=== PATIENT | female | born 1935 | race Caucasian/White ===

== ENCOUNTER 2020-10-01 11:00 | Outpatient (RCR) | payer MEDICARE, SELFPAY | END 2020-10-21 09:00 | disposition home or self-care (01) | LOC: HO.PT 11:00 | PROVIDERS: Visit Provider Otolaryngology | DX: H81.10 Benign paroxysmal vertigo, unspecified ear (principal) | CPT/HCPCS: 95992; 97110; 97112; 97161 ==

== ENCOUNTER 2020-10-08 15:50 | Outpatient (REF) | payer MEDICARE, SELFPAY ==
[2020-10-13 11:06] LABS: Methylmalonic Acid 126 nmol/L (87-318)
== END 2020-10-08 15:51 | disposition home or self-care (01) ==
LOC: HO.LAB 15:50
PROVIDERS: PCP Internal Medicine; Visit Provider Internal Medicine
DX: E53.8 Deficiency of other specified B group vitamins (principal)
CPT/HCPCS: 36415; 83921

== ENCOUNTER 2020-10-21 12:48 | Outpatient (REF) | payer MEDICARE, SELFPAY ==
[2020-10-21 13:59] LABS: Blood Urea Nitrogen 19 mg/dL (9-16); Estimated Glomerular Filt Rate 58
[2020-10-22 08:27] LABS: Lyme Abs Screen <0.90 index
== END 2020-10-21 12:49 | disposition home or self-care (01) ==
LOC: HO.LAB 12:48
PROVIDERS: PCP Internal Medicine; Visit Provider Psychiatry & Neurology Neurology
DX: G62.9 Polyneuropathy, unspecified (principal); H81.10 Benign paroxysmal vertigo, unspecified ear
CPT/HCPCS: 36415; 82565; 84520; 86617; 86618

== ENCOUNTER 2020-10-29 09:29 | Outpatient (REF) | payer MEDICARE, SELFPAY ==
--- NOTE | ~2020-10-29 | CT_ITS ---
EXAMINATION: CT CHEST, ABDOMEN AND PELVIS WITH CONTRAST. CLINICAL INFORMATION: Polymyalgia rheumatica. COMPARISON: None TECHNIQUE: 5 mm thin axial and reformatted 3 mm thin sagittal and coronal images of chest and abdomen were obtained following IV 85 mL Omnipaque 350. DLP 389 FINDINGS: Chest: The lungs are well-expanded and clear of acute pneumonic process. There is minimal dependent atelectatic changes in both lung bases. Mild reticular interstitial and subpleural thickening seen in the lingular segment. The thyroid lobes are symmetrical and normal. The central trachea and bronchi are widely patent. Heart size and the great vessels are normal caliber. There is no pericardial effusion seen. No abnormal size mediastinal or hilar lymphadenopathy seen. There is no pleural effusion or calcification. There is minimal left lingular pleural thickening. The axilla and chest wall appears unremarkable. Abdomen and pelvis: The liver is homogeneous in density, normal size and contour. No focal lesion or intrahepatic ductal dilatation seen. The gallbladder is unremarkable. Visualized spleen, pancreas and bilateral adrenal glands are unremarkable. Both kidneys nephrograms are symmetrical and normal size. There is a nonobstructive 6 radiopaque calculi upper pole right kidney and a 5 minute radiopaque calculi lower pole left kidney. No right-sided radiopaque calculi seen. There is no hydronephrosis. The abdominal aorta is normal course and caliber. No retrocrural lymph nodes or mass seen. There is scattered stool and oral contrast seen throughout the colon consistent moderate constipation. The IC junction and the small bowel loops are normal caliber. Appendix is not visualized with certainty. The stomach is nondistended. The abdominal wall appears unremarkable except for a tiny umbilical hernia containing fat. Imaging to the pelvis reveals unremarkable retroverted and anteflexed uterus. The urinary bladder appears unremarkable. There are phleboliths in the pelvis. No free fluid. Bone windows reveal loss of disc height with vacuum disc phenomenon at L1-L2 disc level with mild ventral spondylosis. No lytic or sclerotic process seen. CT/CT abdomen pelvis w con IMPRESSION: Mild apical interstitial and subpleural thickening in the lingular segments with dependent atelectatic changes in both lung bases. No consolidation, pulmonary nodule or mass seen. No abnormal mediastinal adenopathy. Moderate constipation. Nonobstructive radiopaque renal calculi upper and lower pole left kidney.
[2020-10-29] MEDS: iohexoL 350 MG/ML 100 ML INFUS..BTL IV (10:48)
== END 2020-10-29 09:30 | disposition home or self-care (01) ==
LOC: HO.CT 09:29
PROVIDERS: Visit Provider Internal Medicine
DX: M35.3 Polymyalgia rheumatica (principal)
CPT/HCPCS: 71260; 74177; Q9967

== ENCOUNTER 2020-10-30 07:16 | Outpatient (REF) | payer MEDICARE, SELFPAY ==
--- NOTE | ~2020-10-30 | MR_ITS ---
MRI OF THE BRAIN WITHOUT IV CONTRAST INDICATION: Ataxia. COMPARISON: None available. TECHNIQUE: Multiplanar multisequence MR imaging of the brain was obtained without IV contrast. FINDINGS: There is no hydrocephalus, extra-axial surface collection, or herniation. There is global cerebral volume loss and there is mild chronic microangiopathy. The major flow voids at the skull base are preserved. There is no acute infarct on diffusion-weighted imaging. There is no intracranial hemorrhage on the gradient recalled echo acquisition. The midline structures are normal. The cerebellar tonsils are normally positioned. The cerebellum and brainstem are normal. The craniocervical junction is normal. Osseous marrow signal intensity is homogenous. The visualized soft tissues are unremarkable. MR/MR head/brain wo con IMPRESSION: - No acute intracranial findings. - There is global cerebral volume loss and there is mild chronic microangiopathy.
[2020-10-30 09:38] LABS: Glucose Urine UA NEG (NEG); Leukocyte Esterase Urine 2+ (NEG); Nitrite Urine NEG (NEG); Urine Blood NEG (NEG); Urine Ketones NEG (NEG); Urine Protein NEG (NEG-TRACE)
[2020-10-30 09:40] LABS: Appearance Urine CLOUDY; Color Urine YELLOW
[2020-10-30 09:50] LABS: MANUAL DIFF FLAG NO
[2020-10-30 10:01] LABS: Bacteria Urine 1+ /LPF; RBC Urine 0-2 /HPF (0); Squamous Epithelial Cell Urine 3+ /LPF
[2020-10-30 10:07] LABS: Basophils Percent Auto 0.6 % (0-2); Eosinophils Absolute Auto 0.1 X10*3/uL (0.0-0.4); Eosinophils Percent Auto 1.3 % (0-4); Hematocrit 39.5 % (37-47); Hemoglobin 13.1 g/dl (12.0-16.0); Imm Gran Abs Auto 0.02 X10*3/uL (0.00-0.03); Imm Gran Pct Auto 0.3 % (0.0-0.4); Lymphocytes Absolute Auto 1.4 X10*3/uL (1.2-4.9); Lymphocytes Percent Auto 18.8 % (20-40); Mean Corpuscular HGB Conc 33.2 g/dl (31.0-35.0); Mean Corpuscular Volume 93.6 fL (80-98); Mean Platelet Volume 10.7 fL (9.4-12.3); Monocytes Absolute Auto 0.5 X10*3/uL (0.1-1.2); Monocytes Percent Auto 7.3 % (2-11); Neutrophils Absolute Auto 5.2 X10*3/uL (2.0-8.3); Neutrophils Percent Auto 71.7 % (45-73); Platelet Count 241 X10*3/uL (160-400); Red Blood Count 4.22 X10*6/uL (4.20-5.50); Red Cell Distribution Width 12.7 % (11.0-16.0); White Blood Count 7.2 X10*3/uL (4.8-10.8)
[2020-10-30 10:12] LABS: Alanine Aminotransferase 28 U/L (0-31); Albumin Level 4.2 g/dL (3.5-5.0); Alkaline Phosphatase 78 U/L (39-117); Anion Gap 12 (12-20); Aspartate Amino Transferase 23 U/L (5-31); Bilirubin Total 0.5 mg/dL (0.0-1.0); Blood Urea Nitrogen 14 mg/dL (9-16); C Reactive Protein 0.31 mg/dL (< or = 0.50); Carbon Dioxide 25 mmol/L (22-29); Chloride 105 mmol/L (96-108); Estimated Glomerular Filt Rate 45; Glucose Random 192 mg/dL (60-115); Potassium 4.2 mmol/L (3.3-5.1); Rheumatoid Factor < 15.0 IU/mL (<15.0); Sodium 138 mmol/L (135-145); Total Protein 7.5 g/dL (6.5-8.0)
[2020-10-30 10:34] LABS: Thyroid Stimulating Hormone 1.56 uIU/mL (0.32-4.0)
[2020-10-30 10:51] LABS: Erythrocyte Sedimentation Rate 18 MM/HR (0-20)
[2020-10-31 12:16] LABS: Lyme Abs Screen <0.90 index
[2020-11-03 15:07] LABS: Vitamin D 25-OH, D2 <4 ng/mL; Vitamin D 25-OH, D3 37 ng/mL; Vitamin D 25-OH, Total 37 ng/mL (30-100)
[2020-11-04 22:57] LABS: Cyclic Citrullinated Peptide <16 UNITS
== END 2020-10-30 07:17 | disposition home or self-care (01) ==
LOC: HO.MRI 07:16
PROVIDERS: Absent Provider Student in an Organized Health Care Education/Training Program; PCP Internal Medicine; Visit Provider Psychiatry & Neurology Neurology
DX: M35.3 Polymyalgia rheumatica (principal); R27.0 Ataxia, unspecified; R53.83 Other fatigue; R53.1 Weakness; Z79.899 Other long term (current) drug therapy
CPT/HCPCS: 36415; 70551; 80053; 81001; 82306; 82550; 84443; 85025; 85652; 86140; 86200; 86431; 86617; 86618; 99202

== ENCOUNTER 2020-11-03 15:35 | Outpatient (REF) | payer MEDICARE, SELFPAY ==
[2020-11-03 17:32] LABS: Glucose Urine UA 250 MG/DL (NEG); Leukocyte Esterase Urine 1+ (NEG); Nitrite Urine NEG (NEG); PH 5.5 (5.0-8.0); Specific Gravity - Urine 1.025 (1.005-1.025); Urine Blood NEG (NEG); Urine Ketones 15 MG/DL (NEG); Urine Protein TRACE MG/DL (NEG-TRACE)
[2020-11-03 18:03] LABS: Appearance Urine HAZY; Color Urine YELLOW
[2020-11-03 18:05] LABS: Bacteria Urine 1+ /LPF; Squamous Epithelial Cell Urine 2+ /LPF
== END 2020-11-03 15:36 | disposition home or self-care (01) ==
LOC: HO.LAB 15:35
PROVIDERS: PCP Internal Medicine; Visit Provider Internal Medicine
DX: R30.0 Dysuria (principal)
CPT/HCPCS: 81001; 87086

== ENCOUNTER 2020-11-10 11:27 | Outpatient (REF) | payer MEDICARE, SELFPAY ==
--- NOTE | ~2020-11-10 | XR_ITS ---
EXAMINATION: XR ANKLE, LEFT CLINICAL INFORMATION: Pain in unspecified ankle and joints. COMPARISON: None TECHNIQUE: AP, lateral, and mortise views of the left ankle. FINDINGS: The malleoli are intact and the ankle mortise is symmetric. The ankle joint shows no narrowing or erosive change. There is no visible ankle capsular effusion. No bony destructive process. Subtalar joint not well visualized likely related to positioning. XR/XR ankle LT 2V IMPRESSION: Unremarkable left ankle.
== END 2020-11-10 11:28 | disposition home or self-care (01) ==
LOC: HO.HOSX 11:27
PROVIDERS: Visit Provider Orthopaedic Surgery
DX: M25.572 Pain in left ankle and joints of left foot (principal)
CPT/HCPCS: 73600; 99212

== ENCOUNTER → 2020-11-11 09:38 | Outpatient (BNVA) | payer MEDICARE, SELFPAY | PROVIDERS: PCP Internal Medicine; Visit Provider Student in an Organized Health Care Education/Training Program | DX: M35.3 Polymyalgia rheumatica (principal) | CPT/HCPCS: 99212 ==

== ENCOUNTER 2021-01-14 13:07 | Day surgery (SDC) | payer MEDICARE, SELFPAY ==
[2021-01-08 10:16] VITALS: BMI 22.9
[2021-01-08 11:00] VITALS: BMI 22.9
--- NOTE | 2021-01-13 09:04 | P.CONAN_ITS ---
Documented by User: Natacha Rosenberg NP 01/13/21 09:05 HPI - Anesthesia Eval Consult details Narrative: 85yo F for Upper Endoscopy and Colonoscopy Prednisone daily PMFSH Active Problems Active Problems: All Active Problems (Updated 01/08/21 @ 11:06 by Victorina Davis RN) Cerumen impaction (Acute) Polymyalgia (Acute) Ankle pain (Acute) Ankle injury (Acute) Hypothyroidism (Acute) Hypertension (Acute) Dyslipidemia (Acute) Diabetes mellitus (Acute) Past Medical History Medical History Ankle injury COVID-19 vaccine series completed Diabetes mellitus Dyslipidemia Hx of breast cancer Hypertension Hypothyroidism Myocardial infarction Polymyalgia Family History Family History Father HTN (hypertension) Mother HTN (hypertension) Diabetes Gallbladder cancer Surgical History Surgical History H/O breast surgery H/O colonoscopy Hx of appendectomy Social History Social History Are you a primary acute care physical therapist to a significant other at home: No Do you presently have visiting nurse or other home services: No Alcohol intake: never Patient Tobacco Use Status: Never used Tobacco e-Cigarette/Vaping Use: Never Used Use of substances other than those prescribed or required for medical reasons: No Have you been hit, kicked, punched, or otherwise hurt by someone within the past year? If so, by whom?: No Are you DNR?: No Advance Directives: No (states is ) Advance Directives Information Provided: No Advance Directives on File: No Recently lost weight without trying: No Eating poorly because of decreased appetite: No Nutrition Risks: Surgical patient >75years Meds Allergies Allergy/AdvReac Type Severity Reaction Status Date / Time gabapentin Allergy Severe Rash Verified 11/11/20 09:42 chloroquine [CHLOROQUINE] Allergy Mild RASH Verified 11/11/20 09:42 Home Medications Medication Instructions Recorded Confirmed Last Taken Type aspirin 81 mg tablet,delayed 81 mg PO DAILY 10/30/20 01/08/21 01/10/21 History release atorvastatin 40 mg tablet 40 mg PO DAILY 10/30/20 01/08/21 Unknown History cholecalciferol (vitamin D3) 25 25 mcg PO DAILY 10/30/20 01/08/21 Unknown History mcg (1,000 unit) capsule levothyroxine 50 mcg capsule 50 mcg PO DAILY 10/30/20 01/08/21 01/14/21 History losartan 25 mg tablet 25 mg PO DAILY 10/30/20 01/08/21 Unknown History metformin 500 mg tablet 500 mg PO BID 10/30/20 01/08/21 Unknown History pyridoxine (vitamin B6) 100 mg 100 mg PO DAILY tab 10/30/20 01/08/21 Unknown History tablet sitagliptin 50 mg tablet (Januvia) 50 mg PO DAILY 10/30/20 01/08/21 Unknown History vit C 250 mg-vit E 200 unit-zinc 1 cap PO BID cap 10/30/20 01/08/21 Unknown History ox 12.5 sb-ciydpe-rtosmv-zeax capsule (ICaps AREDS2) insulin glargine 100 unit/mL (3 10 unit SUBCUT QPM 01/08/21 01/08/21 Unknown History mL) subcutaneous pen (Lantus Solostar U-100 Insulin) prednisone 20 mg tablet 20 mg PO BID 01/08/21 01/08/21 01/14/21 History Exam Exam Date and Time: January 13, 2021 0904 Height,Weight and Vital Signs: Height 5 ft 2 in Weight 57 kg Pertinent Lab Results Pertinent Lab Results: Laboratory Tests 10/30/20 10/30/20 09:15 09:15 WBC 7.2 Hgb 13.1 Hct 39.5 Plt Count 241 Sodium 138 Potassium 4.2 Chloride 105 Carbon Dioxide 25 BUN 14 Creatinine 1.15 Assessment and Plan Assessment Anesthesia Assessment: Chart Reviewed Documented by User: Judith Harris MD 01/14/21 14:36 [facility] Past Medical History Medical History Ankle injury COVID-19 vaccine series completed Diabetes mellitus Dyslipidemia Hx of breast cancer Hypertension Hypothyroidism Myocardial infarction Polymyalgia Family History Family History Father HTN (hypertension) Mother HTN (hypertension) Diabetes Gallbladder cancer Family history of problems with anesthesia: No Surgical History Surgical History H/O breast surgery H/O colonoscopy Hx of appendectomy History of Problems with Anesthesia: No Social History Social History Are you a primary acute care physical therapist to a significant other at home: No Do you presently have visiting nurse or other home services: No Alcohol intake: never Patient Tobacco Use Status: Never used Tobacco e-Cigarette/Vaping Use: Never Used Use of substances other than those prescribed or required for medical reasons: No Have you been hit, kicked, punched, or otherwise hurt by someone within the past year? If so, by whom?: No Are you DNR?: No Advance Directives: No (states is ) Advance Directives Information Provided: No Advance Directives on File: No Recently lost weight without trying: No Eating poorly because of decreased appetite: No Nutrition Risks: Surgical patient >75years Meds Allergies Allergy/AdvReac Type Severity Reaction Status Date / Time gabapentin Allergy Severe Rash Verified 11/11/20 09:42 chloroquine [CHLOROQUINE] Allergy Mild RASH Verified 11/11/20 09:42 Home Medications Medication Instructions Recorded Confirmed Last Taken Type aspirin 81 mg tablet,delayed 81 mg PO DAILY 10/30/20 01/08/21 01/10/21 History release atorvastatin 40 mg tablet 40 mg PO DAILY 10/30/20 01/08/21 Unknown History cholecalciferol (vitamin D3) 25 25 mcg PO DAILY 10/30/20 01/08/21 Unknown History mcg (1,000 unit) capsule levothyroxine 50 mcg capsule 50 mcg PO DAILY 10/30/20 01/08/21 01/14/21 History losartan 25 mg tablet 25 mg PO DAILY 10/30/20 01/08/21 Unknown History metformin 500 mg tablet 500 mg PO BID 10/30/20 01/08/21 Unknown History pyridoxine (vitamin B6) 100 mg 100 mg PO DAILY tab 10/30/20 01/08/21 Unknown History tablet sitagliptin 50 mg tablet (Januvia) 50 mg PO DAILY 10/30/20 01/08/21 Unknown History vit C 250 mg-vit E 200 unit-zinc 1 cap PO BID cap 10/30/20 01/08/21 Unknown History ox 12.5 vb-ivnkoa-rfpxpb-zeax capsule (ICaps AREDS2) insulin glargine 100 unit/mL (3 10 unit SUBCUT QPM 01/08/21 01/08/21 Unknown History mL) subcutaneous pen (Lantus Solostar U-100 Insulin) prednisone 20 mg tablet 20 mg PO BID 01/08/21 01/08/21 01/14/21 History Exam Airway Mallampati Class: II TM Dist: >3cm Neck ROM: Limited Assessment and Plan Assessment Anesthesia Assessment: Anesthesia Plan Discussed Final Anesthetic Review Family History of Problems with Anesthesia: No History of Problems with Anesthesia: No NPO: Yes ASA Class: III Final Preanesthetic Review: No Changes in Pt Med Stat, Meds/Allgs Chart Reviewed, Consent Obtained/Reviewed and Anes Risks/Benef Reviewed Patient Risk: Intermediate Procedure Risk: Low Assessment/Block/Sedation in SS: Assess/Block/Sedation-SS Anesthetic Plan Anesthetic Plan: MAC: Disposition: Standard PACU
[2021-01-14 13:48] LABS: Glucose, Whole Blood 173 mg/dL (60-115)
[2021-01-14 14:04] VITALS: BP 125/71; PULSE 86; RESP 16; TEMP 36.3; O2SAT 99
[2021-01-14] MEDS: Lactated Ringers 1,000 ML 100 ML IVCONT (14:08)
--- NOTE | 2021-01-14 14:30 | MHC.SHP ---
Pre-Procedural Eval Section A Date of Service: 01/14/21 The patient is an INPATIENT: No Changes since office visit: No Cold of Flu in the past 2 weeks, No New Medical Problems, No Changes in Medication and No Patient answered all questions The History & Physical has been completed within 30 days and I have reviewed it.: Yes Section B Chief Complaint: epigastric pain, Allergies: Allergies Allergy/AdvReac Type Severity Reaction Status Date / Time gabapentin Allergy Severe Rash Verified 11/11/20 09:42 chloroquine [CHLOROQUINE] Allergy Mild RASH Verified 11/11/20 09:42 Plan I have reviewed the history and physical and performed a pertinent physical examination on my patient. No changes have occurred unless specified.
[2021-01-14 15:25] VITALS: BP 77/41; PULSE 78; RESP 16; TEMP 36.4; O2SAT 98
--- NOTE | 2021-01-14 15:37 | P.BOP_ITS ---
Brief Operative Note Date of Service: 01/14/21 Pre-op diagnosis: epigastric pain, change in bowels Post-op diagnosis: same Procedure: EGD/colon Surgeon: Elvin Chand Anesthesia: MAC Was an Mental Health Worker used for this Procedure?: No Estimated blood loss (mL): 2 Pathology: other (bxs antrum,duodenum,egj,sigmoid) Condition: stable Disposition: PACU
[2021-01-14 15:40] VITALS: BP 111/72; PULSE 76; RESP 17; O2SAT 99
--- NOTE | 2021-01-14 18:33 | OP_ITS ---
SURGEON: Elvin Chand MD INDICATIONS: Epigastric pain and change in bowel function. PREOPERATIVE DIAGNOSIS: POSTOPERATIVE DIAGNOSIS: PROCEDURE PERFORMED: ESTIMATED BLOOD LOSS: COMPLICATIONS: ANESTHESIA: ASSISTANTS: SPECIMENS: PROCEDURES PERFORMED: 1. Upper endoscopy with biopsy. 2. Colonoscopy to the cecum with biopsy. MEDICATIONS: Monitored anesthesia care. DESCRIPTION OF PROCEDURE: History and physical performed. The risks and benefits of the procedure were explained to the patient. Informed consent was obtained. The patient was placed in left lateral decubitus position. The Olympus video gastroscope was introduced into the esophagus, stomach, and duodenum. Examination was performed and the scope was removed. She was repositioned for colonoscopy. Digital rectal exam was performed and was found to be normal. The Olympus pediatric video colonoscope was introduced into the rectum and advanced to the cecum with the assistance of abdominal wall pressure. Examination was performed and the scope was removed. She tolerated both procedures well and was returned to recovery area in stable condition. FINDINGS: UPPER ENDOSCOPY: The arytenoid cartilages were somewhat asymmetric. No mass was identified. Esophagus: The esophagus appeared normal. Biopsies were obtained from the EG junction, which was slightly irregular. Stomach: The stomach showed no evidence of masses, ulcers, or polyps. Antral biopsies were obtained to rule out H pylori. Duodenum: The bulb and second portion were normal. Biopsies were obtained from the second portion to evaluate for any evidence of malabsorption. COLONOSCOPY: The terminal ileum was not examined. There was a large amount of mucousy tenacious stool in the right colon, which clogged the scope and could not be suctioned completely. This limited the sensitivity examination for detection of small polyps. The area was washed and suctioned as best possible. No masses were identified. No polyps were seen. The remainder of the colon appeared normal without evidence of colitis. Random biopsies were obtained from the sigmoid to rule out microscopic or collagenous colitis. Retroflexed examination showed moderately large internal hemorrhoids. IMPRESSION: 1. Normal upper endoscopy. 2. Essentially normal colonoscopy, limited exam as above. RECOMMENDATIONS: 1. Follow up the biopsy results. 2. Further colonoscopy screening is not recommended based on age. MD LINN Nelson/MADDY / [id number]
== END 2021-01-14 16:10 | disposition home or self-care (01) ==
PROVIDERS: PCP Internal Medicine; Visit Provider Internal Medicine Gastroenterology
PROC: (CPT 45380; principal; 2021-01-14 14:30)
DX: R19.8 Other specified symptoms and signs involving the digestive system and abdomen (principal); R10.13 Epigastric pain; R15.2 Fecal urgency; K64.8 Other hemorrhoids; R53.1 Weakness; I10 Essential (primary) hypertension; I25.2 Old myocardial infarction; E11.9 Type 2 diabetes mellitus without complications; M35.3 Polymyalgia rheumatica; Z79.4 Long term (current) use of insulin; Z79.899 Other long term (current) drug therapy; Z85.3 Personal history of malignant neoplasm of breast; Z92.3 Personal history of irradiation; Z88.8 Allergy status to other drugs, medicaments and biological substances
CPT/HCPCS: 45380; 43239; 82947; 88305; 88342

== ENCOUNTER 2021-07-10 13:00 | Outpatient (RCR) | payer MEDICARE, SELFPAY | END 2021-07-10 14:54 | disposition home or self-care (01) | LOC: HO.PT 13:00 | PROVIDERS: Visit Provider Internal Medicine | DX: R42 Dizziness and giddiness (principal) | CPT/HCPCS: 95992; 97112; 97162 ==

== ENCOUNTER 2021-07-22 08:58 | Emergency (ER) | payer MEDICARE, SELFPAY ==
--- NOTE | ~2021-07-22 | CT_ITS ---
EXAMINATION: CT CHEST WITHOUT CONTRAST CLINICAL INFORMATION: Fall with left-sided rib pain COMPARISON: October 29, 2020 TECHNIQUE: Multidetector volumetric CT imaging of the chest was done. Axial MIP volume rendering provided. Sagittal and coronal reformatted images were obtained. This CT examination was performed using dose optimization techniques as appropriate, variously including the following: *Automated exposure control *Adjustment of mA and/or kV according to patient size (this includes techniques or standardized protocols for targeted exams where dose is matched to indication/reason for exam; i.e. extremities or head) *Use of iterative reconstruction technique DLP: 200 mGy-cm FINDINGS: LUNGS: Central airways are patent. There are scattered nonspecific regions of interstitial disease bilaterally some of which are new from prior study of October 29, 2020 and some with the appearance of chronic interstitial disease at the lung bases bilaterally. There are mild changes of centrilobular and paraseptal emphysema. There are scattered regions of mild cylindrical bronchiectasis appreciated. No acute confluent disease is seen. Calcified granulomas present. There are numerous sub-4 mm densities seen. MEDIASTINUM: Thyroid gland unremarkable. Heart normal size. There are aortic valve and coronary artery calcifications seen. No pericardial effusion. There are prominent but not pathologically enlarged mediastinal and right hilar lymph nodes. No thoracic aortic aneurysm is appreciated. PLEURA: There is no pleural effusion. No pleural mass or thickening. AXILLA: No lymphadenopathy. There is a region of some distortion seen within the lateral aspect of the left breast. It is difficult to say whether this represents a breast lesion or postsurgical change. UPPER ABDOMEN: Calcified liver granulomas seen. No splenic laceration or abnormal subcapsular fluid collection. There are some nonocclusive left renal upper pole calculi present largest of which measures 7 mm in diameter and lies approximately 7 cm from the posterior axillary line. The Hounsfield unit density is approximately 1500 OSSEOUS STRUCTURES: No acute destructive bony lesion is seen. No acute displaced left rib fractures are appreciated. There is multilevel degenerative disc disease present within the thoracic spine with no evidence of acute thoracic spine fracture. CT/CT chest wo con IMPRESSION: No acute displaced left rib fracture identified. No evidence of splenic laceration or subcapsular fluid collection. Old granulomatous disease. Acute and chronic interstitial disease as described with changes of centrilobular and paraseptal emphysema. Question left breast lesion as described. Fleischner guidelines were followed.
[2021-07-22 09:26] VITALS: BP 131/74; PULSE 78; RESP 16; TEMP 36.2; O2SAT 100; BMI 22.4
--- NOTE | 2021-07-22 09:32 | ED_ITS ---
HPI - Fall General Chief Complaint: General Medical Stated Complaint: fall/rib pain Time Seen by Provider: 07/22/21 09:18 Source: patient and family Mode of arrival: ambulatory Limitations: no limitations History of Present Illness complaint: fall Onset (ago): day(s) (3) Fall from: standing Fall witnessed: no Place fall occurred: home Loss of consciousness: none Prolonged down time: no Symptoms prior to fall: none Context: history of frequent falls (lost her balance no preceding symptoms) Location of injury: chest (left posterior ribs) Severity: mild Quality: dull and aching Associated symptoms (after fall): other (pain in left ribs) Related Data Home Medications Medication Instructions Recorded Confirmed aspirin 81 mg tablet,delayed 81 mg PO DAILY 10/30/20 01/08/21 release atorvastatin 40 mg tablet 40 mg PO DAILY 10/30/20 01/08/21 cholecalciferol (vitamin D3) 25 25 mcg PO DAILY 10/30/20 01/08/21 mcg (1,000 unit) capsule levothyroxine 50 mcg capsule 50 mcg PO DAILY 10/30/20 01/08/21 losartan 25 mg tablet 25 mg PO DAILY 10/30/20 01/08/21 metformin 500 mg tablet 500 mg PO BID 10/30/20 01/08/21 pyridoxine (vitamin B6) 100 mg 100 mg PO DAILY tab 10/30/20 01/08/21 tablet sitagliptin 50 mg tablet (Januvia) 50 mg PO DAILY 10/30/20 01/08/21 vit C 250 mg-vit E 200 unit-zinc 1 cap PO BID cap 10/30/20 01/08/21 ox 12.5 je-zoqmeo-jmleyp-zeax capsule (ICaps AREDS2) insulin glargine 100 unit/mL (3 10 unit SUBCUT QPM 01/08/21 01/08/21 mL) subcutaneous pen (Lantus Solostar U-100 Insulin) prednisone 20 mg tablet 20 mg PO BID 01/08/21 01/08/21 Previous Rx's Medication Instructions Recorded nitrofurantoin macrocrystal 100 mg 100 mg PO Q12H #10 cap 10/30/20 capsule lidocaine 4 % topical patch 1 patch TOPICAL DAILY PRN #10 ea 07/22/21 Allergies Allergy/AdvReac Type Severity Reaction Status Date / Time gabapentin Allergy Severe Rash Verified 11/11/20 09:42 chloroquine [CHLOROQUINE] Allergy Mild RASH Verified 11/11/20 09:42 Review of Systems Review of Systems: Constitutional : No Weight loss, No Fever, No Chills ENT/Mouth : No sore throat, No Rhinorrhea Eyes: No Eye Pain, No Swelling Cardiovascular : no Chest Pain, no SOB, no Dyspnea on Exertion, No Orthopnea, No Edema, No Palpitations Respiratory : No Cough, No Sputum Gastrointestinal : no Nausea, No Vomiting, No Diarrhea, No abdominal Pain, No Hematochezia, No Melena Genitourinary : No Dysuria, No Urinary Frequency Musculoskeletal : No joint pain, No Myalgias, No Joint Swelling, pos posterior r ib pain Skin : No Skin Lesions, No rash Neuro : No Weakness, No Numbness, No Dizziness, No Headache Psych : No Anxiety/Panic, No Depression Heme/Lymph: No Bruising, No Lymphadenopathy Endocrine : No Polyuria, No Polydipsia All other systems reviewed and are negative [facility] Past Medical History Medical History Ankle injury COVID-19 vaccine series completed Diabetes mellitus Dyslipidemia Hx of breast cancer Hypertension Hypothyroidism Myocardial infarction Polymyalgia Surgical History H/O breast surgery H/O colonoscopy Hx of appendectomy Family History Family History Father HTN (hypertension) Mother HTN (hypertension) Diabetes Gallbladder cancer Social History Social History Are you a primary coronary care unit nurse to a significant other at home: No Do you presently have visiting nurse or other home services: No Alcohol intake: never Patient Tobacco Use Status: Never used Tobacco e-Cigarette/Vaping Use: Never Used Advance Directives: No Advance Directives Information Provided: No Physical Exam Vital Signs: Vital Signs: Last Vital Signs Temp 97.2 F 07/22/21 09:26 Pulse 78 07/22/21 09:26 Resp 16 07/22/21 09:26 BP 131/74 07/22/21 09:26 Pulse Ox 100 07/22/21 09:26 BMI result Body Mass Index 22.4 Appearance: Alert. Oriented X3. No acute distress. Eyes: Pupils equal, round and reactive to light. ENT: Pharynx normal. Neck: Normal inspection. Neck supple. no midline ttp CVS: Normal heart rate and rhythm. Pulses normal. Chest wall: L posterior ribs - contusion seen ttp Respiratory: No respiratory distress. Breath sounds normal. Abdomen: Soft and non-tender. Back: no midline ttp Skin: Skin warm and dry. Normal skin color. Normal skin turgor. Extremities: No lower extremity edema. No calf ttp Neuro: Oriented X 3. No motor deficit. No sensory deficit. Course Course Course Narrative: refuses pain medications go home with had normal mammogram one month ago prior lumpectomy MDM - Fall MDM Narrative Medical decision making narrative: 85 yo female from home hx of HTN, HLD, PMR not on oral anticoagulation had mechanical fall 3 days ago landing on L ribs no other injuries no head strike c/o L rib pain since then no fevers, no cough - at this time will obtain CT chest to evaluate for acute trauma/rib fractures. Discharge Plan Discharge Clinical Impression: Contusion of rib on left side Qualifiers: Encounter type: initial encounter Qualified Code(s): S20.212A - Contusion of left front wall of thorax, initial encounter Patient Disposition: Home, Self-Care Instructions: Rib Contusion (ED) Additional Instructions: return to ED for any worsening symptoms or concerns LUNGS: Central airways are patent. There are scattered nonspecific regions of interstitial disease bilaterally some of which are new from prior study of October 29, 2020 and some with the appearance of chronic interstitial disease at the lung bases bilaterally. There are mild changes of centrilobular and paraseptal emphysema. There are scattered regions of mild cylindrical bronchiectasis appreciated. No acute confluent disease is seen. Calcified granulomas present. There are numerous sub-4 mm densities seen. MEDIASTINUM: Thyroid gland unremarkable. Heart normal size. There are aortic valve and coronary artery calcifications seen. No pericardial effusion. There are prominent but not pathologically enlarged mediastinal and right hilar lymph nodes. No thoracic aortic aneurysm is appreciated.? PLEURA: There is no pleural effusion. No pleural mass or thickening.? AXILLA: No lymphadenopathy. There is a region of some distortion seen within the lateral aspect of the left breast. It is difficult to say whether this represents a breast lesion or postsurgical change. UPPER ABDOMEN: Calcified liver granulomas seen. No splenic laceration or abnormal subcapsular fluid collection. There are some nonocclusive left renal upper pole calculi present largest of which measures 7 mm in diameter and lies approximately 7 cm from the posterior axillary line. The Hounsfield unit density is approximately 1500? OSSEOUS STRUCTURES: No acute destructive bony lesion is seen. No acute displaced left rib fractures are appreciated. There is multilevel degenerative disc disease present within the thoracic spine with no evidence of acute thoracic spine fracture.? CT/CT chest wo con IMPRESSION: No acute displaced left rib fracture identified. No evidence of splenic laceration or subcapsular fluid collection. ? Old granulomatous disease. ? Acute and chronic interstitial disease as described with changes of centrilobular and paraseptal emphysema. ? Question left breast lesion as described.? Prescriptions: New lidocaine 4 % adhesive patch,medicated 1 patch topical DAILY PRN (Reason: pain) Qty: 10 0RF Rx Instructions: may leave on for up to 12 hrs No Action nitrofurantoin macrocrystal 100 mg capsule 100 mg PO Q12H Qty: 10 0RF Rx Instructions: must administer with a meal/food prednisone 20 mg Tablet 20 mg PO BID 0RF Lantus Solostar U-100 Insulin 100 unit/mL (3 mL) Insulin Pen 10 unit SUBCUT QPM 0RF metformin 500 mg tablet 500 mg PO BID 0RF Januvia 50 mg tablet 50 mg PO DAILY 0RF losartan 25 mg tablet 25 mg PO DAILY 0RF atorvastatin 40 mg tablet 40 mg PO DAILY 0RF aspirin 81 mg tablet,delayed release (DR/EC) 81 mg PO DAILY 0RF levothyroxine 50 mcg capsule 50 mcg PO DAILY 0RF ICaps AREDS2 250 mg-200 unit -12.5 mg-1 mg capsule 1 cap PO BID 0RF pyridoxine (vitamin B6) 100 mg tablet 100 mg PO DAILY 0RF cholecalciferol (vitamin D3) 25 mcg (1,000 unit) capsule 25 mcg PO DAILY 0RF Referrals: Roro Wilson MD [Primary Care Provider] - 1 day (POSSIBLE LEFT BREAST LESION) Interventions: ED Discharge Assessment Last Done: 07/22/21 11:28 Discharge Date/Time: 07/22/21 11:30
[2021-07-22] MEDS: Lidocaine 4 % Patch ADH..PATCH 1 PATCH TRANSDERMA (09:50)
== END 2021-07-22 11:30 | disposition home or self-care (01) ==
PROVIDERS: Emergency Provider Emergency Medicine; PCP Internal Medicine
DX: S20.212A Contusion of left front wall of thorax, initial encounter (principal); W01.0XXA Fall on same level from slipping, tripping and stumbling without subsequent striking against object, initial encounter; E11.9 Type 2 diabetes mellitus without complications; E78.5 Hyperlipidemia, unspecified; I10 Essential (primary) hypertension; Z91.81 History of falling; Y93.89 Activity, other specified; Y92.019 Unspecified place in single-family (private) house as the place of occurrence of the external cause; Y99.9 Unspecified external cause status; Z79.4 Long term (current) use of insulin; Z79.02 Long term (current) use of antithrombotics/antiplatelets; Z79.82 Long term (current) use of aspirin
CPT/HCPCS: 71250; 99283; 99284

== ENCOUNTER 2021-08-11 08:49 | Outpatient (REF) | payer MEDICARE, SELFPAY ==
--- NOTE | ~2021-08-11 | MM_ITS ---
EXAMINATION: BONE DENSITOMETRY CLINICAL INDICATION: Osteoporosis. COMPARISON: Previous BD dated 10/03/2016 and baseline BD dated 08/01/2007. TECHNIQUE: Using a Phonetime DXA System (software version: 13.1) manufactured by [employer], dual-energy x-ray absorptiometry was performed of the lumbar spine and left hip. The images are of good technical quality. Summary results are attached. FINDINGS: AP SPINE L1-L3 (excluding L4): The data of L1-L4 has been changed to exclude the L4 vertebral body, because degenerative sclerosis at this level may cause overestimation of lumbar spine density. Current: BMD 0.886 g/cm2, Z-score -0.2, T-score -2.4, osteopenia, 3.7% decrease from previous, 6.3% decrease from baseline (<5% change is not significant). Prior: BMD 0.920 g/cm2. Baseline: BMD 0.946 g/cm2. LEFT FEMUR, NECK: Current: BMD 0.572 g/cm2, Z-score -0.8, T-score -3.3, osteoporosis. Prior: BMD 0.693 g/cm2. Baseline: BMD 0.694 g/cm2. LEFT FEMUR, TOTAL: Current: BMD 0.667 g/cm2, Z-score -0.2, T-score -2.7, osteoporosis, 10.5% decrease from previous, 16.4% decrease from baseline (<5% change is not significant). Prior: BMD 0.745 g/cm2. Baseline: BMD 0.798 g/cm2. IDENTIFIED RISK FACTORS: Height loss, secondary osteoporosis, glucocorticoids (chronic), menopause. HISTORY OF FRACTURE: None listed. MEDICATIONS: Vitamin D. MM/XR DEXA axial skeleton IMPRESSION: 1. DIAGNOSIS: Osteoporosis based on the lowest T-score value of -3.3 in the femoral neck applying World Health Organization criteria. 2. 10-YEAR FRACTURE RISK PREDICTION, FRAX: Major osteoporotic fracture (clinical spine, forearm, hip or shoulder) 36.8%. Hip fracture 18.8%. 3. Treatment Recommendations: NOF guidelines recommend consideration for treatment in postmenopausal women and men age 50 and older presenting with the following: -A hip or vertebral (clinical or morphometric) fracture. -T-score less than or equal to -2.5 at the femoral neck or spine after appropriate evaluation to exclude secondary causes. -Low bone mass at the hip or spine and a 10-year fracture probability by FRAX of greater than or equal to 3% for hip fracture or greater than or equal to 20% for major osteoporotic fracture based on the [place] adapted WHO algorithm. 4. Other Recommendations: All treatment decisions require clinical judgment and consideration of individual patient factors, including patient preferences, comorbidities, previous drug use, risk factors not captured in the FRAX model (e.g. frailty, falls, vitamin D deficiency, increased bone turnover, interval significant decline in bone density) and possible under or overestimation of fracture risk by FRAX. Additional medical evaluation for secondary cause of low bone mineral density may be appropriate. FUTURE SCAN RECOMMENDATION: People with diagnosed cases of osteoporosis or at high risk for fracture should have regular bone mineral density tests. For patients eligible for Medicare, routine testing is allowed once every 2 years. The testing frequency can be increased to one year for patients who have rapidly progressing disease, those who are receiving or discontinuing medical therapy to restore bone mass, or have additional risk factors.
== END 2021-08-11 08:50 | disposition home or self-care (01) ==
LOC: HO.MAMMO 08:49
PROVIDERS: Visit Provider Internal Medicine Endocrinology, Diabetes & Metabolism
DX: Z13.820 Encounter for screening for osteoporosis (principal); M81.0 Age-related osteoporosis without current pathological fracture; Z78.0 Asymptomatic menopausal state; E27.49 Other adrenocortical insufficiency; Z79.899 Other long term (current) drug therapy
CPT/HCPCS: 77080

== ENCOUNTER 2021-11-25 07:57 | Outpatient (REF) | payer MEDICARE, SELFPAY ==
--- NOTE | ~2021-11-25 | XR_ITS ---
EXAMINATION: XR HAND, LEFT CLINICAL INFORMATION: Pain COMPARISON: Previous x-ray July 2014 TECHNIQUE: PA, lateral, and oblique views of the left hand. FINDINGS: Bone alignment is normal. No fracture or dislocation is seen. There is severe arthritis at the first [facility] joint. There is mild joint space narrowing at the DIP joints. Soft tissues are unremarkable. 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
== END 2021-11-25 07:58 | disposition home or self-care (01) ==
LOC: HO.HOSX 07:57
PROVIDERS: Visit Provider Orthopaedic Surgery
DX: M65.312 Trigger thumb, left thumb (principal); M18.12 Unilateral primary osteoarthritis of first carpometacarpal joint, left hand
CPT/HCPCS: 20550; 73130; 99202; J1100

== ENCOUNTER → 2022-01-19 10:36 | Outpatient (BNVA) | payer MEDICARE, SELFPAY | PROVIDERS: PCP Internal Medicine; Visit Provider Orthopaedic Surgery | DX: M18.12 Unilateral primary osteoarthritis of first carpometacarpal joint, left hand (principal); M65.312 Trigger thumb, left thumb | CPT/HCPCS: 20550; 99212; J1100 ==

== ENCOUNTER 2022-02-22 07:47 | Day surgery (SDC) | payer MEDICARE, SELFPAY ==
[2022-02-16 14:53] VITALS: BMI 22.4
[2022-02-22 08:29] VITALS: BP 127/58; PULSE 78; RESP 18; TEMP 36.6; O2SAT 99
--- NOTE | 2022-02-22 10:36 | MHC.SHP ---
Pre-Procedural Eval Section A Date of Service: 02/22/22 The patient is an INPATIENT: No Changes since office visit: No Cold of Flu in the past 2 weeks, No New Medical Problems, No Changes in Medication and No Patient answered all questions The History & Physical has been completed within 30 days and I have reviewed it.: Yes Section B Chief Complaint: Trigger thumb, left thumb Allergies: Allergies Allergy/AdvReac Type Severity Reaction Status Date / Time gabapentin Allergy Severe Rash Verified 02/22/22 08:30 chloroquine [CHLOROQUINE] Allergy Mild RASH Verified 02/22/22 08:30 Exam Exam Comment: visible locking and catching of the right thumb with tenderness over the right thumb A1 tenisha. Plan Diagnosis/Plan: Change I have reviewed the history and physical and performed a pertinent physical examination on my patient. No changes have occurred unless specified. The patient had been scheduled for a left trigger thumb but expresses that her left trigger thumb has improved following a steroid injection. She says that her right thumb is bothering her much more and she would like to proceed instead with the right trigger thumb release. Indeed she has locking and catching that is visible palpable in the right thumb and she has tenderness over the right thumb A1 tenisha. I have made an addendum to her most recent clinic note, and we have changed the consent to reflect that we are proceeding with a right trigger thumb release.
--- NOTE | 2022-02-22 10:38 | P.OP_ITS ---
Operative Note Operative Note Date of Service: 02/22/22 Narrative: Operative Note Preop diagnosis: 1. Right thumb Trigger finger Postop diagnosis: 1. right thumb Trigger finger Procedure: 1. right thumb A1 tenisha release Surgeon: Swathi Cheek MD Anesthesia: local block using 1% lidocaine with epinephrine Findings: No locking or catching after A1 tenisha release EBL: Less than 5 mL Tourniquet time: None Specimens: None Complications: None Disposition: Brought to recovery room in stable condition Plan: Follow-up for 10-14 days for wound check and suture removal Indications: The patient is 86 years old, with a right thumb trigger finger that has been unresponsive to nonoperative management. The risks and benefits of operative treatment including but not limited to risk of damage to blood vessels, nerves, tendons, infection, persistent pain, persistent symptoms, recurrence or possible need for additional surgery were discussed with the patient and the patient wishes to proceed with surgery. Procedure: Once consent was obtained a local block was performed in the preop area using a combination of 1% lidocaine with epinephrine. The patient was then brought back to the operating suite and placed on the operative table in supine position. A tourniquet was applied to the proximal aspect of the right upper extremity and the limb was prepped and draped in a standard surgical fashion. Once assured that we had a good block, a 1.5 cm oblique incision was made centered over the A1 tenisha of the right thumb . The incision was made through the skin to the subcutaneous tissues using a #15 blade. Careful dissection was made down to the level of the A1 tenisha using tenotomy scissors, with care being taken to protect the nearby neurovascular structures. A longitudinal incision was made in the A1 tenisha 1st using a #15 blade, then using tenotomy scissors under direct visualization. The A1 tenisha was noted to be thickened. Following our A1 tenisha release, we no longer saw any locking or catching of the digit wi th flexion and extension. Once satisfied with our A1 tenisha release the wound was copiously irrigated with normal saline and hemostasis was obtained with a brief period of local pressure. The skin edges were reapproximated with some 5.0 nylon suture material and a sterile dressing was applied. The patient appears to have tolerated the procedure well and with no complications. All digits were well vascularized at the conclusion of the case.
--- NOTE | 2022-02-22 10:45 | PC.NURSE ---
Dr. bang saw patient at bedside and patient stated that left thumb is mobile and has no pain. Patient complained of right thumb and dr. bang agreed to do the surgery on the right today instead of the left. all paperwork, orders and consent reflect this change. all printed and in chart. patient agrees on change to right thumb today.
[2022-02-22 11:56] VITALS: BP 121/61; PULSE 73; RESP 16; O2SAT 100
== END 2022-02-22 11:57 | disposition home or self-care (01) ==
PROVIDERS: PCP Internal Medicine; Visit Provider Orthopaedic Surgery
PROC: (CPT 26055; principal; 2022-02-22 09:40)
DX: M65.312 Trigger thumb, left thumb (principal); M18.12 Unilateral primary osteoarthritis of first carpometacarpal joint, left hand; M35.3 Polymyalgia rheumatica; E11.9 Type 2 diabetes mellitus without complications; E78.5 Hyperlipidemia, unspecified; E03.9 Hypothyroidism, unspecified; I10 Essential (primary) hypertension; Z79.82 Long term (current) use of aspirin; Z79.84 Long term (current) use of oral hypoglycemic drugs; Z79.899 Other long term (current) drug therapy; I25.2 Old myocardial infarction; Z88.8 Allergy status to other drugs, medicaments and biological substances; Z85.3 Personal history of malignant neoplasm of breast
CPT/HCPCS: 26055; J0171; J2795

== ENCOUNTER → 2022-03-09 11:19 | Outpatient (BNVA) | payer MEDICARE, SELFPAY | PROVIDERS: PCP Internal Medicine; Visit Provider Orthopaedic Surgery | DX: Z47.89 Encounter for other orthopedic aftercare (principal); M18.12 Unilateral primary osteoarthritis of first carpometacarpal joint, left hand; Z98.890 Other specified postprocedural states | CPT/HCPCS: 99212 ==

== ENCOUNTER 2023-01-06 13:34 | Outpatient (AMB) | payer MEDICARE, SELFPAY ==
--- NOTE | 2023-01-06 13:51 | MHC.OFFVIS ---
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 States her neuropathy is very bad and she is afraid of falling, pt uses cane to ambulate. 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 She reports that she has numbness and tingling of bilateral feet. They are constant source of pain. She denies any association with ambulation. She reports that at time she can walk over half a mi with no issues. She says it has progressively getting worse and it is affecting her daily lifestyle. She now presents to us for vascular evaluation. Of note she is a nonsmoker. She has been a diabetic for nearly 10 years but reports that it is fairly well controlled. In addition she has a history of coronary artery disease with prior history of PA. She also reports that she has had nearly a 25 lb weight loss as she does not enjoy eating anymore. She also admits to use of CBD gummies to help her relax as well. was present at time of visit [facility] Medical History Ankle injury COVID-19 vaccine series completed Diabetes mellitus Dyslipidemia Hx of breast cancer Hypertension Hypothyroidism Myocardial infarction Polymyalgia Surgical History H/O breast surgery H/O colonoscopy History of esophagogastroduodenoscopy (EGD) Hx of appendectomy Family History Father HTN (hypertension) Mother HTN (hypertension) Diabetes Gallbladder cancer Social History Are you a primary palliative care nurse to a significant other at home: No Do you presently have visiting nurse or other home services: No Alcohol intake: never Patient Tobacco Use Status: Never used Tobacco e-Cigarette/Vaping Use: Never Used Current occupational status: employed 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 Review of Systems Const All systems reviewed & are unremarkable except as noted in HPI and below Reports no additional complaints ENT Reports Normal hearing present Card Denies chest pain, Denies chest pain at rest, Denies chest pain with activity and Denies pedal edema Resp Denies cough GI Denies abdominal pain Musc Denies abnormal gait, Denies muscle cramps and Denies radiating pain into limb Skin/Breast Denies skin ulcer and Denies wounds Neuro Reports Normal hearing present and Denies abnormal gait Psych Reports no additional complaints Physical Exam Vital Signs: BMI result Body Mass Index 21.9 Const General: cooperative, healthy appearing and comfortable Orientation/consciousness: oriented to person, oriented to place and oriented to time HEENT Head: Yes normal to inspection Neck Neck: Yes normal visual inspection Carotids: no bruits Chest Chest palpation & inspection: normal inspection of the chest Resp Effort & Inspection: normal respiratory effort and able to speak in complete sentences Auscultation: clear to auscultation bilaterally, no crackles, no rales, no rhonchi and no wheezes Cardio Other: Bounding palpable DP and PT pulses Rate: regular rate Rhythm: regular rhythm Heart sounds: S1 normal heart sound present and S2 normal heart sound present Bruits: no carotid bruits Peripheral pulses: Peripheral pulses 2+ throughout GI Inspection: Yes normal to inspection Skin Other: +1 to +2 edema, bilateral medial calf skin discoloration Wounds: no wounds Hair: normal Neuro General: oriented to person, oriented to place and oriented to time Cranial nerves: Yes CN's II-XII intact bilaterally and Yes Normal hearing present Cognition (Neuro): normal cognition Motor exam (neuro): 5/5 motor strength present throughout Extrem Other: venous exam: No significant superficial varicosities or spider telangiectasias, minimal edema General: No clubbing, No cyanosis and No edema Psych Appearance: grossly normal Mental Status: mental status grossly normal Speech and movement: Normal speech and movement present Assessment & Plan Assessment & Plan (1) Varicose veins of right lower extremity with inflammation: Code(s): I83.11 - Varicose veins of right lower extremity with inflammation Plan: She does have the stigmata of venous disease inclusive of discoloration of the medial aspects of her legs along with the edema. I did discuss these findings with the patient and her . I will work her up for venous disease. I did inform them that this may help with the overall edema and discomfort but will not resolve the pain that she is having in her feet. (2) Leg pain: Code(s): M79.606 - Pain in leg, unspecified Plan: Unclear etiology of lower extremity pain. It is not vascular in nature as she does have bounding palpable DP and PT pulses. At the time of my exam she was complaining of feet pain along with active restless leg syndrome which I visualized. I do feel this may be more neurogenic in nature. She did have a prior neurology visit which was only 1 time and she subsequently did not follow-up. I did reiterate that she would benefit from a neurology evaluation which they report has already been set up by the primary care team. They are waiting for a call back. Once again I do not believe that the majority of her issues are vascular in nature. I did discuss this in detail with them. We will treat her for venous disease. She will follow up with us after testing. Thank you for allowing us to assist in her care. If there are any questions or concerns please do not hesitate to contact us. Orders: Orders US venous duplex LE BI 1 Week I83.11 - Varicose veins of right lower extremity with inflammation Coding Level of Care Code New Pt Level 4 (10483) Diagnoses Varicose veins of right lower extremity with inflammation I83.11 Leg pain M79.606
[2023-01-06 13:54] VITALS: BMI 21.9
== END 2023-01-06 14:43 | disposition home or self-care (01) ==
PROVIDERS: PCP Internal Medicine; Visit Provider Surgery Vascular Surgery
DX: I83.11 Varicose veins of right lower extremity with inflammation (principal); M79.605 Pain in left leg; M79.604 Pain in right leg
CPT/HCPCS: 99204

== ENCOUNTER → 2023-01-06 13:34 | Outpatient (BNVA) | payer MEDICARE, SELFPAY | PROVIDERS: PCP Internal Medicine; Visit Provider Surgery Vascular Surgery | DX: I83.11 Varicose veins of right lower extremity with inflammation (principal); M79.606 Pain in leg, unspecified | CPT/HCPCS: 99202 ==

== ENCOUNTER 2023-01-11 12:55 | Outpatient (REF) | payer MEDICARE, SELFPAY ==
--- NOTE | ~2023-01-11 | US_ITS ---
EXAMINATION: US LOWER EXTREMITY VENOUS (REFLUX EXAM), BILATERAL CLINICAL INFORMATION: Chronic venous insufficiency with lower extremity varicose veins and inflammation COMPARISON: 11/17/2009 TECHNIQUE: Color flow triplex imaging and compression Doppler was performed to evaluate both the deep and the superficial systems bilaterally. To evaluate the superficial system, the examination was performed in the upright position. Color-flow Doppler ultrasound and compression ultrasound were utilized. In addition, maneuvers were utilized to demonstrate reflux. FINDINGS: 1. DEEP VENOUS ULTRASOUND OF THE RIGHT LOWER EXTREMITY: Common Femoral Vein: Compressible, normal respiratory variation and augmented flow. Femoral Vein: Compressible, normal color flow and augmentation. Popliteal Vein: Compressible, normal augmentation. Deep Reflux: There is no evidence of reflux in the deep system in either the common femoral vein or the popliteal vein. There is no evidence of a Jewell's cyst. 2. SUPERFICIAL ULTRASOUND WITH DOPPLER OF RIGHT LOWER EXTREMITY: GREAT SAPHENOUS VEIN: Saphenofemoral Junction: 0.7 cm; Reflux: 0 ms Proximal Thigh: 0.2 cm; Reflux: 0 ms Mid Thigh: 0.2 cm; Reflux: 0 ms Above Knee: 0.3 cm; Reflux: 0 ms At Knee: 0.4 cm; Reflux: 0 ms Below Knee: 0.3 cm; Reflux: 0 ms Mid Calf: 0.3 cm; Reflux: 1652 ms Ankle: 0.3 cm; Reflux: 0 ms DUPLICATED MEDIAL GREAT SAPHENOUS VEIN: Diameter: None imaged Reflux: NA DUPLICATED LATERAL GREAT SAPHENOUS VEIN: Diameter: 0.2 cm Reflux: None SMALL SAPHENOUS VEIN: Proximal: 0.1 cm; Reflux: 0 ms Distal: 0.2 cm; Reflux: 0 ms VEIN OF GIACOMINI: Size: NA Reflux: NA PERFORATORS: Location: None imaged Size: NA Reflux: NA VARICOSITIES: Location: None imaged Size: NA Reflux: NA 3. DEEP VENOUS ULTRASOUND OF THE LEFT LOWER EXTREMITY: Common Femoral Vein: Compressible, normal respiratory variation and augmented flow. Femoral Vein: Compressible, normal color flow and augmentation. Popliteal Vein: Compressible, normal augmentation. Deep Reflux: There is no evidence of reflux in the deep system in either the common femoral vein or the popliteal vein. There is no evidence of a Jewell's cyst. 4. SUPERFICIAL ULTRASOUND WITH DOPPLER OF LEFT LOWER EXTREMITY: GREAT SAPHENOUS VEIN: Saphenofemoral Junction: 0.8 cm; Reflux: 0 ms Proximal Thigh: 0.4 cm; Reflux: 0 ms Mid Thigh: 0.2 cm; Reflux: 0 ms Above Knee: 0.2 cm; Reflux: 0 ms At Knee: 0.2 cm; Reflux: 0 ms Below Knee: 0.2 cm; Reflux: 0 ms Mid Calf: 0.1 cm; Reflux: 0 ms Ankle: 0.2 cm; Reflux: 0 ms DUPLICATED MEDIAL GREAT SAPHENOUS VEIN: Diameter: None imaged Reflux: NA DUPLICATED LATERAL GREAT SAPHENOUS VEIN: Diameter: 0.3 cm Reflux: None SMALL SAPHENOUS VEIN: Proximal: 0.2 cm; Reflux: 0 ms Distal: 0.2 cm; Reflux: 0 ms VEIN OF GIACOMINI: Size: NA Reflux: NA PERFORATORS: Location: None imaged Size: NA Reflux: NA VARICOSITIES: Location: None Imaged Size: NA Reflux: NA US/US venous duplex LE BI IMPRESSION: Right: Focal segmental reflux in the mid the calf great saphenous. Normal examination otherwise Left: No significant reflux in the great saphenous vein or small saphenous
== END 2023-01-11 12:56 | disposition home or self-care (01) ==
LOC: HO.US 12:55
PROVIDERS: PCP Internal Medicine; Visit Provider Surgery Vascular Surgery
DX: I83.11 Varicose veins of right lower extremity with inflammation (principal)
CPT/HCPCS: 93970

== ENCOUNTER 2023-01-20 19:38 | Emergency (ER) | payer MEDICARE, SELFPAY ==
[2023-01-20] VITALS (7 sets, daily range): BP systolic 149–192; BP diastolic 65–81; PULSE 70–86; RESP 16–19; TEMP 36.7–36.9; O2SAT 96–97; BMI 22.5
--- NOTE | ~2023-01-20 | CT_ITS ---
EXAMINATION: CT HEAD WITHOUT CONTRAST CT CERVICAL SPINE WITHOUT CONTRAST CLINICAL INFORMATION: Dizziness. Posterior cervical spine pain. COMPARISON: Most recent MR brain dated 10/30/[address] head/cervical spine dated 12/30/2018. TECHNIQUE: Contiguous axial imaging was performed from the skull base to vertex without intravenous administration of contrast. Contiguous axial CT images of the cervical spine were obtained without contrast. Sagittal and coronal reformats were provided and reviewed. This CT examination was performed using dose optimization techniques as appropriate, variously including the following: *Automated exposure control. *Adjustment of mA and/or kV according to patient size (this includes techniques or standardized protocols for targeted exams where dose is matched to indication/reason for exam; i.e. extremities or head). *Use of iterative reconstruction technique. DLP: 944 mGy-cm. FINDINGS: HEAD: There is no evidence of acute intracranial hemorrhage or territorial infarction. No abnormal mass effect or midline shift is seen. Flor to white matter differentiation is well preserved. No extra-axial fluid collections are identified. Prominence of the ventricles and sulci, consistent with diffuse cerebral atrophy. Hypoattenuation of the periventricular white matter, consistent with chronic microvascular ischemic disease. The osseous structures and soft tissues are normal. The mastoid air cells and visualized portions of the paranasal sinuses are well aerated. CERVICAL SPINE: Normal vertebral body alignment. The normal cervical lordosis is maintained. No acute fracture or subluxation. No loss of vertebral body height. Multilevel loss of intervertebral disc height with degenerative endplate changes, most severe at C6-C7. Unremarkable facet joints. No lytic or blastic osseous lesion. Unremarkable prevertebral soft tissues. No abnormal soft tissue mass or fluid collection. Thyroid within normal limits. Visualized lung apices are clear. Multilevel bilateral neural foraminal stenosis, severe at C6-C7. CT/CT cervical spine wo IV con IMPRESSION: 1. HEAD: No acute intracranial hemorrhage or mass effect. Diffuse cerebral atrophy and chronic microvascular ischemic disease. 2. CERVICAL SPINE: No acute fracture or subluxation. Multilevel degenerative disc disease with bilateral neural foraminal stenosis, most severe at C6-C7.
--- NOTE | 2023-01-20 19:51 | ECG_ITS ---
Test Reason : DIZZINESS Blood Pressure : / mmHG Vent. Rate : 084 BPM Atrial Rate : 084 BPM P-R Int : 158 ms QRS Dur : 070 ms QT Int : 390 ms P-R-T Axes : 044 -04 021 degrees QTc Int : 460 ms Normal sinus rhythm Normal ECG When compared with ECG of 30-APR-2018 14:19, Heart rate has decreased Referred By: Julio Osborne Electronically Signed By:GUTIERREZ MACK
--- NOTE | 2023-01-20 19:52 | ED_ITS ---
HPI - General Adult General Chief complaint: Dizziness Stated complaint: dizziness Time Seen by Provider: 01/20/23 20:04 Source: patient Mode of arrival: ambulatory Limitations: no limitations History of Present Illness HPI narrative: patient is an 87-year-old female presents emergency department for evaluation of dizziness. It is described as a spinning sensation, made worse if she is bending forward, and feels as though she is going to fall. Position changing of her head makes her symptoms worse. She is also endorsing mild neck pain most notable with movement. Denies neck stiffness. Denies headache, vision changes, fevers, chills, chest pain, shortness of breath, difficulty breathing, numbness or tingling of the extremities. She denies any recent injury or trauma. Her symptoms started at 13:00 today, severe in onset, intermittent tinnitus of the right ear Related Data Home Medications Medication Instructions Recorded Confirmed atorvastatin 40 mg tablet 40 mg PO DAILY 10/30/20 02/22/22 cholecalciferol (vitamin D3) 25 25 mcg PO DAILY 10/30/20 02/22/22 mcg (1,000 unit) capsule levothyroxine 50 mcg capsule 50 mcg PO DAILY 10/30/20 02/22/22 losartan 25 mg tablet 25 mg PO DAILY 10/30/20 02/22/22 metformin 500 mg tablet 500 mg PO BID 10/30/20 02/22/22 sitagliptin phosphate 50 mg tablet 50 mg PO DAILY 10/30/20 02/22/22 (Januvia) vit C 250 mg-vit E 200 unit-zinc 1 cap PO BID 10/30/20 02/22/22 ox 12.5 [id number] capsule (ICaps AREDS2) pregabalin 25 mg capsule (Lyrica) 25 mg PO DAILY 01/06/23 Allergies Allergy/AdvReac Type Severity Reaction Status Date / Time gabapentin Allergy Severe Rash Verified 01/06/23 14:02 chloroquine [CHLOROQUINE] Allergy Mild RASH Verified 01/06/23 14:02 Review of Systems Review of Systems: Yes all other systems are reviewed and are negative [facility] Past Medical History Attestation statement: The following information was validated with the patient. Source: old records reviewed Medical History Ankle injury COVID-19 vaccine series completed Diabetes mellitus Dyslipidemia Hx of breast cancer Hypertension Hypothyroidism Myocardial infarction Polymyalgia Vertigo Surgical History H/O breast surgery H/O colonoscopy History of esophagogastroduodenoscopy (EGD) Hx of appendectomy Family History Family History Father HTN (hypertension) Mother HTN (hypertension) Diabetes Gallbladder cancer Social History Social History Are you a primary manager intensive care to a significant other at home: No Do you presently have visiting nurse or other home services: No Alcohol intake: never Patient Tobacco Use Status: Never used Tobacco e-Cigarette/Vaping Use: Never Used Substance Use Type: Other Current occupational status: employed 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 Physical Exam ED Vital Signs: Vital Signs - 24 hr 01/20/23 19:42 01/20/23 20:30 01/20/23 21:26 Temperature 98.2 F 98.1 F Pulse Rate 86 73 71 Respiratory Rate 18 16 Blood Pressure 192/81 H 159/74 H 164/65 H Pulse Oximetry 96 97 Oxygen Delivery Method Room Air Room Air 01/20/23 21:28 01/20/23 21:29 01/20/23 22:27 Temperature 98.4 F Pulse Rate 70 85 70 Respiratory Rate 16 Blood Pressure 166/76 H 159/72 H Pulse Oximetry 97 Oxygen Delivery Method Room Air 01/20/23 23:38 Temperature Pulse Rate 75 Respiratory Rate 19 Blood Pressure 149/69 H Pulse Oximetry 97 Oxygen Delivery Method BMI result Body Mass Index 22.5 Appearance: Alert.?Oriented to person, place and time. No acute distress.?Normal affect. Eyes: Pupils equal, round and reactive to light.? ENT: Pharynx normal.?? Neck: Normal inspection.? Neck supple.?? CVS: Heart sounds normal. Normal heart rate and rhythm.? Pulses normal.?? Respiratory: No respiratory distress.? Lung sounds clear to auscultation bilaterally?? Abdomen: Soft and non-tender. Normoactive bowel sounds. Skin: Skin warm and dry.? Normal skin color.? ? Extremities: No lower extremity edema.? No calf ttp? Neuro: No focal neurological deficit observed, CN II-XII intact, normal sensory observed, normal coordination observed. Level of consciousness: Appropriate for age. Motor strength: Proximal right upper extremity 5 /5, distal right upper extremity 5 /5, proximal left upper extremity 5 /5, distal left upper extremity 5 /5, right lower extremity 5 /5, left lower extremity 5 /5.? Speech: Normal, Gait: Normal, [id number] test: Normal, [id number] test: Normal. Course Course Course Narrative: RME: 87 yold female presents to the ED for dizziness describes as she is spinning. Patient also states posterior neck slight painful. patinet states no recent trauma or fever. patient states she she changes position of her head she feels like she is about to fall. labs, EKG, head CT, and cervical spine CT scan ordered. Reevaluation(s) Reevaluation #1: CBC reveals no leukocytosis, mild normocytic anemia not meeting any transfusion criteria. CMP is overall unremarkable. Troponin <2.7, EKG revealing normal sinus rhythm with ventricular rate of 84, normal TN interval, QTC 460, no ST elevation, no ST depression, no T-wave inversion, no apparent arrhythmia, unlikely ACS. Time: 21:15 Reevaluation #2: Patient declining meclizine at this time, expressing concern about medication interactions. I did review her medications with her, and potential interactions with Lyrica, she declines at this time and would like to follow-up with her primary care provider which is reasonable. She is ambulatory with steady gait. Cerebellar function testing was normal, based on history and physical examination seems more consistent with BPPV versus vasovagal episode as opposed to cerebellar stroke. CT of the head without acute intracranial process, CT of the cervical spine with multilevel degenerative disc disease and bilateral neural foraminal stenosis most severe at C6-C7 Time: 22:52 Medications Administered Discontinued Medications Generic Name Dose Route Start Last Admin Trade Name Freq PRN Reason Stop Dose Admin Meclizine HCl 25 mg 01/20/23 22:44 01/20/23 22:51 Meclizine Hcl 25 Mg Tablet PO 01/20/23 22:45 Not Given ONCE ONE Medical Decision Making Medical Decision Making MDM Narrative: Patient is an 87-year-old female with past medical history of polymyalgia, hypothyroidism, hypertension, dyslipidemia, diabetes who presents emergency department for evaluation of dizziness as per HPI. At the time of my examination she is overall well-appearing, nontoxic, afebrile. She has no focal neurological deficits, no meningismus. Will obtain CBC to evaluate for leukocytosis/ anemia, CMP and lipase to evaluate for abnormal electrolytes /abnormal renal function/ abnormal hepatic/biliary function, EKG and troponin to evaluate for ischemia/ACS. CT of head and cervical spine, orthostatic vital signs and Urinalysis. Differential Diagnosis Differential Diagnoses: The differential diagnosis associated with the presentation includes (Orthostatic hypotension, vasovagal near-syncope, intracranial mass, ICH, arrhythmia, ACS) Admission/Observation Consideration of admission/observation: Escalation of care including admission/observation considered (I considered admission for dizziness, see course narrative for further detail) Lab Data MDM Lab Attestation statement: I reviewed the patient's lab results. (See course narrative for further detail) 01/20/23 20:25 01/20/23 20:25 Labs: Lab Results 01/20/23 01/20/23 01/20/23 Range/Units 20:25 20:25 20:25 WBC 6.8 (4.8-10.8) X10*3/uL RBC 3.77 L (4.20-5.50) X10*6/uL Hgb 11.9 L (12.0-16.0) g/dl Hct 35.6 L (37.0-47.0) % MCV 94.4 (80.0-98.0) fL MCH 31.6 (27.0-33.0) pg MCHC 33.4 (31.0-35.0) g/dl RDW 13.5 (11.0-16.0) % Plt Count 182 (160-400) X10*3/uL MPV 11.2 (9.4-12.3) fL Immature Gran % (Auto) 0.3 (0.0-0.4) % Neut % (Auto) 55.3 (45-73) % Lymph % (Auto) 33.9 (20-40) % [place] % (Auto) 9.2 (2-11) % Eos % (Auto) 0.9 (0-4) % Baso % (Auto) 0.4 (0-2) % Lymph # (Auto) 2.3 (1.2-4.9) X10*3/uL [place] # (Auto) 0.6 (0.1-1.2) X10*3/uL Eos # (Auto) 0.1 (0.0-0.4) X10*3/uL Baso # (Auto) 0.0 (0.0-0.2) X10*3/uL Abs Immat Gran (auto) 0.02 (0.00-0.03) X10*3/uL Absolute Neuts (auto) 3.8 (2.0-8.3) x10*3/uL Absolute Nucleated RBC 0.000 (0.0-0.012) X10*3/uL Nucleated RBC % (auto) 0.0 (0.0-0.2) /100WBC PT 12.3 (11.1-13.3) SEC INR 1.0 (0.9-1.1) APTT 28.4 (26.0-36.4) SEC Sodium 138 (135-145) mmol/L Potassium 4.2 (3.3-5.1) mmol/L Chloride 104 (96-108) mmol/L Carbon Dioxide 23 (22-29) mmol/L Anion Gap 15 (12-20) BUN 22 H (9-16) mg/dL Creatinine 0.92 (0.5-1.4) mg/dL Estim Creat Clear Calc 34.7 Estimated GFR 58 Random Glucose 127 H (60-115) mg/dL Calcium 10.6 H (8.4-10.2) mg/dL Magnesium 2.2 (1.6-2.6) mg/dL Total Bilirubin 0.4 (0.0-1.0) mg/dL AST 24 (5-31) U/L ALT 18 (0-31) U/L Alkaline Phosphatase 60 (39-117) U/L Troponin I High Sens (<3.5-17.0) ng/L Total Protein 7.7 (6.5-8.0) g/dL Albumin 4.1 (3.5-5.0) g/dL Urine Color Urine Appearance Urine pH (5.0-9.0) Ur Specific [place] (1.005-1.025) Urine Protein (Neg-Trace) mg/dL Urine Glucose (UA) (Negative) mg/dL Urine Ketones (Negative) mg/dL Urine Blood (Negative) Urine Nitrite (Negative) Ur Leukocyte Esterase (Negative) Urine RBC (0-2) /HPF Urine WBC (0-5) /HPF Ur Squamous Epith Cells (0-2) /HPF Urine Bacteria (None Seen) Hyaline Casts (0-2) /LPF 01/20/23 01/20/23 Range/Units 20:25 21:21 WBC (4.8-10.8) X10*3/uL RBC (4.20-5.50) X10*6/uL Hgb (12.0-16.0) g/dl Hct (37.0-47.0) % MCV (80.0-98.0) fL MCH (27.0-33.0) pg MCHC (31.0-35.0) g/dl RDW (11.0-16.0) % Plt Count (160-400) X10*3/uL MPV (9.4-12.3) fL Immature Gran % (Auto) (0.0-0.4) % Neut % (Auto) (45-73) % Lymph % (Auto) (20-40) % [place] % (Auto) (2-11) % Eos % (Auto) (0-4) % Baso % (Auto) (0-2) % Lymph # (Auto) (1.2-4.9) X10*3/uL [place] # (Auto) (0.1-1.2) X10*3/uL Eos # (Auto) (0.0-0.4) X10*3/uL Baso # (Auto) (0.0-0.2) X10*3/uL Abs Immat Gran (auto) (0.00-0.03) X10*3/uL Absolute Neuts (auto) (2.0-8.3) x10*3/uL Absolute Nucleated RBC (0.0-0.012) X10*3/uL Nucleated RBC % (auto) (0.0-0.2) /100WBC PT (11.1-13.3) SEC INR (0.9-1.1) APTT (26.0-36.4) SEC Sodium (135-145) mmol/L Potassium (3.3-5.1) mmol/L Chloride (96-108) mmol/L Carbon Dioxide (22-29) mmol/L Anion Gap (12-20) BUN (9-16) mg/dL Creatinine (0.5-1.4) mg/dL Estim Creat Clear Calc Estimated GFR Random Glucose (60-115) mg/dL Calcium (8.4-10.2) mg/dL Magnesium (1.6-2.6) mg/dL Total Bilirubin (0.0-1.0) mg/dL AST (5-31) U/L ALT (0-31) U/L Alkaline Phosphatase (39-117) U/L Troponin I High Sens < 2.7 (<3.5-17.0) ng/L Total Protein (6.5-8.0) g/dL Albumin (3.5-5.0) g/dL Urine Color Yellow Urine Appearance Clear Urine pH 6.5 (5.0-9.0) Ur Specific [place] <= 1.005 (1.005-1.025) Urine Protein Negative (Neg-Trace) mg/dL Urine Glucose (UA) Negative (Negative) mg/dL Urine Ketones Negative (Negative) mg/dL Urine Blood Negative (Negative) Urine Nitrite Negative (Negative) Ur Leukocyte Esterase Trace H (Negative) Urine RBC 0-2 (0-2) /HPF Urine WBC 0-5 (0-5) /HPF Ur Squamous Epith Cells 0-2 (0-2) /HPF Urine Bacteria None Seen (None Seen) Hyaline Casts 0-2 (0-2) /LPF Independent Interpretation I performed an independent interpretation of an: EKG (See course narrative for further detail) Radiology Impression Discussion of test interpretation with radiology: I have reviewed the radiologist's reading. Radiologist Impression: CT/CT head/brain wo IV con IMPRESSION: 1. HEAD: No acute intracranial hemorrhage or mass effect. Diffuse cerebral atrophy and chronic microvascular ischemic disease. ? 2. CERVICAL SPINE: No acute fracture or subluxation. Multilevel degenerative disc disease with bilateral neural foraminal stenosis, most severe at C6-C7. Independent Historian Clinical information obtained from an independent historian. History obtained from or confirmed by: Spouse ( present at bedside a confirms history) External Record Review External record reviewed: Outpatient record Prescription Management I considered prescription management with: Other (Meclizine, see course narrative for further detail) Discharge Plan Discharge Clinical Impression: Dizziness, Neural foraminal stenosis of cervical spine Patient Disposition: Home, Self-Care Instructions: Vertigo (ED), Cervical Spinal Stenosis (ED) Additional Instructions: As discussed, please contact your primary care provider to arrange for a follow- up appointment in 1-3 days. You were offered to trial meclizine for your dizziness while in the emergency department, however declined. You may discuss this further with your primary care provider. The CT scan of your neck reveals multilevel degenerative disc disease and bilateral neural foraminal stenosis most severe at C6-C7. Feel free to return back to emergency department any new or worsening symptoms or concerns. Prescriptions: No Action metformin 500 mg tablet 500 mg PO BID Januvia 50 mg tablet 50 mg PO DAILY losartan 25 mg tablet 25 mg PO DAILY atorvastatin 40 mg tablet 40 mg PO DAILY levothyroxine 50 mcg capsule 50 mcg PO DAILY ICaps AREDS2 250 mg-200 unit -12.5 mg-1 mg capsule 1 cap PO BID cholecalciferol (vitamin D3) 25 mcg (1,000 unit) capsule 25 mcg PO DAILY pregabalin [Lyrica] 25 mg capsule 25 mg PO DAILY Referrals: Roro Wilson MD [Primary Care Provider] - Interventions: ED Discharge Assessment Last Done: 01/21/23 00:02 Discharge Date/Time: 01/21/23 00:02
[2023-01-20 20:29] LABS: MANUAL DIFF FLAG NO
[2023-01-20 20:30] LABS: Basophils Percent Auto 0.4 % (0-2); Eosinophils Absolute Auto 0.1 X10*3/uL (0.0-0.4); Eosinophils Percent Auto 0.9 % (0-4); Hematocrit 35.6 % (37.0-47.0); Hemoglobin 11.9 g/dl (12.0-16.0); Imm Gran Abs Auto 0.02 X10*3/uL (0.00-0.03); Imm Gran Pct Auto 0.3 % (0.0-0.4); Lymphocytes Absolute Auto 2.3 X10*3/uL (1.2-4.9); Lymphocytes Percent Auto 33.9 % (20-40); Mean Corpuscular HGB Conc 33.4 g/dl (31.0-35.0); Mean Corpuscular Hemoglobin 31.6 pg (27.0-33.0); Mean Corpuscular Volume 94.4 fL (80.0-98.0); Mean Platelet Volume 11.2 fL (9.4-12.3); Monocytes Absolute Auto 0.6 X10*3/uL (0.1-1.2); Monocytes Percent Auto 9.2 % (2-11); Neutrophils Absolute Auto 3.8 x10*3/uL (2.0-8.3); Neutrophils Percent Auto 55.3 % (45-73); Platelet Count 182 X10*3/uL (160-400); Red Blood Count 3.77 X10*6/uL (4.20-5.50); Red Cell Distribution Width 13.5 % (11.0-16.0); White Blood Count 6.8 X10*3/uL (4.8-10.8)
[2023-01-20 20:36] LABS: Prothrombin Time 12.3 SEC (11.1-13.3)
[2023-01-20 20:38] LABS: Partial Thromboplastin Time 28.4 SEC (26.0-36.4)
[2023-01-20 20:51] LABS: Alanine Aminotransferase 18 U/L (0-31); Albumin Level 4.1 g/dL (3.5-5.0); Alkaline Phosphatase 60 U/L (39-117); Anion Gap 15 (12-20); Aspartate Amino Transferase 24 U/L (5-31); Bilirubin Total 0.4 mg/dL (0.0-1.0); Blood Urea Nitrogen 22 mg/dL (9-16); Calcium 10.6 mg/dL (8.4-10.2); Carbon Dioxide 23 mmol/L (22-29); Chloride 104 mmol/L (96-108); Creatinine Clr Calc Pharmacy 34.7; Estimated Glomerular Filt Rate 58; Glucose Random 127 mg/dL (60-115); Magnesium 2.2 mg/dL (1.6-2.6); Potassium 4.2 mmol/L (3.3-5.1); Sodium 138 mmol/L (135-145); Total Protein 7.7 g/dL (6.5-8.0)
--- NOTE | 2023-01-20 20:55 | PC.NURSE ---
Pt A/OX3, denies pain, stating feels like she is always going to fall . EKG obtained, 20G RAC placed, labs obtained, pt in CT.
[2023-01-20 21:01] LABS: Troponin-I High Sensitivity < 2.7 ng/L (<3.5-17.0)
[2023-01-20 21:29] LABS: Appearance Urine Clear; Color Urine Yellow; Glucose Urine UA Negative (Negative); Leukocyte Esterase Urine Trace (Negative); Nitrite Urine Negative (Negative); PH 6.5 (5.0-9.0); Specific Gravity - Urine <= 1.005 (1.005-1.025); UMIC TRIGGER UACC YES; Urine Blood Negative (Negative); Urine Ketones Negative (Negative); Urine Protein Negative (Neg-Trace)
[2023-01-20 21:34] LABS: Bacteria Urine None Seen (None Seen); Hyaline Casts Urine 0-2 /LPF (0-2); RBC Urine 0-2 /HPF (0-2); Squamous Epithelial Cell Urine 0-2 /HPF (0-2); WBC Urine 0-5 /HPF (0-5)
== END 2023-01-21 00:02 | disposition home or self-care (01) ==
LOC: HO.ED 21:18
PROVIDERS: Physician Assistant; Emergency Provider Emergency Medicine; PCP Internal Medicine
DX: R42 Dizziness and giddiness (principal); M48.02 Spinal stenosis, cervical region; M54.2 Cervicalgia; E11.9 Type 2 diabetes mellitus without complications; I10 Essential (primary) hypertension; E78.5 Hyperlipidemia, unspecified; D64.9 Anemia, unspecified; I25.2 Old myocardial infarction; Z85.3 Personal history of malignant neoplasm of breast; Z79.899 Other long term (current) drug therapy; Z79.84 Long term (current) use of oral hypoglycemic drugs
CPT/HCPCS: 36415; 70450; 72125; 80053; 81001; 83735; 84484; 85025; 85610; 85730; 93005; 99284; 99285

== ENCOUNTER 2023-01-25 12:48 | Outpatient (AMB) | payer MEDICARE, SELFPAY ==
[2023-01-25 12:52] VITALS: BMI 21.9
--- NOTE | 2023-01-25 12:52 | MHC.OFFVIS ---
Intake Vital Signs 01/25/23 12:52 Height 5 ft 2 in Weight 120 lb BMI 21.9 Intake Visit Reasons: follow up 01/11/2023 Intake Note: follow up 01/11/23 for bilateral LE weakness w/ numbness and burning. Pt states that she is feeling the same. Pt was hospitalized for incident of dizziness or feeling like she was falling. She is feeling slightly better from hospital visit. Accompanied by: Spouse Allergies gabapentin Allergy (Severe, Verified 01/25/23 13:03) Rash chloroquine [CHLOROQUINE] Allergy (Mild, Verified 01/25/23 13:03) RASH HPI follow up 01/11/2023 HPI Details Very complex 87-year-old female presents for follow-up regarding lower extremity pain. She is quite frail and has had multiple events. She reports an event where she has a. Of chills and then sweats throughout the forehead. In addition she reports dizziness on a fairly regular basis. Upon discussion with her about her lower extremities she describes pain that progresses from the back all the way down. She has some numbness in bilateral lower extremities. It is not associated with ambulation. She has mild swelling. She now presents for follow-up with venous insufficiency testing. Of note she did have an emergency room visit on 01/20/2023 due to an episode of dizziness. Upon CT scan of head neck it was discovered that she has significant degenerative disc disease along with canal narrowing. 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 [facility] Medical History Ankle injury COVID-19 vaccine series completed Diabetes mellitus Dyslipidemia Hx of breast cancer Hypertension Hypothyroidism Myocardial infarction Polymyalgia Vertigo Surgical History H/O breast surgery H/O colonoscopy History of esophagogastroduodenoscopy (EGD) Hx of appendectomy Family History Father HTN (hypertension) Mother HTN (hypertension) Diabetes Gallbladder cancer Social History Are you a primary urgent care nurse practitioner to a significant other at home: No Do you presently have visiting nurse or other home services: No Alcohol intake: never Patient Tobacco Use Status: Never used Tobacco e-Cigarette/Vaping Use: Never Used Substance Use Type: Other Current occupational status: employed 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 Review of Systems Const All systems reviewed & are unremarkable except as noted in HPI and below Reports no additional complaints ENT Reports Normal hearing present Card Denies chest pain, Denies chest pain at rest, Denies chest pain with activity and Denies pedal edema Resp Denies cough GI Denies abdominal pain Musc Denies abnormal gait, Denies muscle cramps and Denies radiating pain into limb Skin/Breast Denies skin ulcer and Denies wounds Neuro Reports Normal hearing present and Denies abnormal gait Psych Reports no additional complaints Physical Exam Vital Signs: BMI result Body Mass Index 21.9 Const General: cooperative, healthy appearing and comfortable Orientation/consciousness: oriented to person, oriented to place and oriented to time HEENT Head: Yes normal to inspection Neck Neck: Yes normal visual inspection Carotids: no bruits Chest Chest palpation & inspection: normal inspection of the chest Resp Effort & Inspection: normal respiratory effort and able to speak in complete sentences Auscultation: clear to auscultation bilaterally, no crackles, no rales, no rhonchi and no wheezes Cardio Rate: regular rate Rhythm: regular rhythm Heart sounds: S1 normal heart sound present and S2 normal heart sound present Bruits: no carotid bruits Peripheral pulses: Peripheral pulses 2+ throughout GI Inspection: Yes normal to inspection Skin Wounds: no wounds Hair: normal Neuro General: oriented to person, oriented to place and oriented to time Cranial nerves: Yes CN's II-XII intact bilaterally and Yes Normal hearing present Cognition (Neuro): normal cognition Motor exam (neuro): 5/5 motor strength present throughout Extrem Other: venous exam: No significant superficial varicosities or spider telangiectasias, minimal edema General: No clubbing, No cyanosis and No edema Psych Appearance: grossly normal Mental Status: mental status grossly normal Speech and movement: Normal speech and movement present Results Reviewed Results Reviewed: Brief summary of venous insufficiency testing is as follows: right great saphenous vein: negative right small saphenous vein: negative right accessory vein: none present left great saphenous vein: negative left small saphenous vein: negative left accessory vein: none present Please note there is no evidence of any venous aneurysms or significant tortuosity Assessment & Plan Assessment & Plan (1) Leg pain: Code(s): M79.606 - Pain in leg, unspecified Plan: Unclear etiology of lower extremity pain. It does not appear to be vascular in nature as she does have palpable DP and PT pulses in addition her venous insufficiency testing has proven to be negative. I do believe there is a significant neurogenic component to all of this. She has spinal issues along with her symptomatology it does feel that it is more neurogenic in nature. She does have a neurology visit which we are trying to expedite. In addition, should that prove to be negative may benefit from evaluation by Spine surgery. We will follow on an as-needed basis. Thank you for allowing us to assist in her care. If there are questions or concerns please do not hesitate to contact us. The patient had an opportunity to ask questions regarding the treatment plan. All questions were answered. Imaging studies, laboratory studies and physical exam results were discussed and reviewed in detail. No major barriers to understanding were identified. The patient expressed understanding and agreement with the above treatment plan. The patient is aware they should contact our office by phone for worsening of the current condition or the appearance of new symptoms. Thank you for allowing me to participate in the vascular care of this patient. If you have any questions or concerns regarding the treatment for the above condition please do not hesitate to contact me. The office telephone contact is [phone]. This note is constructed using voice recognition software. While every effort has been made to ensure accuracy, electron beam welder errors may have been included. Thank you for allowing me to participate in the care of your patient. Yours sincerely, Marcelo Kennedy MD, FACS, R.P.V.I. Coding Level of Care Code Est Pt Level 4 (08646) Diagnoses Leg pain M79.606
== END 2023-01-25 13:22 | disposition home or self-care (01) ==
PROVIDERS: PCP Internal Medicine; Visit Provider Surgery Vascular Surgery
DX: M79.606 Pain in leg, unspecified (principal)
CPT/HCPCS: 99213

== ENCOUNTER → 2023-01-25 12:48 | Outpatient (BNVA) | payer MEDICARE, SELFPAY | PROVIDERS: PCP Internal Medicine; Visit Provider Surgery Vascular Surgery | DX: M79.606 Pain in leg, unspecified (principal) | CPT/HCPCS: 99212 ==

== ENCOUNTER 2023-02-18 10:52 | Outpatient (AMB) | payer MEDICARE, SELFPAY ==
--- NOTE | 2023-02-18 11:00 | MHC.OFFVIS ---
Intake Intake Visit Reasons: New Prob- Rt Hand growth Intake Note: This is an 87 year old female who presents for a right wrist growth. She reports this started 6 months ago, she denies any injury to the right wrist. She denies any surgery to that body part. She reports it is painful, a 2/10. Allergies gabapentin Allergy (Severe, Verified 02/18/23 11:04) Rash chloroquine [CHLOROQUINE] Allergy (Mild, Verified 02/18/23 11:04) RASH Medication List - Last Reconciled 02/18/23 by Flora Joshi RN alpha lipoic acid 1,200 mg PO BID atorvastatin 40 mg PO DAILY cholecalciferol (vitamin D3) 25 mcg PO DAILY levothyroxine 75 mcg PO DAILY losartan 25 mg PO DAILY metformin 500 mg PO BID pregabalin (Lyrica) 25 mg PO DAILY sitagliptin phosphate (Januvia) 50 mg PO DAILY vit C-E-zinc lz-ydgv-kcb-zeax 250 mg-200 unit -12.5 mg-1 mg (ICaps AREDS2) 1 cap PO BID HPI New Prob- Rt Hand growth HPI Details Patient is a very pleasant 87-year-old woman who is seen today with her . She complains of a growth on the volar radial aspect of her right forearm that is been there for probably 6 months or more. She says she picks at it but does not seem to go away. She does see a pump and blower operator for forehead Botox injections, but does not remember the pump and blower operator saw this growth or did anything to it. She would very much like for me to take care of this if I can. [facility] Medical History Ankle injury COVID-19 vaccine series completed Diabetes mellitus Dyslipidemia Hx of breast cancer Hypertension Hypothyroidism Myocardial infarction Polymyalgia Vertigo Surgical History H/O breast surgery H/O colonoscopy History of esophagogastroduodenoscopy (EGD) Hx of appendectomy Family History Father HTN (hypertension) Mother HTN (hypertension) Diabetes Gallbladder cancer Social History Are you a primary primary care md to a significant other at home: No Do you presently have visiting nurse or other home services: No Alcohol intake: never Patient Tobacco Use Status: Never used Tobacco e-Cigarette/Vaping Use: Never Used Substance Use Type: Other Current occupational status: employed 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 She does have a raised shiny scaly lesion that measures about 6 mm in diameter on the volar radial aspect of her right forearm. There is a central crusted area that looks like she picked at. No drainage or surrounding erythema or evidence of infection. It is minimally tender to palpation. She can make a fist and extend all of her digits. Assessment & Plan Assessment & Plan (1) Mass of soft tissue of right upper extremity: Code(s): M79.89 - Other specified soft tissue disorders Plan Assessment and plan: 1. Right volar radial forearm skin mass Approximately 6 mm in diameter with a healing wound in the center that she has been picking at. This could be consistent with either a basal cell carcinoma or possibly a squamous cell carcinoma verses benign lesion. I educated her about this condition and we discussed operative and non operative treatment options. I did discussed with her the fact that the pump and blower operator might be able to do a Mohs procedure. She and her would very much like for me to take care of this. The risks and benefits of operative treatment were discussed with the patient and the patient wishes to proceed with surgery. These risks include, but are not limited to risk of damage to blood vessels, nerves, tendons, infection, recurrence, incomplete relief of preoperative symptoms, persistent pain, possible need for further surgery and the risks associated with regional blocks and anesthesia. The plan is to take the patient to the operating room sometime in the next few weeks for the following procedures: 1. Right forearm mass excisional biopsy under local 2. [ ] All of the preoperative paperwork including the consent was filled out today. All the patient's questions were answered. The patient understands that they will be contacted by our associate professor of surgery soon to schedule this procedure She does have diabetes which she says is well controlled. 2. Right trigger thumb status post release Date of surgery 02/22/2022 Resolved 3. Left trigger thumb status post injection Date of injection 11/25/2021 Resolved 4. Left basal joint arthritis Not bothering her today. Coding Level of Care Code Est Pt Level 4 (75870) Diagnoses Mass of soft tissue of right upper extremity M79.89
== END 2023-02-18 12:46 | disposition home or self-care (01) ==
PROVIDERS: PCP Internal Medicine; Visit Provider Orthopaedic Surgery
DX: M79.89 Other specified soft tissue disorders (principal); R22.31 Localized swelling, mass and lump, right upper limb
CPT/HCPCS: 99214

== ENCOUNTER → 2023-02-18 10:52 | Outpatient (BNVA) | payer MEDICARE, SELFPAY | PROVIDERS: PCP Internal Medicine; Visit Provider Orthopaedic Surgery | DX: M79.89 Other specified soft tissue disorders (principal) | CPT/HCPCS: 99212 ==

== ENCOUNTER 2023-02-21 11:50 | Day surgery (SDC) | payer MEDICARE, SELFPAY ==
[2023-02-21 12:58] VITALS: BP 115/63; PULSE 99; RESP 18; TEMP 36.8; O2SAT 100
[2023-02-21 13:02] VITALS: BMI 22.5
--- NOTE | 2023-02-21 13:42 | P.OP_ITS ---
Operative Note Operative Note Date of Service: 02/21/23 Narrative: Operative Note Preop diagnosis: 1. right volar radial forearm skin mass Postop diagnosis: same Procedure: 1. right volar radial forearm skin mass excisional biopsy Surgeon: Swathi Cheek MD Anesthesia: digital block using 1% lidocaine with epinephrine Findings: skin lesion measuring approximately 8 mm in diameter consistent with possible basal cell verses squamous cell carcinoma EBL: Less than 5 mL Tourniquet time: None Specimens: right forearm skin mass sent for histopathology Complications: None Disposition: Brought to recovery room in stable condition Plan: Follow-up for 10-14 days for wound check and suture removal and to check pathology I also advised the patient to follow-up with a ballet soloist regarding this mass, and another lesion that she has on her hand. Indications: The patient is 87 years old, with a right volar radial skin mass worrisome for malignancy . The risks and benefits of operative treatment including but not limited to risk of damage to blood vessels, nerves, tendons, infection, persistent pain, persistent symptoms, recurrence or possible need for additional surgery were discussed with the patient and the patient wishes to proceed with surgery. Procedure: Once consent was obtained a digital block was performed in the preop area using a combination of 1% lidocaine with epinephrine. The patient was then brought back to the operating suite and placed on the operative table in supine position. A tourniquet was applied to the proximal aspect of the right upper extremity and the limb was prepped and draped in a standard surgical fashion. Once assured that we had a good block, I made an elliptical incision that was longitudinally oriented and centered over the right volar radial skin mass. Incision was made through the skin to the subcutaneous tissue. I then dissected the elliptical piece of skin containing the skin mass from the underlying subcutaneous tissue and removed it and placed on the back table to be sent for histopathology. I gently undermined the skin edges slightly using tenotomy scissors to facilitate reapproximation of the skin edges. Once satisfied with Are excisional biopsy the wound was copiously irrigated with normal saline and hemostasis was obtained with a brief period of local pressure. The skin edges were reapproximated with some 5.0 nylon suture material and a sterile dressing was applied. The patient appears to have tolerated the procedure well and with no complications. All digits were well vascularized at the conclusion of the case.
--- NOTE | 2023-02-21 13:42 | MHC.SHP ---
Pre-Procedural Eval Section A Date of Service: 02/21/23 The patient is an INPATIENT: No Changes since office visit: No Cold of Flu in the past 2 weeks, No New Medical Problems, No Changes in Medication and No Patient answered all questions The History & Physical has been completed within 30 days and I have reviewed it.: Yes Section B Chief Complaint: Other specified soft tissue disorders Allergies: Allergies Allergy/AdvReac Type Severity Reaction Status Date / Time gabapentin Allergy Severe Rash Verified 02/18/23 11:04 chloroquine [CHLOROQUINE] Allergy Mild RASH Verified 02/18/23 11:04 Plan I have reviewed the history and physical and performed a pertinent physical examination on my patient. No changes have occurred unless specified. Time Spent With Patient Time: Total time managing care of this patient today ____ minutes.
[2023-02-21 15:02] VITALS: BP 130/62; PULSE 89; RESP 16; O2SAT 99
== END 2023-02-21 15:03 | disposition home or self-care (01) ==
PROVIDERS: PCP Internal Medicine; Visit Provider Orthopaedic Surgery
PROC: (CPT 11601; principal; 2023-02-21 13:00)
DX: C44.622 Squamous cell carcinoma of skin of right upper limb, including shoulder (principal); Z85.3 Personal history of malignant neoplasm of breast; I10 Essential (primary) hypertension; E78.5 Hyperlipidemia, unspecified; E03.9 Hypothyroidism, unspecified; M35.3 Polymyalgia rheumatica; I25.2 Old myocardial infarction; R42 Dizziness and giddiness; E11.9 Type 2 diabetes mellitus without complications; Z79.84 Long term (current) use of oral hypoglycemic drugs; Z79.899 Other long term (current) drug therapy; Z88.8 Allergy status to other drugs, medicaments and biological substances; Z98.890 Other specified postprocedural states
CPT/HCPCS: 11601; 88305; 88307; J0171

== ENCOUNTER → 2023-02-21 11:50 | Outpatient (BNV) | payer MEDICARE, SELFPAY | PROVIDERS: PCP Internal Medicine; Visit Provider Orthopaedic Surgery | DX: C44.622 Squamous cell carcinoma of skin of right upper limb, including shoulder (principal) | CPT/HCPCS: 25075 ==

== ENCOUNTER 2023-03-08 14:35 | Outpatient (AMB) | payer MEDICARE, SELFPAY ==
[2023-03-08 14:51] VITALS: BMI 22.5
--- NOTE | 2023-03-08 14:51 | MHC.OFFVIS ---
Intake Vital Signs 03/08/23 14:51 Height 5 ft 2 in Weight 123 lb BMI 22.5 Intake Visit Reasons: P.O- right volar radial forearm skin mass Intake Note: Millie 87 yr old female presents today for her P/O visit for her right volar forearm skin mass from 02/21/23. States she has no pain. Sutures removed and steri strips applied. Allergies gabapentin Allergy (Severe, Verified 03/08/23 14:56) Rash chloroquine [CHLOROQUINE] Allergy (Mild, Verified 03/08/23 14:56) RASH HPI P.O- right volar radial forearm skin mass HPI Details Millie is an 87 year old right hand dominant woman who presents S/P right forearm mass excisional biopsy, DOS: 02/21/23. She says she is doing well and denies any pain. She follows with a Agricultural Labor Camp Manager for Botox injections, and is trying to be seen for this mass. [facility] Medical History Ankle injury COVID-19 vaccine series completed Diabetes mellitus Dyslipidemia Hx of breast cancer Hypertension Hypothyroidism Myocardial infarction Polymyalgia Vertigo Surgical History H/O breast surgery H/O colonoscopy History of esophagogastroduodenoscopy (EGD) Hx of appendectomy Family History Father HTN (hypertension) Mother HTN (hypertension) Diabetes Gallbladder cancer Social History Are you a primary health care manager to a significant other at home: No Do you presently have visiting nurse or other home services: No Alcohol intake: never Patient Tobacco Use Status: Never used Tobacco e-Cigarette/Vaping Use: Never Used Substance Use Type: Other Current occupational status: employed 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 I spoke with our pathologist, and she re-evaluated the slide regarding the extension to the deep margin. She said it was focal and the ?SCC involves the deep soft tissue margin, approximately 4 mm in linear length? Psych Appearance: grossly normal Affect: normal affect Attitude: cooperative Assessment & Plan Assessment & Plan (1) Mass of soft tissue of right upper extremity: Code(s): M79.89 - Other specified soft tissue disorders (2) SCC (squamous cell carcinoma), arm: Code(s): C44.621 - Squamous cell carcinoma of skin of unspecified upper limb, including shoulder Plan Assessment and plan: 1. 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 Corcoran & his , and they would like to proceed with a repeat excision of the malignant tissue The risks and benefits of operative treatment were discussed with the patient and the patient wishes to proceed with surgery. These risks include, but are not limited to risk of damage to blood vessels, nerves, tendons, infection, recurrence, incomplete relief of preoperative symptoms, persistent pain, possible need for further surgery and the risks associated with regional blocks and anesthesia. The plan is to take the patient to the operating room sometime in the next few weeks for the following procedures: 1. Right forearm malignant mass excision, under local All of the preoperative paperwork including the consent was filled out today. The plan is to excise some of the subcutaneous tissue from beneath the squamous cell carcinoma excision site and to send that to histopathology. All the patient's questions were answered. The patient understands that they will be contacted by our surgery aid soon to schedule this procedure. We will do out best to have this done before the end of February if possible. She denies blood thinners, asthma, heart, lung, kidney issues She is a Diabetic and says this is well-controlled 2. Right trigger thumb, S/P release DOS: 10/3/22 Resolved 3. Left trigger thumb, S/P injection Date of injection: 11/25/21 Resolved 4. Left basal joint arthritis Not bothering her today. Please note that greater than 45 minutes was spent with this patient going over the history, evaluating the patient and radiographs, formulating possible treatment options, discussing them with the patient, and documenting the visit. Scribed for Swathi Cheek MD by Espinoza Bennett medical staff assistant, on 03/08/23 at 3:50 PM, EST. Coding Level of Care Code Est Pt Level 4 (11452) Diagnoses Mass of soft tissue of right upper extremity M79.89 SCC (squamous cell carcinoma), arm C44.621
== END 2023-03-08 16:15 | disposition home or self-care (01) ==
PROVIDERS: PCP Internal Medicine; Visit Provider Orthopaedic Surgery
DX: M79.89 Other specified soft tissue disorders (principal); C44.622 Squamous cell carcinoma of skin of right upper limb, including shoulder
CPT/HCPCS: 99024

== ENCOUNTER → 2023-03-08 14:35 | Outpatient (BNVA) | payer MEDICARE, SELFPAY | PROVIDERS: PCP Internal Medicine; Visit Provider Orthopaedic Surgery | DX: R22.31 Localized swelling, mass and lump, right upper limb (principal); C44.622 Squamous cell carcinoma of skin of right upper limb, including shoulder | CPT/HCPCS: 99212 ==

== ENCOUNTER 2023-03-21 10:39 | Day surgery (SDC) | payer MEDICARE, SELFPAY ==
--- NOTE | 2023-03-21 10:01 | W.PM.OPN ---
Operative Note Operative Note Date of Service: 03/21/23 Narrative: Operative Note Preop diagnosis: 1. Right forearm squamous cell carcinoma extended to deep margin of prior excision Postop diagnosis: same Procedure: 1. Right forearm excision of subcutaneous fat from beneath squamous cell carcinoma with extension to deep margin Surgeon: Swathi Cheek MD Anesthesia: digital block using 1% lidocaine with epinephrine Findings: no visible masses. EBL: Less than 5 mL Tourniquet time: None Specimens: Subcutaneous tissue from deep 2 previous squamous cell carcinoma excision sent for histopathology Complications: None Disposition: Brought to recovery room in stable condition Plan: Follow-up for 7-10 days for wound check and suture removal and to check pathology Indications: The patient is 87 years old, with a right forearm squamous cell carcinoma that extended deep to the margin of her prior excision. We discussed operative and non operative treatment options and she and her wished to proceed with surgery to excise some of the subcutaneous tissue in the area of the previous excision site. . The risks and benefits of operative treatment including but not limited to risk of damage to blood vessels, nerves, tendons, infection, persistent pain, persistent symptoms, recurrence or possible need for additional surgery were discussed with the patient and the patient wishes to proceed with surgery. Procedure: Once consent was obtained a digital block was performed in the preop area using a combination of 1% lidocaine with epinephrine. The patient was then brought back to the operating suite and placed on the operative table in supine position. A tourniquet was applied to the proximal aspect of the right upper extremity and the limb was prepped and draped in a standard surgical fashion. Once assured that we had a good block, I made a longitudinal incision in line with the previous surgical incision. Incision was made through the skin the subcutaneous tissues using a 15. Blade. I then carefully dissected down to the subcutaneous tissue. There is no visible mass. I excised some of the more superficial subcutaneous fat From just beneath the skin where the squamous cell carcinoma had been excised several weeks ago. I was able to separate the subcutaneous fat from the skin, and remove an area of about 1.5 cm by 1 cm with a few mm of thickness.. This was placed on the back table to be sent for histopathology. Once satisfied with The subcutaneous tissue excision from beneath the area where the squamous cell carcinoma had been excised with extension to the deep margin, the wound was copiously irrigated with normal saline and hemostasis was obtained with a brief period of local pressure. The skin edges were reapproximated with some 5.0 nylon suture material and a sterile dressing was applied. The patient appears to have tolerated the procedure well and with no complications. All digits were well vascularized at the conclusion of the case.
[2023-03-21 11:11] VITALS: BMI 22.5
[2023-03-21 13:01] VITALS: BP 104/52; PULSE 79; RESP 18; O2SAT 97
== END 2023-03-21 13:03 | disposition home or self-care (01) ==
LOC: HO.SSS 10:40
PROVIDERS: PCP Internal Medicine; Visit Provider Orthopaedic Surgery
PROC: (CPT 11402; principal; 2023-03-21 10:50)
DX: M79.89 Other specified soft tissue disorders (principal); L90.5 Scar conditions and fibrosis of skin; M35.3 Polymyalgia rheumatica; E11.9 Type 2 diabetes mellitus without complications; I10 Essential (primary) hypertension; E78.5 Hyperlipidemia, unspecified; Z85.3 Personal history of malignant neoplasm of breast; Z88.8 Allergy status to other drugs, medicaments and biological substances; Z85.828 Personal history of other malignant neoplasm of skin
CPT/HCPCS: 11402; 88305; J0171

== ENCOUNTER → 2023-03-21 10:39 | Outpatient (BNV) | payer MEDICARE, SELFPAY | PROVIDERS: PCP Internal Medicine; Visit Provider Orthopaedic Surgery | DX: C44.622 Squamous cell carcinoma of skin of right upper limb, including shoulder (principal) | CPT/HCPCS: 25075 ==

== ENCOUNTER 2023-04-04 11:27 | Outpatient (AMB) | payer MEDICARE, SELFPAY ==
[2023-04-04 11:45] VITALS: BMI 22.5
--- NOTE | 2023-04-04 11:45 | A.OFFVIS_ITS ---
Intake Vital Signs 04/04/23 11:45 Height 5 ft 2 in Weight 123 lb BMI 22.5 Intake Visit Reasons: PO-Rt Forearm Exc 03/21/23 AR Intake Note: Millie 87 yr old female presents today for her P/O right forearm exc from 03/21/23. States she has no pain. Sutures removed and setri strips applied. Allergies gabapentin Allergy (Severe, Verified 04/04/23 11:50) Rash chloroquine [CHLOROQUINE] Allergy (Mild, Verified 04/04/23 11:50) RASH HPI PO-Rt Forearm Exc 03/21/23 AR HPI Details Millie is an 87-year-old woman who is status post right forearm excision of subcutaneous fat from beneath squamous cell carcinoma with extension to the deep margin. Date of this surgery was on 03/21/2023. Her original excisional biopsy of her squamous cell carcinoma was 1st performed on 02/21/2023, and did have an extension to the deep margin. She is seen today with her , Dr. Corcoran. She says that she is doing well, but that she continues to have difficulty finding an appointment with a water jet operator. [facility] Medical History Ankle injury COVID-19 vaccine series completed Diabetes mellitus Dyslipidemia Hx of breast cancer Hypertension Hypothyroidism Myocardial infarction Polymyalgia Vertigo Surgical History H/O breast surgery H/O colonoscopy History of esophagogastroduodenoscopy (EGD) Hx of appendectomy Family History Father HTN (hypertension) Mother HTN (hypertension) Diabetes Gallbladder cancer Social History Are you a primary wound care nurse to a significant other at home: No Do you presently have visiting nurse or other home services: No Alcohol intake: never Patient Tobacco Use Status: Never used Tobacco e-Cigarette/Vaping Use: Never Used Substance Use Type: Other Current occupational status: employed 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 Her incision is healing well with no erythema drainage or evidence of infection. Sutures removed and Steri-Strips applied. She can make a fist and extend all of her digits. She appears to be doing well. Pathology report from 03/21/2023: Diagnosis Soft tissue, right forearm, re-excision: Benign subcutaneous tissue with focal fibrosis and previous biopsy site changes; no residual carcinoma seen. Pathology report from 02/21/2023: Diagnosis Soft tissue, right forearm, excision: Squamous cell carcinoma, invasive, well- differentiated, extending to deep margin. Assessment & Plan Assessment & Plan (1) SCC (squamous cell carcinoma), arm: Code(s): C44.621 - Squamous cell carcinoma of skin of unspecified upper limb, including shoulder Plan Assessment and plan: 1. 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 Date of surgery 03/21/2023 Histopathology from the 2nd surgery showed no evidence of malignancy. I educated the patient and her about this condition She appears to be doing well postoperatively. I did encourage her to continue to work with her primary care physician try to find a water jet operator, as she has not seen a water jet operator for possible skin lesions in many years. They are happy with her care, and will follow up p.r.n.. 2. Right trigger thumb status post release Date of surgery 02/22/2022 Resolved 3. Left trigger thumb status post injection Date of injection 11/25/2021 Resolved 4. Left basal joint arthritis Not bothering her today. Coding Level of Care Code Global (85859) Diagnoses SCC (squamous cell carcinoma), arm C44.621
== END 2023-04-04 12:00 | disposition home or self-care (01) ==
PROVIDERS: PCP Internal Medicine; Visit Provider Orthopaedic Surgery
DX: C44.621 Squamous cell carcinoma of skin of unspecified upper limb, including shoulder (principal)
CPT/HCPCS: 99024

== ENCOUNTER → 2023-04-04 11:27 | Outpatient (BNVA) | payer MEDICARE, SELFPAY | PROVIDERS: PCP Internal Medicine; Visit Provider Orthopaedic Surgery ==

== ENCOUNTER 2023-07-01 12:19 | Emergency (ER) | payer MEDICARE, SELFPAY ==
--- NOTE | ~2023-07-01 | CT_ITS ---
EXAMINATION: CT angio head neck CLINICAL INFORMATION: 6 days dizziness and falling. COMPARISON: CT scan of the head 01/20/2023. TECHNIQUE: Cephalometric Tracer images were obtained. A CT angiogram of the head and neck was performed in the arterial phase after the intravenous administration of 70 mL Omnipaque 350. Pre and delayed postcontrast images of the head were also obtained. 3D images were processed on an independent workstation under concurrent supervision. Arterial stenoses are measured in accordance with NASCET criteria or similar method if applicable. This CT examination was performed using dose optimization techniques as appropriate, including one or more of the following: Automated exposure control, iterative reconstruction, and adjustment of technique factors (mA and/or kVp) according to patient size (this includes techniques or standardized protocols for targeted exams where dose is matched to indication/reason for exam). Fleischner Society criteria for the followup of incidental pulmonary nodules was implemented if appropriate. Total exam dose-length product 2017 mGy-cm FINDINGS: Head: There is no acute intracranial hemorrhage or abnormal extra-axial collection. Postcontrast images reveal no abnormal intracranial mass or enhancement. There is no intracranial mass effect or midline shift. Lateral and third ventricles are normal. No hydrocephalus. Scattered nonspecific foci of hypoattenuation are visualized within the periventricular white matter that most likely represent a chronic manifestation of small vessel ischemia. Flor-white matter differentiation is otherwise preserved and there is no evidence of acute territorial infarct.. The calvarium and skull base are intact. Mastoid air cells and middle ear cavities are well aerated. No active paranasal sinus disease. CT angiogram neck: The aortic arch apex is normal. Origins of the major aortic branches are widely patent. Common carotid arteries are normal. Partially calcified atheromatous plaque involves both carotid bifurcations. There is 25% stenosis at the origin of the left internal carotid artery. No stenosis of the right extracranial internal carotid artery. The cervical segments of vertebral arteries as well as their origins are widely patent. CT angiogram head: Intracranial internal carotid arteries are normal. The intradural vertebral artery segments and basilar artery are normal. Anterior, middle, and posterior cerebral artery complexes are normal. No intracranial large vessel occlusion. No identifiable aneurysm or high flow vascular lesion. Other: Soft tissues of the neck including the thyroid gland are normal. There are no pathologically enlarged cervical lymph nodes. Visualized lung apices are clear. No acute osseous finding. Specifically no worrisome lytic or blastic osseous lesion. Grossly no spinal canal compromise. CT/CT angio head neck IMPRESSION: Partially calcified atheromatous plaque involves both carotid bifurcations. There is 25% stenosis at the origin of the left internal carotid artery. Otherwise no stenosis of the cervical carotid or vertebral arteries. No intracranial large vessel occlusion. There are scattered chronic small vessel ischemic changes within the periventricular white matter. No evidence of acute territorial infarct or hemorrhage. No abnormal intracranial mass or enhancement.
[2023-07-01 12:28] VITALS: BP 151/70; PULSE 91; RESP 18; TEMP 37.1; O2SAT 98; BMI 24.1
--- NOTE | 2023-07-01 12:28 | ED.GENADULT ---
HPI - General Adult General Chief complaint: Dizziness Stated complaint: dizzy, falling Time Seen by Provider: 07/01/23 13:43 Source: patient Mode of arrival: ambulatory Limitations: no limitations History of Present Illness HPI narrative: Patient comes to the emergency room complaining of 6 days of dizziness. Patient states that every time that she moves her head, she feels lightheaded. Patient states that this week she has fallen 3 times. Patient has a skin tear to the right extremity, which she has been taking care at home. Patient states that in December of last year, patient was here with vertigo. Patient states that this time it 8 feels different. Patient denies headache. Complaining of mild nausea. Patient states that also she fell, she did not pass out. Patient states that if she keeps her head still she does not have any significant dizziness. It gets worse when patient bends over to tie her shoes, then she loses balance and falls. Patient is unable to explain dizziness, patient denies room or cells spinning. Patient denies lightheadedness, states she just feels dizzy and falls Related Data Home Medications Medication Instructions Recorded Confirmed atorvastatin 40 mg tablet 40 mg PO DAILY 10/30/20 02/18/23 cholecalciferol (vitamin D3) 25 25 mcg PO DAILY 10/30/20 02/18/23 mcg (1,000 unit) capsule losartan 25 mg tablet 25 mg PO DAILY 10/30/20 02/18/23 metformin 500 mg tablet 500 mg PO BID 10/30/20 02/18/23 sitagliptin phosphate 50 mg tablet 50 mg PO DAILY 10/30/20 02/18/23 (Januvia) vit C 250 mg-vit E 200 unit-zinc 1 cap PO BID 10/30/20 02/18/23 ox 12.5 ap-cdvnqu-ahhxhz-zeax capsule (ICaps AREDS2) pregabalin 25 mg capsule (Lyrica) 25 mg PO DAILY 01/06/23 02/18/23 alpha lipoic acid 600 mg tablet 1,200 mg PO BID 02/18/23 02/18/23 levothyroxine 50 mcg capsule 75 mcg PO DAILY 02/18/23 02/18/23 Previous Rx's Medication Instructions Recorded hydrocodone 5 mg-acetaminophen 325 1 tab PO Q4-6H PRN pain #5 tabs 03/21/23 mg tablet diazepam 2 mg tablet (Valium) 2 mg PO TID PRN dizziness or 07/01/23 vertigo #15 tabs meclizine 50 mg tablet 50 mg PO TID PRN dizziness #60 tabs 07/01/23 Allergies Allergy/AdvReac Type Severity Reaction Status Date / Time gabapentin Allergy Severe Rash Verified 07/01/23 12:31 chloroquine [CHLOROQUINE] Allergy Mild RASH Verified 07/01/23 12:31 Review of Systems Review of Systems: Constitutional : No Weight loss, No Fever, No Chills, No Night Sweats, No Fatigue, No Malaise ENT/Mouth : No Hearing loss, No Ear Pain, No Nasal Congestion, No Sinus Pain, No Hoarseness, No sore throat, No Rhinorrhea, No Swallowing Difficulty Eyes: No Eye Pain, No Swelling, No Redness, No Foreign Body, No Discharge, No Vision Changes Cardiovascular : No Chest Pain, No SOB, No Dyspnea on Exertion, No Orthopnea, No Edema, No Palpitations Respiratory : No Cough, No Sputum, No Wheezing, No Smoke Exposure, No Dyspnea Gastrointestinal : No Nausea, No Vomiting, No Diarrhea, No Constipation, No abdominal Pain, No Hematochezia, No Melena Genitourinary : no irregular bleeding, No Dysuria, No Urinary Frequency, No Hematuria, No Urinary Incontinence, No Urgency, No Flank Pain, No Urinary Flow Changes, No Hesitancy Musculoskeletal : No joint pain, No Myalgias, No Joint Swelling Skin : No Skin Lesions, No rash Neuro : Patient has chronic bilateral extremity paresthesias due to diabetes. Patient complaining of dizziness with head movement Psych : No Anxiety/Panic, No Depression, No SI/HI/AH/VH, No Social Issues, Heme/Lymph: No Bruising, No Bleeding,No Lymphadenopathy Endocrine : No Polyuria, No Polydipsia, No Temperature Intolerance PMFSH Past Medical History Medical History Ankle injury COVID-19 vaccine series completed Diabetes mellitus Dyslipidemia Hx of breast cancer Hypertension Hypothyroidism Myocardial infarction Polymyalgia Vertigo Surgical History H/O breast surgery H/O colonoscopy History of esophagogastroduodenoscopy (EGD) Hx of appendectomy Family History Family History Father HTN (hypertension) Mother HTN (hypertension) Diabetes Gallbladder cancer Social History Social History Are you a primary rn managed care to a significant other at home: No Do you presently have visiting nurse or other home services: No Alcohol intake: never Patient Tobacco Use Status: Never used Tobacco e-Cigarette/Vaping Use: Never Used Substance Use Type: Other Advance Directives: No Advance Directives Information Provided: No Current occupational status: employed 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 Physical Exam ED Vital Signs: Vital Signs - 24 hr 07/01/23 12:28 07/01/23 13:59 07/01/23 15:15 Temperature 98.8 F Pulse Rate 91 81 68 Respiratory Rate 18 14 Blood Pressure 151/70 H 175/81 H 133/63 Pulse Oximetry 98 99 Oxygen Delivery Method Room Air Room Air 07/01/23 15:15 07/01/23 15:17 07/01/23 15:20 Temperature 98.4 F Pulse Rate 69 76 73 Respiratory Rate 15 Blood Pressure 128/56 L 127/63 134/53 L Pulse Oximetry 98 Oxygen Delivery Method Room Air 07/01/23 17:39 Temperature 98.0 F Pulse Rate 79 Respiratory Rate 15 Blood Pressure 174/69 H Pulse Oximetry 99 Oxygen Delivery Method Room Air BMI result Body Mass Index 24.1 Const Other: Appearance: Alert. Oriented X3. No acute distress. Eyes: Pupils equal, round and reactive to light. ENT: Pharynx normal. Neck: Normal inspection. Neck supple. No lymph nodes noted. No crepitus CVS: Normal heart rate and rhythm. Pulses normal. Normal S1 and S2 Respiratory: No respiratory distress. Breath sounds normal. No Wheezing. No rales Abdomen: Soft and nontender. No rigidity. No distention. Skin: Skin warm and dry. Normal skin color. Normal skin turgor. See extremities below Extremities: No lower extremity edema. Patient has a U shaped skin tear, healing well, not draining pus or blood Neuro: Oriented X 3. No motor deficit. No sensory deficit. Moving all extremities. No slurred speech. CN 2 through 12 grossly intact Psych: calm, cooperative, anxious NIH Stroke Scale Internal: Initial- Upon Arrival Level of Consciousness: Alert Level of Consciousness Questions: Answers both questions correctly Level of Consciousness Commands: Performs both tasks correctly Best Gaze: Normal Visual: No visual loss Facial Palsy: Normal Motor Arm (Right): No drift Motor Arm (Left): No drift Motor Leg (Right): No drift Motor Leg (Left): No drift Limb Ataxia: Absent Sensory: Normal Best Language: No aphasia Dysarthia: Normal Extinction and Inattention: No abnormality Score: 0 Course Course Course Narrative: This is an RME: Additional HPI, ROS, PE not included below will be deferred to primary provider. Patient is an 87-year-old female who presents emergency department for evaluation of dizziness x 6 days, reports when I bend down I fall down . She reports a history of dizziness couple years ago which she was evaluated for she states that this is different, because ?it feels like it is in the back of my head?. She does report a history of multiple falls recently but denies any head strike or loss of consciousness with these falls. No focal deficits. Plan: Labs, EKG Medications Administered Discontinued Medications Generic Name Dose Route Start Last Admin Trade Name Ren PRN Reason Stop Dose Admin Diazepam 2 mg 07/01/23 14:07/01/23 14:19 Diazepam 2 Mg Tablet PO 07/01/23 14:10 2 mg ONCE ONE Administration Iohexol 100 ml 07/01/23 16:19 07/01/23 16:19 Iohexol 350 Mg/Ml 100 Ml Infus..Btl IV 07/01/23 16:20 70 ml ONCE ONE Administration Meclizine HCl 50 mg 07/01/23 14:07/01/23 14:19 Meclizine Hcl 25 Mg Tablet PO 07/01/23 14:10 50 mg ONCE ONE Administration Medical Decision Making Medical Decision Making [facility] Narrative: All of patient's labs and imaging pending -patient getting p.o. meclizine, Ativan -my interpretation of EKG: Normal sinus rhythm, heart rate 75, no ST segment depression or elevation, no T-wave inversion, QTC 446 -my interpretation of CT scan: No obvious abnormality in the brain, no acute infarcts -I discussed with the patient that patient may have vertigo, BPPV, patient states that as long as she does not move she feels well. However, if she bends her head down words that is when he gets worse. When she gets back into bed she starts feeling better again. -I offered to the patient staying in the hospital until her symptoms improve, we will like to avoid any falls. However, patient and her thing that they can manage well at home. Patient will take with her a prescription of meclizine and diazepam. Instructed to take meclizine 1st, if that does not work, she can take diazepam. Also, discussed with the patient that if she does not improve, we can keep her in the hospital. Patient may need a physical therapy evaluation a referral. Differential Diagnosis Differential Diagnoses: The differential diagnosis associated with the presentation includes (CVA, BPPV, very) Admission/Observation Consideration of admission/observation: Escalation of care including admission/observation considered (Patient and her respectfully declined admission at this time, but open to return if symptoms do not improve or worsen) Lab Data MDM Lab Attestation statement: I reviewed the patient's lab results. 07/01/23 14:02 07/01/23 14:02 Labs: Lab Results 07/01/23 07/01/23 Range/Units 14:02 17:42 WBC 6.9 (4.8-10.8) X10*3/uL RBC 4.31 (4.20-5.50) X10*6/uL Hgb 13.3 (12.0-16.0) g/dl Hct 40.5 (37.0-47.0) % MCV 94.0 (80.0-98.0) fL MCH 30.9 (27.0-33.0) pg MCHC 32.8 (31.0-35.0) g/dl RDW 13.5 (11.0-16.0) % Plt Count 195 (160-400) X10*3/uL MPV 10.6 (9.4-12.3) fL Immature Gran % (Auto) 0.4 (0.0-0.4) % Neut % (Auto) 69.2 (45-73) % Lymph % (Auto) 22.3 (20-40) % Davison % (Auto) 7.1 (2-11) % Eos % (Auto) 0.6 (0-4) % Baso % (Auto) 0.4 (0-2) % Lymph # (Auto) 1.5 (1.2-4.9) X10*3/uL Davison # (Auto) 0.5 (0.1-1.2) X10*3/uL Eos # (Auto) 0.0 (0.0-0.4) X10*3/uL Baso # (Auto) 0.0 (0.0-0.2) X10*3/uL Abs Immat Gran (auto) 0.03 (0.00-0.03) X10*3/uL Absolute Neuts (auto) 4.8 (2.0-8.3) x10*3/uL Absolute Nucleated RBC 0.000 (0.0-0.012) X10*3/uL Nucleated RBC % (auto) 0.0 (0.0-0.2) /100WBC Sodium 139 (135-145) mmol/L Potassium 3.9 (3.3-5.1) mmol/L Chloride 105 (96-108) mmol/L Carbon Dioxide 27 (22-29) mmol/L Anion Gap 11 L (12-20) BUN 19 H (9-16) mg/dL Creatinine 0.86 (0.5-1.4) mg/dL Estim Creat Clear Calc 42.2 Estimated GFR > 60 Random Glucose 124 H (60-115) mg/dL Calcium 9.8 D (8.4-10.2) mg/dL Total Bilirubin 0.3 (0.0-1.0) mg/dL AST 18 (5-31) U/L ALT 13 (0-31) U/L Alkaline Phosphatase 82 (39-117) U/L Troponin I High Sens < 2.7 (<3.5-17.0) ng/L Total Protein 8.0 (6.5-8.0) g/dL Albumin 4.2 (3.5-5.0) g/dL TSH 0.47 (0.32-4.0) uIU/mL Urine Color Yellow Urine Appearance Clear Urine pH 8.5 (5.0-9.0) Ur Specific [place] >= 1.030 H (1.005-1.025) Urine Protein Negative (Neg-Trace) mg/dL Urine Glucose (UA) Negative (Negative) mg/dL Urine Ketones Negative (Negative) mg/dL Urine Blood Moderate (2+) H (Negative) Urine Nitrite Negative (Negative) Ur Leukocyte Esterase Trace H (Negative) Urine RBC >20 H (0-2) /HPF Urine WBC 0-5 (0-5) /HPF Ur Squamous Epith Cells 0-2 (0-2) /HPF Urine Bacteria None Seen (None Seen) Hyaline Casts 0-2 (0-2) /LPF Independent Interpretation I performed an independent interpretation of an: CT Scan Radiology Impression Discussion of test interpretation with radiology: I have reviewed the radiologist's reading. Radiologist Impression: FINDINGS: Head: There is no acute intracranial hemorrhage or abnormal extra-axial collection. Postcontrast images reveal no abnormal intracranial mass or enhancement. There is no intracranial mass effect or midline shift. Lateral and third ventricles are normal. No hydrocephalus. Scattered nonspecific foci of hypoattenuation are visualized within the periventricular white matter that most likely represent a chronic manifestation of small vessel ischemia. Flor-white matter differentiation is otherwise preserved and there is no evidence of acute territorial infarct.. The calvarium and skull base are intact. Mastoid air cells and middle ear cavities are well aerated. No active paranasal sinus disease. CT angiogram neck: The aortic arch apex is normal. Origins of the major aortic branches are widely patent. Common carotid arteries are normal. Partially calcified atheromatous plaque involves both carotid bifurcations. There is 25% stenosis at the origin of the left internal carotid artery. No stenosis of the right extracranial internal carotid artery. The cervical segments of vertebral arteries as well as their origins are widely patent. CT angiogram head: Intracranial internal carotid arteries are normal. The intradural vertebral artery segments and basilar artery are normal. Anterior, middle, and posterior cerebral artery complexes are normal. No intracranial large vessel occlusion. No identifiable aneurysm or high flow vascular lesion. Other: Soft tissues of the neck including the thyroid gland are normal. There are no pathologically enlarged cervical lymph nodes. Visualized lung apices are clear. No acute osseous finding. Specifically no worrisome lytic or blastic osseous lesion. Grossly no spinal canal compromise. CT/CT angio head neck IMPRESSION: Partially calcified atheromatous plaque involves both carotid bifurcations. There is 25% stenosis at the origin of the left internal carotid artery. Otherwise no stenosis of the cervical carotid or vertebral arteries. No intracranial large vessel occlusion. There are scattered chronic small vessel ischemic changes within the periventricular white matter. No evidence of acute territorial infarct or hemorrhage. No abnormal intracranial mass or enhancement. Independent Historian Clinical information obtained from an independent historian. History obtained from or confirmed by: Spouse Critical Care Time Critical Care Time Critical Care Time: Yes Total Critical Care Time: 60 Attestation: I have personally provided critical care time. Time includes review of lab data, radiology results, discussion with consultants, and monitoring for potential decompensation. Intervention performed as documented. Discharge Plan Discharge Clinical Impression: Dizziness Patient Disposition: Home, Self-Care Instructions: Vertigo (ED), Dizziness (ED) Additional Instructions: Please follow-up with your primary care physician tomorrow. If you have any worsening or new symptoms, please return to the emergency room or call 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 Please follow-up with your vascular surgeon. If you have any dizziness, please take meclizine 1st. If it does not work, then take diazepam. If you take diazepam, please make sure that your in bed to avoid any falls. Prescriptions: New meclizine 50 mg tablet 50 mg PO TID PRN (Reason: dizziness) Qty: 60 0RF diazepam [Valium] 2 mg tablet 2 mg PO TID PRN (Reason: dizziness or vertigo) Qty: 15 0RF No Action hydrocodone-acetaminophen 5-325 mg tablet 1 tab PO Q4-6H PRN (Reason: pain) Qty: 5 0RF Rx Instructions: Partial Fill upon patient request. metformin 500 mg tablet 500 mg PO BID Januvia 50 mg tablet 50 mg PO DAILY losartan 25 mg tablet 25 mg PO DAILY atorvastatin 40 mg tablet 40 mg PO DAILY ICaps AREDS2 250 mg-200 unit -12.5 mg-1 mg capsule 1 cap PO BID cholecalciferol (vitamin D3) 25 mcg (1,000 unit) capsule 25 mcg PO DAILY levothyroxine 50 mcg capsule 75 mcg PO DAILY pregabalin [Lyrica] 25 mg capsule 25 mg PO DAILY alpha lipoic acid 600 mg tablet 1,200 mg PO BID Referrals: Marcelo Kennedy MD [Physician] - 07/04/23
--- NOTE | 2023-07-01 13:51 | ECG_ITS ---
Test Reason : DIZZINESS Blood Pressure : / mmHG Vent. Rate : 075 BPM Atrial Rate : 075 BPM P-R Int : 164 ms QRS Dur : 068 ms QT Int : 400 ms P-R-T Axes : 050 -05 026 degrees QTc Int : 446 ms Normal sinus rhythm Low voltage QRS Borderline ECG When compared with ECG of 20-JAN-2023 20:08, T wave amplitude has decreased in Anterior leads Referred By: Megan Meza Electronically Signed By:FARIDA AG
[2023-07-01 13:59] VITALS: BP 175/81; PULSE 81; RESP 14; O2SAT 99
[2023-07-01 14:06] LABS: MANUAL DIFF FLAG NO
[2023-07-01 14:08] LABS: Basophils Percent Auto 0.4 % (0-2); Eosinophils Percent Auto 0.6 % (0-4); Hematocrit 40.5 % (37.0-47.0); Hemoglobin 13.3 g/dl (12.0-16.0); Imm Gran Abs Auto 0.03 X10*3/uL (0.00-0.03); Imm Gran Pct Auto 0.4 % (0.0-0.4); Lymphocytes Absolute Auto 1.5 X10*3/uL (1.2-4.9); Lymphocytes Percent Auto 22.3 % (20-40); Mean Corpuscular HGB Conc 32.8 g/dl (31.0-35.0); Mean Corpuscular Hemoglobin 30.9 pg (27.0-33.0); Mean Platelet Volume 10.6 fL (9.4-12.3); Monocytes Absolute Auto 0.5 X10*3/uL (0.1-1.2); Monocytes Percent Auto 7.1 % (2-11); Neutrophils Absolute Auto 4.8 x10*3/uL (2.0-8.3); Neutrophils Percent Auto 69.2 % (45-73); Platelet Count 195 X10*3/uL (160-400); Red Blood Count 4.31 X10*6/uL (4.20-5.50); Red Cell Distribution Width 13.5 % (11.0-16.0); White Blood Count 6.9 X10*3/uL (4.8-10.8)
[2023-07-01] MEDS: Meclizine HCl 25 MG TABLET 50 MG PO (14:19)
[2023-07-01] MEDS: diazePAM 2 MG TABLET PO (14:19)
[2023-07-01 14:48] LABS: Troponin-I High Sensitivity < 2.7 ng/L (<3.5-17.0)
[2023-07-01 14:50] LABS: Alanine Aminotransferase 13 U/L (0-31); Albumin Level 4.2 g/dL (3.5-5.0); Alkaline Phosphatase 82 U/L (39-117); Anion Gap 11 (12-20); Aspartate Amino Transferase 18 U/L (5-31); Bilirubin Total 0.3 mg/dL (0.0-1.0); Blood Urea Nitrogen 19 mg/dL (9-16); Calcium 9.8 mg/dL (8.4-10.2); Carbon Dioxide 27 mmol/L (22-29); Chloride 105 mmol/L (96-108); Creatinine Clr Calc Pharmacy 42.2; Estimated Glomerular Filt Rate > 60; Glucose Random 124 mg/dL (60-115); Potassium 3.9 mmol/L (3.3-5.1); Sodium 139 mmol/L (135-145)
[2023-07-01 14:57] LABS: TSH reflex Free T4 0.47 uIU/mL (0.32-4.0)
[2023-07-01 15:15] VITALS: BP 128/56; BP 133/63; PULSE 68; PULSE 69
[2023-07-01 15:17] VITALS: BP 127/63; PULSE 76
[2023-07-01 15:20] VITALS: BP 134/53; PULSE 73; RESP 15; TEMP 36.9; O2SAT 98
[2023-07-01] MEDS: iohexoL 350 MG/ML 100 ML INFUS..BTL IV (16:19)
[2023-07-01 17:39] VITALS: BP 174/69; PULSE 79; RESP 15; TEMP 36.7; O2SAT 99
--- NOTE | 2023-07-01 17:40 | MHC.EDTECH ---
Patient was assisted to walk to bathroom ,void urine sample collected and sent to lab ,Pt became dizzy while walking ,Provider aware ,vitals taken .
[2023-07-01 17:50] LABS: Appearance Urine Clear; Color Urine Yellow; Glucose Urine UA Negative (Negative); Leukocyte Esterase Urine Trace (Negative); Nitrite Urine Negative (Negative); PH 8.5 (5.0-9.0); Specific Gravity - Urine >= 1.030 (1.005-1.025); UMIC TRIGGER UACC YES; Urine Blood Moderate (2+) (Negative); Urine Ketones Negative (Negative); Urine Protein Negative (Neg-Trace)
[2023-07-01 17:52] LABS: Bacteria Urine None Seen (None Seen); Hyaline Casts Urine 0-2 /LPF (0-2); RBC Urine >20 /HPF (0-2); Squamous Epithelial Cell Urine 0-2 /HPF (0-2); WBC Urine 0-5 /HPF (0-5)
== END 2023-07-01 18:23 | disposition home or self-care (01) ==
PROVIDERS: Emergency Provider Emergency Medicine
DX: R42 Dizziness and giddiness (principal); E11.9 Type 2 diabetes mellitus without complications; I10 Essential (primary) hypertension; E78.5 Hyperlipidemia, unspecified; I25.2 Old myocardial infarction; Z79.84 Long term (current) use of oral hypoglycemic drugs; Z79.02 Long term (current) use of antithrombotics/antiplatelets; Z79.899 Other long term (current) drug therapy
CPT/HCPCS: 36415; 70496; 70498; 80053; 81001; 84443; 84484; 85025; 93005; 99284; Q9967

== ENCOUNTER → 2023-07-01 13:51 | Outpatient (BNV) | payer MEDICARE, SELFPAY | PROVIDERS: Emergency Provider Emergency Medicine; Visit Provider Internal Medicine | DX: R42 Dizziness and giddiness (principal) | CPT/HCPCS: 93010 ==

== ENCOUNTER 2023-11-15 17:45 | Emergency (ER) | payer MEDICARE, SELFPAY ==
--- NOTE | ~2023-11-15 | XR_ITS ---
EXAMINATION: XR HAND, RIGHT CLINICAL INFORMATION: Pain. Trauma. COMPARISON: Previous x-ray July 2014 TECHNIQUE: PA, lateral, and oblique views of the right hand. FINDINGS: The bones are osteopenic. No fracture or dislocation. Severe arthritis at the first HAL[place]-WAY and trapezoid trapezium scaphoid joints. Mild arthritis at the IP joints. Soft tissues are unremarkable. XR/XR hand RT 2V IMPRESSION: Osteopenia and arthritis. No fracture is seen.
--- NOTE | ~2023-11-15 | CT_ITS ---
EXAMINATION: CT HEAD WITHOUT CONTRAST CLINICAL INFORMATION: Fall COMPARISON: Previous head CT December 2022 TECHNIQUE: Contiguous axial imaging was performed from the skull base to vertex without intravenous administration of contrast. This CT examination was performed using dose optimization techniques as appropriate, variously including the following: *Automated exposure control *Adjustment of mA and/or kV according to patient size (this includes techniques or standardized protocols for targeted exams where dose is matched to indication/reason for exam; i.e. extremities or head) *Use of iterative reconstruction technique DLP: 562 mGy-cm FINDINGS: There is no evidence of an extra-axial collection. There is no evidence of intra or extra-axial hemorrhage. The ventricles and extra-axial CSF spaces are prominent suggestive of mild generalized atrophy. There is mild nonspecific periventricular white matter disease. No mass, mass effect or infarct. No skull fracture. Sinuses mastoid air cells and middle ears are clear. CT/CT head/brain wo IV con IMPRESSION: No acute intracranial pathology.
--- NOTE | ~2023-11-15 | CT_ITS ---
EXAMINATION: CT CERVICAL SPINE WITHOUT CONTRAST CLINICAL INFORMATION: Fall. Pain. COMPARISON: Previous cervical spine CT most recent December 2022 TECHNIQUE: Axial images through the cervical spine without contrast. Sagittal and coronal reconstructions on the technologist workstation. This CT examination was performed using dose optimization techniques as appropriate, variously including the following: *Automated exposure control *Adjustment of mA and/or kV according to patient size (this includes techniques or standardized protocols for targeted exams where dose is matched to indication/reason for exam; i.e. extremities or head) *Use of iterative reconstruction technique DLP: 224 mGy-cm FINDINGS: There is mild 2 mm anterior subluxation of C7 with respect to T1. Bone alignment is otherwise normal. No fracture or dislocation. Multilevel degenerative spondylosis and degenerative disc disease greatest at C6-C7. Bilateral multilevel facet arthritis. Degenerative changes at the C1 dens articulation and partially calcified pannus. Prevertebral soft tissues are normal. Bilateral carotid calcification. Visualized lung apices are clear. CT/CT cervical spine wo IV con IMPRESSION: Degenerative changes. No fracture or dislocation. Fleischner guidelines were followed.
--- NOTE | ~2023-11-15 | XR_ITS ---
EXAMINATION: Left clavicle, left shoulder and left humerus x-rays CLINICAL INFORMATION: Pain post fall COMPARISON: None. TECHNIQUE: 2 views of the left clavicle, 2 views of the left shoulder and 2 views of the left humerus FINDINGS: Left clavicle: There is a comminuted minimally minimally displaced fracture of the left distal clavicle. There is overlying soft tissue swelling. Left shoulder: Arthritis at the glenohumeral and acromioclavicular joints. No dislocation. Minimally displaced left distal clavicle fracture. Left humerus: Bone alignment is normal. No fracture or dislocation. Normal shoulder joints. Normal soft tissues. XR/XR shoulder LT min 2V IMPRESSION: Left distal clavicle fracture.
--- NOTE | ~2023-11-15 | XR_ITS ---
EXAMINATION: Left clavicle, left shoulder and left humerus x-rays CLINICAL INFORMATION: Pain post fall COMPARISON: None. TECHNIQUE: 2 views of the left clavicle, 2 views of the left shoulder and 2 views of the left humerus FINDINGS: Left clavicle: There is a comminuted minimally minimally displaced fracture of the left distal clavicle. There is overlying soft tissue swelling. Left shoulder: Arthritis at the glenohumeral and acromioclavicular joints. No dislocation. Minimally displaced left distal clavicle fracture. Left humerus: Bone alignment is normal. No fracture or dislocation. Normal shoulder joints. Normal soft tissues. XR/XR humerus LT IMPRESSION: Left distal clavicle fracture.
--- NOTE | ~2023-11-15 | XR_ITS ---
EXAMINATION: Left clavicle, left shoulder and left humerus x-rays CLINICAL INFORMATION: Pain post fall COMPARISON: None. TECHNIQUE: 2 views of the left clavicle, 2 views of the left shoulder and 2 views of the left humerus FINDINGS: Left clavicle: There is a comminuted minimally minimally displaced fracture of the left distal clavicle. There is overlying soft tissue swelling. Left shoulder: Arthritis at the glenohumeral and acromioclavicular joints. No dislocation. Minimally displaced left distal clavicle fracture. Left humerus: Bone alignment is normal. No fracture or dislocation. Normal shoulder joints. Normal soft tissues. XR/XR clavicle LT IMPRESSION: Left distal clavicle fracture.
[2023-11-15 17:55] VITALS: BP 185/79; PULSE 70; RESP 16; TEMP 36.3; O2SAT 98
[2023-11-15 18:02] VITALS: BP 138/80; BP 157/80; PULSE 72; PULSE 74; RESP 17; TEMP 36.5; O2SAT 96; O2SAT 98; BMI 23.8
[2023-11-15 18:15] VITALS: BP 161/65; PULSE 69; RESP 18; TEMP 36.5
[2023-11-15] MEDS: Acetaminophen 325 MG TABLET 650 MG PO (18:29)
[2023-11-15] MEDS: Ibuprofen 600 MG TABLET PO (18:29)
--- NOTE | 2023-11-15 20:47 | ED.FALL ---
HPI - Fall General Chief Complaint: Fall Stated Complaint: fall,shoulder pain Time Seen by Provider: 11/15/23 18:19 Source: patient Mode of arrival: ambulatory Limitations: no limitations History of Present Illness ED Provider: Dr. Megan Meza HPI Narrative: patient comes to the emergency room complaining of left shoulder pain after a fall. Patient states that she was outside going for a walk, patient tripped and fell landing on her left shoulder. Patient states that she did not hit her head or did not lose consciousness. Patient not on blood thinners, patient complaining of mild left-sided neck pain but what hurts the most is the left shoulder. Patient denies any hip or lower extremity pain Related Data Home Medications ?Medication ?Instructions ?Recorded ?Confirmed atorvastatin 40 mg tablet 40 mg PO DAILY 10/30/20 02/18/23 cholecalciferol (vitamin D3) 25 25 mcg PO DAILY 10/30/20 02/18/23 mcg (1,000 unit) capsule losartan 25 mg tablet 25 mg PO DAILY 10/30/20 02/18/23 metformin 500 mg tablet 500 mg PO BID 10/30/20 02/18/23 sitagliptin phosphate 50 mg tablet 50 mg PO DAILY 10/30/20 02/18/23 (Januvia) vit C 250 mg-vit E 200 unit-zinc 1 cap PO BID 10/30/20 02/18/23 ox 12.5 [id number] capsule (ICaps AREDS2) pregabalin 25 mg capsule (Lyrica) 25 mg PO DAILY 01/06/23 02/18/23 alpha lipoic acid 600 mg tablet 1,200 mg PO BID 02/18/23 02/18/23 levothyroxine 50 mcg capsule 75 mcg PO DAILY 02/18/23 02/18/23 Previous Rx's ?Medication ?Instructions ?Recorded hydrocodone 5 mg-acetaminophen 325 1 tab PO Q4-6H PRN pain #5 tabs 03/21/23 mg tablet meclizine 50 mg tablet 50 mg PO TID PRN dizziness #60 tabs 07/01/23 diazepam 2 mg tablet (Valium) 2 mg PO TID PRN Dizziness, vertigo 07/03/23 #15 tabs Allergies Allergy/AdvReac Type Severity Reaction Status Date / Time gabapentin Allergy Severe Rash Verified 11/15/23 18:04 chloroquine [CHLOROQUINE] Allergy Mild RASH Verified 11/15/23 18:04 Review of Systems Review of Systems: Constitutional : No Weight loss, No Fever, No Chills, No Night Sweats, No Fatigue, No Malaise ENT/Mouth : No Hearing loss, No Ear Pain, No Nasal Congestion, No Sinus Pain, No Hoarseness, No sore throat, No Rhinorrhea, No Swallowing Difficulty Eyes: No Eye Pain, No Swelling, No Redness, No Foreign Body, No Discharge, No Vision Changes Cardiovascular : No Chest Pain, No SOB, No Dyspnea on Exertion, No Orthopnea, No Edema, No Palpitations Respiratory : No Cough, No Sputum, No Wheezing, No Smoke Exposure, No Dyspnea Gastrointestinal : No Nausea, No Vomiting, No Diarrhea, No Constipation, No abdominal Pain, No Hematochezia, No Melena Genitourinary : no irregular bleeding, No Dysuria, No Urinary Frequency, No Hematuria, No Urinary Incontinence, No Urgency, No Flank Pain, No Urinary Flow Changes, No Hesitancy Musculoskeletal : complaining of left shoulder pain and clavicle pain, complaining of mild neck pain on the left side posteriorly, No Myalgias, No Joint Swelling Skin : No Skin Lesions, No rash Neuro : No Weakness, No Numbness, No Paresthesias, No Loss of Consciousness, No Dizziness, No Headache Psych : No Anxiety/Panic, No Depression, No SI/HI/AH/VH, No Social Issues, Heme/Lymph: No Bruising, No Bleeding,No Lymphadenopathy Endocrine : No Polyuria, No Polydipsia, No Temperature Intolerance PMFSH Past Medical History Medical History Vertigo COVID-19 vaccine series completed Myocardial infarction Hx of breast cancer Polymyalgia Ankle injury Hypothyroidism Hypertension Dyslipidemia Diabetes mellitus Surgical History H/O breast surgery H/O colonoscopy History of esophagogastroduodenoscopy (EGD) Hx of appendectomy Family History Family History Father HTN (hypertension) Mother HTN (hypertension) Diabetes Gallbladder cancer Social History Social History Are you a primary women's health care nurse practitioner to a significant other at home: No Do you presently have visiting nurse or other home services: No Alcohol intake: never Patient Tobacco Use Status: Never used Tobacco Smoked in Last 30 Days: No e-Cigarette/Vaping Use: Never Used Substance Use Type: Other Advance Directives: No Advance Directives Information Provided: No Current occupational status: employed 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 Oriented X3. No acute distress. Eyes: Pupils equal, round and reactive to light. ENT: normal oropharynx Neck: on C-spine precautions, pain to palpation over the left side of the neck posteriorly, no C-spine tenderness or palpable step-offs CVS: Normal heart rate and rhythm. Pulses normal. Normal S1 and S2 Respiratory: No respiratory distress. Breath sounds normal. No Wheezing. No rales Abdomen: Soft and nontender. No rigidity. No distention. Skin: Skin warm and dry. Normal skin color. Normal skin turgor. Extremities: No lower extremity edema. No Lacerations. No Rash, pain to palpation over the clavicle and left shoulder, no pain on the right upper extremity or bilateral lower extremities, pain to palpation to the right thumb with normal range of motion Neuro: Oriented X 3. No motor deficit. No sensory deficit. Moving all extremities. No slurred speech. CN 2 through 12 grossly intact Psych: calm, cooperative, normal affect Course Reevaluation(s) Reevaluation #1: DR. Nguyen's progress note: 88-year-old female sustained a fall seen initially by Dr. Meza and signed out to check head and cervical spine CT that was unremarkable for acute fracture or intracranial bleed. Patient has sustained left clavicular fracture, appeared comfortable with the sling will discharge and follow-up with orthopedic. Time: 22:15 Medications Administered Discontinued Medications Generic Name Dose Route Start Last Admin Trade Name Freq PRN Reason Stop Dose Admin Acetaminophen 650 mg 11/15/23 18:15 06/25/24 18:29 Acetaminophen 325 Mg Tablet PO 11/15/23 18:16 650 mg ONCE ONE Administration Ibuprofen 600 mg 11/15/23 18:15 11/15/23 18:29 Ibuprofen 600 Mg Tablet PO 11/15/23 18:16 600 mg ONCE ONE Administration Tramadol HCl 50 mg 11/15/23 20:29 11/15/23 21:23 Tramadol Hcl 50 Mg Tablet PO 11/15/23 20:30 50 mg ONCE ONE Administration Medical Decision Making Medical Decision Making MDM Narrative: my interpretation of x-ray of the left clavicle, fracture is present. no shoulder dislocation. - patient was placed on a sling - patient given tramadol p.o. for the pain, declined anything stronger at this time. Patient states she wants to wait for a bit before the hit and cervical spine CTs are done - PT case management was offered to the patient her , at this moment declined - CT scans pending. Sign out given to my colleague Dr. Nguyen Differential Diagnosis Differential Diagnoses: The differential diagnosis associated with the presentation includes ( shoulder dislocation, fracture, humerus fracture, clavicle dislocation) Admission/Observation Consideration of admission/observation: Escalation of care including admission/observation considered ( given patient's presentation, observation considered) Independent Interpretation I performed an independent interpretation of an: Plain X-Ray and CT Scan (Head/C-spine: No acute intracranial pathology. No cervical spine fracture or dislocation.) Radiology Impression Discussion of test interpretation with radiology: I have reviewed the radiologist's reading. Radiologist Impression: FINDINGS: Left clavicle: There is a comminuted minimally minimally displaced fracture of the left distal clavicle. There is overlying soft tissue swelling. Left shoulder: Arthritis at the glenohumeral and acromioclavicular joints. No dislocation. Minimally displaced left distal clavicle fracture. Left humerus: Bone alignment is normal. No fracture or dislocation. Normal shoulder joints. Normal soft tissues. XR/XR shoulder LT min 2V IMPRESSION: Left distal clavicle fracture. The bones are osteopenic. No fracture or dislocation. Severe arthritis at the first [facility] and trapezoid trapezium scaphoid joints. Mild arthritis at the IP joints. Soft tissues are unremarkable. XR/XR hand RT 2V IMPRESSION: Osteopenia and arthritis. No fracture is seen. Discharge Plan Discharge Clinical Impression: Closed fracture of left clavicle Patient Disposition: Home, Self-Care Instructions: Clavicle Fracture (ED) Prescriptions: No Action hydrocodone-acetaminophen 5-325 mg tablet 1 tab PO Q4-6H PRN (Reason: pain) Qty: 5 0RF Rx Instructions: Partial Fill upon patient request. meclizine 50 mg tablet 50 mg PO TID PRN (Reason: dizziness) Qty: 60 0RF diazepam [Valium] 2 mg tablet 2 mg PO TID PRN (Reason: Dizziness, vertigo) Qty: 15 0RF metformin 500 mg tablet 500 mg PO BID Januvia 50 mg tablet 50 mg PO DAILY losartan 25 mg tablet 25 mg PO DAILY atorvastatin 40 mg tablet 40 mg PO DAILY ICaps AREDS2 250 mg-200 unit -12.5 mg-1 mg capsule 1 cap PO BID cholecalciferol (vitamin D3) 25 mcg (1,000 unit) capsule 25 mcg PO DAILY levothyroxine 50 mcg capsule 75 mcg PO DAILY pregabalin [Lyrica] 25 mg capsule 25 mg PO DAILY alpha lipoic acid 600 mg tablet 1,200 mg PO BID Referrals: Avery Swartz MD [Physician] - Print Language: Lebanese
[2023-11-15] MEDS: traMADoL HCL 50 MG TABLET PO (21:23)
[2023-11-15 22:40] VITALS: BP 145/76; PULSE 66; RESP 18; TEMP 36.7; O2SAT 96
== END 2023-11-15 22:41 | disposition home or self-care (01) ==
PROVIDERS: Emergency Provider Emergency Medicine
DX: S42.002A Fracture of unspecified part of left clavicle, initial encounter for closed fracture (principal); R51.9 Headache, unspecified; M54.2 Cervicalgia; M25.512 Pain in left shoulder; M79.641 Pain in right hand; W01.0XXA Fall on same level from slipping, tripping and stumbling without subsequent striking against object, initial encounter; Y93.9 Activity, unspecified; Y92.480 Sidewalk as the place of occurrence of the external cause; Y99.8 Other external cause status
CPT/HCPCS: 70450; 72125; 73000; 73030; 73060; 73120; 99284

== ENCOUNTER 2023-12-02 09:34 | Outpatient (AMB) | payer MEDICARE, SELFPAY ==
--- NOTE | 2023-12-02 10:10 | A.OFFVIS_ITS ---
<Statement entered by Avery Swartz MD - 12/07/23 08:12> I saw and evaluated this patient. I completed the assessment and plan in its entirety. The patient visit totaled 25 min, 15 of which I spent directly counseling the patient. I agree with PA assessment and plan. Vital Signs 12/02/23 10:13 Handedness Left Intake Visit Reasons: FC-Closed fracture of left shoulder Intake Note: Millie is a 88 year old female who presents today with her for her Left distal clavicle fracture s/p fall DOI: 11/15/23. Patient states was walking and making a turn but lost her balance and fell, landing on her left shoulder and right thumb. She is unable to perform her daily activities such as lying down and get out of bed, use the bathroom, getting dressed, etc. She has tried Tylenol and ibuprofen with very little relief. She was seen in 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 hx of diabetes. Accompanied by: Spouse Allergies gabapentin Allergy (Severe, Verified 12/02/23 10:19) Rash chloroquine [CHLOROQUINE] Allergy (Mild, Verified 12/02/23 10:19) RASH HPI HPI FC-Closed fracture of left shoulder: Details: Patient is an 88 old female who presents for evaluation of left clavicle fracture, date of injury 11/15/2023. Patient reports that she fell onto her left shoulder on this date, and was evaluated in the emergency department on the same day. At that time, she was placed in a sling, which she has been wearing since date of injury. Today, the patient reports that her main source of discomfort is the sling itself, as she reports that it has been hurting her neck as well as her ribs where the strap comes across. She does also report some m ild discomfort in the left shoulder, improved significantly since time of injury. Patient also reports that she has been experiencing pain in bilateral thumbs, significantly worse since date of injury The patient inquires if Dr. Swartz is available to see her while she is in the office. [facility] Medical History Vertigo COVID-19 vaccine series completed Myocardial infarction Hx of breast cancer Polymyalgia Ankle injury Hypothyroidism Hypertension Dyslipidemia Diabetes mellitus Surgical History History of esophagogastroduodenoscopy (EGD) H/O colonoscopy H/O breast surgery Hx of appendectomy Family History Father HTN (hypertension) Mother HTN (hypertension) Diabetes Gallbladder cancer Social History Are you a primary critical care cns to a significant other at home: No Do you presently have visiting nurse or other home services: No Alcohol intake: never Patient Tobacco Use Status: Never used Tobacco e-Cigarette/Vaping Use: Never Used Substance Use Type: Other Current occupational status: employed 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 Neuro: Sensation intact to the distal left upper extremity Vascular: Cap refill brisk Pain: Patient reports mild tenderness to palpation of the distal clavicle, at the fracture site. The patient also reports pain in her neck and the left side of her chest, where straps from the sling she has been wearing are placed. ROM: Patient is able to abduct to approximately 75-80 degrees bilaterally Patient is able to externally rotate shoulders to approximately 60 degrees bilaterally Skin: No lacerations or abrasions. General: No ecchymosis, erythema, or evidence of infection. Psych: Appears grossly normal Affect normal Attitude cooperative Psych Appearance: grossly normal Mental Status: mental status grossly normal Office Procedures Fracture Care Details: Nondisplaced distal clavicle fx Fracture Billing Code: Fracture Billing Code Results Reviewed Results Reviewed: X-rays obtained in the office today and independently reviewed by , Deshawn Arauz PA-C, demonstrate nondisplaced fracture of the distal clavicle shaft, with evidence of interval bony healing. Assessment & Plan Assessment & Plan (1) Closed fracture of left clavicle: Code(s): S42.002A - Fracture of unspecified part of left clavicle, initial encounter for closed fracture Category: Medical Qualifiers: Clavicle location: lateral end Encounter type: initial encounter Fracture alignment: nondisplaced Qualified Code(s): S42.035A - Nondisplaced fracture of lateral end of left clavicle, initial encounter for closed fracture Plan 1. Left clavicle fracture Date of injury 11/15/[address] Swartz: Patient will be managed conservatively Patient is educated about the typical treatment and recovery course of this injury Patient is instructed to not have anything heavier than 2 lb in her left hand, as well as to limit any overhead motion Patient is told that she does not have to wear the sling at this time, especially as it is causing her significant discomfort Sling removed in the office today 2. Bilateral thumb pain Patient is advised to make an appointment with Dr. Cheek for evaluation of bilateral thumb pain Orders: Orders XR clavicle LT Today M89.8X1 - Other specified disorders of bone, shoulder Coding Level of Care Code New Pt Level 3 (33955) Diagnoses Closed nondisplaced fracture of acromial end of left clavicle, initial encounter S42.035A Clavicle location: lateral end Encounter type: initial encounter Fracture alignment: nondisplaced CPT Codes Fracture Care - Fracture Billing Code: Fracture Billing Code ([id number])
== END 2023-12-02 11:29 | disposition home or self-care (01) ==
DX: S42.035A Nondisplaced fracture of lateral end of left clavicle, initial encounter for closed fracture (principal)
CPT/HCPCS: 99203

== ENCOUNTER 2023-12-02 14:53 | Outpatient (REF) | payer MEDICARE, SELFPAY ==
--- NOTE | ~2023-12-02 | XR_ITS ---
EXAMINATION: XR CLAVICLE, LEFT CLINICAL INFORMATION: Left clavicle fracture. COMPARISON: None available. TECHNIQUE: Straight AP and cephalad angulated AP views of the left clavicle. FINDINGS: Again seen is a transverse fracture of the left distal clavicle occurring 1.6 cm from the AC joint. There is increased periosteal bone formation in this region. Alignment is unchanged. Calcification is noted in the region of the coracoclavicular ligaments, new as compared to prior and likely due to ossification at a site of ligamentous injury. Coracoclavicular alignment appears normal. There is a small 2 mm calcification at the teres minor insertion on the humeral head, consistent with calcific tendinitis. Mild to moderate acromioclavicular and glenohumeral osteoarthritic. Bones are osteopenic. No new fractures. XR/XR clavicle LT IMPRESSION: 1. Healing distal clavicular fracture in unchanged alignment. 2. Calcification in the region of the coracoclavicular ligaments, likely due to early ossification at a site of ligamentous injury. 3. 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
== END 2023-12-02 14:54 | disposition home or self-care (01) ==
LOC: HO.HOSX 14:53
DX: M89.8X1 Other specified disorders of bone, shoulder (principal); S42.035A Nondisplaced fracture of lateral end of left clavicle, initial encounter for closed fracture
CPT/HCPCS: 73000; 99202

== ENCOUNTER 2023-12-28 15:09 | Outpatient (AMB) | payer MEDICARE, SELFPAY ==
[2023-12-28 15:14] VITALS: BMI 23.8
--- NOTE | 2023-12-28 15:14 | A.OFFVIS_ITS ---
Vital Signs 12/28/23 15:14 Height 5 ft 2 in Weight 130 lb BMI 23.8 Intake Visit Reasons: OV- B/L thumb injury Intake Note: Millie is a 88 yo left hand dominant female who presents today for an evaluation of bilateral thumb pain s/p fall, DOI 11/15/23. Patient denies numbness or tingling. Patient reports she is having difficulty bending the thumbs, right worse than the left. Right thumb pain is mainly localized to the base of the thumb. She is taking Tylenol for pain without relief. Denies prior injuries or surgery to the hands. She recalls being treated for frozen right thumb. Allergies gabapentin Allergy (Severe, Verified 12/28/23 15:18) Rash chloroquine [CHLOROQUINE] Allergy (Mild, Verified 12/28/23 15:18) RASH HPI HPI OV- B/L thumb injury: Details: Millie is an 88 year old right hand dominant Diabetic woman who returns with a new complaint of bilateral thumb pain & stiffness, R>L, S/P fall, DOI: 11/15/23. She complains of some mild pain in the IP joint of her right thumb, along with stiffness & difficulty bending it. She complains of some slight tingling in her hands, but this is occasional. She is concerned as she has Peripheral neuropathy in her feet, and maybe getting it in her hands.. She denies any locking, or catching. She is concerned about a new skin lesion she has on her face, by her nose. She says she does not have a Grinding Machine Operator Portable to see this [facility] Medical History Vertigo COVID-19 vaccine series completed Myocardial infarction Hx of breast cancer Polymyalgia Ankle injury Hypothyroidism Hypertension Dyslipidemia Diabetes mellitus Surgical History History of esophagogastroduodenoscopy (EGD) H/O colonoscopy H/O breast surgery Hx of appendectomy Family History Father HTN (hypertension) Mother HTN (hypertension) Diabetes Gallbladder cancer Social History Are you a primary pet caregiver to a significant other at home: No Do you presently have visiting nurse or other home services: No Alcohol intake: never Patient Tobacco Use Status: Never used Tobacco e-Cigarette/Vaping Use: Never Used Substance Use Type: Other Current occupational status: employed 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 Review of Systems Const All systems reviewed & are unremarkable except as noted in HPI and below Physical Exam Vital Signs: BMI result Body Mass Index 23.8 Const General: no acute distress and alert Orientation/consciousness: patient oriented x3 Neuro General: patient oriented x3 Extrem Other: Evaluation of Bilateral Upper Extremity: The patient is alert, oriented, and in no acute distress Neuro: Median, Ulnar, Radial nerves motor and sensory intact and sensation is normal to the tips of all digits Vascular: Cap refill brisk ROM: She has only ~ 50 degrees of flexion at the right thumb IP joint, compared to ~80 degrees of the left thumb IP joint. This appears to be her biggest concern. No locking or catching No tenderness over the a1 tenisha Mild tenderness over the basal joint & over the IP joint with palpation No tenderness over the MCP joint She has a skin lesion to the left side of her nose, by her eye. Radiographs: 3 views of the right hand, with attention to the thumb, from 11/15/23 were reviewed by me today in clinic. They show no fractures or dislocations. There is significant basal joint osteoarthritis & STT joint arthritis with joint space narrowing, subchondral sclerosis, and osteophyte formation Psych Appearance: grossly normal Affect: normal affect Attitude: cooperative Assessment & Plan Assessment & Plan (1) Diabetes mellitus: Comment: type 2-glucose ~ [id number] insulin and oral meds Code(s): E11.9 - Type 2 diabetes mellitus without complications Category: Medical (2) Pain of right thumb: Code(s): M79.644 - Pain in right finger(s) Category: Medical (3) Bilateral hand numbness: Code(s): R20.0 - Anesthesia of skin Category: Medical (4) Skin lesion of face: Comment: L nose, near eye Code(s): L98.9 - Disorder of the skin and subcutaneous tissue, unspecified Category: Medical Plan Assessment and plan: 1. Right thumb pain which is mostly resolved, but she has some residual loss of IP flexion, S/P fall DOI: 11/15/23 She has some generalized thumb pain, along with stiffness, particularly in the IP joint This has been improving with time & rest I recommend she continue to work on her ROM exercises and resting her hand No intervention warranted at this time 2. Bilateral hand numbness Symptoms intermittent & occasional Patient has a Hx of Diabetic peripheral neuropathy in her feet I ordered a NCS to assess for peripheral nerve compression She will follow up when completed for review 3. 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 Right basal joint arthritis Mild tenderness today in clinic 5. Left basal joint arthritis No complaints today 6. 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 DOS: 03/21/23 Histopathology from the 2nd surgery showed no evidence of malignancy. 7. Right trigger thumb, S/P release Date of surgery 02/22/22 Resolved 8. Left trigger thumb, S/P injection Date of injection 11/25/21 Resolved Scribed for Swathi Cheek MD by Espinoza Bennett, medical lab director, on 12/28/23 at 3:45 PM, EST. Coding Level of Care Code Est Pt Level 3 (67917) Diagnoses Diabetes mellitus E11.9 Pain of right thumb M79.644 Bilateral hand numbness R20.0 Skin lesion of face L98.9
== END 2023-12-28 15:50 | disposition home or self-care (01) ==
PROVIDERS: Visit Provider Orthopaedic Surgery
DX: M79.644 Pain in right finger(s) (principal); R20.0 Anesthesia of skin; E11.9 Type 2 diabetes mellitus without complications
CPT/HCPCS: 99213

== ENCOUNTER → 2023-12-28 15:09 | Outpatient (BNVA) | payer MEDICARE, SELFPAY | PROVIDERS: Visit Provider Orthopaedic Surgery | DX: M79.644 Pain in right finger(s) (principal); R20.0 Anesthesia of skin; L98.9 Disorder of the skin and subcutaneous tissue, unspecified; E11.9 Type 2 diabetes mellitus without complications | CPT/HCPCS: 99212 ==

== ENCOUNTER 2024-01-09 07:55 | Outpatient (REF) | payer MEDICARE, SELFPAY ==
--- NOTE | ~2024-01-09 | XR_ITS ---
EXAMINATION: XR CLAVICLE, LEFT CLINICAL INFORMATION: Clavicle fracture COMPARISON: Clavicle radiograph 11/02/2023 TECHNIQUE: Two views of the left clavicle. FINDINGS: Again seen is a mildly displaced fracture of the distal aspect of the left clavicle with some increasing indistinctness of the fracture lines however without ilia bridging bony callus formation. Mild osteoarthritis of the shoulder unchanged. Visualized portions of the lungs appear clear. XR/XR clavicle LT IMPRESSION: Again seen is a mildly displaced fracture of the distal aspect of the left clavicle with some increasing indistinctness of the fracture lines however without ilia bridging bony callus formation. Electronically signed by: Olga Kohli MD 02/02/2024 04:44 PM EDT
== END 2024-01-09 07:56 | disposition home or self-care (01) ==
LOC: HO.HOSX 07:55
DX: M89.8X1 Other specified disorders of bone, shoulder (principal); S42.035D Nondisplaced fracture of lateral end of left clavicle, subsequent encounter for fracture with routine healing
CPT/HCPCS: 73000; 99212

== ENCOUNTER 2024-01-09 12:49 | Outpatient (AMB) | payer MEDICARE, SELFPAY ==
--- NOTE | 2024-01-09 12:59 | A.OFFVIS_ITS ---
Intake Visit Reasons: OV- clavicle fx f/u Intake Note: Millie is a 88 year old female who presents to the office today for a clavicle fracture follow up. Pt states she is doing a little better. She states she has some pain in her shoulder but not nearly as bad as before she states. She also has been doing at home exercises with her PT and OT staff. Allergies gabapentin Allergy (Severe, Verified 01/09/24 12:59) Rash chloroquine [CHLOROQUINE] Allergy (Mild, Verified 01/09/24 12:59) RASH HPI HPI OV- clavicle fx f/u: Details: Patient is an 88-year-old female who presents for follow-up of minimally displaced left clavicle fracture, date of injury 11/15/2023. Today, the patient reports that she is doing very well, and only experiences minor discomfort with the extremes of range of motion of her left shoulder. The patient reports that she has been working with both physical and occupational therapy at home, and that this has been tremendously helpful for her regaining function in her left shoulder. Patient denies any numbness or tingling in the distal left upper extremity. No other acute complaints or concerns at this time [facility] Medical History Vertigo COVID-19 vaccine series completed Myocardial infarction Hx of breast cancer Polymyalgia Ankle injury Hypothyroidism Hypertension Dyslipidemia Diabetes mellitus Surgical History History of esophagogastroduodenoscopy (EGD) H/O colonoscopy H/O breast surgery Hx of appendectomy Family History Father HTN (hypertension) Mother HTN (hypertension) Diabetes Gallbladder cancer Social History Are you a primary nurse healthcare manager to a significant other at home: No Do you presently have visiting nurse or other home services: No Alcohol intake: never Patient Tobacco Use Status: Never used Tobacco e-Cigarette/Vaping Use: Never Used Substance Use Type: Other Current occupational status: employed 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 Physical Exam Extrem Other: On inspection, there is no visible deformity of the left clavicle No edema, erythema, ecchymosis noted No lacerations, abrasions, or open areas noted No evidence of infection Patient reports no tenderness to palpation of the left clavicle No palpable deformity noted Patient is able to forward flex the shoulder to 90 degrees without difficulty Patient can externally rotate the shoulder to 60 degrees, equal to the right, only reporting minimal discomfort at the extremes of range of motion Distal sensation intact Capillary refill brisk Results Reviewed Results Reviewed: X-rays obtained in the office today and independently reviewed by me, Deshawn Arauz PA-C, demonstrate minimally displaced fracture of the distal left clavicle with evidence of interval bony healing. Of note, significant degenerative changes of the left glenohumeral joint are noted. Assessment & Plan Assessment & Plan (1) Closed fracture of left clavicle: Code(s): S42.002A - Fracture of unspecified part of left clavicle, initial encounter for closed fracture Category: Medical Qualifiers: Clavicle location: lateral end Encounter type: initial encounter Fracture alignment: nondisplaced Qualified Code(s): S42.035A - Nondisplaced fracture of lateral end of left clavicle, initial encounter for closed fracture Plan 1. Left clavicle fracture, minimally displaced, distal Date of injury 11/15/2023 Patient is recovering well from her injury and is educated about the typical recovery course Patient is extremely satisfied with her care and recovery course, and expresses that she is feeling great post injury. Patient is informed that she can begin a gradual ramp up back to normal activity, but that she should continue to avoid any heavy overhead lifting for at least 1 more month Patient should continue working with PT and OT, in his educated that she should continue with these exercises even if PT and OT are not actively seeing her anymore Patient is amenable to this plan Patient will follow-up p.r.n. with any acute concerns Orders: Orders XR clavicle LT Today M89.8X1 - Other specified disorders of bone, shoulder Coding Level of Care Code Est Pt Level 3 (42198) Diagnoses Closed nondisplaced fracture of acromial end of left clavicle, initial encounter S42.035A Clavicle location: lateral end Encounter type: initial encounter Fracture alignment: nondisplaced
== END 2024-01-09 13:23 | disposition home or self-care (01) ==
LOC: HO.HOS 12:49
DX: S42.035A Nondisplaced fracture of lateral end of left clavicle, initial encounter for closed fracture (principal)
CPT/HCPCS: 99213

== ENCOUNTER 2024-01-19 14:28 | Outpatient (REF) | payer MEDICARE, SELFPAY ==
--- NOTE | 2024-01-19 14:35 | EMG_ITS ---
Chief complaint: Numbness on fingertips History of diabetic neuropathy Recent fall, left-sided clavicle fracture Denies neck pain Reason for referral: Evaluate for neuropathy or Carpal Tunnel Syndrome Referred by: Dr. Cheek Procedure done: Bilateral upper extremities NCS/EMG Precautions and/or limitations: None The limb temperature was monitored continuously and remained between 32-36 degrees C during the performance of the NCS. Nerve Conduction Studies Anti Sensory Summary Table ?Stim Site NR Onset (ms) Norm Onset (ms) Peak (ms) Norm Peak (ms) O-P Amp (?V) Norm O-P Amp Site1 Site2 Delta-0 (ms) Dist (cm) Hero (m/s) Norm Hero (m/s) Left Median Anti Sensory (2nd Digit) Wrist ? 3.8 5.0 <3.6 15.9 >10 Wrist 2nd Digit 3.8 14.0 37 Right Median Anti Sensory (2nd Digit) Wrist ? 3.7 4.7 <3.6 18.3 >10 Wrist 2nd Digit 3.7 14.0 38 Left Radial Anti Sensory (Thumb) Forearm ? 2.3 3.0 <3.1 4.6 Forearm Thumb 2.3 0.0 Right Radial Anti Sensory (Thumb) Forearm ? 1.8 2.5 <3.1 8.2 Forearm Thumb 1.8 0.0 Left Ulnar Anti Sensory (5th Digit) Wrist ? 3.3 4.3 <3.7 4.0 >15.0 Wrist 5th Digit 3.3 14.0 42 Right Ulnar Anti Sensory (5th Digit) Wrist ? 3.2 4.3 <3.7 8.8 >15.0 Wrist 5th Digit 3.2 14.0 44 Motor Summary Table ?Stim Site NR Onset (ms) Norm Onset (ms) O-P Amp (mV) Norm O-P Amp iAmp (mV) Amp (1st) (%) Site1 Site2 Delta-0 (ms) Dist (cm) Hero (m/s) Norm Hero (m/s) Left Median Motor (Abd Poll Brev) Wrist ? 4.3 <3.9 5.1 >4.5 6.4 100.0 Elbow Wrist 4.2 19.0 45 >45 Elbow ? 8.5 4.6 5.8 90.2 Right Median Motor (Abd Poll Brev) Wrist ? 4.7 <3.9 7.6 >4.5 9.7 100.0 Elbow Wrist 4.1 18.5 45 >45 Elbow ? 8.8 7.6 9.6 100.0 Left Ulnar Motor (Abd Dig Minimi) Wrist ? 4.0 <3.0 4.6 >5 6.1 100.0 B Elbow Wrist 3.0 16.0 53 >45 B Elbow ? 7.0 4.8 6.6 104.3 A Elbow B Elbow 2.4 10.0 42 >45 A Elbow ? 9.4 5.0 6.8 108.7 Right Ulnar Motor (Abd Dig Minimi) Wrist ? 3.5 <3.0 6.4 >5 7.9 100.0 B Elbow Wrist 3.3 17.0 52 >45 B Elbow ? 6.8 5.9 7.3 92.2 A Elbow B Elbow 2.0 10.0 50 >45 A Elbow ? 8.8 5.7 7.0 89.1 EMG ?Side Muscle Nerve Root Ins Act Fibs Psw Amp Dur Poly Recrt Int Pat Comment Right 1stDorInt Ulnar C8-T1 Nml Nml Nml Nml Nml 0 Nml Complete Right FlexCarRad Median C6-7 Nml Nml Nml Nml Nml 0 Nml Complete Right Biceps Musculocut C5-6 Nml Nml Nml Nml Nml 0 Nml Complete Right Triceps Radial C6-7-8 Nml Nml Nml Nml Nml 0 Nml Complete Left 1stDorInt Ulnar C8-T1 Nml Nml Nml Nml Nml 0 Nml Complete Left FlexCarRad Median C6-7 Nml Nml Nml Nml Nml 0 Nml Complete Left Biceps Musculocut C5-6 Nml Nml Nml Nml Nml 0 Nml Complete Left Triceps Radial C6-7-8 Nml Nml Nml Nml Nml 0 Nml Complete Right Abd Poll Brev Median C8-T1 Nml Nml Nml Nml Nml 0 Nml Complete Left ExtIndicis Radial (Post Int) C7-8 Nml Nml Nml Nml Nml 0 Nml Complete FINDINGS: Bilateral median motor nerves showed prolonged distal latency, normal amplitude and normal conduction velocity. Right ulnar motor nerve showed prolonged distal latency, normal amplitude and normal conduction velocity. Left ulnar motor nerve showed prolonged distal latency, small amplitude and slow conduction velocity across the elbow. Bilateral median sensory nerve showed prolonged peak latencies. Bilateral ulnar sensory nerve showed small amplitudes. Bilateral radial sensory nerves showed small amplitudes. Concentric needle EMG was performed in selected muscles of the bilateral upper extremities. Study did not reveal signs of electric abnormalities as shown in the table above. IMPRESSION: 1. This is an abnormal study. 2. 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 3. 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 4. No evidence for cervical radiculopathy. CLINICAL COMMENT: Diabetic neuropathy could spread in a stocking-glove distribution, similar to patient's symptoms. However, would advise caution in interpreting this study given advanced age (age above 80 could show smaller amplitudes). Thank you for your kind referral. Alice Mcmullen MD, EJ Board Certified, [place] [employer] and [employer] (ABPMR) Board Certified, [place] [employer] Electro[employer] (ABEM) CODIN [id number] x 2 MTDD
== END 2024-01-19 14:29 | disposition home or self-care (01) ==
LOC: HO.NEURO 14:28
PROVIDERS: Visit Provider Orthopaedic Surgery
DX: R20.0 Anesthesia of skin (principal); R20.2 Paresthesia of skin
CPT/HCPCS: 95886; 95911

== ENCOUNTER → 2024-01-19 14:35 | Outpatient (BNV) | payer MEDICARE, SELFPAY | PROVIDERS: Visit Provider Physical Medicine & Rehabilitation | DX: G56.22 Lesion of ulnar nerve, left upper limb (principal); G62.9 Polyneuropathy, unspecified | CPT/HCPCS: 95886; 95911 ==

== ENCOUNTER 2024-06-07 08:34 | Inpatient (IN) | payer MEDICARE, SELFPAY ==
--- NOTE | ~2024-06-07 | XR_ITS ---
EXAMINATION: XR CHEST CLINICAL INFORMATION: SOB COMPARISON: 04/30/2018. CT chest 07/22/2021. TECHNIQUE: AP portable view of the chest was obtained. FINDINGS: The cardiac, hilar, and mediastinal contours are normal. Lungs appear somewhat hyperaerated, however clear bilaterally. Stable chronic minimally increased interstitial markings in the peripheral mid to lower lung zones. No effusions or pneumothorax. No acute soft tissue or bone abnormality. There are spinal degenerative changes. XR/XR chest 1V IMPRESSION: No active pulmonary disease. Electronically signed by: Andres Coronel MD 06/08/2024 11:59 AM EST
--- NOTE | ~2024-06-07 | XR_ITS ---
CLINICAL HISTORY: fever,hypoxia 1 view chest x-ray Comparison: CR/SR - XR CHEST 1V - 06/08/24 11:40 EST Findings: Low lung volume. Diffuse interstitial prominence of both lungs. Left retrocardiac area of consolidation. Heart size is normal. No acute fracture. IMPRESSION: Left retrocardiac area of consolidation may represent atelectasis or pneumonia. No acute fracture identified. This document has been electronically signed by: Mercy Arizmendi MD on 06/10/2024 19:05:37
[2024-06-07 08:46] VITALS: BP 165/71; PULSE 92; RESP 16; TEMP 36.4; O2SAT 99; BMI 22.6
[2024-06-07 09:11] LABS: MANUAL DIFF FLAG NO
[2024-06-07 09:12] LABS: Basophils Percent Auto 0.4 % (0-2); Eosinophils Percent Auto 0.1 % (0-4); Hematocrit 38.8 % (37.0-47.0); Hemoglobin 13.1 g/dl (12.0-16.0); Imm Gran Abs Auto 0.03 X10*3/uL (0.00-0.03); Imm Gran Pct Auto 0.3 % (0.0-0.4); Lymphocytes Absolute Auto 0.6 X10*3/uL (1.2-4.9); Lymphocytes Percent Auto 5.8 % (20-40); Mean Corpuscular HGB Conc 33.8 g/dl (31.0-35.0); Mean Corpuscular Hemoglobin 30.9 pg (27.0-33.0); Mean Corpuscular Volume 91.5 fL (80.0-98.0); Mean Platelet Volume 10.5 fL (9.4-12.3); Monocytes Absolute Auto 0.6 X10*3/uL (0.1-1.2); Monocytes Percent Auto 5.7 % (2-11); Neutrophils Absolute Auto 8.8 x10*3/uL (2.0-8.3); Neutrophils Percent Auto 87.7 % (45-73); Platelet Count 183 X10*3/uL (160-400); Red Blood Count 4.24 X10*6/uL (4.20-5.50); Red Cell Distribution Width 13.7 % (11.0-16.0)
[2024-06-07 09:30] LABS: Alanine Aminotransferase 20 U/L (0-31); Alkaline Phosphatase 84 U/L (39-117); Anion Gap 9 (12-20); Aspartate Amino Transferase 29 U/L (5-31); Bilirubin Direct 0.3 mg/dL (0.0-0.5); Bilirubin Total 0.6 mg/dL (0.0-1.0); Blood Urea Nitrogen 15 mg/dL (9-16); Calcium 9.5 mg/dL (8.4-10.2); Carbon Dioxide 26 mmol/L (22-29); Chloride 108 mmol/L (96-108); Creatinine Clr Calc Pharmacy 40.1; Estimated Glomerular Filt Rate > 60; Glucose Random 202 mg/dL (60-115); Lipase 15 U/L (8-78); Potassium 4.4 mmol/L (3.3-5.1); Sodium 139 mmol/L (135-145); Total Protein 7.8 g/dL (6.5-8.0)
--- NOTE | 2024-06-07 09:47 | ECG_ITS ---
Test Reason : weakness Blood Pressure : */* mmHG Vent. Rate : 84 BPM Atrial Rate : 84 BPM P-R Int : 154 ms QRS Dur : 68 ms QT Int : 398 ms P-R-T Axes : 39 -7 14 degrees QTcB Int : 470 ms Normal sinus rhythm Low voltage QRS Inferior infarct , age undetermined Abnormal ECG When compared with ECG of 01-Jul-2023 14:11, No significant change was found Referred By: Mia Rogers Electronically Signed By: Ervin Mobley
[2024-06-07 09:48] LABS: Influenza A PCR POSITIVE (Negative); Influenza B PCR NEGATIVE (Negative); Resp Syncy Virus RNA Qual PCR NEGATIVE (Negative); SARS COV2 PCR INHOUSE NEGATIVE (Negative)
[2024-06-07] MEDS: Acetaminophen 325 MG TABLET 975 MG PO (10:39)
[2024-06-07] MEDS: Lidocaine 4 % Patch ADH..PATCH 1 PATCH TRANSDERMA (10:40)
--- NOTE | 2024-06-07 11:24 | ED.GENADULT ---
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 She reports since last night she has felt weak, dizzy, with diffuse body pains. She has been nauseous but has not vomited. She denies any abdominal pain, chest pain, shortness of breath, cough. No fevers that she is aware of. MD complaint: generalized pain Onset (ago): hour(s) Location: head, neck and back Radiation: non-radiation Severity: severe Quality: aching Pain Consistency: constant Relieving factors: none Exacerbating factors: movement Associated symptoms: headaches, loss of appetite, malaise, nausea/vomiting and weakness Treatments prior to arrival: none Related Data Home Medications ?Medication ?Instructions ?Recorded ?Confirmed atorvastatin 40 mg tablet 40 mg PO DAILY 10/30/20 06/07/24 cholecalciferol (vitamin D3) 25 25 mcg PO DAILY 10/30/20 06/07/24 mcg (1,000 unit) capsule metformin 500 mg tablet 500 mg PO BID 10/30/20 06/07/24 pregabalin 25 mg capsule (Lyrica) 50 mg PO DAILY 01/06/23 06/07/24 alpha lipoic acid 600 mg tablet 1,200 mg PO BID 02/18/23 06/07/24 levothyroxine 50 mcg capsule 75 mcg PO DAILY 02/18/23 06/07/24 ipratropium bromide 21 mcg (0.03 2 spray intranasal TID 06/07/24 06/07/24 %) nasal spray pyridoxine (vitamin B6) 100 mg 100 mg PO DAILY 06/07/24 06/07/24 tablet (Vitamin B-6) vit C 250 mg-vit E 90 mg-zinc 40 1 tab PO BID 06/07/24 06/07/24 mg-copper 1 [id number] capsule (PreserVision AREDS-2) Allergies Allergy/AdvReac Type Severity Reaction Status Date / Time gabapentin Allergy Severe Rash Verified 06/07/24 08:47 chloroquine [CHLOROQUINE] Allergy Mild RASH Verified 06/07/24 08:47 Review of Systems Review of Systems: Yes all other systems are reviewed and are negative [facility] Past Medical History Medical History Vertigo COVID-19 vaccine series completed Myocardial infarction Hx of breast cancer Polymyalgia Ankle injury Hypothyroidism Hypertension Dyslipidemia Diabetes mellitus Surgical History History of esophagogastroduodenoscopy (EGD) H/O colonoscopy H/O breast surgery Hx of appendectomy Family History Family History Father HTN (hypertension) Mother HTN (hypertension) Diabetes Gallbladder cancer Social History Social History Are you a primary early breastfeeding care specialist to a significant other at home: No Do you presently have visiting nurse or other home services: No Alcohol intake: former Patient Tobacco Use Status: Never used Tobacco Smoked in Last 30 Days: No e-Cigarette/Vaping Use: Never Used Use of substances other than those prescribed or required for medical reasons: No Substance Use Type: Other Advance Directives: No Advance Directives Information Provided: Yes Current occupational status: employed 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 Oriented X3. No acute distress. Head: normocephalic, atraumatic. Eyes: Pupils equal, round and reactive to light. ENT: Pharynx normal. No tonsillar swelling or exudate. Neck: Normal inspection. Neck supple. CVS: Normal heart rate and rhythm. Pulses normal. Respiratory: No respiratory distress. Breath sounds normal. Abdomen: Soft with mild diffuse tenderness, no rebound or guarding, normal active +BS x4 Skin: Skin warm and dry. Normal skin color. Normal skin turgor. No rashes. Extremities: No lower extremity edema. No joint swelling. Neuro/psych: Oriented X 3. No motor deficit. No sensory deficit. CN II-XII intact. Normal speech and cognition. Course Reevaluation(s) Reevaluation #1: Physician observation started at 11:03. Patient placed in physician observation because patient is awaiting PT evaluation for possible STR placement given her c/o diffuse, generalized weakness and not feelign well. she has the flu. At the time observation was started patient's vital signs were stable. Patient is alert and oriented. Neuro exam is non-focal. CV: RRR and lungs are clear. Will continue to monitor. Time: 11:03 Reevaluation #2: patient declining PT evaluation because she does not feel well. she does not want to go to short term rehab. she wants to stay in the hospital overnight. VS remain stable. no concerns on her lab workup. no medical reason for admission at this time case management met with the patient and they will pay fee to stay the night in the ER. patient sent to [facility]. med rec needs to be completed. declining tamiflu treatment per Time: 15:42 Reevaluation #3: 06/08/2024 1215: Cortney Lowe PA-C ---> Patient requested to be admitted to the hospital and stated that she would pay for the admission out of pocket because it is not medically necessary. I spoke to the hospitalist team who agreed to admission. Patient signed appropriate form to pay out of pocket for admission. Medications Administered Generic Name Dose Route Start Last Admin Trade Name Ren PRN Reason Stop Dose Admin Atorvastatin Calcium 40 mg 06/08/24 09:00 06/08/24 08:06 Atorvastatin Calcium 40 Mg Tablet PO 40 mg DAILY RABIA Administration Ipratropium [place] 2 spray 06/07/24 21:00 06/08/24 11:01 Ipratropium [place] Aidan 0.03 % 30 Ml [place] NOSTRIL-B Not Given TID RABIA Levothyroxine Sodium 75 mcg 06/08/24 06:00 06/08/24 08:09 Levothyroxine Sodium 75 Mcg Tablet PO 75 mcg DAILY@0600 RABIA Administration Metformin HCl 500 mg 06/07/24 21:00 06/08/24 09:37 Metformin Hcl 500 Mg Tablet PO 500 mg BID RABIA Administration Multivitamins/Vitamin C 1 tab 06/08/24 09:00 06/08/24 08:06 Multivitamin Tablet PO 1 tab DAILY RABIA Administration Pregabalin 50 mg 06/08/24 09:00 06/08/24 09:37 Pregabalin 50 Mg Capsule PO 50 mg DAILY RABIA Administration Pyridoxine HCl 100 mg 06/08/24 09:00 06/08/24 09:37 Pyridoxine Hcl (Vitamin B6) 50 Mg Tablet PO 100 mg DAILY RABIA Administration Vitamin D 25 mcg 06/08/24 09:00 06/08/24 08:06 Cholecalciferol (Vitamin D3) 25 Mcg Tablet PO 25 mcg DAILY RABIA Administration Discontinued Medications Generic Name Dose Route Start Last Admin Trade Name Ren PRN Reason Stop Dose Admin Acetaminophen 975 mg 06/07/24 10:32 06/07/24 10:39 Acetaminophen 325 Mg Tablet PO 06/07/24 10:33 975 mg ONCE ONE Administration Benzonatate 200 mg 06/07/24 20:03 06/07/24 20:08 Benzonatate 100 Mg Capsule PO 06/07/24 20:04 200 mg ONCE ONE Administration Lidocaine 1 patch 06/07/24 10:32 06/07/24 10:40 Lidocaine 4 % Patch Adh..Patch TRANSDERMA 06/07/24 10:33 1 patch ONCE ONE Administration Protocol Medical Decision Making Medical Decision Making [facility] Narrative: 88-year-old female presents to the ER for evaluation of not feeling well. She reports generalized weakness, body aches, headaches, nausea. No chest pain, difficulty breathing. Vital signs are stable here. Physical exam is unremarkable. She states she is too weak and sick to go home. She lives at home with her . Lab workup today is unremarkable. No major metabolic derangement. EKG without ischemic changes. She tested positive for the flu. We discussed pros and cons of Tamiflu but patient would like to defer treatment. Patient placed in physician observation, pending physical therapy evaluation for possible short-term rehab as she states she is not well enough to go home. Differential Diagnosis Differential Diagnoses: The differential diagnosis associated with the presentation includes strep, covid, flu, rsv, other viral syndrome, bronchitis, pneumonia, gastroenteritis Admission/Observation Consideration of admission/observation: Escalation of care including admission/observation considered Lab Data [facility] Lab Attestation statement: I reviewed the patient's lab results. 06/07/24 09:06 06/07/24 09:06 Labs: Lab Results 06/07/24 Range/Units 09:06 WBC 10.0 (4.8-10.8) X10*3/uL RBC 4.24 (4.20-5.50) X10*6/uL Hgb 13.1 (12.0-16.0) g/dl Hct 38.8 (37.0-47.0) % MCV 91.5 (80.0-98.0) fL MCH 30.9 (27.0-33.0) pg MCHC 33.8 (31.0-35.0) g/dl RDW 13.7 (11.0-16.0) % Plt Count 183 (160-400) X10*3/uL MPV 10.5 (9.4-12.3) fL Immature Gran % (Auto) 0.3 (0.0-0.4) % Neut % (Auto) 87.7 H (45-73) % Lymph % (Auto) 5.8 L (20-40) % Price % (Auto) 5.7 (2-11) % Eos % (Auto) 0.1 (0-4) % Baso % (Auto) 0.4 (0-2) % Lymph # (Auto) 0.6 L (1.2-4.9) X10*3/uL Price # (Auto) 0.6 (0.1-1.2) X10*3/uL Eos # (Auto) 0.0 (0.0-0.4) X10*3/uL Baso # (Auto) 0.0 (0.0-0.2) X10*3/uL Abs Immat Gran (auto) 0.03 (0.00-0.03) X10*3/uL Absolute Neuts (auto) 8.8 H (2.0-8.3) x10*3/uL Absolute Nucleated RBC 0.000 (0.0-0.012) X10*3/uL Nucleated RBC % (auto) 0.0 (0.0-0.2) /100WBC Sodium 139 (135-145) mmol/L Potassium 4.4 (3.3-5.1) mmol/L Chloride 108 (96-108) mmol/L Carbon Dioxide 26 (22-29) mmol/L Anion Gap 9 L (12-20) BUN 15 (9-16) mg/dL Creatinine 0.78 (0.5-1.4) mg/dL Estim Creat Clear Calc 40.1 Estimated GFR > 60 Random Glucose 202 H (60-115) mg/dL Calcium 9.5 (8.4-10.2) mg/dL Total Bilirubin 0.6 (0.0-1.0) mg/dL Direct Bilirubin 0.3 (0.0-0.5) mg/dL AST 29 (5-31) U/L ALT 20 (0-31) U/L Alkaline Phosphatase 84 (39-117) U/L Total Protein 7.8 (6.5-8.0) g/dL Albumin 4.0 (3.5-5.0) g/dL Lipase 15 (8-78) U/L Influenza Type A (PCR) POSITIVE A (Negative) Influenza Type B (PCR) NEGATIVE (Negative) RSV RNA Qual (PCR) NEGATIVE (Negative) SARS-CoV-2 RNA (RT-PCR) NEGATIVE (Negative) Independent Interpretation I performed an independent interpretation of an: EKG Interpretation: EKG w/ normal sinus rhythm, HR 84 bpm, normal LA interval, normal QTc, t-wave inversion in lead III only. no ST segment elevations or depressions. Independent Historian Clinical information obtained from an independent historian. History obtained from or confirmed by: Spouse External Record Review External record reviewed: Outpatient record, Prior outpatient labs and Prior outpatient radiology Tests considered The following testing was considered but not selected: considered cxr however no resp symptoms Prescription Management I considered prescription management with: Antiviral Chronic Conditions Patient?s care impacted by: Diabetes and Hypertension Critical Care Time Critical Care Time Critical Care Time: No Discharge Plan Discharge Clinical Impression: Influenza A Patient Disposition: Still a Patient
[2024-06-07 13:18] VITALS: BP 144/70; PULSE 74; RESP 15; TEMP 36.7; O2SAT 96
--- NOTE | 2024-06-07 14:11 | PC.NURSE ---
Report given to overflow
--- NOTE | 2024-06-07 14:12 | PC.NURSE ---
Patient declining to eat or drink, declined to work with therapy. at bedside aware. Patient stating does not want to go to rehab or a skilled nursing, she just wants to stay here for 2 days
--- NOTE | 2024-06-07 15:06 | MHC.CM.ED ---
Received case management consult from [facility]. Patient came to the ER due to headache and abd pain. Found to be Flu A positive. Physical therapy eval ordered and attempted. Patient declined to participate in eval at that time. Met with patient and to discuss d/c planning. Patient states she doesn't feel well enough to go home. T/W explained patient did not meet inpatient level of care per Medicare regulations. Private pay SNF options reviewed. Patient not interested in STR placement at a SNF. Patient does not feel she can safely return home. ABN discussed with patient and agustinaand. Patient signed ABN and wants to stay in the ER overflow under assisted care. Patient requesting to be started on Tamiflu. T/W explained Tamiflu was offered by Mia CHAN but patient declined due to the risk of diarrhea. Patient would like to discuss this option again. Mia CHAN aware. Ines Suazo CM director aware of ABN being signed. Continue to monitor for d/c needs.
--- NOTE | 2024-06-07 15:41 | PC.NURSE ---
pt brought from ED to overflow bed 4, a&ox3, rr equal/non labored, speaking in full sentences, lungs clear/dim bases, dry cough noted, lido patch intact to neck area, at bedside, pt currently denying pain, call ibarra within reach, pt to spend the night and discharge tomm, vitals previously stable, flu precautions intact, plan of care ongoing.
--- NOTE | 2024-06-07 16:20 | PHA.MEDREC ---
Addendum entered by Ari Craven RPh 06/07/24 17:10: MED REC CHECKED BY [facility]. UTILIZED LIST FROM PATIENT AND CALLED PHARMACY Original Note: Pharmacy Consult ? Medication Reconciliation Pharmacy has completed the medication reconciliation. Spoke with patient and patients at bedside who had a picture of a outdated medication list on his phone. He states one of the medications was discontinued but was not sure which one it was and thought maybe a HBP medication. The patient was able to confirm she is still taking the Alpha Lipoci Acid 600mg tab and states she takes one tablet daily. The confirmed the patient is taking the Vitamin D3 1000unit tablet. The or patient were not sure if the dose of the medications were correct and confirmed the patient is still filling her medications at [facility] in [place]. I called and spoke with them and they were able to confirm that the patient just picked up Atorvastatin 40mg tabs on 03/26 for 90 days, Levothyroxine they confirmed she is taking a 75mcg dose once daily, Losartan 25mg tabs have no been filled since 09/2022 but no note indicating she stopped; I took that off the med rec, Metformin 500mg tabs were last filled 04/30 for 90 days, Pregabalin 50mg tabs were also filled 04/30 for 90 days and for Januvia 50mg tabs they state the patient had that written on March 15 and never filled it and was discontinued that following week by the patients Dr. The patient and patients were not sure if she took her medications yesterday or thinks she may have taken her morning medications.
--- NOTE | 2024-06-07 20:02 | PC.NURSE ---
patient complains of cough, MD notified. Will monitor
[2024-06-07] MEDS: Benzonatate 100 MG CAPSULE 200 MG PO (20:08)
[2024-06-07] MEDS: metFORMIN HCl 500 MG TABLET PO (21:00)
[2024-06-07] MEDS: Ipratropium Bromide Nas 0.03 % 30 ML SPRAY 2 SPRAY NOSTRIL-B (21:00)
[2024-06-07 21:18] VITALS: BP 143/65; PULSE 77; RESP 16; TEMP 36.9; O2SAT 99
[2024-06-08 05:09] VITALS: BP 158/72; PULSE 79; RESP 16; TEMP 36.8; O2SAT 99
--- NOTE | 2024-06-08 06:45 | PC.NURSE ---
this rn called pharmacy @ 0609 for levothyroxine 75mcg that was not available in xis. per pharmacy med to be brought by pharmacy staff at this time awaiting for med to arrive
--- NOTE | 2024-06-08 07:00 | PC.NURSE ---
Report taken from Angelica Mckeon RN at this time.
[2024-06-08] MEDS: Cholecalciferol (Vitamin D3) 25 MCG TABLET PO (08:06)
[2024-06-08] MEDS: Atorvastatin Calcium 40 MG TABLET PO (08:06)
[2024-06-08] MEDS: Multivitamin TABLET 1 TAB PO (08:06)
--- NOTE | 2024-06-08 08:08 | PC.NURSE ---
Awaiting missing 09:00 meds. per pharmacy at this time.
[2024-06-08] MEDS: Levothyroxine Sodium 75 MCG TABLET PO (08:09)
--- NOTE | 2024-06-08 08:13 | MHC.EDTECH ---
Pt ambulated to the commode, breakfast tray given, call ibarra within reach.
[2024-06-08 08:32] VITALS: BP 159/72; PULSE 72; RESP 16; TEMP 37.1; O2SAT 98
--- NOTE | 2024-06-08 09:19 | MHC.EDTECH ---
Pt refuses to eat breakfast.
[2024-06-08] MEDS: Pyridoxine HCl (Vitamin B6) 50 MG TABLET 100 MG PO (09:37)
[2024-06-08] MEDS: Pregabalin 50 MG CAPSULE PO (09:37)
[2024-06-08] MEDS: metFORMIN HCl 500 MG TABLET PO ×2 (09:37→20:31)
--- NOTE | 2024-06-08 14:18 | PM.IMHP ---
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 Reports does not ?feel well at all? and complains of mild cough, difficulty breathing, headache, nausea, and malaise. Pt overall is a rather vague and imprecise historian. Denies chest pain/pressure, palpitations. No vomiting or abdominal pain. No fever or chills. Workup in the ED significant for pt does not positive for flu without hypoxia. Pt initially was placed into overflow for possible short-term rehab placement, though pt decline STR and would prefer to be brought to the hospital and then discharged home, possibly with services. In the ED pt has been hypertensive up 159/72, vitals otherwise stable and WNL, satting at 98% on RA. Labs were significant for testing positive for influenza a, otherwise grossly unremarkable. No leukocytosis. Stable H&H. No significant electrolyte abnormalities. Renal and hepatic function WNL. CXR showed no acute cardiopulmonary disease. Pt was treated with acetaminophen, lidocaine, and benzonatate. Pt will be admitted to the hospital for treatment and further evaluation of generalized weakness and deconditioning in the setting of acute influenza infection. Review of Systems Review of Systems: Negative except for that which is stated in the [facility] Medical History Vertigo COVID-19 vaccine series completed Myocardial infarction Hx of breast cancer Polymyalgia Ankle injury Hypothyroidism Hypertension Dyslipidemia Diabetes mellitus Family History Father HTN (hypertension) Mother HTN (hypertension) Diabetes Gallbladder cancer Surgical History History of esophagogastroduodenoscopy (EGD) H/O colonoscopy H/O breast surgery Hx of appendectomy Social History Are you a primary health care administrator to a significant other at home: No Do you presently have visiting nurse or other home services: No Alcohol intake: former Patient Tobacco Use Status: Never used Tobacco Smoked in Last 30 Days: No e-Cigarette/Vaping Use: Never Used Use of substances other than those prescribed or required for medical reasons: No Substance Use Type: Other Advance Directives: No Advance Directives Information Provided: Yes Current occupational status: employed 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 Meds Allergies Allergy/AdvReac Type Severity Reaction Status Date / Time gabapentin Allergy Severe Rash Verified 06/07/24 08:47 chloroquine [CHLOROQUINE] Allergy Mild RASH Verified 06/07/24 08:47 Active Medications: Current Medications Atorvastatin Calcium (Atorvastatin Calcium 40 Mg Tablet) 40 mg PO DAILY [facility] Last Admin: 06/08/24 08:06 Dose: 40 mg Ipratropium [place] (Ipratropium [place] Aidan 0.03 % 30 Ml [place]) 2 spray NOSTRIL-B TID [facility] Last Admin: 06/08/24 11:01 Dose: Not Given Levothyroxine Sodium (Levothyroxine Sodium 75 Mcg Tablet) 75 mcg PO DAILY@0600 [facility] Last Admin: 06/08/24 08:09 Dose: 75 mcg Metformin HCl (Metformin Hcl 500 Mg Tablet) 500 mg PO BID [facility] Last Admin: 06/08/24 09:37 Dose: 500 mg Multivitamins/Vitamin C (Multivitamin Tablet) 1 tab PO DAILY [facility] Last Admin: 06/08/24 08:06 Dose: 1 tab Pregabalin (Pregabalin 50 Mg Capsule) 50 mg PO DAILY [facility] Last Admin: 06/08/24 09:37 Dose: 50 mg Pyridoxine HCl (Pyridoxine Hcl (Vitamin B6) 50 Mg Tablet) 100 mg PO DAILY [facility] Last Admin: 06/08/24 09:37 Dose: 100 mg Vitamin D (Cholecalciferol (Vitamin D3) 25 Mcg Tablet) 25 mcg PO DAILY [facility] Last Admin: 06/08/24 08:06 Dose: 25 mcg Home Medications ?Medication ?Instructions ?Recorded ?Confirmed ?Last Taken ?Type atorvastatin 40 mg tablet 40 mg PO DAILY 10/30/20 06/07/24 1 Day Ago History ~06/06/24 cholecalciferol (vitamin D3) 25 25 mcg PO DAILY 10/30/20 06/07/24 1 Day Ago History mcg (1,000 unit) capsule ~06/06/24 metformin 500 mg tablet 500 mg PO BID 10/30/20 06/07/24 1 Day Ago History ~06/06/24 pregabalin 25 mg capsule (Lyrica) 50 mg PO DAILY 01/06/23 06/07/24 1 Day Ago History ~06/06/24 alpha lipoic acid 600 mg tablet 1,200 mg PO BID 02/18/23 06/07/24 1 Day Ago History ~06/06/24 levothyroxine 50 mcg capsule 75 mcg PO DAILY 02/18/23 06/07/24 1 Day Ago History ~06/06/24 ipratropium bromide 21 mcg (0.03 2 spray intranasal TID 06/07/24 06/07/24 Unknown History %) nasal spray pyridoxine (vitamin B6) 100 mg 100 mg PO DAILY 06/07/24 06/07/24 1 Day Ago History tablet (Vitamin B-6) ~06/06/24 vit C 250 mg-vit E 90 mg-zinc 40 1 tab PO BID 06/07/24 06/07/24 1 Day Ago History mg-copper 1 [id number] ~06/06/24 capsule (PreserVision AREDS-2) Physical Exam Vital Signs and Narrative: Vital Signs: Last Vital Signs Temp 98.8 F 06/08/24 08:32 Pulse 72 06/08/24 08:32 Resp 16 06/08/24 08:32 BP 159/72 H 06/08/24 08:32 Pulse Ox 98 06/08/24 08:32 O2 Del Method Room Air 06/08/24 08:32 BMI result Body Mass Index 22.6 General: AOx3, no acute distress Resp: CTA bilaterally CVS: S1, S2, RRR GI: +BS, NT, no distention Skin: Warm, dry Neuro: Cranial nerves II-XII grossly intact bilaterally. Motor grossly intact bilaterally Extremities: No edema Psych: Appropriate affect Results Labs 06/07/24 09:06 06/09/24 06:27 Imaging Radiologist's Impressions: Impressions Chest X-Ray 06/08/24 11:29 IMPRESSION: No active pulmonary disease. 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 Pt will be admitted to the hospital for treatment and further evaluation of generalized weakness and deconditioning in the setting of acute influenza infection. Influenza infection Generalized weakness headache, myalgias x2 days No fever or hypoxia Will defer Tamiflu due to mild symptoms Symptomatic treatment with antiemetics, IVF, cough suppressants, mild analgesics p.r.n. [id number] type 2 diabetes Continue metformin Will cover with sliding scale insulin Diabetic diet Peripheral neuropathy Continue pregabalin HLD Continue statin Hypothyroidism Continue levothyroxine Full Code Attending:?Dr. Cuevas DVT Prophylaxis: Lovenox Pt will be admitted to the hospital under observation for treatment and further evaluation of generalized weakness and deconditioning in setting of acute influenza infection. Quality Stroke Does the patient have a stroke diagnosis?: No VTE Prior VTE?: No VTE Risk Level:: Medical - moderate - high VTE Device Contraindication: Treatment Not Indicated VTE Drug Contraindication: N/A - Med Ordered
--- NOTE | 2024-06-08 15:55 | PC.NURSE ---
Awaiting Atrovent nasal spray per pharmacy at this time.
[2024-06-08 16:02] VITALS: BP 159/65; PULSE 58; RESP 14; TEMP 36.8; O2SAT 96
--- NOTE | 2024-06-08 16:11 | PC.NURSE ---
ROCIO Driver verbal order that he is d/c'ing IVF LR @ 100
[2024-06-08] MEDS: Ipratropium Bromide Nas 0.03 % 30 ML SPRAY 2 SPRAY NOSTRIL-B (18:30)
[2024-06-08] MEDS: Melatonin 3 MG TABLET 6 MG PO (20:32)
[2024-06-08] MEDS: Acetaminophen 325 MG TABLET 650 MG PO (20:32)
--- NOTE | 2024-06-08 20:47 | PC.NURSE ---
Patient utilized commode with SBA. Did well with transfer.
[2024-06-08 22:22] VITALS: RESP 18
[2024-06-08 22:32] VITALS: BP 122/76; PULSE 68; RESP 16; TEMP 36.4; O2SAT 96
[2024-06-09] MEDS: Levothyroxine Sodium 75 MCG TABLET PO (04:58)
[2024-06-09] MEDS: Benzonatate 100 MG CAPSULE PO (04:58)
[2024-06-09 06:21] VITALS: BP 168/74; PULSE 75; RESP 12; TEMP 36.8; O2SAT 97
[2024-06-09 06:47] LABS: Anion Gap 13 (12-20); Blood Urea Nitrogen 20 mg/dL (9-16); Calcium 8.9 mg/dL (8.4-10.2); Carbon Dioxide 23 mmol/L (22-29); Chloride 104 mmol/L (96-108); Creatinine Clr Calc Pharmacy 40.6; Estimated Glomerular Filt Rate > 60; Glucose Random 138 mg/dL (60-115); Potassium 3.9 mmol/L (3.3-5.1); Sodium 136 mmol/L (135-145)
[2024-06-09] MEDS: Cholecalciferol (Vitamin D3) 25 MCG TABLET PO (08:24)
[2024-06-09] MEDS: Pyridoxine HCl (Vitamin B6) 50 MG TABLET 100 MG PO (08:24)
[2024-06-09] MEDS: Multivitamin TABLET 1 TAB PO (08:24)
[2024-06-09] MEDS: metFORMIN HCl 500 MG TABLET PO ×2 (08:24→21:48)
[2024-06-09] MEDS: Atorvastatin Calcium 40 MG TABLET PO (08:24)
[2024-06-09] MEDS: Pregabalin 50 MG CAPSULE PO (08:24)
[2024-06-09 09:08] VITALS: BP 149/67; PULSE 81; RESP 20; TEMP 37.2; O2SAT 95
--- NOTE | 2024-06-09 09:08 | P.PNIM_ITS ---
Subjective Subjective Date of Service: 06/09/24 Interval History: f/u on influenza, weakness no hypoxia, no fever, seems confused but appears to be her baseline Physical Exam 2 Vital Signs: Vital Signs: Last Vital Signs Temp 98.3 F 06/09/24 06:21 Pulse 75 06/09/24 06:21 Resp 12 06/09/24 06:21 BP 168/74 H 06/09/24 06:21 Pulse Ox 97 06/09/24 06:21 O2 Del Method Room Air 06/09/24 06:21 BMI result Body Mass Index 22.6 Const: Other: alert, oriented to evangelista lungs clear heart reuglar rate, no jvd abd soft, no distention ext no edema neuro no focal deficit, Objective Data Active Medications Acetaminophen (Acetaminophen 325 Mg Tablet) 650 mg PO Q6H PRN PRN Reason: Pain, Mild 1-3,fever,headache Last Admin: 06/08/24 20:32 Dose: 650 mg Documented By: DAVID Atorvastatin Calcium (Atorvastatin Calcium 40 Mg Tablet) 40 mg PO DAILY [facility] Last Admin: 06/09/24 08:24 Dose: 40 mg Documented By: BROB Benzonatate (Benzonatate 100 Mg Capsule) 100 mg PO TID PRN PRN Reason: Cough Last Admin: 06/09/24 04:58 Dose: 100 mg Documented By: DAVID Calcium Carbonate (Calcium Carbonate 750 Mg Tab.Chew) 750 mg PO Q4H PRN PRN Reason: Heartburn Enoxaparin Sodium (Enoxaparin Sodium 40 Mg/0.4 Ml Syringe) 40 mg SUBCUT Q24H [facility] Last Admin: 06/08/24 16:52 Dose: Not Given Documented By: ADDI Non-Admin Reason: Patient Refused Ipratropium [place] (Ipratropium [place] Aidan 0.03 % 30 Ml [place]) 2 spray NOSTRIL-B TID [facility] Last Admin: 06/08/24 20:36 Dose: Not Given Documented By: DAVID Non-Admin Reason: Patient Refused Levothyroxine Sodium (Levothyroxine Sodium 75 Mcg Tablet) 75 mcg PO DAILY@0600 [facility] Last Admin: 06/09/24 04:58 Dose: 75 mcg Documented By: DAVID Magnesium Hydroxide (Milk Of Magnesia 30 Ml Oral.Susp) 30 ml PO DAILY PRN PRN Reason: Constipation Melatonin (Melatonin 3 Mg Tablet) 6 mg PO BEDTIME PRN PRN Reason: Insomnia Last Admin: 06/08/24 20:32 Dose: 6 mg Documented By: DAVID Metformin HCl (Metformin Hcl 500 Mg Tablet) 500 mg PO BID [facility] Last Admin: 06/09/24 08:24 Dose: 500 mg Documented By: ADRIANA Multivitamins/Vitamin C (Multivitamin Tablet) 1 tab PO DAILY [facility] Last Admin: 06/09/24 08:24 Dose: 1 tab Documented By: ADRIANA Ondansetron HCl (Ondansetron Hcl 4 Mg/2 Ml Vial) 4 mg IVPUSH Q8H PRN PRN Reason: Nausea and Vomiting Pregabalin (Pregabalin 50 Mg Capsule) 50 mg PO DAILY [facility] Last Admin: 06/09/24 08:24 Dose: 50 mg Documented By: ADRIANA Pyridoxine HCl (Pyridoxine Hcl (Vitamin B6) 50 Mg Tablet) 100 mg PO DAILY [facility] Last Admin: 06/09/24 08:24 Dose: 100 mg Documented By: ADRIANA Sodium Chloride (0.9 % Sodium Chloride Flush 3 Ml Syringe) 3 ml IVFLUSH QSHIFT [facility] Last Admin: 06/08/24 23:32 Dose: Not Given Documented By: DAVID Non-Admin Reason: No Access Vitamin D (Cholecalciferol (Vitamin D3) 25 Mcg Tablet) 25 mcg PO DAILY [facility] Last Admin: 06/09/24 08:24 Dose: 25 mcg Documented By: ADRIANA Labs 06/07/24 09:06 06/09/24 06:27 Labs: Laboratory Results - last 24 hr 06/09/24 06:27 Anion Gap 13 Estim Creat Clear Calc 40.6 Estimated GFR > 60 Random Glucose 138 H Calcium 8.9 D Assessment and Plan (1) Influenza A: Status: Acute Plan Pt is an 88-year-old female with a PMH significant for?HTN, HLD, cwj-yswismt-pflxgufus type 2 diabetes, hypothyroidism, peripheral neuropathy, and 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 Pt will be admitted to the hospital for treatment and further evaluation of generalized weakness and deconditioning in the setting of acute influenza infection. Influenza infection causing Generalized weakness headache, myalgias , No fever or hypoxia, Will defer Tamiflu due to mild symptoms and pt declining Symptomatic treatment with antiemetics, , cough suppressants, mild analgesics p.r.n. pt evaluation Thg-prysyiv-jguttacza type 2 diabetes Continue metformin Will cover with sliding scale insulin Diabetic diet Peripheral neuropathy Continue pregabalin HLD Continue statin Hypothyroidism Continue levothyroxine elevated high blood pressure, probable HTN but not on meds -monitor and discuss potention med with patient and Full Code Attending:?Dr. Cuevas DVT Prophylaxis: Lovenox dispo; pt eval and possible dc Quality Stroke Does the patient have a stroke diagnosis?: No VTE Prior VTE?: No VTE Risk Level:: Medical - moderate - high VTE Device Contraindication: Treatment Not Indicated VTE Drug Contraindication: N/A - Med Ordered
[2024-06-09] MEDS: Acetaminophen 325 MG TABLET 650 MG PO (11:15)
[2024-06-09 12:00] VITALS: BP 122/59; PULSE 86; RESP 18; TEMP 36.8; O2SAT 93
[2024-06-09] MEDS: Enoxaparin Sodium 40 MG/0.4 ML SYRINGE SUBCUT (15:34)
[2024-06-09] MEDS: Ipratropium Bromide Nas 0.03 % 30 ML SPRAY 2 SPRAY NOSTRIL-B ×2 (15:34→21:49)
[2024-06-09 15:45] VITALS: BP 150/69; PULSE 90; RESP 18; TEMP 37; O2SAT 96
--- NOTE | 2024-06-09 16:31 | MHC.CM.PN ---
Addendum entered by Zohreh Mccollum 06/11/24 09:33: HCP COMPLETED AND NOW ON FILE NAMING PTS Original Note: CM MET WITH PT AND AT BEDSIDE PT LIVES AT HOME AND IS INDEPENDENT AT BASELINE SHE HAS NO SERVICES AND USES A CANE HCP WILL BE COMPLETED NAMING HER HER AGENT PCP: JANAE RICKETTS OBSERVATION NOTICE DELIVERED DCP: HOME NO SERVICES VS WITH [facility] TO TRANSPORT
[2024-06-09 16:45] LABS: Glucose, Whole Blood 135 mg/dL (60-115)
[2024-06-09 20:00] VITALS: BP 136/62; PULSE 101; RESP 15; TEMP 38.1; O2SAT 92
[2024-06-09 21:17] LABS: Glucose, Whole Blood 155 mg/dL (60-115)
[2024-06-09] MEDS: 0.9 % Sodium Chloride Flush 3 ML SYRINGE IVFLUSH (21:49)
[2024-06-09] MEDS: Insulin Lispro 100 UNIT/ML 3 ML VIAL SUBCUT (21:49)
[2024-06-09 23:22] VITALS: BP 142/63; PULSE 97; RESP 16; TEMP 37.5; O2SAT 92
[2024-06-10] VITALS (9 sets, daily range): BP systolic 84–141; BP diastolic 49–65; PULSE 72–91; RESP 15–22; TEMP 36.3–39.7; O2SAT 90–97
[2024-06-10] MEDS: Acetaminophen 325 MG TABLET 650 MG PO ×2 (04:06→18:12)
[2024-06-10] MEDS: Levothyroxine Sodium 75 MCG TABLET PO (05:48)
[2024-06-10 07:27] LABS: Glucose, Whole Blood 211 mg/dL (60-115)
[2024-06-10] MEDS: Pregabalin 50 MG CAPSULE PO (07:42)
[2024-06-10] MEDS: Cholecalciferol (Vitamin D3) 25 MCG TABLET PO (07:43)
[2024-06-10] MEDS: Multivitamin TABLET 1 TAB PO (07:43)
[2024-06-10] MEDS: metFORMIN HCl 500 MG TABLET PO (07:43)
[2024-06-10] MEDS: Pyridoxine HCl (Vitamin B6) 50 MG TABLET 100 MG PO (07:43)
[2024-06-10] MEDS: Atorvastatin Calcium 40 MG TABLET PO (07:44)
[2024-06-10] MEDS: Ipratropium Bromide Nas 0.03 % 30 ML SPRAY 2 SPRAY NOSTRIL-B (07:44)
[2024-06-10] MEDS: Insulin Lispro 100 UNIT/ML 3 ML VIAL SUBCUT ×2 (07:51→11:48)
--- NOTE | 2024-06-10 08:37 | HO.PM.IMPN ---
Subjective Subjective Date of Service: 06/10/24 Interval History: f/u on influenza, weakness no hypoxia, no fever, like confused today. Still fairly weak Loose stool/diarrhea reported overnight and this morning. PT is recommending short-term rehab Physical Exam Vital Signs: Vital Signs: Last Vital Signs Temp 100.4 F 06/10/24 03:43 Pulse 72 06/10/24 03:43 Resp 15 06/10/24 03:43 BP 141/65 H 06/10/24 03:43 Pulse Ox 92 06/10/24 03:43 O2 Del Method Room Air 06/10/24 03:43 BMI result Body Mass Index 22.6 Const: Other: alert, oriented to self, place lungs clear heart reuglar rate, no jvd abd soft, no distention ext no edema neuro no focal deficit, Objective Data Active Medications Acetaminophen (Acetaminophen 325 Mg Tablet) 650 mg PO Q6H PRN PRN Reason: Pain, Mild 1-3,fever,headache Last Admin: 06/10/24 04:06 Dose: 650 mg Documented By: SHIRA Atorvastatin Calcium (Atorvastatin Calcium 40 Mg Tablet) 40 mg PO DAILY [facility] Last Admin: 06/10/24 07:44 Dose: 40 mg Documented By: DILAN Benzonatate (Benzonatate 100 Mg Capsule) 100 mg PO TID PRN PRN Reason: Cough Last Admin: 06/09/24 04:58 Dose: 100 mg Documented By: DAVID Calcium Carbonate (Calcium Carbonate 750 Mg Tab.Chew) 750 mg PO Q4H PRN PRN Reason: Heartburn Enoxaparin Sodium (Enoxaparin Sodium 40 Mg/0.4 Ml Syringe) 40 mg SUBCUT Q24H [facility] Last Admin: 06/09/24 15:34 Dose: 40 mg Documented By: DILAN Glucose (Glucose Gel 15 Gm Gel..Gram.) 15 gm PO Q15M PRN; Protocol PRN Reason: per Hypoglycemia Standing Ord. Dextrose (D10) 250 mls @ 750 mls/hr IV Q15M PRN; Protocol PRN Reason: per Hypoglycemia Standing Ord. Insulin Human Lispro (Insulin Lispro 100 Unit/Ml 3 Ml Vial) 0 unit SUBCUT QIDACHS [facility]; Protocol Last Admin: 06/10/24 07:51 Dose: 4 unit Documented By: DILAN Ipratropium [place] (Ipratropium [place] Aidan 0.03 % 30 Ml [place]) 2 spray NOSTRIL-B TID [facility] Last Admin: 06/10/24 07:44 Dose: 2 spray Documented By: DILAN Levothyroxine Sodium (Levothyroxine Sodium 75 Mcg Tablet) 75 mcg PO DAILY@0600 [facility] Last Admin: 06/10/24 05:48 Dose: 75 mcg Documented By: SHIRA Magnesium Hydroxide (Milk Of Magnesia 30 Ml Oral.Susp) 30 ml PO DAILY PRN PRN Reason: Constipation Melatonin (Melatonin 3 Mg Tablet) 6 mg PO BEDTIME PRN PRN Reason: Insomnia Last Admin: 06/08/24 20:32 Dose: 6 mg Documented By: DAVID Metformin HCl (Metformin Hcl 500 Mg Tablet) 500 mg PO BID [facility] Last Admin: 06/10/24 07:43 Dose: 500 mg Documented By: DILAN Multivitamins/Vitamin C (Multivitamin Tablet) 1 tab PO DAILY [facility] Last Admin: 06/10/24 07:43 Dose: 1 tab Documented By: DILAN Ondansetron HCl (Ondansetron Hcl 4 Mg/2 Ml Vial) 4 mg IVPUSH Q8H PRN PRN Reason: Nausea and Vomiting Pregabalin (Pregabalin 50 Mg Capsule) 50 mg PO DAILY [facility] Last Admin: 06/10/24 07:42 Dose: 50 mg Documented By: DILAN Pyridoxine HCl (Pyridoxine Hcl (Vitamin B6) 50 Mg Tablet) 100 mg PO DAILY [facility] Last Admin: 06/10/24 07:43 Dose: 100 mg Documented By: DILAN Sodium Chloride (0.9 % Sodium Chloride Flush 3 Ml Syringe) 3 ml IVFLUSH QSHIFT [facility] Last Admin: 06/09/24 21:49 Dose: 3 ml Documented By: SHIRA Vitamin D (Cholecalciferol (Vitamin D3) 25 Mcg Tablet) 25 mcg PO DAILY [facility] Last Admin: 06/10/24 07:43 Dose: 25 mcg Documented By: DILAN Labs 06/07/24 09:06 06/09/24 06:27 Labs: Laboratory Results - last 24 hr 06/09/24 06/09/24 06/10/24 16:42 21:13 07:22 POC Glucose 135 H 155 H 211 H Assessment and Plan (1) Influenza A: Status: Acute Plan Pt is an 88-year-old female with a PMH significant for?HTN, HLD, qwp-kjmxets-bbxvriafz type 2 diabetes, hypothyroidism, peripheral neuropathy, and 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 Pt will be admitted to the hospital for treatment and further evaluation of generalized weakness and deconditioning in the setting of acute influenza infection. Influenza infection causing Generalized weakness headache, myalgias , No fever or hypoxia, defer Tamiflu due to mild symptoms and pt declining Symptomatic treatment with cough suppressants, mild analgesics p.r.n. pt recommends str Loose stool/diarrhea--check stool panel, C diff Xor-xuzvwfh-dkmgybzjb type 2 diabetes Continue metformin Will cover with sliding scale insulin Diabetic diet Peripheral neuropathy Continue pregabalin HLD Continue statin Hypothyroidism Continue levothyroxine elevated high blood pressure, probable HTN but not on meds -monitor and discuss potention med with patient and Full Code Attending:?Dr. Cuevas DVT Prophylaxis: Lovenox dispo; pt is recommended short-term rehab. Quality Stroke Does the patient have a stroke diagnosis?: No VTE Prior VTE?: No VTE Risk Level:: Medical - moderate - high VTE Device Contraindication: Treatment Not Indicated VTE Drug Contraindication: N/A - Med Ordered
[2024-06-10 09:19] LABS: Hematocrit 37.9 % (37.0-47.0); Hemoglobin 12.8 g/dl (12.0-16.0); Mean Corpuscular HGB Conc 33.8 g/dl (31.0-35.0); Mean Corpuscular Hemoglobin 30.9 pg (27.0-33.0); Mean Corpuscular Volume 91.5 fL (80.0-98.0); Mean Platelet Volume 10.8 fL (9.4-12.3); Platelet Count 160 X10*3/uL (160-400); Red Blood Count 4.14 X10*6/uL (4.20-5.50); Red Cell Distribution Width 14.2 % (11.0-16.0); White Blood Count 11.9 X10*3/uL (4.8-10.8)
[2024-06-10 09:40] LABS: Anion Gap 19 (12-20); Blood Urea Nitrogen 24 mg/dL (9-16); Calcium 8.8 mg/dL (8.4-10.2); Carbon Dioxide 19 mmol/L (22-29); Chloride 99 mmol/L (96-108); Creatinine Clr Calc Pharmacy 29.5; Estimated Glomerular Filt Rate 49; Glucose Random 210 mg/dL (60-115); Potassium 3.3 mmol/L (3.3-5.1); Sodium 134 mmol/L (135-145)
[2024-06-10 11:14] LABS: Glucose, Whole Blood 162 mg/dL (60-115)
[2024-06-10] MEDS: 0.9 % Sodium Chloride Flush 3 ML SYRINGE IVFLUSH ×2 (11:47→16:28)
[2024-06-10 16:27] LABS: Glucose, Whole Blood 143 mg/dL (60-115)
[2024-06-10] MEDS: Enoxaparin Sodium 40 MG/0.4 ML SYRINGE SUBCUT (16:39)
[2024-06-10] MEDS: Lactated Ringers 1,000 ML 125 ML IVCONT (17:37)
[2024-06-10 18:01] LABS: Glucose, Whole Blood 173 mg/dL (60-115)
--- NOTE | 2024-06-10 18:05 | PM.EVENT ---
Event Note Date of Service: 06/10/24 Event Note: Rapid response called for pt due to increased lethargy and spiking temperature of 103.4 degrees. Pt seen and examined in her room where she appears weak, tired, lethargic, and speaking in a whisper. Pt is, however, AOx4. Nursing reports pt has slowly declined today, though earlier was able to carry on a full conversation. Pt admitted for generalized weakness in the setting of influenza infection. Due to new fever, will check CXR, CBC, CMP, and lactic acid. Time Spent With Patient Time: Total time managing care of this patient today ____ minutes.
--- NOTE | 2024-06-10 18:52 | PC.NURSE ---
See event note regarding rapid response for pt. Ruling out sepsis due to increased temperature, increased lethargy, decreased O2 sats. Hemodynamically stable, rapid response called, blood clulters, lactic acid, CMP, respiratory panel collected, UA collected, IV fluids started, tylenol PO for temp.
[2024-06-10 18:58] LABS: Appearance Urine Clear; Color Urine Dark Yellow; Glucose Urine UA 100 mg/dL (Negative); Leukocyte Esterase Urine Negative (Negative); Nitrite Urine Negative (Negative); PH 5.5 (5.0-9.0); Specific Gravity - Urine >= 1.030 (1.005-1.025); UMIC TRIGGER UACC YES; Urine Blood Negative (Negative); Urine Ketones Trace mg/dL (Negative); Urine Protein 100 (2+) mg/dL (Neg-Trace)
[2024-06-10 19:10] LABS: Bacteria Urine None Seen (None Seen); Granular Casts Urine Present; RBC Urine 0-2 /HPF (0-2); WBC Urine 0-5 /HPF (0-5)
[2024-06-10 19:15] LABS: Lactic Acid 1.5 mmol/L (0.5-2.0)
[2024-06-10 19:15] LABS: Hematocrit 33.5 % (37.0-47.0); Hemoglobin 11.7 g/dl (12.0-16.0); Mean Corpuscular HGB Conc 34.9 g/dl (31.0-35.0); Mean Corpuscular Volume 88.9 fL (80.0-98.0); Platelet Count 157 X10*3/uL (160-400); Red Blood Count 3.77 X10*6/uL (4.20-5.50); Red Cell Distribution Width 14.1 % (11.0-16.0)
[2024-06-10 19:16] LABS: WBC ABN SCTR FOR CBC 1
[2024-06-10 19:23] LABS: Alanine Aminotransferase 20 U/L (0-31); Albumin Level 3.3 g/dL (3.5-5.0); Alkaline Phosphatase 79 U/L (39-117); Anion Gap 13 (12-20); Aspartate Amino Transferase 41 U/L (5-31); Bilirubin Total 0.7 mg/dL (0.0-1.0); Blood Urea Nitrogen 27 mg/dL (9-16); Calcium 8.4 mg/dL (8.4-10.2); Carbon Dioxide 21 mmol/L (22-29); Chloride 100 mmol/L (96-108); Creatinine Clr Calc Pharmacy 38.2; Estimated Glomerular Filt Rate > 60; Glucose Random 182 mg/dL (60-115); Potassium 3.3 mmol/L (3.3-5.1); Sodium 131 mmol/L (135-145); Total Protein 7.1 g/dL (6.5-8.0)
[2024-06-10 19:36] LABS: Influenza A PCR POSITIVE (Negative); Influenza B PCR NEGATIVE (Negative); Resp Syncy Virus RNA Qual PCR NEGATIVE (Negative); SARS COV2 PCR INHOUSE NEGATIVE (Negative)
[2024-06-10 19:47] LABS: Band Neutrophils Percent 14 % (3-5); Giant Platelet PRESENT; Large Platelet PRESENT; Lymphocytes Percent Manual 3 % (20-40); Microcytosis 1+ (5-14) /OIF; Monocytes Percent Manual 2 % (2-11); Neutrophils Percent Manual 81 % (45-73); Platelet Estimate NORMAL (NORMAL); Platelet Morphology Comment NOTED; RBC Morphology NOTED
[2024-06-10 19:48] LABS: Acanthocytes 1+ (0-2) /OIF; Burr Cells 2+ (3-5) /OIF; Ovalocytes 1+ (5-14) /OIF; Schistocytes 1+ (0-2) /OIF
[2024-06-10 19:49] LABS: Dohle Bodies PRESENT; Toxic Granulation PRESENT; Toxic Vacuolation PRESENT
[2024-06-10 20:05] LABS: Glucose, Whole Blood 182 mg/dL (60-115)
[2024-06-10 20:15] LABS: Lymphocytes Absolute Manual 0.3 X10*3/uL (1.2-4.9); Monocytes Absolute Manual 0.2 X10*3/uL (0.1-1.2); Neutrophils Absolute Manual 8.7 X10*3/uL (2.0-8.3); White Blood Count 9.2 X10*3/uL (4.8-10.8)
[2024-06-10 21:37] LABS: VBG Base Excess 1.8 mmol/L; VBG HCO3 27 mmol/L (22-26); VBG pCO2 44 mmHg; VBG pH 7.38 (7.32-7.43); VBG pO2 33 mmHg
[2024-06-10 21:38] LABS: Venous Blood Gas Refer to POC result
[2024-06-11] MEDS: Lactated Ringers 1,000 ML 125 ML IVCONT ×3 (01:17→19:23)
[2024-06-11 03:38] VITALS: BP 108/54; PULSE 82; RESP 20; TEMP 36.6; O2SAT 96
[2024-06-11] MEDS: Levothyroxine Sodium 75 MCG TABLET PO (06:23)
[2024-06-11 07:07] VITALS: BP 126/61; PULSE 88; RESP 16; TEMP 36.7; O2SAT 96
[2024-06-11 07:23] LABS: Glucose, Whole Blood 139 mg/dL (60-115)
[2024-06-11] MEDS: metFORMIN HCl 500 MG TABLET PO ×2 (08:47→21:01)
[2024-06-11] MEDS: Pyridoxine HCl (Vitamin B6) 50 MG TABLET 100 MG PO (08:47)
[2024-06-11] MEDS: Pregabalin 50 MG CAPSULE PO (08:47)
[2024-06-11] MEDS: Atorvastatin Calcium 40 MG TABLET PO (08:47)
[2024-06-11] MEDS: Cholecalciferol (Vitamin D3) 25 MCG TABLET PO (08:47)
[2024-06-11] MEDS: Multivitamin TABLET 1 TAB PO (08:47)
[2024-06-11] MEDS: Ipratropium Bromide Nas 0.03 % 30 ML SPRAY 2 SPRAY NOSTRIL-B ×2 (09:52→17:12)
[2024-06-11 11:38] LABS: Glucose, Whole Blood 145 mg/dL (60-115)
--- NOTE | 2024-06-11 11:38 | HO.PM.IMPN ---
Subjective Subjective Date of Service: 06/11/24 Interval History: Patient had an episode of SHANK MAKER yesterday d/t lethargy and fever of 103. UA was negative, blood cultures pending, flu+, rsv and covid negative. She is better this morning, no fever or chills, still looking fairly weak Physical Exam Vital Signs: Vital Signs: Last Vital Signs Temp 98.0 F 06/11/24 07:07 Pulse 88 06/11/24 07:07 Resp 16 06/11/24 07:07 BP 126/61 06/11/24 07:07 Pulse Ox 96 06/11/24 07:07 O2 Del Method Nasal Cannula 06/11/24 07:07 O2 Flow Rate 2 06/11/24 07:07 BMI result Body Mass Index 22.6 Const: Other: General: AO X 2, no acute distress, frail Resp: CTA bilateral CVS: S1,S2,RRR GI: +BS, NT, no distention Skin: No rash Neuro: motor grossly intact Psych: appropriate affect Objective Data Active Medications Acetaminophen (Acetaminophen 325 Mg Tablet) 650 mg PO Q6H PRN PRN Reason: Pain, Mild 1-3,fever,headache Last Admin: 06/10/24 18:12 Dose: 650 mg Documented By: DILAN Atorvastatin Calcium (Atorvastatin Calcium 40 Mg Tablet) 40 mg PO DAILY [facility] Last Admin: 06/11/24 08:47 Dose: 40 mg Documented By: BROB Benzonatate (Benzonatate 100 Mg Capsule) 100 mg PO TID PRN PRN Reason: Cough Last Admin: 06/09/24 04:58 Dose: 100 mg Documented By: DAVID Calcium Carbonate (Calcium Carbonate 750 Mg Tab.Chew) 750 mg PO Q4H PRN PRN Reason: Heartburn Enoxaparin Sodium (Enoxaparin Sodium 40 Mg/0.4 Ml Syringe) 40 mg SUBCUT Q24H [facility] Last Admin: 06/10/24 16:39 Dose: 40 mg Documented By: DILAN Glucose (Glucose Gel 15 Gm Gel..Gram.) 15 gm PO Q15M PRN; Protocol PRN Reason: per Hypoglycemia Standing Ord. Dextrose (D10) 250 mls @ 750 mls/hr IV Q15M PRN; Protocol PRN Reason: per Hypoglycemia Standing Ord. Lactated Ringer's (Lr) 1,000 mls @ 125 mls/hr IVCONT .Q8H [facility] Last Admin: 06/11/24 11:05 Dose: 125 mls/hr Documented By: ADRIANA Insulin Human Lispro (Insulin Lispro 100 Unit/Ml 3 Ml Vial) 0 unit SUBCUT QIDACHS [facility]; Protocol Last Admin: 06/11/24 07:24 Dose: Not Given Documented By: ADRIANA Non-Admin Reason: No Insulin Coverage Ipratropium [place] (Ipratropium [place] Aidan 0.03 % 30 Ml [place]) 2 spray NOSTRIL-B TID [facility] Last Admin: 06/11/24 09:52 Dose: 2 spray Documented By: ADRIANA Levothyroxine Sodium (Levothyroxine Sodium 75 Mcg Tablet) 75 mcg PO DAILY@0600 [facility] Last Admin: 06/11/24 06:23 Dose: 75 mcg Documented By: BENNIE Magnesium Hydroxide (Milk Of Magnesia 30 Ml Oral.Susp) 30 ml PO DAILY PRN PRN Reason: Constipation Melatonin (Melatonin 3 Mg Tablet) 6 mg PO BEDTIME PRN PRN Reason: Insomnia Last Admin: 06/08/24 20:32 Dose: 6 mg Documented By: DAVID Metformin HCl (Metformin Hcl 500 Mg Tablet) 500 mg PO BID [facility] Last Admin: 06/11/24 08:47 Dose: 500 mg Documented By: ADRIANA Multivitamins/Vitamin C (Multivitamin Tablet) 1 tab PO DAILY [facility] Last Admin: 06/11/24 08:47 Dose: 1 tab Documented By: ADRIANA Ondansetron HCl (Ondansetron Hcl 4 Mg/2 Ml Vial) 4 mg IVPUSH Q8H PRN PRN Reason: Nausea and Vomiting Pregabalin (Pregabalin 50 Mg Capsule) 50 mg PO DAILY [facility] Last Admin: 06/11/24 08:47 Dose: 50 mg Documented By: ADRIANA Pyridoxine HCl (Pyridoxine Hcl (Vitamin B6) 50 Mg Tablet) 100 mg PO DAILY [facility] Last Admin: 06/11/24 08:47 Dose: 100 mg Documented By: ADRIANA Sodium Chloride (0.9 % Sodium Chloride Flush 3 Ml Syringe) 3 ml IVFLUSH QSHIFT [facility] Last Admin: 06/11/24 07:24 Dose: Not Given Documented By: ADRIANA Non-Admin Reason: IV Running Vitamin D (Cholecalciferol (Vitamin D3) 25 Mcg Tablet) 25 mcg PO DAILY [facility] Last Admin: 06/11/24 08:47 Dose: 25 mcg Documented By: ADRIANA Labs 06/10/24 18:57 06/10/24 18:57 Labs: Laboratory Results - last 24 hr 06/10/24 06/10/24 06/10/24 16:04 17:57 18:45 MCV MCH MCHC RDW Plt Count MPV Immature Gran % (Auto) Neut % (Auto) Lymph % (Auto) [place] % (Auto) Eos % (Auto) Baso % (Auto) Lymph # (Auto) [place] # (Auto) Eos # (Auto) Baso # (Auto) Abs Immat Gran (auto) Absolute Neuts (auto) Absolute Nucleated RBC Nucleated RBC % (auto) Neutrophils % (Manual) Band Neutrophils % Lymphocytes % (Manual) Monocytes % (Manual) Abs Neuts (Manual) Lymphocytes # (Manual) Monocytes # (Manual) Toxic Granulation Toxic Vacuolation Dohle Bodies Platelet Estimate Large Platelets Giant Platelets Plt Morphology Comment RBC Morphology Microcytosis Ovalocytes [place] Cells Acanthocytes (Spur) Schistocytes VBG pH VBG pCO2 VBG pO2 VBG HCO3 VBG O2 Saturation VBG Base Excess Anion Gap Estim Creat Clear Calc Estimated GFR POC Glucose 143 H 173 H Random Glucose Lactic Acid Calcium Total Bilirubin AST ALT Alkaline Phosphatase Total Protein Albumin Urine Color Dark Yellow Urine Appearance Clear Urine pH 5.5 Ur Specific [place] >= 1.030 H Urine Protein 100 (2+) H Urine Glucose (UA) 100 H Urine Ketones Trace Urine Blood Negative Urine Nitrite Negative Ur Leukocyte Esterase Negative Urine RBC 0-2 Urine WBC 0-5 Ur Squamous Epith Cells 3-5 Urine Bacteria None Seen Hyaline Casts 11-20 Granular Casts Present Influenza Type A (PCR) POSITIVE A Influenza Type B (PCR) NEGATIVE RSV RNA Qual (PCR) NEGATIVE SARS-CoV-2 RNA (RT-PCR) NEGATIVE 06/10/24 06/10/24 06/10/24 18:55 18:57 19:23 MCV 88.9 MCH 31.0 MCHC 34.9 RDW 14.1 Plt Count 157 L MPV 11.0 Immature Gran % (Auto) Cancelled Neut % (Auto) Cancelled Lymph % (Auto) Cancelled [place] % (Auto) Cancelled Eos % (Auto) Cancelled Baso % (Auto) Cancelled Lymph # (Auto) Cancelled [place] # (Auto) Cancelled Eos # (Auto) Cancelled Baso # (Auto) Cancelled Abs Immat Gran (auto) Cancelled Absolute Neuts (auto) Cancelled Absolute Nucleated RBC 0.000 Nucleated RBC % (auto) 0.0 Neutrophils % (Manual) 81 H Band Neutrophils % 14 H Lymphocytes % (Manual) 3 L Monocytes % (Manual) 2 Abs Neuts (Manual) 8.7 H Lymphocytes # (Manual) 0.3 L Monocytes # (Manual) 0.2 Toxic Granulation PRESENT Toxic Vacuolation PRESENT Dohle Bodies PRESENT Platelet Estimate NORMAL Large Platelets PRESENT Giant Platelets PRESENT Plt Morphology Comment NOTED RBC Morphology NOTED Microcytosis 1+ (5-14) Ovalocytes 1+ (5-14) Amanda Cells 2+ (3-5) Acanthocytes (Spur) 1+ (0-2) Schistocytes 1+ (0-2) VBG pH VBG pCO2 VBG pO2 VBG HCO3 VBG O2 Saturation VBG Base Excess Anion Gap 13 Estim Creat Clear Calc 38.2 Estimated GFR > 60 POC Glucose 182 H Random Glucose 182 H Lactic Acid 1.5 Calcium 8.4 Total Bilirubin 0.7 AST 41 H ALT 20 Alkaline Phosphatase 79 Total Protein 7.1 Albumin 3.3 L Urine Color Urine Appearance Urine pH Ur Specific [place] Urine Protein Urine Glucose (UA) Urine Ketones Urine Blood Urine Nitrite Ur Leukocyte Esterase Urine RBC Urine WBC Ur Squamous Epith Cells Urine Bacteria Hyaline Casts Granular Casts Influenza Type A (PCR) Influenza Type B (PCR) RSV RNA Qual (PCR) SARS-CoV-2 RNA (RT-PCR) 06/10/24 06/11/24 06/11/24 21:32 07:09 11:24 MCV MCH MCHC RDW Plt Count MPV Immature Gran % (Auto) Neut % (Auto) Lymph % (Auto) [place] % (Auto) Eos % (Auto) Baso % (Auto) Lymph # (Auto) [place] # (Auto) Eos # (Auto) Baso # (Auto) Abs Immat Gran (auto) Absolute Neuts (auto) Absolute Nucleated RBC Nucleated RBC % (auto) Neutrophils % (Manual) Band Neutrophils % Lymphocytes % (Manual) Monocytes % (Manual) Abs Neuts (Manual) Lymphocytes # (Manual) Monocytes # (Manual) Toxic Granulation Toxic Vacuolation Dohle Bodies Platelet Estimate Large Platelets Giant Platelets Plt Morphology Comment RBC Morphology Microcytosis Ovalocytes [place] Cells Acanthocytes (Spur) Schistocytes VBG pH 7.38 VBG pCO2 44 VBG pO2 33 VBG HCO3 27 H VBG O2 Saturation 45.0 VBG Base Excess 1.8 Anion Gap Estim Creat Clear Calc Estimated GFR POC Glucose 139 H 145 H Random Glucose Lactic Acid Calcium Total Bilirubin AST ALT Alkaline Phosphatase Total Protein Albumin Urine Color Urine Appearance Urine pH Ur Specific [place] Urine Protein Urine Glucose (UA) Urine Ketones Urine Blood Urine Nitrite Ur Leukocyte Esterase Urine RBC Urine WBC Ur Squamous Epith Cells Urine Bacteria Hyaline Casts Granular Casts Influenza Type A (PCR) Influenza Type B (PCR) RSV RNA Qual (PCR) SARS-CoV-2 RNA (RT-PCR) Assessment and Plan (1) Influenza A: Status: Acute Plan Pt is an 88-year-old female with a PMH significant for?HTN, HLD, spn-puzjgcb-mshomrdiz type 2 diabetes, hypothyroidism, peripheral neuropathy, and 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 Pt will be admitted to the hospital for treatment and further evaluation of generalized weakness and deconditioning in the setting of acute influenza infection. Influenza infection causing Generalized weakness headache, myalgias + fever or hypoxia defer Tamiflu due to mild symptoms and pt declining Symptomatic treatment with cough suppressants, mild analgesics p.r.n. pt recommends str Fever--likely related to flu, work up negative, sympotomatic treatment, ua negaive, cxr negative iVF as oral intake low Loose stool/diarrhea--check stool panel, C diff--no longer having diarrhea Tsx-usgzkir-cjczyoxzj type 2 diabetes Continue metformin Will cover with sliding scale insulin Diabetic diet Peripheral neuropathy Continue pregabalin HLD Continue statin Hypothyroidism Continue levothyroxine elevated high blood pressure, probable HTN but not on meds -monitor and discuss potention med with patient and Full Code Attending:?Dr. Cuevas DVT Prophylaxis: Lovenox dispo; pt is recommended short-term rehab. Quality Stroke Does the patient have a stroke diagnosis?: No VTE Prior VTE?: No VTE Risk Level:: Medical - moderate - high VTE Device Contraindication: Treatment Not Indicated VTE Drug Contraindication: N/A - Med Ordered
[2024-06-11 12:00] VITALS: BP 144/65; PULSE 89; RESP 18; TEMP 37.1; O2SAT 95
--- NOTE | 2024-06-11 15:40 | MHC.CM.PN ---
ptwill need str referrals made
[2024-06-11 16:00] VITALS: BP 139/64; PULSE 91; RESP 12; TEMP 37.3; O2SAT 96
[2024-06-11 17:08] LABS: Glucose, Whole Blood 161 mg/dL (60-115)
[2024-06-11] MEDS: Enoxaparin Sodium 40 MG/0.4 ML SYRINGE SUBCUT (17:12)
[2024-06-11] MEDS: Insulin Lispro 100 UNIT/ML 3 ML VIAL SUBCUT (17:12)
[2024-06-11] MEDS: 0.9 % Sodium Chloride Flush 3 ML SYRINGE IVFLUSH (21:04)
[2024-06-11 21:38] LABS: Glucose, Whole Blood 149 mg/dL (60-115)
[2024-06-12] VITALS: BP 127/58; PULSE 86; RESP 18; TEMP 36.9; O2SAT 95
[2024-06-12] MEDS: Lactated Ringers 1,000 ML 125 ML IVCONT ×2 (02:00→10:29)
[2024-06-12] MEDS: Levothyroxine Sodium 75 MCG TABLET PO (05:39)
[2024-06-12 07:28] LABS: Hematocrit 29.5 % (37.0-47.0); Hemoglobin 10.1 g/dl (12.0-16.0); Mean Corpuscular HGB Conc 34.2 g/dl (31.0-35.0); Mean Corpuscular Volume 90.5 fL (80.0-98.0); Mean Platelet Volume 11.6 fL (9.4-12.3); Platelet Count 169 X10*3/uL (160-400); Red Blood Count 3.26 X10*6/uL (4.20-5.50); White Blood Count 10.9 X10*3/uL (4.8-10.8)
[2024-06-12 07:43] LABS: Anion Gap 14 (12-20); Blood Urea Nitrogen 17 mg/dL (9-16); Calcium 8.5 mg/dL (8.4-10.2); Carbon Dioxide 22 mmol/L (22-29); Chloride 102 mmol/L (96-108); Creatinine Clr Calc Pharmacy 45.4; Estimated Glomerular Filt Rate > 60; Glucose Random 130 mg/dL (60-115); Potassium 3.7 mmol/L (3.3-5.1); Sodium 134 mmol/L (135-145)
[2024-06-12 07:49] LABS: Glucose, Whole Blood 146 mg/dL (60-115)
[2024-06-12 08:00] VITALS: BP 116/60; PULSE 72; RESP 16; TEMP 36.7; O2SAT 96
--- NOTE | 2024-06-12 08:41 | P.PNIM_ITS ---
Subjective Subjective Date of Service: 06/12/24 Interval History: f/u flu complicated by weakness, decoditioning and fraility still on suplemental O2, not eating much, fever resolved. Physical Exam 2 Vital Signs: Vital Signs: Last Vital Signs Temp 98.0 F 06/12/24 08:00 Pulse 72 06/12/24 08:00 Resp 16 06/12/24 08:00 BP 116/60 06/12/24 08:00 Pulse Ox 96 06/12/24 08:00 O2 Del Method Nasal Cannula 06/12/24 08:00 O2 Flow Rate 2 06/12/24 08:00 BMI result Body Mass Index 22.6 Const: Other: General: AO X 2, no acute distress, frail Resp: CTA bilateral CVS: S1,S2,RRR GI: +BS, NT, no distention Skin: No rash Neuro: motor grossly intact Psych: appropriate affect Objective Data Active Medications Acetaminophen (Acetaminophen 325 Mg Tablet) 650 mg PO Q6H PRN PRN Reason: Pain, Mild 1-3,fever,headache Last Admin: 06/10/24 18:12 Dose: 650 mg Documented By: DILAN Atorvastatin Calcium (Atorvastatin Calcium 40 Mg Tablet) 40 mg PO DAILY [facility] Last Admin: 06/11/24 08:47 Dose: 40 mg Documented By: ADRIANA Benzonatate (Benzonatate 100 Mg Capsule) 100 mg PO TID PRN PRN Reason: Cough Last Admin: 06/09/24 04:58 Dose: 100 mg Documented By: DAVID Calcium Carbonate (Calcium Carbonate 750 Mg Tab.Chew) 750 mg PO Q4H PRN PRN Reason: Heartburn Enoxaparin Sodium (Enoxaparin Sodium 40 Mg/0.4 Ml Syringe) 40 mg SUBCUT Q24H [facility] Last Admin: 06/11/24 17:12 Dose: 40 mg Documented By: ADRIANA Glucose (Glucose Gel 15 Gm Gel..Gram.) 15 gm PO Q15M PRN; Protocol PRN Reason: per Hypoglycemia Standing Ord. Dextrose (D10) 250 mls @ 750 mls/hr IV Q15M PRN; Protocol PRN Reason: per Hypoglycemia Standing Ord. Lactated Ringer's (Lr) 1,000 mls @ 125 mls/hr IVCONT .Q8H [facility] Last Admin: 06/12/24 02:00 Dose: 125 mls/hr Documented By: BENNIE Insulin Human Lispro (Insulin Lispro 100 Unit/Ml 3 Ml Vial) 0 unit SUBCUT QIDACHS [facility]; Protocol Last Admin: 06/12/24 07:51 Dose: Not Given Documented By: JE Non-Admin Reason: No Insulin Coverage Ipratropium [place] (Ipratropium [place] Aidan 0.03 % 30 Ml [place]) 2 spray NOSTRIL-B TID [facility] Last Admin: 06/11/24 17:12 Dose: 2 spray Documented By: ADRIANA Levothyroxine Sodium (Levothyroxine Sodium 75 Mcg Tablet) 75 mcg PO DAILY@0600 [facility] Last Admin: 06/12/24 05:39 Dose: 75 mcg Documented By: BENNIE Magnesium Hydroxide (Milk Of Magnesia 30 Ml Oral.Susp) 30 ml PO DAILY PRN PRN Reason: Constipation Melatonin (Melatonin 3 Mg Tablet) 6 mg PO BEDTIME PRN PRN Reason: Insomnia Last Admin: 06/08/24 20:32 Dose: 6 mg Documented By: DVAID Metformin HCl (Metformin Hcl 500 Mg Tablet) 500 mg PO BID [facility] Last Admin: 06/11/24 21:01 Dose: 500 mg Documented By: BENNIE Multivitamins/Vitamin C (Multivitamin Tablet) 1 tab PO DAILY [facility] Last Admin: 06/11/24 08:47 Dose: 1 tab Documented By: ADRIANA Ondansetron HCl (Ondansetron Hcl 4 Mg/2 Ml Vial) 4 mg IVPUSH Q8H PRN PRN Reason: Nausea and Vomiting Pregabalin (Pregabalin 50 Mg Capsule) 50 mg PO DAILY [facility] Last Admin: 06/11/24 08:47 Dose: 50 mg Documented By: ADRIANA Pyridoxine HCl (Pyridoxine Hcl (Vitamin B6) 50 Mg Tablet) 100 mg PO DAILY [facility] Last Admin: 06/11/24 08:47 Dose: 100 mg Documented By: ADRIANA Sodium Chloride (0.9 % Sodium Chloride Flush 3 Ml Syringe) 3 ml IVFLUSH QSHIFT [facility] Last Admin: 06/11/24 21:04 Dose: 3 ml Documented By: BENNIE Vitamin D (Cholecalciferol (Vitamin D3) 25 Mcg Tablet) 25 mcg PO DAILY [facility] Last Admin: 06/11/24 08:47 Dose: 25 mcg Documented By: STERLINGB Labs 06/12/24 05:36 06/12/24 05:36 Labs: Laboratory Results - last 24 hr 06/11/24 06/11/24 06/11/24 11:24 16:20 21:18 MCV MCH MCHC RDW Plt Count MPV Absolute Nucleated RBC Nucleated RBC % (auto) Anion Gap Estim Creat Clear Calc Estimated GFR POC Glucose 145 H 161 H 149 H Random Glucose Calcium 06/12/24 06/12/24 05:36 07:29 MCV 90.5 MCH 31.0 MCHC 34.2 RDW 14.0 Plt Count 169 MPV 11.6 Absolute Nucleated RBC 0.000 Nucleated RBC % (auto) 0.0 Anion Gap 14 Estim Creat Clear Calc 45.4 Estimated GFR > 60 POC Glucose 146 H Random Glucose 130 H Calcium 8.5 Microbiology Microbiology Results: Microbiology 06/10/24 18:56 Blood Culture - Preliminary Blood - Venous No growth after 24 hours. 06/10/24 18:55 Blood Culture - Preliminary Blood - Venous No growth after 24 hours. 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 Pt will be admitted to the hospital for treatment and further evaluation of generalized weakness and deconditioning in the setting of acute influenza infection. Influenza infection causing Generalized weakness headache, myalgias, fever, hypoxia defer Tamiflu due to mild symptoms and pt declining Symptomatic treatment with cough suppressants, mild analgesics p.r.n and wean off O2 pt recommends str Fever--likely related to flu, work up negative, sympotomatic treatment, ua negative, cxr negative iVF as oral intake low Loose stool/diarrhea-- C diff and stool panel pending Wqd-kjnnfaz-vhpldrzjc type 2 diabetes Continue metformin sliding scale insulin Diabetic diet Peripheral neuropathy Continue pregabalin HLD Continue statin Hypothyroidism Continue levothyroxine elevated high blood pressure, probable HTN but not on meds -BP now within normal, monitor Full Code Attending:?Dr. Cuevas DVT Prophylaxis: Lovenox dispo; pt is recommended short-term rehab. Quality Stroke Does the patient have a stroke diagnosis?: No VTE Prior VTE?: No VTE Risk Level:: Medical - moderate - high VTE Device Contraindication: Treatment Not Indicated VTE Drug Contraindication: N/A - Med Ordered
[2024-06-12] MEDS: Pregabalin 50 MG CAPSULE PO (09:00)
[2024-06-12] MEDS: metFORMIN HCl 500 MG TABLET PO ×2 (09:00→19:46)
[2024-06-12] MEDS: Multivitamin TABLET 1 TAB PO (09:00)
[2024-06-12] MEDS: Atorvastatin Calcium 40 MG TABLET PO (09:00)
[2024-06-12] MEDS: Cholecalciferol (Vitamin D3) 25 MCG TABLET PO (09:00)
[2024-06-12] MEDS: Pyridoxine HCl (Vitamin B6) 50 MG TABLET 100 MG PO (09:00)
[2024-06-12 09:43] LABS: CDiff Gene PCR NEGATIVE (Negative)
[2024-06-12 10:28] LABS: Adenovirus F 40/41 Not Detected (Not Detect.); Astrovirus Not Detected (Not Detect.); Campylobacter Not Detected (Not Detect.); Cryptosporidium Not Detected (Not Detect.); Cyclospora cayetanensis Not Detected (Not Detect.); E. coli EAEC Not Detected (Not Detect.); E. coli EPEC Not Detected (Not Detect.); E. coli ETEC Not Detected (Not Detect.); E. coli STEC Not Detected (Not Detect.); Entamoeba histolytica Not Detected (Not Detect.); Giardia lamblia Not Detected (Not Detect.); Norovirus GI/GII Not Detected (Not Detect.); Plesiomonas shigelloides Not Detected (Not Detect.); Rotavirus A Not Detected (Not Detect.); Salmonella Not Detected (Not Detect.); Sapovirus Not Detected (Not Detect.); Shigella sp./EIEC Not Detected (Not Detect.); Vibrio Not Detected (Not Detect.); Vibrio Cholerae Not Detected (Not Detect.); Yersinia enterocolitica Not Detected (Not Detect.)
[2024-06-12 11:25] LABS: Glucose, Whole Blood 137 mg/dL (60-115)
[2024-06-12 11:35] VITALS: O2SAT 92
[2024-06-12 12:58] VITALS: O2SAT 92
[2024-06-12 15:09] VITALS: BP 115/57; PULSE 78; RESP 12; TEMP 37.6; O2SAT 93
[2024-06-12 16:18] LABS: Glucose, Whole Blood 136 mg/dL (60-115)
[2024-06-12] MEDS: 0.9 % Sodium Chloride Flush 3 ML SYRINGE IVFLUSH ×2 (17:25→19:46)
[2024-06-12] MEDS: Enoxaparin Sodium 40 MG/0.4 ML SYRINGE SUBCUT (17:25)
[2024-06-12] MEDS: Ipratropium Bromide Nas 0.03 % 30 ML SPRAY 2 SPRAY NOSTRIL-B (17:31)
[2024-06-12 19:34] LABS: Glucose, Whole Blood 133 mg/dL (60-115)
[2024-06-12 23:43] VITALS: BP 126/60; PULSE 69; RESP 16; TEMP 37.1; O2SAT 95
[2024-06-13] MEDS: Levothyroxine Sodium 75 MCG TABLET PO (05:03)
[2024-06-13 07:02] LABS: Hematocrit 28.3 % (37.0-47.0); Hemoglobin 9.9 g/dl (12.0-16.0); Mean Corpuscular Hemoglobin 31.2 pg (27.0-33.0); Mean Corpuscular Volume 89.3 fL (80.0-98.0); Mean Platelet Volume 11.4 fL (9.4-12.3); Platelet Count 199 X10*3/uL (160-400); Red Blood Count 3.17 X10*6/uL (4.20-5.50); Red Cell Distribution Width 14.1 % (11.0-16.0); White Blood Count 11.4 X10*3/uL (4.8-10.8)
[2024-06-13 07:11] LABS: Anion Gap 12 (12-20); Blood Urea Nitrogen 19 mg/dL (9-16); Calcium 8.2 mg/dL (8.4-10.2); Carbon Dioxide 22 mmol/L (22-29); Chloride 104 mmol/L (96-108); Creatinine Clr Calc Pharmacy 48.2; Estimated Glomerular Filt Rate > 60; Glucose Random 101 mg/dL (60-115); Potassium 3.4 mmol/L (3.3-5.1); Sodium 135 mmol/L (135-145)
[2024-06-13 07:20] VITALS: BP 110/60; PULSE 62; RESP 16; TEMP 36.4; O2SAT 94
[2024-06-13 07:44] LABS: Glucose, Whole Blood 109 mg/dL (60-115)
[2024-06-13] MEDS: Pregabalin 50 MG CAPSULE PO (08:58)
[2024-06-13] MEDS: Atorvastatin Calcium 40 MG TABLET PO (08:58)
[2024-06-13] MEDS: Cholecalciferol (Vitamin D3) 25 MCG TABLET PO (08:58)
[2024-06-13] MEDS: Ipratropium Bromide Nas 0.03 % 30 ML SPRAY 2 SPRAY NOSTRIL-B (08:58)
[2024-06-13] MEDS: Pyridoxine HCl (Vitamin B6) 50 MG TABLET 100 MG PO (08:58)
[2024-06-13] MEDS: Multivitamin TABLET 1 TAB PO (08:58)
[2024-06-13] MEDS: metFORMIN HCl 500 MG TABLET PO (08:58)
[2024-06-13] MEDS: 0.9 % Sodium Chloride Flush 3 ML SYRINGE IVFLUSH (08:58)
[2024-06-13 09:17] VITALS: O2SAT 92
--- NOTE | 2024-06-13 10:56 | P.DS_ITS ---
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 Reports does not ?feel wel l at all? and complains of mild cough, difficulty breathing, headache, nausea, and malaise. Pt overall is a rather vague and imprecise historian. Denies chest pain/pressure, palpitations. No vomiting or abdominal pain. No fever or chills. Workup in the ED significant for pt does not positive for flu without hypoxia. Pt initially was placed into overflow for possible short-term rehab placement, though pt decline STR and would prefer to be brought to the hospital and then discharged home, possibly with services. In the ED pt has been hypertensive up 159/72, vitals otherwise stable and WNL, satting at 98% on RA. Labs were significant for testing positive for influenza a, otherwise grossly unremarkable. No leukocytosis. Stable H&H. No significant electrolyte abnormalities. Renal and hepatic function WNL. CXR showed no acute cardiopulmonary disease. Pt was treated with acetaminophen, lidocaine, and benzonatate. Pt will be admitted to the hospital for treatment and further evaluation of generalized weakness and deconditioning in the setting of acute influenza infection. 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 Fever--likely related to flu, work up negative, sympotomatic treatment, ua negative, cxr negative.blood cultures neg@48hrs. , no new episodes of fever. decreased po intake in setting of above , stop metformin( considering decreased po intake ) ,consider sliding scale cover fs >200 mg/dl.patient need lot of encoragement and motivation for po intake. Loose stool/diarrhea-- diarrhae improved ,c diff neagtive ,denies any abd pain. elevated high blood pressure, probable HTN but not on meds-BP now within normal, monitor in rehab. plan: as above. assessment and plan coodination time spent 40 min. Time Attestation Total time managing care of this patient today: 40 mintues. Discharge Coordination Time (in mins): 40 min Quality: Safe Use of Opioids Does Pt have an Active Cancer Diagnosis on the Problem List?: No Quality: Stroke Does the patient have a stroke diagnosis?: No Physical Exam Vital Signs: Vital Signs: Last Vital Signs Temp 97.5 F 06/13/24 07:20 Pulse 62 06/13/24 07:20 Resp 16 06/13/24 07:20 BP 110/60 06/13/24 07:20 Pulse Ox 92 06/13/24 09:17 O2 Del Method Room Air 06/13/24 09:17 O2 Flow Rate 1 06/13/24 07:20 BMI result Body Mass Index 22.6 General: AO X 2, no acute distress, frail Resp: CTA bilateral CVS: S1,S2,RRR GI: +BS, NT, no distention Skin: No rash Neuro: motor grossly intact Psych: appropriate affect DS: Data Data Completed and Pending Labs on day of discharge: Laboratory Results - last 24 hr 06/12/24 06/12/24 06/12/24 05:56 11:16 16:14 WBC RBC Hgb Hct MCV MCH MCHC RDW Plt Count MPV Absolute Nucleated RBC Nucleated RBC % (auto) Sodium Potassium Chloride Carbon Dioxide Anion Gap BUN Creatinine Estim Creat Clear Calc Estimated GFR POC Glucose 137 H 136 H Random Glucose Calcium Stl C. cayetanensis PCR Not Detected Stool Rotavirus A PCR Not Detected Stl Adenov F PCR Not Detected Stool Astrovirus (PCR) Not Detected Stool Campylobacter PCR Not Detected Stool Cryptosporidium PCR Not Detected Stl Sh Tox Pr E STEC PCR Not Detected Stool E coli O157 PCR Not applicable Stl Enterotoxigenic E PCR Not Detected Stool EPEC (PCR) Not Detected Stool EAEC (PCR) Not Detected Stl E. histolytica PCR Not Detected Stool Giardia Lamblia PCR Not Detected Stl P. shigelloides PCR Not Detected Stool Salmonella PCR Not Detected Stool Sapovirus (PCR) Not Detected Stl Shigella/EIEC PCR Not Detected St Y.enterocolitica PCR Not Detected Stool Vibrio (PCR) Not Detected Stl Vibrio cholerae PCR Not Detected Stl Norovirus GI/GII PCR Not Detected 06/12/24 06/13/24 06/13/24 19:18 05:25 07:24 WBC 11.4 H RBC 3.17 L Hgb 9.9 L Hct 28.3 L MCV 89.3 MCH 31.2 MCHC 35.0 RDW 14.1 Plt Count 199 MPV 11.4 Absolute Nucleated RBC 0.000 Nucleated RBC % (auto) 0.0 Sodium 135 Potassium 3.4 Chloride 104 Carbon Dioxide 22 Anion Gap 12 BUN 19 H Creatinine 0.65 Estim Creat Clear Calc 48.2 Estimated GFR > 60 POC Glucose 133 H 109 Random Glucose 101 Calcium 8.2 L Stl C. cayetanensis PCR Stool Rotavirus A PCR Stl Adenov F 40/41 PCR Stool Astrovirus (PCR) Stool Campylobacter PCR Stool Cryptosporidium PCR Stl Sh Tox Pr E STEC PCR Stool E coli O157 PCR Stl Enterotoxigenic E PCR Stool EPEC (PCR) Stool EAEC (PCR) Stl E. histolytica PCR Stool Giardia Lamblia PCR Stl P. shigelloides PCR Stool Salmonella PCR Stool Sapovirus (PCR) Stl Shigella/EIEC PCR St Y.enterocolitica PCR Stool Vibrio (PCR) Stl Vibrio cholerae PCR Stl Norovirus GI/GII PCR Preliminary micro results at discharge 06/10/24 18:56 Blood Culture - Preliminary Blood - Venous No growth after 48 hours. 06/10/24 18:55 Blood Culture - Preliminary Blood - Venous No growth after 48 hours. Imaging Chest x-ray: Radiologist's impression: ITS Impressions Chest X-Ray 06/08/24 11:29 IMPRESSION: No active pulmonary disease. Electronically signed by: Andres Coronel MD 06/08/2024 11:59 AM [facility] [place], [place] Discharge Plan Discharge Anticipated Discharge Date/Time: 06/13/24 10:43 Patient Disposition: Xf SNF Discharge Diagnosis: Influenza infection causing Generalized weakness [facility]errals: [facility] [Other] - 1 Week Roro Wilson MD [Primary Care Provider] - 1 Week Discharge Medications: New insulin lispro [Admelog U-100 Insulin lispro] 100 unit/mL Solution See Protocol subcut QIDACHS Qty: 1 0RF Protocol: Insulin Correction Scale Less than or equal to 110 ---- Give (units): 0 111 to 150 Give (units): 0 151 to 200 Give (units): 0 201 to 250 Give (units): 2 251 to 300 Give (units): 6 301 to 350 Give (units): 8 Greater than 350 Give (units): 10 Call MD if Blood Glucose > : 350 Continued pyridoxine (vitamin B6) [Vitamin B-6] 100 mg Tablet 100 mg PO DAILY ipratropium bromide 21 mcg (0.03 %) [place],Non-Aerosol 2 spray INTRANASAL TID Rx Instructions: administer into each nostril PreserVision AREDS-2 250-90-40-1 mg Capsule 1 tab PO BID atorvastatin 40 mg tablet 40 mg PO DAILY cholecalciferol (vitamin D3) 25 mcg (1,000 unit) capsule 25 mcg PO DAILY levothyroxine 50 mcg capsule 75 mcg PO DAILY pregabalin [Lyrica] 25 mg capsule 50 mg PO DAILY alpha lipoic acid 600 mg tablet 1,200 mg PO BID Discontinued metformin 500 mg tablet 500 mg PO BID Discharge Orders: Discharge Order (Routine); Ordered 06/13/24 Ordered By: Bebe Morris Diet: Advance to usual diet Activity on Discharge: As tolerated Stand Alone Forms: Patient Portal Discharge page Print Language: Belarusian Care Plan Goals: 88-year-old female with a PMH significant for?HTN, HLD, kdg-cfbvkfr-oprxwdxkk type 2 diabetes, hypothyroidism, peripheral neuropathy, and squamous cell car cinoma on left who presented to the ED yesterday for generalized weakness and myalgia : found to have influenza A- treated with Symptomatic treatment with cough suppressants, mild analgesics p.r.n and weaned off O2. Fever--likely related to flu, work up negative, sympotomatic treatment, ua negative, cxr negative.blood cultures neg@48hrs. , no new episodes of fever. decreased po intake in setting of above , stop metformin( considering decreased po intake ) ,consider sliding scale cover fs >200 mg/dl.patient need lot of encoragement and motivation for po intake. Health Concerns: as above. Plan of Treatment: as above. Assessment: as above.
--- NOTE | 2024-06-13 11:19 | MHC.CM.PN ---
pts notified of dc to [facility] today at 1
[2024-06-13 11:55] LABS: Glucose, Whole Blood 143 mg/dL (60-115)
[2024-06-13 13:02] VITALS: BP 122/58; PULSE 66; RESP 16; TEMP 36.6; O2SAT 94
[2024-06-13 14:39] VITALS: BP 116/57; PULSE 67; RESP 16; TEMP 36.8; O2SAT 94
== END 2024-06-13 15:02 | disposition skilled nursing facility (03) | DRG 195 ==
LOC: HO.ED 15:24 → HO.EDOVER 06-08 15:17 → HO.S3 06-10 15:02
PROVIDERS: Internal Medicine; Student in an Organized Health Care Education/Training Program; Admitting Provider Student in an Organized Health Care Education/Training Program; Emergency Provider Student in an Organized Health Care Education/Training Program; PCP Internal Medicine; Visit Provider Internal Medicine
DX: J10.1 Influenza due to other identified influenza virus with other respiratory manifestations (principal); E11.42 Type 2 diabetes mellitus with diabetic polyneuropathy; E03.9 Hypothyroidism, unspecified; E78.5 Hyperlipidemia, unspecified; I10 Essential (primary) hypertension; Z20.822 Contact with and (suspected) exposure to COVID-19; Z85.828 Personal history of other malignant neoplasm of skin; Z79.4 Long term (current) use of insulin; Z79.890 Hormone replacement therapy; Z79.899 Other long term (current) drug therapy
CPT/HCPCS: 0241U; 36415; 71045; 80048; 80053; 80076; 81001; 82803; 82947; 83605; 83690; 85007; 85025; 85027; 87040; 87493; 87507; 93005; 97162; 99221; 99285; J1650; J7120

== ENCOUNTER → 2024-06-07 09:47 | Outpatient (BNV) | payer MEDICARE, SELFPAY | PROVIDERS: Admitting Provider Student in an Organized Health Care Education/Training Program; Emergency Provider Student in an Organized Health Care Education/Training Program; PCP Internal Medicine; Visit Provider Internal Medicine Cardiovascular Disease | DX: R53.1 Weakness (principal) | CPT/HCPCS: 93010 ==

== ENCOUNTER → 2024-06-08 11:29 | Outpatient (BNV) | payer MEDICARE, SELFPAY | PROVIDERS: Emergency Provider Student in an Organized Health Care Education/Training Program; PCP Internal Medicine; Visit Provider Radiology Diagnostic Radiology | DX: R06.02 Shortness of breath (principal) | CPT/HCPCS: 71045 ==

== ENCOUNTER 2024-06-08 14:58 | Outpatient (BNV) | payer MEDICARE, SELFPAY | END 2024-06-10 18:00 | PROVIDERS: Admitting Provider Student in an Organized Health Care Education/Training Program; Emergency Provider Student in an Organized Health Care Education/Training Program; PCP Internal Medicine; Visit Provider Student in an Organized Health Care Education/Training Program | DX: J10.1 Influenza due to other identified influenza virus with other respiratory manifestations (principal) | CPT/HCPCS: 71045 ==

== ENCOUNTER → 2024-06-08 14:58 | Outpatient (BNV) | payer MEDICARE, SELFPAY | PROVIDERS: Admitting Provider Student in an Organized Health Care Education/Training Program; Emergency Provider Student in an Organized Health Care Education/Training Program; PCP Internal Medicine; Visit Provider Student in an Organized Health Care Education/Training Program | DX: J10.1 Influenza due to other identified influenza virus with other respiratory manifestations (principal) | CPT/HCPCS: 99232; 99233; 99239; 99499 ==

== ENCOUNTER 2024-07-27 08:56 | Outpatient (REF) | payer MEDICARE, SELFPAY ==
--- OUTSIDE RECORDS SUMMARY | 2024-07-27 09:37 | XMS_ITS | Encounter Summary ---
Author Organization [facility] Address [id number] [place] [id number] Care Team Providers Care Transportation Operations Manager Name Role Phone Judd Johnson MD Primary Care Provider [phone] Encounter Details Date Type Department Care Team (Late st Contact Info) Description 06/19/2024 Lab Requisition [facility] - Main Lab [address] [facility] [place] [address] Judd Johnson MD [address] [place] [address], [phone] Polyneuropathy, unspecified; 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; Hypothyroidism, unspecified; Pure hypercholesterolemia , unspecified Social History Tobacco Use Types Packs/Day Years Used Date Smoking Tobacco: Never Assessed Comments Unknown Sex and Gender Information Value Date Recorded Sex Assigned at Not on file Legal Sex Female 8:10 PM EST Gender Identity Not on file Sexual Orientation Not on file documented as of this encounter Plan of Treatment Not on file documented as of this encounter Procedures Procedure Name Priority Date/Time Associated Diagnosis Comments COMPLETE BLOOD COUNT Routine 06/20/2024 7:20 AM EST Polyneuropathy, unspecified 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 Hypothyroidism, unspecified Pure hypercholesterolemi a, unspecified C-REACTIVE PROTEIN Routine 06/20/2024 7: 20 AM EST Polyneuropathy, unspecified 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 Hypothyroidism, unspecified Pure hypercholesterolemi a, unspecified COMPREHENSIVE METABOLIC PANEL Routine 06/20/2024 7:20 AM EST Polyneuropathy, unspecified 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 Hypothyroidism, unspecified Pure hypercholesterolemi a, unspecified documented in this encounter Results * (ABNORMAL) C-reactive protein (06/20/2024 7:20 AM EST) Pathologist [facility] [place] C-Reactive Protein 2.14(H) <=0.50 mg/dL LAB CHEMISTRY METHOD 06/20/2024 12:38 PM EST [facility] Blood Venous blood specimen / Unknown Venipuncture / Unknown 06/20/2024 7:20 AM EST 06/20/2024 12:38 PM EST us Judd Johnson MD LAB BLOOD ORDERABLES Final Resul t [facility] [address] [place] [address], * (ABNORMAL) Comprehensive metabolic panel (06/20/2024 7:20 AM EST) Pathologist [facility] [place] Sodium 137 133 - 145 mmol/L LAB CHEMISTRY METHOD 06/20/2024 12:57 PM [facility] Potassium 3.8 3.5 - 5.5 mmol/L LAB CHEMISTRY METHOD 06/20/2024 12:57 PM [facility] Chloride 103 96 - 110 mmol/L LAB CHEMISTRY METHOD 06/20/2024 12:57 PM [facility] CO2 29 21 - 32 mmol/L LAB CHEMISTRY METHOD 06/20/2024 12:57 PM [facility] Anion Gap 5 3 - 11 LAB CHEMISTRY METHOD 06/20/2024 12:57 PM [facility] Glucose 112(H) 70 - 100 mg/dL LAB CHEMISTRY METHOD 06/20/2024 12:57 PM [facility] BUN 11 5 - 25 mg/dL LAB CHEMISTRY METHOD 06/20/2024 12:57 PM [facility] Creatinine 0.64 0.50 - 1.10 mg/dL LAB CHEMISTRY METHOD 06/20/2024 12:57 PM [facility] eGFR 86 >=60 mL/min/1. 73m2 LAB CHEMISTRY METHOD 06/20/2024 12:57 PM [facility] Comment:Calculation based on the??Chronic Kidney Disease Epidemiology Collaboration (CKD-EPI) equation refit??without adjustment for race. BUN/Creatinine Ratio 17.2 LAB CHEMISTRY METHOD 06/20/2024 12:57 PM [facility] Calcium 8.4(L) 8.5 - 10.5 mg/dL LAB CHEMISTRY METHOD 06/20/2024 12:57 PM [facility] AST (SGOT) 44(H) 10 - 42 unit/L LAB CHEMISTRY METHOD 06/20/2024 12:57 PM [facility] ALT (SGPT) 66(H) 10 - 60 unit/L LAB CHEMISTRY METHOD 06/20/2024 12:57 PM [facility] Alkaline Phosphatase 114 42 - 121 unit/L LAB CHEMISTRY METHOD 06/20/2024 12:57 PM [facility] Total Protein 6.1 6.0 - 8.0 g/dL LAB CHEMISTRY METHOD 06/20/2024 12:57 PM [facility] Albumin 2.3(L) 3.2 - 5.0 g/dL LAB CHEMISTRY METHOD 06/20/2024 12:57 PM [facility] Total Bilirubin 0.5 0.0 - 1.4 mg/dL LAB CHEMISTRY METHOD 06/20/2024 12:57 PM [facility] Blood Venous blood specimen / Unknown Venipuncture / Unknown 06/20/2024 7:20 AM EST 06/20/2024 12:38 PM EST us Judd Johnson MD LAB BLOOD ORDERABLES Final Resul t [facility] [address] [place] [address], * (ABNORMAL) Complete blood count (06/20/2024 7:20 AM EST) [facility] WBC 7.9 4.8 - 10.8 K/mcL LAB HEMETOLOGY METHOD 06/20/2024 12:19 PM [facility] RBC 3.30(L) 3.80 - 4.80 M/mcL LAB HEMETOLOGY METHOD 06/20/2024 12:19 PM [facility] Hemoglobin 10.1(L) 11.5 - 16.0 g/dL LAB HEMETOLOGY METHOD 06/20/2024 12:19 PM [facility] Hematocrit 31.0(L) 35.0 - 47.0 % LAB HEMETOLOGY METHOD 06/20/2024 12:19 PM [facility] MCV 93.7 79.0 - 98.0 FL LAB HEMETOLOGY METHOD 06/20/2024 12:19 PM [facility] MCH 30.5 27.0 - 32.0 pcg LAB HEMETOLOGY METHOD 06/20/2024 12:19 PM [facility] MCHC 32.6 32.0 - 37.0 g/dL LAB HEMETOLOGY METHOD 06/20/2024 12:19 PM [facility] RDW 13.8 11.0 - 15.0 % LAB HEMETOLOGY METHOD 06/20/2024 12:19 PM [facility] Platelets 466(H) 130 - 400 K/mcL LAB HEMETOLOGY METHOD 06/20/2024 12:19 PM [facility] MPV 9.7 7.0 - 11.0 FL LAB HEMETOLOGY METHOD 06/20/2024 12:19 PM [facility] NRBC 0.0 <1.0 % LAB HEMETOLOGY METHOD 06/20/2024 12:19 PM [facility] NRBC Absolute 0.00 <0.10 K/mcL LAB HEMETOLOGY METHOD 06/20/2024 12:19 PM EST [facility] Blood Venous blood specimen / Unknown Venipuncture / Unknown 06/20/2024 7:20 AM EST 06/20/2024 11:08 AM EST Judd Johnson MD LAB BLOOD ORDERABLES Final Resul t [facility] [address] [place] [address], documented in this encounter Visit Diagnoses Diagnosis Polyneuropathy, unspecified 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 Hypothyroidism, unspecified Pure hypercholesterolemia, unspecified documented in this encounter Care Teams Transportation Operations Manager Relationship Specialty Start Date End Date Judd Johnson MD [address] [place] [phone] PCP - General Family Medicine 06/14/24 documented as of this encounter
--- OUTSIDE RECORDS SUMMARY | 2024-07-27 09:37 | XMS_ITS | Clinical Summary ---
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); Polyneuropathy, unspecified; Hypothyroidism, unspecified 06/19/2024 Lab Requisition [facility] [address] [place] [phone] Judd Johnson MD Polyneuropathy, unspecified; 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; Hypothyroidism, unspecified; Pure hypercholesterolemia, unspecified 06/14/2024 Lab Requisition [facility] [address] [place] [phone] Judd Johnson MD Myelodysplastic syndrome, unspecified (CMS/HCC); Hyperlipidemia, unspecified from Last 3 Months Social History Tobacco Use Types Packs/Day Years Used Date Smoking Tobacco: Never Assessed Comments Unknown Sex and Gender Information Value Date Recorded Sex Assigned at Not on file Legal Sex Female 8:10 PM EST Gender Identity Not on file Sexual Orientation Not on file Plan of Treatment Health Maintenance Due Date Last Done Comments Diabetes: Annual Foot Exam 1945 Diabetes: Annual Retina Eye Exam 1945 RSV Immunization Patients 60+ Years Old (1 - 1-dose 75+ series) 09/05/2011 DTaP,Tdap,and Td Vaccines (2 - Td or Tdap) 02/24/2015 02/24/2005 Cholesterol Screening (Lipid Panel) 04/24/2022 Falls Risk Assessment 04/24/2022 Medicare Annual Wellness Visit 04/24/2022 Osteoporosis Screening (Bone Density Screening) 04/24/2022 Social Influencers of Health Screening 04/24/2022 Depression Screening 01/14/2024 01/13/2023 COVID-19 Vaccine ( season) 2024 02/20/2023, 01/21/2022, 07/18/2020, Additional history exists Influenza Vaccine (#1) 2024 , 02/21/2020, 02/27/2019, Additional history exists Diabetes: Blood Sugar Control Test (HGBA1C) 06/19/2024 Hypertension/CHF/CAD Annual BMP Blood Test 06/20/2025 06/20/2024, 06/14/2024, 12/23/2022, Additional history exists Hepatitis A Vaccines Aged Out 03/27/2008, 03/10/20 05 No longer eligible based on patient's age to complete this topic Pneumococcal Vaccine: 50+ Years Completed 06/10/2015, 05/23/2013 Zoster Vaccines Completed 12/21/2018, 09/20/2018 HIB Vaccines Aged Out No longer eligi ble based on patient's age to complete this topic HPV Vaccines Aged Out No longer eligi ble based on patient's age to complete this topic Hepatitis B Vaccines Aged Out No long er eligible based on patient's age to complete this topic IPV Vaccines Aged Out No longer eligi ble based on patient's age to complete this topic MMR Vaccines Aged Out No longer eligi ble based on patient's age to complete this topic Meningococcal ACWY Vaccine Aged Out N o longer eligible based on patient's age to complete this topic Meningococcal B Vacine Aged Out No lo nger eligible based on patient's age to complete this topic RSV Immunization Patients Under 20 months Aged Out No longer eligible based on patient's age to complete this topic Varicella Vaccines Aged Out No longer eligible based on patient's age to complete this topic Procedures Procedure Name Priority Date/Time Associated Diagnosis Comments C-REACTIVE PROTEIN Routine 06/20/2024 7: 20 AM EST Polyneuropathy, unspecified 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 Hypothyroidism, unspecified Pure hypercholesterolemi a, unspecified COMPREHENSIVE METABOLIC PANEL Routine 06/20/2024 7:20 AM EST Polyneuropathy, unspecified 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 Hypothyroidism, unspecified Pure hypercholesterolemi a, unspecified COMPLETE BLOOD COUNT Routine 06/20/2024 7:20 AM EST Polyneuropathy, unspecified 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 Hypothyroidism, unspecified Pure hypercholesterolemi a, unspecified CBC WITH AUTO DIFFERENTIAL Routine 06/14/2024 5:56 AM EST Myelodysplastic syndrome, unspecified (CMS/HCC) Hyperlipidemia, unspecified COMPREHENSIVE METABOLIC PANEL Routine 06/14/2024 5:56 AM EST Myelodysplastic syndrome, unspecified (CMS/HCC) Hyperlipidemia, unspecified CBC AND DIFFERENTIAL Routine 06/14/2024 5:56 AM EST Myelodysplastic syndrome, unspecified (CMS/HCC) Hyperlipidemia, unspecified from Last 3 Months Results * (ABNORMAL) Complete blood count (06/20/2024 7:20 AM EST) [facility] WBC 7.9 4.8 - 10.8 K/mcL LAB HEMETOLOGY METHOD 06/20/2024 12:19 PM [facility] RBC 3.30(L) 3.80 - 4.80 M/mcL LAB HEMETOLOGY METHOD 06/20/2024 12:19 PM [facility] Hemoglobin 10.1(L) 11.5 - 16.0 g/dL LAB HEMETOLOGY METHOD 06/20/2024 12:19 PM [facility] Hematocrit 31.0(L) 35.0 - 47.0 % LAB HEMETOLOGY METHOD 06/20/2024 12:19 PM [facility] MCV 93.7 79.0 - 98.0 FL LAB HEMETOLOGY METHOD 06/20/2024 12:19 PM [facility] MCH 30.5 27.0 - 32.0 pcg LAB HEMETOLOGY METHOD 06/20/2024 12:19 PM EST [facility] MCHC 32.6 32.0 - 37.0 g/dL LAB HEMETOLOGY METHOD 06/20/2024 12:19 PM EST [facility] RDW 13.8 11.0 - 15.0 % LAB HEMETOLOGY METHOD 06/20/2024 12:19 PM EST [facility] Platelets 466(H) 130 - 400 K/mcL LAB HEMETOLOGY METHOD 06/20/2024 12:19 PM EST [facility] MPV 9.7 7.0 - 11.0 FL LAB HEMETOLOGY METHOD 06/20/2024 12:19 PM EST [facility] NRBC 0.0 <1.0 % LAB HEMETOLOGY METHOD 06/20/2024 12:19 PM EST [facility] NRBC Absolute 0.00 <0.10 K/mcL LAB HEMETOLOGY METHOD 06/20/2024 12:19 PM EST [facility] Blood Venous blood specimen / Unknown Venipuncture / Unknown 06/20/2024 7:20 AM EST 06/20/2024 11:08 AM EST us Judd Johnson MD LAB BLOOD ORDERABLES Final Resul t [facility] [address] [place] [address], * (ABNORMAL) C-reactive protein (06/20/2024 7:20 AM EST) C-Reactive Protein 2.14(H) <=0.50 mg/dL LAB CHEMISTRY METHOD 06/20/2024 12:38 PM EST [facility] Blood Venous blood specimen / Unknown Venipuncture / Unknown 06/20/2024 7:20 AM EST 06/20/2024 12:38 PM EST us Judd Johnson MD LAB BLOOD ORDERABLES Final Resul t [facility] [address] [place] [address], [place] [phone] * (ABNORMAL) Comprehensive metabolic panel (06/20/2024 7:20 AM EST) Only the most recent of2 resultswithin the time period is included. Sodium 137 133 - 145 mmol/L LAB CHEMISTRY METHOD 06/20/2024 12:57 PM [facility] Potassium 3.8 3.5 - 5.5 mmol/L LAB CHEMISTRY METHOD 06/20/2024 12:57 PM [facility] Chloride 103 96 - 110 mmol/L LAB CHEMISTRY METHOD 06/20/2024 12:57 PM [facility] CO2 29 21 - 32 mmol/L LAB CHEMISTRY METHOD 06/20/2024 12:57 PM [facility] Anion Gap 5 3 - 11 LAB CHEMISTRY METHOD 06/20/2024 12:57 PM [facility] Glucose 112(H) 70 - 100 mg/dL LAB CHEMISTRY METHOD 06/20/2024 12:57 PM [facility] BUN 11 5 - 25 mg/dL LAB CHEMISTRY METHOD 06/20/2024 12:57 PM [facility] Creatinine 0.64 0.50 - 1.10 mg/dL LAB CHEMISTRY METHOD 06/20/2024 12:57 PM [facility] eGFR 86 >=60 mL/min/1. 73m2 LAB CHEMISTRY METHOD 06/20/2024 12:57 PM [facility] Comment:Calculation based on the??Chronic Kidney Disease Epidemiology Collaboration (CKD-EPI) equation refit??without adjustment for race. BUN/Creatinine Ratio 17.2 LAB CHEMISTRY METHOD 06/20/2024 12:57 PM [facility] Calcium 8.4(L) 8.5 - 10.5 mg/dL LAB CHEMISTRY METHOD 06/20/2024 12:57 PM [facility] AST (SGOT) 44(H) 10 - 42 unit/L LAB CHEMISTRY METHOD 06/20/2024 12:57 PM [facility] ALT (SGPT) 66(H) 10 - 60 unit/L LAB CHEMISTRY METHOD 06/20/2024 12:57 PM [facility] Alkaline Phosphatase 114 42 - 121 unit/L LAB CHEMISTRY METHOD 06/20/2024 12:57 PM [facility] Total Protein 6.1 6.0 - 8.0 g/dL LAB CHEMISTRY METHOD 06/20/2024 12:57 PM [facility] Albumin 2.3(L) 3.2 - 5.0 g/dL LAB CHEMISTRY METHOD 06/20/2024 12:57 PM [facility] Total Bilirubin 0.5 0.0 - 1.4 mg/dL LAB CHEMISTRY METHOD 06/20/2024 12:57 PM [facility] Blood Venous blood specimen / Unknown Venipuncture / Unknown 06/20/2024 7:20 AM EST 06/20/2024 12:38 PM EST us Judd Johnson MD LAB BLOOD ORDERABLES Final Resul t [facility] [address] [place] [address], * (ABNORMAL) CBC auto differential (06/14/2024 5:56 AM EST) WBC 11.6(H) 4.8 - 10.8 K/mcL LAB HEMETOLOGY METHOD 06/14/2024 10:07 AM [facility] RBC 3.60(L) 3.80 - 4.80 M/mcL LAB HEMETOLOGY METHOD 06/14/2024 10:07 AM [facility] Hemoglobin 11.0(L) 11.5 - 16.0 g/dL LAB HEMETOLOGY METHOD 06/14/2024 10:07 AM [facility] Hematocrit 33.3(L) 35.0 - 47.0 % LAB HEMETOLOGY METHOD 06/14/2024 10:07 AM [facility] MCV 92.0 79.0 - 98.0 FL LAB HEMETOLOGY METHOD 06/14/2024 10:07 AM [facility] MCH 30.4 27.0 - 32.0 pcg LAB HEMETOLOGY METHOD 06/14/2024 10:07 AM [facility] MCHC 33.0 32.0 - 37.0 g/dL LAB HEMETOLOGY METHOD 06/14/2024 10:07 AM [facility] RDW 14.0 11.0 - 15.0 % LAB HEMETOLOGY METHOD 06/14/2024 10:07 AM [facility] Platelets 313 130 - 400 K/mcL LAB HEMETOLOGY METHOD 06/14/2024 10:07 AM [facility] MPV 11.3(H) 7.0 - 11.0 FL LAB HEMETOLOGY METHOD 06/14/2024 10:07 AM [facility] NRBC 0.0 <1.0 % LAB HEMETOLOGY METHOD 06/14/2024 10:07 AM [facility] NRBC Absolute 0.00 <0.10 K/mcL LAB HEMETOLOGY METHOD 06/14/2024 10:07 AM [facility] Neutrophils Relative 75.8 % LAB HEMETOLOGY METHOD 06/14/2024 10:07 AM [facility] Comment:This is an appended report. These results have been appended to a previously preliminary verified report. Lymphocytes Relative 14.1 % LAB HEMETOLOGY METHOD 06/14/2024 10:07 AM [facility] Comment:This is an appended report. These results have been appended to a previously preliminary verified report. Monocytes Relative 7.4 % LAB HEMETOLOGY METHOD 06/14/2024 10:07 AM [facility] Comment:This is an appended report. These results have been appended to a previously preliminary verified report. Eosinophils Relative 0.3 % LAB HEMETOLOGY METHOD 06/14/2024 10:07 AM [facility] Comment:This is an appended report. These results have been appended to a previously preliminary verified report. Basophils Relative 0.3 % LAB HEMETOLOGY METHOD 06/14/2024 10:07 AM [facility] Comment:This is an appended report. These results have been appended to a previously preliminary verified report. Immature Granulocytes Relative 2.1 % LAB HEMETOLOGY METHOD 06/14/2024 10:07 AM [facility] Comment:This is an appended report. These results have been appended to a previously preliminary verified report. Neutrophils Absolute 8.82(H) 1.50 - 7.00 K/mcL LAB HEMETOLOGY METHOD 06/14/2024 10:07 AM [facility] Comment:This is an appended report. These results have been appended to a previously preliminary verified report. Lymphocytes Absolute 1.64 1.00 - 5.00 K/mcL LAB HEMETOLOGY METHOD 06/14/2024 10:07 AM [facility] Comment:This is an appended report. These results have been appended to a previously preliminary verified report. Monocytes Absolute 0.86 0.20 - 1.00 K/mcL LAB HEMETOLOGY METHOD 06/14/2024 10:07 AM [facility] Comment:This is an appended report. These results have been appended to a previously preliminary verified report. Eosinophils Absolute 0.03 0.00 - 0.50 K/mcL LAB HEMETOLOGY METHOD 06/14/2024 10:07 AM EST [facility] Comment:This is an appended report. These results have been appended to a previously preliminary verified report. Basophils Absolute 0.04 0.00 - 0.20 K/mcL LAB HEMETOLOGY METHOD 06/14/2024 10:07 AM EST [facility] Comment:This is an appended report. These results have been appended to a previously preliminary verified report. Immature Granulocytes Absolute 0.24(H) 0.00 - 0.03 K/[facility] LAB HEMETOLOGY METHOD 06/14/2024 10:07 AM EST [facility] Comment:This is an appended report. These results have been appended to a previously preliminary verified report. Blood Venous blood specimen / Unknown Venipuncture / Unknown 06/14/2024 5:56 AM EST 06/14/2024 8:45 AM EST us Judd Johnson MD LAB BLOOD ORDERABLES Final Resul t [facility] [address] [place] [address], [place] [phone] from Last 3 Months Insurance MEDICARE [facility] Care Teams Line Palletizer Relationship Specialty Start Date End Date Judd Johnson MD [address] [phone] PCP - General Family Medicine 06/14/24
--- OUTSIDE RECORDS SUMMARY | 2024-07-27 09:37 | XMS_ITS | Patient Health Record ---
[facility] Organization [facility] Address [address] [place] [address] Care Team Providers Care Construction And Maintenance Inspector Name Role Phone Roro Wilson Primary Care Provider UnavailBakari Cristina Unavailable [phone] Allergies Allergen (clinical drug ingredient) Drug/Non Drug Allergy documented on EMR Reaction Allergy Type Onset Date Status chloroquine Chloroquine Phosphate rash Drug Allergy Active gabapentin Neurontin Unknown Drug Allergy Active Reason For Referral No Information Medications Medication SIG (Take, Route, Frequency, Duration) Notes Start Date End Date Status Synthroid 50 MCG 1 tablet Orally Once a day Not-Taking Vitamin D3 Active Aspirin 81 MG 1 tablet Orally Once a day Not-Taking Lyrica Active lipitor 1 tab Oral Active Metformin & Diet Manage Prod 500 MG Orally Active Losartan Potassium 25 MG 1 tablet Orally Once a day Active Extra-Depth Diabetic Shoes with 3 Pair Custom heat-molded multi-density innersoles . for 1 year . Dx:niddm with neuroapthy, metatarsalgia with need for mt pads grady for . 08/08/2014 Not-Taking Keflex 500 500 MG 1 capsule Orally rachelle ry 12 hrs for 10 day(s) 06/02/2022 Active Januvia 50 MG 2 tablets Orally Onc e a day Active Immunizations Vaccine Route Administration Date Status Comme nts COVID-19 Moderna Vaccine Unknown 01/21/2022 Administered 2020,2020 unsure dates 2020,2021 Influenza Unknown 01/21/2022 Administered Social History Tobacco Use: Social History Observation Description Date Details (start date - stop date) Never Smoker NA - NA Tobacco Use/Smoking Question Answer Notes Are you a: nonsmoker Additional Findings: Tobacco Non-User Current no n-smoker Alcohol Screen Question Answer Notes Did you have a drink containing alcohol in the p ast year? No Points 0 Interpretation Negative Tobacco use other than smoking: Question Answer Notes Are you an other tobacco user? No Problems Problem Type SNOMED Code ICD Code Onset Dates Problem Status W/U Status Risk Notes Problem Polyneuropathy due to type 2 diabetes mellitus (487582849) Type 2 diabetes mellitus with diabetic polyneuropathy (E11.42) Active confirmed Plan Of Treatment Pending Test Test Name Order Date I&D ABSCESS- SIMPLE,SINGLE 014 Insurance Providers Payer Name Payer Address Payer Phone Subscriber Number Group Number Insured Name Patient Relationship to Insured Coverage Start Date Coverage End Date Medicare National Govt [employer] [facility] [address] [place] [address] [id number] Millie Corcoran Self - patient is the insured [employer] [address] [place] [address] [phone] [id number] Millie Corcoran Self - patient is the insured Medical (General) History Medical History History ICD Code Diabetic type ll Chicken pox Measles Mumps Hypertension Poor circulation Thyroid disorder Skin ulcer Numbness Paronychia 681.11 Paronychia 250.60 Diabetic - NIDDM/Neuropathy 719.97 Arthritis - Degenerative 735.4 Hammer toe 682.7 Abscess /Cellulitis Surgical History Surgery Date(Month/Year) cancer surgery, breast 10/2010 [facility] cataract surgery 12/2021
--- OUTSIDE RECORDS SUMMARY | 2024-07-27 09:37 | XMS_ITS | Encounter Summary ---
Author Organization [facility] Address [id number] [place] [phone] Care Team Providers Care School Janitor Name Role Phone Judd Johnson MD Primary Care Provider [phone] Encounter Details Date Type Department Care Team (Latest Contact Info) Description 06/14/2024 Lab Requisition [facility] - Main Lab [address] [place] [address] Judd Johnson MD [address] [place] [address], [phone] Myelodysplastic syndrome, unspecified (CMS/HCC); Hyperlipidemia, unspecified Social History Tobacco Use Types Packs/Day [...] Procedure Name Priority Date/Time Associated Diagnosis Comments CBC WITH AUTO DIFFERENTIAL Routine 06/14/2024 5:56 AM EST Myelodysplastic syndrome, unspecified (CMS/HCC) Hyperlipidemia, unspecified CBC AND DIFFERENTIAL Routine 06/14/2024 5:56 AM EST Myelodysplastic syndrome, unspecified (CMS/HCC) Hyperlipidemia, unspecified COMPREHENSIVE METABOLIC PANEL Routine 06/14/2024 5:56 AM EST Myelodysplastic syndrome, unspecified (CMS/HCC) Hyperlipidemia, unspecified documented in this encounter Results * (ABNORMAL) CBC auto differential (06/14/2024 5:56 AM EST) WBC 11.6(H) 4.8 - 10.8 K/mcL LAB HEMETOLOGY METHOD 06/14/2024 10:07 AM [facility] RBC 3.60(L) 3.80 - 4.80 M/mcL LAB HEMETOLOGY METHOD 06/14/2024 10:07 AM [facility] Hemoglobin 11.0(L) 11.5 - 16.0 g/dL LAB HEMETOLOGY METHOD 06/14/2024 10:07 AM [facility] LAB Hematocrit 33.3(L) 35.0 - 47.0 % LAB HEMETOLOGY METHOD 06/14/2024 10:07 AM [facility] LAB MCV 92.0 79.0 - 98.0 FL LAB HEMETOLOGY METHOD 06/14/2024 10:07 AM [facility] LAB MCH 30.4 27.0 - 32.0 pcg LAB HEMETOLOGY METHOD 06/14/2024 10:07 AM [facility] LAB MCHC 33.0 32.0 - 37.0 g/dL LAB HEMETOLOGY METHOD 06/14/2024 10:07 AM [facility] LAB RDW 14.0 11.0 - 15.0 % LAB HEMETOLOGY METHOD 06/14/2024 10:07 AM [facility] LAB Platelets 313 130 - 400 K/[facility] LAB HEMETOLOGY METHOD 06/14/2024 10:07 AM [facility] LAB MPV 11.3(H) 7.0 - 11.0 FL LAB HEMETOLOGY METHOD 06/14/2024 10:07 AM [facility] NRBC 0.0 <1.0 % LAB HEMETOLOGY METHOD 06/14/2024 10:07 AM [facility] LAB NRBC Absolute 0.00 <0.10 K/mcL LAB HEMETOLOGY METHOD 06/14/2024 10:07 AM [facility] Neutrophils Relative 75.8 % LAB HEMETOLOGY METHOD 06/14/2024 10:07 AM [facility] LAB Comment:This is an appended report. These results have been appended to a previously preliminary verified report. Lymphocytes Relative 14.1 % LAB HEMETOLOGY METHOD 06/14/2024 10:07 AM [facility] Comment:This is an appended report. These results have been appended to a previously preliminary verified report. Monocytes Relative 7.4 % LAB HEMETOLOGY METHOD 06/14/2024 10:07 AM [facility] Comment:This is an appended report. These results have been appended to a previously preliminary verified report. Eosinophils Relative 0.3 % LAB HEMETOLOGY METHOD 06/14/2024 10:07 AM [facility] Comment:This is an appended report. These results have been appended to a previously preliminary verified report. Basophils Relative 0.3 % LAB HEMETOLOGY METHOD 06/14/2024 10:07 AM [facility] Comment:This is an appended report. These results have been appended to a previously preliminary verified report. Immature Granulocytes Relative 2.1 % LAB HEMETOLOGY METHOD 06/14/2024 10:07 AM [facility] Comment:This is an appended report. These results have been appended to a previously preliminary verified report. Neutrophils Absolute 8.82(H) 1.50 - 7.00 K/mcL LAB HEMETOLOGY METHOD 06/14/2024 10:07 AM [facility] Comment:This is an appended report. These results have been appended to a previously preliminary verified report. Lymphocytes Absolute 1.64 1.00 - 5.00 K/mcL LAB HEMETOLOGY METHOD 06/14/2024 10:07 AM [facility] Comment:This is an appended report. These results have been appended to a previously preliminary verified report. Monocytes Absolute 0.86 0.20 - 1.00 K/mcL LAB HEMETOLOGY METHOD 06/14/2024 10:07 AM EST [facility] Comment:This is an appended report. These results have been appended to a previously preliminary verified report. Eosinophils Absolute 0.03 0.00 - 0.50 K/mcL LAB HEMETOLOGY METHOD 06/14/2024 10:07 AM EST [facility] Comment:This is an appended report. These results have been appended to a previously preliminary verified report. Basophils Absolute 0.04 0.00 - 0.20 K/mcL [facility] 06/14/2024 10:07 AM EST [facility] Comment:This is an appended report. These results have been appended to a previously preliminary verified report. Immature Granulocytes Absolute 0.24(H) 0.00 - 0.03 K/[facility] 06/14/2024 10:07 AM EST [facility] Comment:This is an appended report. These results have been appended to a previously preliminary verified report. Blood Venous blood specimen / Unknown Venipuncture / Unknown 06/14/2024 5:56 AM EST 06/14/2024 8:45 AM EST us Judd Johnson MD LAB BLOOD ORDERABLES Final Resul t [facility] [address] [place] [address], * (ABNORMAL) Comprehensive metabolic panel (06/14/2024 5:56 AM EST) Sodium 134 133 - 145 mmol/L LAB CHEMISTRY METHOD 06/14/2024 9:53 AM EST [facility] Potassium 3.6 3.5 - 5.5 mmol/L LAB CHEMISTRY METHOD 06/14/2024 9:53 AM EST [facility] Chloride 100 96 - 110 mmol/L LAB CHEMISTRY METHOD 06/14/2024 9:53 AM EST [facility] CO2 25 21 - 32 mmol/L LAB CHEMISTRY METHOD 06/14/2024 9:53 AM [facility] Anion Gap 9 3 - 11 LAB CHEMISTRY METHOD 06/14/2024 9:53 AM [facility] Glucose 123(H) 70 - 100 mg/dL LAB CHEMISTRY METHOD 06/14/2024 9:53 AM [facility] BUN 18 5 - 25 mg/dL LAB CHEMISTRY METHOD 06/14/2024 9:53 AM [facility] Creatinine 0.67 0.50 - 1.10 mg/dL LAB CHEMISTRY METHOD 06/14/2024 9:53 AM [facility] eGFR 85 >=60 mL/min/1. 73m2 LAB CHEMISTRY METHOD 06/14/2024 9:53 AM [facility] Comment:Calculation based on the??Chronic Kidney Disease Epidemiology Collaboration (CKD-EPI) equation refit??without adjustment for race. BUN/Creatinine Ratio 26.9 LAB CHEMISTRY METHOD 06/14/2024 9:53 AM [facility] Calcium 8.2(L) 8.5 - 10.5 mg/dL LAB CHEMISTRY METHOD 06/14/2024 9:53 AM [facility] AST (SGOT) 347(H) 10 - 42 unit/L LAB CHEMISTRY METHOD 06/14/2024 9:53 AM [facility] ALT (SGPT) 206(H) 10 - 60 unit/L LAB CHEMISTRY METHOD 06/14/2024 9:53 AM [facility] Alkaline Phosphatase 194(H) 42 - 121 unit/L LAB CHEMISTRY METHOD 06/14/2024 9:53 AM [facility] Total Protein 6.5 6.0 - 8.0 g/dL LAB CHEMISTRY METHOD 06/14/2024 9:53 AM [facility] Albumin 2.3(L) 3.2 - 5.0 g/dL LAB CHEMISTRY METHOD 06/14/2024 9:53 AM EST [facility] Total Bilirubin 0.9 0.0 - 1.4 mg/dL LAB CHEMISTRY METHOD 06/14/2024 9:53 AM EST [facility] Blood Venous blood specimen / Unknown Venipuncture / Unknown 06/14/2024 5:56 AM EST 06/14/2024 8:45 AM EST us Judd Johnson MD LAB BLOOD ORDERABLES Final Resul t [facility] ([facility] [address] [place] [address], documented in this encounter Visit Diagnoses Diagnosis Myelodysplastic syndrome, unspecified (CMS/HCC) Myelodysplastic syndrome, unspecified Hyperlipidemia, unspecified documented in this encounter Care Teams School Janitor Relationship Specialty Start Date End Date Judd Johnson MD [address] [place] [phone] PCP - General Family Medicine 06/14/24 documented as of this encounter
--- OUTSIDE RECORDS SUMMARY | 2024-07-27 09:37 | XMS_ITS | Encounter Summary ---
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); Polyneuropathy, unspecified; Hypothyroidism, unspecified Social History Tobacco Use Types Packs/Day Years Used Date Smoking Tobacco: Never Assessed Comments Unknown Sex and Gender Information Value Date Recorded Sex Assigned at Not on file Legal Sex Female 8:10 PM EST Gender Identity Not on file Sexual Orientation Not on file documented as of this encounter Plan of Treatment Not on file documented as of this encounter Visit Diagnoses Diagnosis 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
--- OUTSIDE RECORDS SUMMARY | 2024-07-27 09:37 | XMS_ITS | Clinical Summary ---
Author Organization [address] [phone] Phone Care Team Providers Care Right Of Way Agent Name Role Phone No, Pcp (Do Not Change Name) Primary Care Provid er Unavailable Allergies Active Allergy Reactions Criticality Noted Date Comments Gabapentin Rash Low 11/07/2020 Sulfa (Sulfonamide Antibiotics) Rash Low 10/21 Medications metFORMIN (GLUMETZA) 500 mg 24 hr extended release tablet Take 500 mg by mouth daily with dinner. Active SITagliptin (JANUVIA) 50 mg tablet Take 50 mg by mouth daily. Active losartan (COZAAR) 25 mg tablet Take 25 mg by mouth daily. Active aspirin 81 mg EC delayed release tablet Take 81 mg by mouth daily. Active levothyroxine (SYNTHROID, LEVOTHROID) 50 MCG tablet Take 50 mcg by mouth daily. Active pyridoxine, vitamin B6, (B-6) 100 mg tablet Take 100 mg by mouth daily. Active Social History Tobacco Use Types Packs/Day Years Used Date Smoking Tobacco: Never Assessed Comments Unknown Sex and Gender Information Value Date Recorded Sex Assigned at Not on file Legal Sex Female 6:31 PM EDT Gender Identity Not on file Sexual Orientation Not on file Last Filed Vital Signs Vital Sign Reading Time Taken Comments Blood Pressure 170/78 11/07/2020 6:34 PM EDT Pulse 94 11/07/2020 6:34 PM EDT Temperature 36.3 ??C (97.4 ??F) 11/07/2020 6:34 PM ED T Respiratory Rate 18 11/07/2020 6:34 PM EDT Oxygen Saturation 99% 11/07/2020 6:34 PM EDT Inhaled Oxygen Concentration - - Weight - - Height - - Body Mass Index - - Plan of Treatment Health Maintenance Due Date Last Done Comments HIV screening 1949 Tetanus adult (Td q 10,TDAP once) 1956 Lipid disorder screening 1976 Diabetes screening 1981 Shingles vaccine (Shingrix) (1 of 2 - Shingrix (RZV) 2 Dose Standard Series) 1986 Osteoporosis screening (bone density) 2001 Pneumococcal Vaccine (50+ years) (1 of 1 - PCV) 2001 RSV Discussion (1 - 1-dose 75+ series) 09/05/2011 Influenza vaccine 12/22/2023 02/21/2020 Covid-19 vaccine series ( - 2023- season) 2024 07/14/2020, 06/19/2020 Cervical cancer screening Discontinued Meningococcal Vaccine Aged Out No klever grace eligible based on patient's age to complete this topic Insurance [facility] MEDICARE [facility] MED[facility]ARE [facility] MEDIC[employer] [facility] [employer] [facility] [employer] Care Teams Right Of Way Agent Relationship Specialty Start Date End Date No, Pcp (Do Not Change Name) PCP - General 11/07/20
--- OUTSIDE RECORDS SUMMARY | 2024-07-27 09:38 | XMS_ITS | Data Portability ---
Author Organization [facility] Visual Mining [facility], Main Office Address [address] [facility] [address], [address] [place] [address] Care Team Providers Care Gasoline Dragline Operator Name Role Phone DIONNA CARVALHO - 2ND FLOOR OTHER JANAE RICKETTS Primary Care Provider Assessment Encounter Date Assessment Date Assessment LastModified by Organization Details LastModified Time 06/25/2024 06/25/2024 >30 min spent on review, eval, coordination of care and doc - now cleared by KRISTAN tyson Not available 06/25/2024 09:25:14 Plan of Treatment Reminders Order Date Submit Date Provider Last Modified By Organization Details Last Modified Time Details Appointments None record ed. Lab None record ed. Referral None record ed. Procedures None record ed. Surgeries None record ed. Imaging None record ed. Medication Orders None record ed. Patient TargetsNo targets recorded. Patient InstructionsNo instructions recorded. Reason for Referral None Reported. Problems Name Problem SNOMED Code Status Onset Date Resolution Date Notes Provider Name and Address Organization Details Recorded Time Type 2 diabetes mellitus 20751430 Active 2024 Eun Webster NP [address] [facility], [address], [place], [address], [facility] 11:31:44 Hyperlipidemia 16587942 Active 2024 Eun Webster NP [address] [facility], [address], [place], [address], [facility] 11:32:03 Hypothyroidism 13972774 Active 2024 Eun Webster NP [address] [facility], [address], [place], [address], [facility] 5 11:32:54 Neuropathy 121211780 Active 2024 Eun Webster NP [address], [address], [place], [address], [facility] 5 11:33:21 Squamous cell carcinoma 269545487 Active 2024 Eun Webster NP [address], [address], [place], [address], [facility] 5 11:33:42 Hypertensive disorder 53468961 Active 2024 Eun Webster NP [address], [address], [place], [address], [facility] 5 11:33:53 Influenza 2661341 Active 2024 Eun Webster NP [address], [address], [place], [address], [facility] 5 11:34:22 Asthenia 60569055 Active 2024 Eun Webster NP [address], [address], [place], [address], [facility] 5 11:34:41 Chronic pain 66058796 Active 2024 Eun Webster NP [address], [address], [place], [address], [facility] 5 11:39:34 Problem Notes None recorded. Medical Equipment None Reported. Allergies Allergen ID Allergen Name Allergen Category Reaction Reaction Severity Criticality Documentation Date Start Date Code Code System Note Provider Name and Address Organization Details Recorded Time 95759 gabapenti n medicatio n other Not available unabletoasse 06/14/2024 48286 RxNorm Not Available Not Available Not Available 54173 chloroqui ne Not available other Not available unabletoasse 06/14/2024 2393 RxNorm Not Available Not Available Not Available Medications Not known to be on any medication Vitals Date Recorded Heart rate Respiratory rate Body temperature Oxygen saturation Oxygen saturation in Arterial blood by Pulse oximetry Systolic blood pressure Diastolic blood pressure Provider Name and Address Organization Details Last Updated DateTime 5 77 /min 18 /min 98.2 [degF] 96 % 96 % 98 mm[Hg] 66 mm[Hg] Eun Eleanor, TECHNICIAN ASSISTANT [address] [facility], [address], [place], [address], [facility] 5 11:07:51 Date Recorded Body weight Heart rate Respiratory rate Body temperature Systolic blood pressure Diastolic blood pressure Provider Name and Address Organization Details Last Updated DateTime 5 08367.9 g 79 /min 17 /min 97.8 [degF] 185 mm[Hg] 83 mm[Hg] Judd Johnson MD [address] [facility], [address], [place], [address], [facility] 5 11:39:24 Date Recorded Heart rate Respiratory rate Body temperature Oxygen saturation Oxygen saturation in Arterial blood by Pulse oximetry Systolic blood pressure Diastolic blood pressure Provider Name and Address Organization Details Last Updated DateTime 60 /min 18 /min 97.1 [degF] 96 % 96 % 130 mm[Hg] 59 mm[Hg] Eun Webster NP [address] [facility], [address], [place], [address], [facility] 5 14:55:41 Date Recorded Systolic blood pressure Diastolic blood pressure Provider Name and Address Organization Details Last Updated DateTime 06/25/2024 124 mm[Hg] 60 mm[Hg] Judd Johnson MD [address] [facility], [address], [place], [address], [facility] 06/25/2024 09:20:42 Social History Question Answer Notes LastModified by Organizat ion Details LastModified Time Tobacco Smoking Status Never Smoker Eun Webster NP [address] [facility], [address], [place], [address], [facility] 06/14/2024 12:19:20 Do You Have An Advance Directive? Yes Information not available 06/14/2024 What Is Your Level Of Alcohol Consumption? None Information not available 06/14/2024 What Is Your Code Status? Full Code Information not available 06/14/2024 Where Do You Live? [facility] Information not available 06/14/2024 What Was The Date Of Your Most Recent Tobacco Screening? 06/14/2024 Information not available 06/14/2024 Do You Have An Out Of Hospital DNR? No Information not available 06/14/2024 What Is Your Relationship Status? Information not available 06/14/2024 Do You Use Any Illicit Or Recreational Drugs? No Information not available 06/14/2024 Has Tobacco Cessation Counseling Been Provided? No Na Information not available 06/14/2024 Do You Have Any Dietary Restrictions? No Information not available 06/14/2024 Do You Or Have You Ever Used Any Other Forms Of Tobacco Or Nicotine? No Information not available 06/14/2024 Sex: Female Functional Status None recorded. Mental Status None recorded. Family History Nothing Reported Notes:father stroke brother stroke mother gallbladder ca Medical History No medical history recorded. Gynecological HistoryNo gynecological history recorded. Obstetrics History GPAL:G 0 P 0 0 0 0 Immunizations Vaccine Type Date Status Note Provider Nam e and Address Organization Details Recorded Time Respiratory syncytial virus (RSV) vaccine, unspecified 02/20/2023 completed Noreendarrin Kaplan [facility] 06/14/2024 15:06:27 influenza, unspecified formulation 03/24/2023 completed Noreen Eusebio [facility] 06/14/2024 15:06:42 SARS-COV-2 (COVID-19) vaccine, UNSPECIFIED 06/20/2020 completed Noreendarrin Kaplan [facility] 06/14/2024 15:06:58 SARS-COV-2 (COVID-19) vaccine, UNSPECIFIED 07/18/2020 completed Noreendarrin Kaplan [facility] 06/14/2024 15:07:07 SARS-COV-2 (COVID-19) vaccine, UNSPECIFIED 03/17/2021 completed Noreendarrin Kaplan [facility] 06/14/2024 15:07:15 SARS-COV-2 (COVID-19) vaccine, UNSPECIFIED 08/25/2021 completed Noreendarrin Kaplan [facility] 06/14/2024 15:07:36 SARS-COV-2 (COVID-19) vaccine, UNSPECIFIED 02/24/2022 [facility] Eusebio [facility] 06/14/2024 15:07:45 SARS-COV-2 (COVID-19) vaccine, UNSPECIFIED 02/20/2023 completed Noreen Kaplan [facility] 06/14/2024 15:07:52 zoster, unspecified formulation 08/05/2018 completed Noreen Kaplan [facility] 06/14/2024 15:08:08 zoster, unspecified formulation 12/15/2018 completed Noreendarrin Kapaln [facility] 06/14/2024 15:08:17 Past Encounters Encounter ID Performer Location Encounter Start Date Encounter Closed Date Diagnosis/Indication Diagnosis SNOMED-CT Code Diagnosis ICD10 Code Diagnosis Note [id number] Eun Webster NP [address] [address] 06/14/2024 11:07:12 06/15/2024 16:26:51 Influenza 9314158 J11.1 flu A positive on 06/12 or 06/13 in [facility] management with increased fluids, zofran, immodium, robitussin however not dc'd with thesewi order 06/14robitu ssin 10 ml prn q 6 hours cough0-4 liters prn sat <90%mucine x dm bid x 5 days and then prn q 12 hoursmonit or for need to repeat cxr if neededcont ipatropium bromide 21 mcg 0.03% 2 sprays intranasal tiddroplet and contact precaution smonitor Hypertensive disorder 38 815011 I10 not on meds for thismonito r bps while here and adjust if needed Neuropathy 186292335 G62 .9 on mg qdmonitor Hypothyroidism 55786352 E03.9 levothyrox ine 75 mcg qdmonitor tsh on admit and prn Type 2 kimberley betes mellitus 48241621 E11.9 Metformin 500 mg po bid stopped in hospital for loose stoolsinsu cory SSI started to bridge her here with decreased po intakemoni tor and when diarrhea resolved then restart metforminm onitor Hyperlipidemia 12438164 E78.5 atorvastat in 40 mg po qdmonitor Squamous c ell carcinoma 162019805 C80.1 Left breast lumpectomy >10 years ago and post treatmentn ot on any meds for this Asthenia 24324220 R53.81 PT OT eval and treat sp flu with weaknesssu pportive caremonito r Chronic pain 56346049 G8 9.29 lyrica 50 mg po qdtyl prn painmonito r Vitamin deficiency 93239 002 E56.9 cholecalci ferol 24 mcg qdalpha lipoic acid 1200mg po bidpreserv ision 1 tab po bidvit b6 100 mg po qdmonitor Recurrent falls 41979178 2 R29.6 hx of falls at home >2 per yearsuppor tive carePT OT eval and treatmonit or [id number] Judd Johnson MD [address] [address] 06/16/2024 11:38:16 06/19/2024 15:04:06 Influenza 8189537 J11.1 see HPImonitor respirator y status and neb utilizatio ncxr prn Hypertensive disorder 38 111949 I10 carrying dx not maintained on medication elevated at facilitymo nitor need to start medication Hypothyroidism 09334278 E03.8 synthroid 75 mcg qdmonitor tsh prn Type 2 kimberley betes mellitus 74313070 E11.42 metformin was d/c in hospital due to poor po intakenow on SSlyrica 50 mg qdrestart as patient returns to baseline Hyperlipidemia 19375085 E78.2 lipitor 40 mg qdcontinue d Squamous c ell carcinoma 830807561 C80.1 carrying dx with hx of left breast lumpectomy >10 years agoadded to PMH Asthenia 44472444 R53.81 PT OT eval and treatmonit or fall risk and need for increased support in community Recurrent falls 05626616 2 R29.6 see above with recent fallsthera py to [facility] a cquired pneumonia 833415738 Y95 concern for secondary pneumonias tat CXR Acute infe ctive cystitis 138772783 N30.00 see HPIUA c and sdiscussed with nursing and caregiver present [id number] Eun Webster NP [address] [address] 06/21/2024 14:21:57 06/22/2024 12:11:48 Influenza 5687313 J11.1 resolvingf saundra A positive on 06/12 or 06/13 in [facility] ssin 10 ml prn q 6 hours cough0-4 liters prn sat <90%mucine x dm prn q 12 hoursmonit or for need to repeat cxr if needed in 3 weeksipatr opium bromide 21 mcg 0.03% 2 sprays intranasal tiddc droplet and contact precaution smonitor Neuropathy 454144308 G62 .9 contlyrica 50 mg qdalpha lipoic acid (will have transitional nurse bring in)monitor Type 2 kimberley betes mellitus 72270559 E11.9 hardly any BS in MARMetform in 500 mg po bid stopped in hospital for loose stoolswill restart metformin 500mg po daily and monitor with BS bid to adjustdc insulin SSI started to bridge her here with decreased po intakemoni tor Asthenia 19941881 R53.81 PT OT eval and treat sp flu with weaknesssu pportive caremonito r Chronic pain 70280190 G8 9.29 lyrica 50 mg po qdtyl prn painmonito r Recurrent falls 47341364 2 R29.6 hx of falls at home >2 per yearsuppor tive carePT OT eval and treatmonit or Restlessne ss and agitation 586643861 R45.1 pt is restless today and wants a sleeping pill in the daytimeshe refuses and anxiety meds1/30 will increase melatonin to 10 mg qhs to help with sleep06/21 trazodone 12.5 mg po q 8 hours prn agitation/ restlessne ssmonitor [id number] Judd Johnson MD [address] [address] 06/25/2024 09:19:19 06/26/2024 11:38:55 Influenza 6087486 J11.1 now resolved Asthenia 75559236 R53.81 has returned to baselineSW to validate services in place at home then cleared for discharged iscussed with therapy Type 2 kimberley betes mellitus 90141141 E11.42 metformin was d/c in hospital due to poor po intakenow on SSlyrica 50 mg qd restarted Hypertensive disorder 38 491652 I10 carrying dx not maintained on medication recheck bp at fu with PCP Hypothyroidism 07768320 E03.8 synthroid 75 mcg qdmonitor tsh prn Hyperlipidemia 01778984 E78.2 lipitor 40 mg qdcontinue d Squamous c ell carcinoma 882695730 C80.1 carrying dx with hx of left breast lumpectomy >10 years agoadded to PMH Recurrent falls 14883438 2 R29.6 see above with recent falls Health Concerns Section Related Observation LastModified by Organization Detai ls LastModified Time None Recorded Concern Status LastModified by Organization Details LastModified Time None Recorded Advance Directives Directive Y: Payers Encounter Date Sequence Insurance Name Policy Number Policy Cosme Covered Member ID Cosme Member ID Guarantor Name 06/14/2024 1 [place] [employer] Millie Singht [id number] [facility] 06/14/2024 2 [place] [id number] Millie Nilo [id number] Millie Nilo 06/16/2024 1 [place] Millie Asencio Nilo [id number] Millie Nilo 06/16/2024 2 [place] [id number] Millie Nilo [id number] Millie Nilo 06/21/2024 1 [place] Millie L Nilo [id number] Millie Nilo 06/21/2024 2 [place] [id number] Millie Nilo [id number] Millie Nilo 06/25/2024 1 [place] Millie L Nilo [id number] Millie Nilo 06/25/2024 2 [place] [id number] Millie Nilo [id number] Millie Nilo Notes Date Note Type Note Provider Name and Address Organization Details Recorded Time 5 text/html Pt is seen for an initial intake summary. Millie is an 88 yo f with PMH HTN, HLD, NIDDM2, hypothyroidism, peripheral neuropathy, sqamous cell carcinoma left breast, who present to [facility] 06/08-06/14 for weakness, headache, nausea, fevers, and myalgias dx with influenza A. She is here for rehab and continued care. Workup consisted of symptomatic treatment with cough suppressants, antipyretics analgesics, and weaned off o2. Labs, UA, CXR, bld cultures negative for acute concerns. Tested positive for flu on resp panel. Tested neg stool specimen for cdiff and norovirus etc and loose stools improved. While in hospital she was started on lispro SSI and metformin stopped for loose stools. Unfortunately, her who helps her at home is in the hospital. Her BONDING AND COMPOSITE FABRICATOR is here visiting. On exam, She is lying in bed in NAD. She has a notable cough and admits to weakness today. No resp distress. Admits to feeling weak. She reports decreased eating lately. She denies any nausea and states the diarrhea is slowing down. BIMS MORSE: high riskMOLST: Full code, no art nutrition and hydration and dialysis for short term only Eun Webster NP [address] [facility], [address], [place], [address], [facility] 06/14/2024 12:26:25 5 text/html Patient is an 88 yo female admit from hospital after presenting with weakness. Tested positive for influenza treated symptomatically. Work up negative for secondary bacterial infection. Not felt safe to return home at that time. Of note metformin was d/c due to poor PO intake Of note patient with increasing productive cough and dysuria today with decline in condition now requiring more assist with global weakness PMH is significant forhtnhlddm with neuropathyhypothyroid admit to facility for continued care with therapy eval and treat Judd Johnson MD [address] [facility], [address], [place], [address], [facility] 06/16/2024 12:01:12 5 text/html Pt is seen for an acute rounding visit. PMH HTN, HLD, NIDDM2, hypothyroidism, peripheral neuropathy, squamous cell carcinoma left breast She is an 88 yo f with , who presented to [facility] 06/08-06/14 for weakness, headache, nausea, fevers, and myalgias dx with influenza A. She was not felt safe to return to home and reported to be in hospital who is a pump house engineer. note: Workup consisted of symptomatic treatment with cough suppressants, antipyretics analgesics, and weaned off o2. Labs, UA, CXR, bld cultures negative for acute concerns. Tested positive for flu on resp panel. Tested neg stool specimen for cdiff and norovirus etc and loose stools improved. She is seen for feeling restless and requesting a sleeping pill this afternoon. she is aware if she is not getting good sleep at night with the melatonin we can increase the dose. She is working with therapy at this time ambulating to bathroom without difficulty. She denies any frequency, urgency, or other complaints today. She reports she is NOT ANXIOUS and does not want anything for anxiety. She is eating, drinking, and moving her bowels regularly. She is very irritiable and urine pending, however negative for infection in the hospital. Will order small dose of trazodone for agitation. BIMS MORSE: high riskMOLST: Full code, no art nutrition and hydration and dialysis for short term only Eun Webster NP [address] [facility] [address], [place], [address], [facility] 06/21/2024 15:19:57 5 text/html Patient is an 88 yo female resident seen in preparation for discharge. Patient was initially admit from hospital after presenting with weakness. Tested positive for influenza treated symptomatically. Work up negative for secondary bacterial infection. Not felt safe to return home at that time. Of note metformin was d/c due to poor PO intake. Patient has improved to baseline with therapy. Only concern is that who has now returned home from hospital is now on O2. Patient and family states services are in place to care for patient. Judd Johnson MD [address] [facility], [address], [place], [address], [facility] 06/25/2024 09:25:26 OBGyn Episode No OBEpisode recorded.
--- OUTSIDE RECORDS SUMMARY | 2024-07-27 09:38 | XMS_ITS | Patient Health Record ---
Author Organization [facility] Address [address] [place] [address] Care Team Providers Care Rn Acute Care Name Role Phone Roro Wilson M.D. Primary Care Provider UnaElvin Cotto Jr Unavailable Allergies Allergen (clinical drug ingredient) Drug/Non Drug Allergy documented on EMR Reaction Allergy Type Onset Date Status CHLOROFIN (uncoded) Unknown Allergy Active Reason For Referral No Information Medications Medication SIG (Take, Route, Frequency, Duration) Notes Start Date End Date Status Omeprazole 20 MG 1 capsule 30 minutes before morning meal Orally Once a day for 30 day(s) 01/01/2021 Active Vitamin D3 Active Insulin Aspart Activ e PreserVision AREDS A ctive MiraLax (colon prep) 8.3 ounce ((238) grams mixed with Gatorade or Crystal Light orally begin at 5:00 p.m. the day before the procedure for 1 day 01/01/2021 Active Vitamin B6 Active Januvia Active Aspirin Active metFORMIN HCl Active Losartan Potassium A ctive predniSONE Active Levothyroxine Sodium Active lipitor Active Immunizations Vaccine Route Administration Date Status Comme nts Influenza Unknown 01/22/2020 Administered Social History Tobacco Use: Social History Observation Description Date Details (start date - stop date) Never Smoker NA - NA Tobacco Use/Smoking Question Answer Notes Patient is a nonsmoker Alcohol Screen Question Answer Notes Did you have a drink containing alcohol in the p ast year? No Points 0 Interpretation Negative Problems Problem Type SNOMED Code ICD Code Onset Dates Problem Status W/U Status Risk Notes Problem 79652981 Epigastric pain (R10.13) Active confirmed Problem 11902598 Change in bowel function (R19.8) Active confirmed Plan Of Treatment Future Test Test Name Order Date UPPER GI ENDOSCOPY 01/01/2021 COLONOSCOPY 01/01/2021 Insurance Providers Payer Name Payer Address Payer Phone Subscriber Number Group Number Insured Name Patient Relationship to Insured Coverage Start Date Coverage End Date MEDICARE OF [place] [address] [place] [address] [id number] ANITA ROTH Self - patient is the insured MEDEX ATTN CLAIMS [address] [place] [address] [id number] ANITA ROTH Self - patient is the insured Medical (General) History Medical History History ICD Code diabetes mellitus hypertension heart attack hx of breast cancer /lumpectomy fibromyalgia Polymyalgia rheumatica Surgical History Surgery Date(Month/Year) appendectomy/ at age 5 lumpectomy/ hx of breast cancer
== END 2024-07-27 08:57 | disposition home or self-care (01) ==
LOC: HO.HOSX 08:56
DX: Z13.89 Encounter for screening for other disorder (principal)

== ENCOUNTER 2024-11-06 09:02 | Outpatient (REF) | payer MEDICARE, SELFPAY ==
--- OUTSIDE RECORDS SUMMARY | 2024-11-07 09:43 | XMS_ITS | Clinical Summary ---
Author Organization [address] [address] Phone Care Team Providers Care Natural Developer Name Role Phone No, Pcp (Do Not [...] 94 11/07/2020 6:34 PM EDT Temperature 36.3 C (97.4 F) 11/07/2020 6:34 PM EDT Respiratory Rate 18 11/07/2020 6:34 PM EDT Oxygen Saturation 99% 11/07/2020 6:34 PM EDT Inhaled Oxygen Concentration - - Weight - - Height - - Body Mass Index - - Plan of Treatment Health Maintenance Due Date Last Done Comments HIV screening 1949 Tetanus adult (Td q 10,TDAP once) 1956 Lipid disorder screening 1976 Diabetes screening 1981 Pneumococcal Vaccine (50+ years) (1 of 1 - PCV) 1986 Shingles vaccine (Shingrix) (1 of 2 - Shingrix (RZV) 2 Dose Standard Series) 1986 Osteoporosis screening (bone density) 2001 RSV Immunization (1 - 1-dose 75+ series) 09/05/2011 Covid-19 vaccine series ( season) 2024 07/14/2020, 06/19/2020 Influenza vaccine 01/21/2025 02/21/2020 Cervical cancer screening Discontinued Colon cancer screening, Colonoscopy Discontinued Meningococcal Vaccine Aged Out No klever grace eligible based on patient's age to complete this topic Insurance [facility] MEDICARE [facility] MEDICARE [facility] MEDICARE [facility] [employer] MEDICARE [facility] [employer] MEDICARE Care Teams Natural Developer Relationship Specialty Start Date End Date No, Pcp (Do Not Change Name) PCP - General 11/07/20
== END 2024-11-06 09:03 | disposition home or self-care (01) ==
LOC: HO.HOSX 09:02
PROVIDERS: Visit Provider Orthopaedic Surgery
DX: Z13.89 Encounter for screening for other disorder (principal)

== ENCOUNTER 2024-11-07 10:17 | Outpatient (AMB) | payer MEDICARE, SELFPAY ==
[2024-11-07 10:35] VITALS: BMI 21.9
--- NOTE | 2024-11-07 10:35 | MHC.OFFVIS ---
Vital Signs 11/07/24 10:35 Height 5 ft 2 in Weight 120 lb BMI 21.9 Intake Visit Reasons: new problem growth on the left wrist Intake Note: Millie 89 yr old left hand dominant presents today with her Homero, for a new problem visit for her left arm. States she has a growth on her arm dorsum aspect of arm. She noticed this about 6 months ago and has not increased in size. States it feels solid, no pain but feel discomfort by it. Denies numbness or tingling in hand. 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 Her original excisional biopsy of her squamous cell carcinoma was 1st performed on 02/21/2023, and did have an extension to the deep margin. She complains of a mass on her left dorsal forearm for ~6 months now. She says this feels solid and has not changed in size. She says she has been picking at this mass. We had recommended she be seen by [facility] dermatology, but it does not sound like she has been seen there. [facility] Medical History Vertigo COVID-19 vaccine series completed Myocardial infarction Hx of breast cancer Polymyalgia Ankle injury Hypothyroidism Hypertension Dyslipidemia Diabetes mellitus Surgical History History of esophagogastroduodenoscopy (EGD) H/O colonoscopy H/O breast surgery Hx of appendectomy Family History Father HTN (hypertension) Mother HTN (hypertension) Diabetes Gallbladder cancer Social History Are you a primary rn urgent care to a significant other at home: No Do you presently have visiting nurse or other home services: No Alcohol intake: former Patient Tobacco Use Status: Never used Tobacco e-Cigarette/Vaping Use: Never Used Substance Use Type: Other Current occupational status: employed 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 Review of Systems Const All systems reviewed & are unremarkable except as noted in HPI and below Physical Exam Vital Signs: BMI result Body Mass Index 21.9 Const General: no acute distress and alert Orientation/consciousness: patient oriented x3 Neuro General: patient oriented x3 Extrem Other: Evaluation of Left Upper Extremity: The patient is alert, oriented, and in no acute distress Neuro: Median, Ulnar, Radial nerves motor and sensory intact and sensation is normal to the tips of all digits Vascular: Cap refill brisk ROM: She can make a fist and extend all her digits She has an area of a possible rash on the dorsal aspect of her left forearm. There is one particular spot that patient feels is larger and more bothersome, and she finds herself picking at it throughout the day. It measures perhaps 2 mm in diameter. It is not clear to me what kind of skin lesion this is. Psych Appearance: grossly normal Affect: normal affect Attitude: cooperative Assessment & Plan Assessment & Plan (1) Mass of left forearm: Code(s): R22.32 - Localized swelling, mass and lump, left upper limb Category: Medical (2) Diabetes mellitus: Comment: type 2-glucose ~ [id number] insulin and oral meds Code(s): E11.9 - Type 2 diabetes mellitus without complications Category: Medical (3) Multiple hypopigmented skin lesions on both forearms: Code(s): L81.9 - Disorder of pigmentation, unspecified Category: Medical Plan Assessment and plan: 1. Left dorsal forearm mass/possible rash I educated her and her about this condition I briefly discussed operative treatment options At this time, given her history of skin lesions, I highly recommend she be evaluated by a Pastry Assistant They are in agreement I referred her to both [facility] &/or bus or truck garage mechanic Dr. Dewitt for assessment She can follow up prn after she is seen by Dermatology 2. 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 DOS: 03/21/23 Histopathology from the 2nd surgery showed no evidence of malignancy. 3. Facial skin lesion Left side of nose, near her eye 4. Right thumb pain which is mostly resolved, but she has some residual loss of IP flexion, S/P fall DOI: 11/15/23 No complaints 5. Bilateral hand numbness Symptoms intermittent & occasional No complaints 6. Right basal joint arthritis Mild tenderness today in clinic 7. Left basal joint arthritis No complaints today 8. Right trigger thumb, S/P release Date of surgery 02/22/22 Resolved 9. Left trigger thumb, S/P injection Date of injection 11/25/21 Resolved Scribed for Swathi Cheek MD by Espinoza Benentt, medical cost consultant, on 11/07/24 at 10:45 AM, EST. Orders: Referrals Dermatology Referral L81.9 - Disorder of pigmentation, unspecified Scribe Plan - Not visible on output: Scribed for Swathi Cheek MD by Espinoza Bennett, medical cost consultant, on [ ] at [ ], EST. Coding Level of Care Code Est Pt Level 3 (42050) Diagnoses Mass of left forearm R22.32 Diabetes mellitus E11.9 Multiple hypopigmented skin lesions on both forearms L81.9
== END 2024-11-07 10:55 | disposition home or self-care (01) ==
LOC: HO.HOS 10:18
PROVIDERS: PCP Internal Medicine; Visit Provider Orthopaedic Surgery
DX: R22.32 Localized swelling, mass and lump, left upper limb (principal); E11.9 Type 2 diabetes mellitus without complications; L81.9 Disorder of pigmentation, unspecified
CPT/HCPCS: 99213

== ENCOUNTER → 2024-11-07 10:17 | Outpatient (BNVA) | payer MEDICARE, SELFPAY | PROVIDERS: PCP Internal Medicine; Visit Provider Orthopaedic Surgery | DX: R22.32 Localized swelling, mass and lump, left upper limb (principal); L81.9 Disorder of pigmentation, unspecified; E11.9 Type 2 diabetes mellitus without complications | CPT/HCPCS: 99212 ==

== ENCOUNTER 2025-02-18 14:07 | Outpatient (AMB) | payer MEDICARE, SELFPAY ==
--- NOTE | 2025-02-18 14:46 | MHC.OFFVIS ---
Vital Signs 02/18/25 14:50 Height 5 ft 2 in Weight 125 lb BMI 22.9 Intake Visit Reasons: Fracture/dislocation Intake Note: Millie is an 89 year old female who presents today as a new patient for a fracture on her 4th toe. Pt reports injury occurred after falling near her bed. She reports no history of sprains or fractures in her foot. Patient reports she has taken tylenol once for the pain but no other medication at this time. Patient was seen at the walk in clinic today. Allergies gabapentin Allergy (Severe, Verified 11/07/24 10:39) Rash chloroquine (CHLOROQUINE) Allergy (Mild, Verified 11/07/24 10:39) RASH HPI HPI Fracture/dislocation: Details: 89-year-old female past medical history of diabetes mellitus type 2, hypertension, hypothyroidism, left leg discoloration and hypopigmented lesions seen today for initial evaluation of her left foot injury. Patient notes she sustained a trip/fall injury coming out of the shower. She was seen at a walk-in clinic today and received foot x-rays. She was told she has a fracture of her 4th toe and was given a surgical shoe. She is states he has been ambulating in the boot and feels much more comfortable. She also notes pain and swelling to her ankle. [facility] Medical History Vertigo COVID-19 vaccine series completed Myocardial infarction Hx of breast cancer Polymyalgia Ankle injury Hypothyroidism Hypertension Dyslipidemia Diabetes mellitus Surgical History History of esophagogastroduodenoscopy (EGD) H/O colonoscopy H/O breast surgery Hx of appendectomy Family History Father HTN (hypertension) Mother HTN (hypertension) Diabetes Gallbladder cancer Social History Are you a primary lead care manager to a significant other at home: No Do you presently have visiting nurse or other home services: No Alcohol intake: former Patient Tobacco Use Status: Never used Tobacco e-Cigarette/Vaping Use: Never Used Substance Use Type: Other Current occupational status: employed 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 Moderate dorsal lateral left foot edema, mild left lateral ankle edema. Derm: Moderate purple ecchymosis to the dorsal aspect of the 4th and 5th metatarsophalangeal joints, mild green ecchymosis to the 5th toe. Significant purple discoloration to the left leg from the tibial tuberosity to the distal 3rd of her left leg. No ecchymosis of the ankle. Neuro: Protective sensation grossly intact to bilateral lower extremities. MSK: Moderate tenderness on palpation of the dorsal aspect of the 4th metatarsal phalangeal joint and 4th metatarsal shaft. Moderate sharp pain elicited on dorsiflexion of the 4th toe joint. Mild pain on palpation of the 5th toe. No pain along the midfoot or Lisfranc joint. No pain along the medial ankle or anterior ankle. Mild pain on the lateral ankle ligaments on plantar flexion inversion of the ankle. Office Procedures AMB Podiatry Dressing Details of Procedure: Procedure: Strapping of the foot/ankle Indication: Left lower extremity ankle sprain and foot fracture Description: A compression wrap was applied using 4in Cam bandage with the ankle held in neutral position. Tolerance: Patient tolerated procedure well, no immediate complications. 87587 Strapping of foot/toe Procedure code (CPT) selection complete Results Reviewed Results Reviewed: Podiatry X-ray Read: 02/18/2025 X-ray left foot toes 2 views (AP, [place]) reviewed which shows subtle nondisplaced 4th metatarsal neck spiral fracture, possible nondisplaced 4th proximal phalanx neck fracture. Severe osteopenic changes to the foot with decreased bone density. Normal anatomy. No evidence of swelling, foreign body, or calcifications. I personally reviewed the imaging and my findings are listed above. Assessment & Plan Assessment & Plan (1) Metatarsal stress fracture of left foot: Code(s): M84.375A - Stress fracture, left foot, initial encounter for fracture Category: Medical Qualifiers: Encounter type: initial encounter Qualified Code(s): M84.375A - Stress fracture, left foot, initial encounter for fracture Plan: Reviewed left foot x-rays with the patient and her . Nail surgical indication at this time. The fracture is minimally displaced. Recommended weight-bearing as tolerated in the surgical shoe. Continue rest, ice, compress and elevate. Follow up in 1 month with new x-rays. (2) Left ankle sprain: Code(s): S93.402A - Sprain of unspecified ligament of left ankle, initial encounter Category: Medical Qualifiers: Encounter type: initial encounter Involved ligament of ankle: anterior talofibular ligament Qualified Code(s): S93.492A - Sprain of other ligament of left ankle, initial encounter Plan: Cam bandage applied to left ankle. Recommended taking the bandage off when going to sleep. Continue activities as tolerated. Orders: Orders AMB Podiatry Dressing Today S93.402A - Sprain of unspecified ligament of left ankle, initial encounter XR foot LT min 3V Today M84.375A - Stress fracture, left foot, initial encounter for fracture, S93.492A - Sprain of other ligament of left ankle, initial encounter XR ankle LT min 3V Today M84.375A - Stress fracture, left foot, initial encounter for fracture, S93.492A - Sprain of other ligament of left ankle, initial encounter Coding Level of Care Code New Pt Level 3 (92190) Diagnoses Stress fracture of metatarsal bone of left foot, initial encounter M84.375A Encounter type: initial encounter Sprain of anterior talofibular ligament of left ankle, initial encounter S93.492A Encounter type: initial encounter Involved ligament of ankle: anterior talofibular ligament CPT Codes Podiatry Dressing - CPT: 76199 Strapping of foot/toe ([id number]) Time Spent (min) 35
[2025-02-18 14:50] VITALS: BMI 22.9
--- OUTSIDE RECORDS SUMMARY | 2025-02-18 15:57 | XMS_ITS | Encounter Summary ---
Author Organization [facility] Address [address] [address] Phone Care Team Providers Care Machine Preservative Filler Name Role Phone Pcp, Unknown Primary Care Provider Roro Segovia MD Primary Care Provider Marybel Salas RN Unavailable [phone] Pancho Fallon MD Unavailable [phone] Encounter Details Date Type Department Care Team (Late st Contact Info) Description 12/14/2019 Transcribe Orders [facility] Specimen Processing [address] [place] [address] Mary Rodriguez MD [address] [place] [id number] Social History Tobacco Use Types Packs/Day Years Used Date Smoking Tobacco: Never Assessed Comments Unknown Sex and Gender Information Value Date Recorded Sex Assigned at Female 06/15/2021 9:11 AM EST Legal Sex Female 6:40 PM EST Gender Identity Female 06/15/2021 9:11 AM EST Sexual Orientation Straight 06/15/2021 9: 11 AM EST documented as of this encounter Plan of Treatment Upcoming Encounters Date Type Department Care Team (Late st Contact Info) Description 02/27/2025 10:30 AM EDT Office Visit [facility] [address] [place] [address] Roro Wilson MD [address] [place] [address], 2nd Floor [place], [place] [id number] [email or web address] Janice Buckner, PT [address] [place] [address] [email or web address] 03/05/2025 9:45 AM EDT Office Visit [facility] [address] [place] [address] Roro Wilson MD [address] [place] [address] [email or web address] 03/05/2025 2:00 PM EDT Office Visit [address] [address] Roro Wilson MD [address] [place] [address] [email or web address] Janice Buckner, PT [address] [place] [address] [email or web address] 03/13/2025 10:30 AM EDT Office Visit [address] [address] Roro Wilson MD [address] [place] [address] Janice Buckner, PT [address] [place] [address] [email or web address] 03/20/2025 10:30 AM EDT Office Visit [address] [address] Roro Wilson MD [address] [place] [address] Janice Buckner, PT [address] [place] [address] [email or web address] 04/03/2025 12:00 PM EST Office Visit [facility] [address] [place] [address] Roro Wilson MD [address] [place] [address] Jnaice Buckner, PT [address] [place] [address] [email or web address] 04/09/2025 10:45 AM EST Office Visit [address] [address] Roro Wilson MD [address] [place] [address] Janice Buckner, PT [address] [place] [address] [email or web address] 04/24/2025 1:45 PM EST Office Visit [facility] [address] [place] [address] [place] [address] Roro Wilson MD [address] [place] [address] documented as of this encounter Visit Diagnoses Not on filedocumented in this encounter Care Teams Machine Preservative Filler Relationship Specialty Start Date End Date Pcp, Unknown PCP - General 12/14/19 09/21/20 Roro Wilson MD [address] [place] [address] PCP - General Internal Medicine 09/22/20 Marybel Salas, ADELAIDA [address] [place] [address] [email or web address] Supervisor Adult Education 12/15/21 01/17/22 Pancho Fallon MD [address] [place], [place] [id number] [email or web address] Endocrinology 08/02/23 documented as of this encounter Additional Source Comments The information contained in this document represents components of the legal health record. It is not the complete legal health record.[facility]
--- OUTSIDE RECORDS SUMMARY | 2025-02-18 15:57 | XMS_ITS | Patient Health Record ---
Author Organization [facility] Address [address] [place] [address] Care Team Providers Care Gutter Mouth Cutter Name Role Phone Roro Wilson M.D. Primary Care Provider Elvin Pacheco Jr Unavailable Allergies Allergen (clinical drug ingredient) [...] Problem Status W/U Status Risk Notes Problem [id number] Epigastric pain (R10.13) Active confirmed Problem [id number] Change in bowel function (R19.8) Active confirmed Plan Of Treatment Future Test Test Name Order Date UPPER GI ENDOSCOPY 01/01/2021 COLONOSCOPY 01/01/2021 Insurance Providers Payer Name Payer Address Payer Phone Subscriber Number Group Number Insured Name Patient Relationship to Insured Coverage Start Date Coverage End Date MEDICARE OF [place] [address] [place] [address] [id number] ANITA ROTH Self - patient is the insured MED[employer] ATTN CLAIMS [address] [place] [address] [id number] ANITA ROTH Self - patient is the insured Medical (General) History Medical History History ICD Code diabetes mellitus hypertension heart attack hx of breast cancer /lumpectomy fibromyalgia Polymyalgia rheumatica Surgical History Surgery Date(Month/Year) appendectomy/ at age 5 lumpectomy/ hx of breast cancer
--- OUTSIDE RECORDS SUMMARY | 2025-02-18 15:57 | XMS_ITS | Encounter Summary ---
Author Organization [facility] Address [address] [place] [address] Phone Care Team Providers Care Director Of Personnel Name Role Phone Roro Wilson MD Primary Care Provider [phone] Pancho Fallon MD Unavailable [phone] Encounter Details Date Type Department Care Team (Late st Contact Info) Description 07/05/2023 Procedure Pass [facility], [address] [place] [address] Social History Tobacco Use Types Packs/Day Years Used Date Smoking Tobacco: Never Smokeless Tobacco: Never Alcohol Use Standard Drinks/Week Comments Not Currently 0 (1 standard drink = 0.6 oz pur e alcohol) Child or Family Care Answer Date Record ed Do you have problems with on e of the following making it difficult for you to work, study, or receive health care? No 10/14/2020 Education Answer Date Recorded Are you interested in more education? Not on suri e 10/15/2022 Are you concerned about learning? Not on file 10/15/2022 No 10/15/2022 No 10/15/2022 Food Answer Date Recorded Within the past 6 months we worried whether our food would run out before we got money to buy more. Never True 10/14/2020 Within the past 6 months the food we bought just didn't last and we didn't have enough money to get more. Never True Paying for Meds Answer Date Recorded Do you have trouble paying for medicines? No 10/14/2020 Paying Utility Bills Answer Date Record ed Do you have trouble paying your heating or elect ricity bill? No 10/14/2020 Transportation Answer Date Recorded Has the lack of transportati on kept you from medical appointments or from getting medications? No 10/14/2020 Unemployment Answer Date Recorded Are you currently unemployed or working on a part-time or temporary basis, and looking for work? No 10/14/2020 Digital Access Answer Date Recorded No 10/15/2022 No 10/15/2022 Reliable internet access at home? Not on file 10/15/2022 Device with a working camera? 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 Not on file Not on file Not on file documented as of this encounter Last Filed Vital Signs Vital Sign Reading Time Taken Comments Blood Pressure - - Pulse - - Temperature - - Respiratory Rate - - Oxygen Saturation - - Inhaled Oxygen Concentration - - Weight 55.3 kg (122 lb) 07/06/2023 8:28 AM EST Height 157.5 cm (5' 2 ) 07/06/2023 8:28 AM EST Body Mass Index 22.31 07/06/2023 8:28 AM EST documented in this encounter Plan of Treatment Upcoming Encounters Date Type Department Care Team (Late st Contact Info) Description 02/27/2025 10:30 AM EDT Office Visit [facility] [address] [place] [address] Roro Wilson MD [address] [place] [address], [address] [place] [address] Janice Buckner, PT [address] [place] [address] 03/05/2025 9:45 AM EDT Office Visit [facility] [address] [place] [address] [place] [address] Roro Wilson MD [address] [place] [address] [email or web address] 03/05/2025 2:00 PM EDT Office Visit [address] [address] Roro Wilson MD [address] [place] [address] [email or web address] Janice Buckner, PT [address] [place] [address] [email or web address] 03/13/2025 10:30 AM EDT Office Visit [address] [address] Roro Wilson MD [address] [place] [address] [email or web address] Janice Buckner, PT [address] [place] [address] [email or web address] 03/20/2025 10:30 AM EDT Office Visit [address] [address] Roro Wilson MD [address] [place] [address] [email or web address] Janice Buckner, PT [address] [place] [address] [email or web address] 04/03/2025 12:00 PM EST Office Visit [address] [address] Roro Wilson MD [address] [place] [address] [email or web address] Sita Janice Ann, PT [address] [place] [address] 04/09/2025 10:45 AM EST Office Visit [facility] [address] [place] [address] Roro Wilson MD [address] [place] [address] [email or web address] Janice Buckner Malia, PT [address] [place] [address] [email or web address] 04/24/2025 1:45 PM EST Office Visit [facility] [address] [place] [address] Roro Wilson MD [address] [place] [address] documented as of this encounter Visit Diagnoses Not on filedocumented in this encounter Additional Health Concerns Assessment Noted Time PHQ-9 Depression Total Score: 12 023 6:54 PM EDT PHQ-2 Depression Total Score: 1 02/09/20 23 9:30 AM EDT documented as of this encounter Care Teams Director Of Personnel Relationship Specialty Start Date End Date Roro Wilson MD [address] [place] [address] PCP - General Internal Medicine 09/22/20 Pancho Fallon MD [address] [place] [address] Endocrinology 08/02/23 documented as of this encounter Additional Source Comments The information contained in this document represents components of the legal health record. It is not the complete legal health record.[facility]
--- OUTSIDE RECORDS SUMMARY | 2025-02-18 15:57 | XMS_ITS | Encounter Summary ---
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 (CMS/HCC V24, CMS/HCC V28); Polyneuropathy, unspecified; Hypothyroidism, unspecified Social History Tobacco Use Types Packs/Day Years Used Date Smoking Tobacco: Never Assessed Comments Unknown Sex and Gender Information Value Date Recorded Sex Assigned at Female 08/06/2024 11:26 AM EDT Legal Sex Female 8:10 PM EST Gender Identity Female 08/06/2024 11:26 AM EDT Sexual Orientation Straight 08/06/2024 11 :26 AM EDT documented as of this encounter Plan of Treatment Not on file documented as of this encounter Visit Diagnoses Diagnosis 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
--- OUTSIDE RECORDS SUMMARY | 2025-02-18 15:57 | XMS_ITS | Clinical Summary ---
Author Organization [address] Address [address] [place] [phone] Phone Care Team Providers Care Tallow Refiner Name Role Phone Roro Wilson MD Primary Care Provider [phone] Encounters Date Type Department Care Team Description 01/29/2025 10:18 AM EDT - 01/29/2025 11:59 PM EDT Hospital Encounter [facility] Ultrasound [address] [place] [phone] Mastodynia Discharge Disposition: Home or Self Care 01/29/2025 9:30 AM EDT - 01/29/2025 11:59 PM EDT Hospital Encounter [facility] [address] [place] [phone] Mastodynia Discharge Disposition: Home or Self Care from Last 3 Months Surgical History Surgery Date Site/Laterality Comments BREAST SURGERY 05/23/2013 - 05/22/2014 Left Family History Medical History Relation Name Comments Breast cancer Mother's Sister Relation Name Status Comments Mother's Sister Alive Social History Tobacco Use Types Packs/Day Years Used Date Smoking Tobacco: Never Assessed Comments No Sex and Gender Information Value Date Recorded Sex Assigned at Female 08/06/2024 11:26 AM EDT Legal Sex Female 8:10 PM EST Gender Identity Female 08/06/2024 11:26 AM EDT Sexual Orientation Straight 08/06/2024 11 :26 AM EDT Obstetrics History Para Term AB IAB SAB Ectopic Multiple Livin g Live Births 0 Last Filed Vital Signs Vital Sign Reading Time Taken Comments Blood Pressure - - Pulse - - Temperature - - Respiratory Rate - - Oxygen Saturation - - Inhaled Oxygen Concentration - - Weight 54.4 kg (120 lb) 08/13/2024 3:47 PM EDT Height 157.5 cm (5' 2 ) 08/13/2024 3:47 PM EDT Body Mass Index 21.95 08/13/2024 3:47 PM EDT Plan of Treatment Health Maintenance Due Date Last Done Comments Diabetes: Annual Foot Exam 1945 Diabetes: Annual Retina Eye Exam 1945 DTaP,Tdap,and Td Vaccines (2 - Td or Tdap) 02/24/2015 02/24/2005 Cholesterol Screening (Lipid Panel) 04/24/2022 Falls Risk Assessment 04/24/2022 Medicare Annual Wellness Visit 04/24/2022 Osteoporosis Screening (Bone Density Screening) 04/24/2022 Social Influencers of Health Screening 04/24/2022 Depression Screening 05/23/2024 Diabetes: Blood Sugar Control Test (HGBA1C) 06/19/2024 COVID-19 Vaccine ( season) 2025 02/20/2023, 02/24/2022, 01/21/2022, Additional history exists Influenza Vaccine (#1) 2025 , 03/06/2022, 01/21/2022, Additional history exists Hypertension/CHF/CAD Annual BMP Blood Test 06/20/2025 06/20/2024, 06/14/2024, 12/23/2022, Additional history exists Hepatitis A Vaccines Aged Out 03/27/2008, 03/10/20 05 No longer eligible based on patient's age to complete this topic Pneumococcal Vaccine: 50+ Years Completed 06/10/2015, 05/23/2013 Zoster Vaccines Completed 12/21/2018, 11/21, 09/20/2018, Additional history exists RSV Immunization Adult Patients Completed 02/20/2023 HIB Vaccines Aged Out No longer eligi [...] age to complete this topic Meningococcal B Vaccine Aged Out No l onger eligible based on patient's age to complete this topic RSV Immunization Patients Under 20 months Aged Out No longer eligible based on patient's age to complete this topic Varicella Vaccines Aged Out No longer eligible based on patient's age to complete this topic Procedures Procedure Name Priority Date/Time Associated Diagnosis Comments MG MAMMO DIGITAL DIAGNOSTIC W STAN LEFT Routine 01/29/2025 11:05 AM EDT Mastodynia US BREAST LIMITED LEFT Routine 10:47 AM EDT Mastodynia COMPREHENSIVE METABOLIC PANEL Routine 06/20/2024 7:20 AM EST Polyneuropathy, unspecified 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 Hypothyroidism, unspecified Pure hypercholesterolemi a, unspecified from Last 3 Months or Most Recently Relevant to Health Maintenance Results * MG Mammo Digital Diagnostic w Stan Left (01/29/2025 11:05 AM EDT) Anatomical Region Laterality Modality Breast Left Mammography 01/29/2025 10:0 8 AM EDT Impressions 01/29/2025 10:49 AM EDT There are no mammographic evidence of malignancy. Again seen are post lumpectomy changes posteriorly in the upper-outer quadrant of the left breast. Ultrasound examination at the area of clinical concern demonstrates no mass or other abnormality. BI-RADS CATEGORY: 2 - BENIGN RECOMMENDATION: Screening bilateral mammogram is recommended in 1 year. Mammo Location: [facility], [facility], [address] [place] [address] -------- FINAL REPORT -------- Dictated By: Vinicius Makc Dictated Date: 01/29/2025 10:08 ET Assigned Physician: Vinicius Mack Reviewed and Electronically Signed By: Vinicius Mack Signed Date: 01/29/2025 10:49 ET Workstation ID: [id number] Transcribed By: Self Edit Transcribed Date: 01/29/2025 10:15 ET Narrative 01/29/2025 10:49 AM EDT CLINICAL: The patient is a 89 years Female with personal history of left breast carcinoma treated with lumpectomy and radiation in 2009. The patient underwent bilateral reduction mammoplasty in 1994. The patient now presents with pain in the upper-outer quadrant of the left breast. It is noted that screening mammography performed 08/13/2024 demonstrated no evidence of malignancy. COMPARISON: Most recently 08/13/2024 and most remotely 02/02/2017. TECHNIQUE: Full-field digital mammography of the left breast consisting of tomosynthesis in MLO and CC projection is performed in the [employer] 2000-D unit. Computer aided detection utilizing the iCAD system was utilized. FINDINGS: The left breast is again seen to be composed of a combination of fatty and fibroglandular elements. Architectural distortion posteriorly in the upper-outer quadrant of the left breast, representing the lumpectomy scar, is unchanged. A tissue marker is again seen far posteriorly. A few scattered benign calcifications are again seen. There is no cluster of microcalcifications, mass, or new area of architectural distortion. There is no skin thickening or nipple retraction. Focused real-time ultrasonography of the area of clinical concern at the 2 to 3:00 position of the left breast 7 to 8 cm from the nipple within performed. No cystic or solid mass, architectural distortion, or other abnormality is seen. TISSUE DENSITY: There are scattered areas of fibroglandular density. (BI-RADS category B) Procedure Note Vinicius Mack MD - 01/29/2025 CLINICAL: The patient is a 89 years Female with personal history of leftbreast carcinoma treated with lumpectomy and radiation in 2009. Thepatient underwent bilateral reduction mammoplasty in 1994. The patientnow presents with pain in the upper-outer quadrant of the left breast. Itis noted that screening mammography performed 08/13/2024 demonstrated noevidence of malignancy. COMPARISON: Most recently 08/13/2024 and most remotely 02/02/2017. TECHNIQUE: Full-field digital mammography of the left breast consisting oftomosynthesis in MLO and CC projection is performed in the [employer]T unit. Computer aided detection utilizing the iCAD system wasutilized. FINDINGS: The left breast is again seen to be composed of a combination offatty and fibroglandular elements. Architectural distortion posteriorlyin the upper-outer quadrant of the left breast, representing thelumpectomy scar, is unchanged. A tissue marker is again seen farposteriorly. A few scattered benign calcifications are again seen. Thereis no cluster of microcalcifications, mass, or new area of architecturaldistortion. There is no skin thickening or nipple retraction. Focused real-time ultrasonography of the area of clinical concern at the 2to 3:00 position of the left breast 7 to 8 cm from the nipple withinperformed. No cystic or solid mass, architectural distortion, or otherabnormality is seen. TISSUE DENSITY: There are scattered areas of fibroglandular density.(BI-RADS category B) IMPRESSION: There are no mammographic evidence of malignancy. Again seen are postlumpectomy changes posteriorly in the upper-outer quadrant of the leftbreast. Ultrasound examination at the area of clinical concerndemonstrates no mass or other abnormality. BI-RADS CATEGORY: 2 - BENIGN RECOMMENDATION: Screening bilateral mammogram is recommended in 1 year. Mammo Location: [facility], [facility], [address] [place] [id number] -------- FINAL REPORT -------- Dictated By: Vinicius Mack Dictated Date: 01/29/2025 10:08 ET Assigned Physician: Vinicius Mack Reviewed and Electronically Signed By: Vinicius Mack Signed Date: 01/29/2025 10:49 ET Workstation ID: [id number] Transcribed By: Self Edit Transcribed Date: 01/29/2025 10:15 ET us Roro Wilson MD IMG BI PROCEDURES Final Res ult * US Breast Limited Left (01/29/2025 10:47 AM EDT) Anatomical Region Laterality Modality Breast Left Ultrasound 01/29/2025 10:4 4 AM EDT Impressions 01/29/2025 10:47 AM EDT No mass or other abnormality is seen in the left breast at the area of clinical concern. Code 00447 -------- FINAL REPORT -------- Dictated By: Vinicius Mack Dictated Date: 01/29/2025 10:44 ET Assigned Physician: Vinicius Mack Reviewed and Electronically Signed By: Vinicius Mack Signed Date: 01/29/2025 10:47 ET Workstation ID: [id number] Transcribed By: Self Edit Transcribed Date: 01/29/2025 10:45 ET Narrative 01/29/2025 10:47 AM EDT HISTORY: The patient is an 89-year-old female with pain in the upper outer quadrant of the left breast. Mammography performed immediately prior to this study demonstrated no mass or other abnormality. Further evaluation with ultrasound is now performed. FINDINGS: Focused real-time ultrasonography of the area of clinical concern at the 2 to 3:00 position of the left breast 7 to 8 cm from the nipple is performed. No cystic or solid mass, architectural distortion, or other abnormality is seen. Procedure Note Vinicius Mack MD - 01/29/2025 HISTORY: The patient is an 89-year-old female with pain in the upper outerquadrant of the left breast. Mammography performed immediately prior tothis study demonstrated no mass or other abnormality. Further evaluationwith ultrasound is now performed. FINDINGS: Focused real-time ultrasonography of the area of clinicalconcern at the 2 to 3:00 position of the left breast 7 to 8 cm from thenipple is performed. No cystic or solid mass, architectural distortion,or other abnormality is seen. IMPRESSION: No mass or other abnormality is seen in the left breast at the area ofclinical concern. Code 52567 -------- FINAL REPORT -------- Dictated By: Vinicius Mack Dictated Date: 01/29/2025 10:44 ET Assigned Physician: Vinicius Mack Reviewed and Electronically Signed By: Vinicius Mack Signed Date: 01/29/2025 10:47 ET Workstation ID: [id number] Transcribed By: Self Edit Transcribed Date: 01/29/2025 10:45 ET us Roro Wilson MD [facility] US PROCEDURES Final Res ult * (ABNORMAL) Comprehensive metabolic panel (06/20/2024 7:20 AM EST) Sodium 137 133 - 145 mmol/L LAB CHEMISTRY METHOD 06/20/2024 12:[address] [facility] Potassium 3.8 3.5 - 5.5 mmol/L LAB CHEMISTRY METHOD 06/20/2024 12:57 PM [facility] Chloride 103 96 - 110 mmol/L LAB CHEMISTRY METHOD 06/20/2024 12:57 PM [facility] CO2 29 21 - 32 mmol/L LAB CHEMISTRY METHOD 06/20/2024 12:57 PM [facility] Anion Gap 5 3 - 11 LAB CHEMISTRY METHOD 06/20/2024 12:57 PM [facility] Glucose 112(H) 70 - 100 mg/dL LAB CHEMISTRY METHOD 06/20/2024 12:57 PM [facility] BUN 11 5 - 25 mg/dL LAB CHEMISTRY METHOD 06/20/2024 12:57 PM [facility] Creatinine 0.64 0.50 - 1.10 mg/dL LAB CHEMISTRY METHOD 06/20/2024 12:57 PM [facility] eGFR 86 >=60 mL/min/1. 73m2 LAB CHEMISTRY METHOD 06/20/2024 12:57 PM [facility] Comment:Calculation based on the Chronic Kidney Disease Epidemiology Collaboration (CKD-EPI) equation refit without adjustment for race. BUN/Creatinine Ratio 17.2 LAB CHEMISTRY METHOD 06/20/2024 12:57 PM [facility] Calcium 8.4(L) 8.5 - 10.5 mg/dL LAB CHEMISTRY METHOD 06/20/2024 12:57 PM [facility] AST (SGOT) 44(H) 10 - 42 unit/L LAB CHEMISTRY METHOD 06/20/2024 12:57 PM [facility] ALT (SGPT) 66(H) 10 - 60 unit/L LAB CHEMISTRY METHOD 06/20/2024 12:57 PM [facility] Alkaline Phosphatase 114 42 - 121 unit/L LAB CHEMISTRY METHOD 06/20/2024 12:57 PM [facility] Total Protein 6.1 6.0 - 8.0 g/dL LAB CHEMISTRY METHOD 06/20/2024 12:[address] [facility] Albumin 2.3(L) 3.2 - 5.0 g/dL LAB CHEMISTRY METHOD 06/20/2024 12:[address] [facility] Total Bilirubin 0.5 0.0 - 1.4 mg/dL LAB CHEMISTRY METHOD 06/20/2024 12:[address] [facility] Blood Venous blood specimen / Unknown Venipuncture / Unknown 06/20/2024 7:20 AM EST 06/20/2024 12:38 PM EST us Judd Johnson MD LAB BLOOD ORDERABLES Final Resul t [facility]) [facility] [address] [place] [address], from Last 3 Months or Most Recently Relevant to Health Maintenance Insurance MEDICARE [facility] Care Teams Tallow Refiner Relationship Specialty Start Date End Date Roro Wilson MD [address] [address] PCP - General Internal Medicine 08/13/24
--- OUTSIDE RECORDS SUMMARY | 2025-02-18 15:57 | XMS_ITS | Clinical Summary ---
Author Organization [address] [phone] Phone Care Team Providers Care Sap Business Intelligence Consultant Name Role Phone No, Pcp (Do Not [...] Immunization (1 - 1-dose 75+ series) 09/05/2011 Influenza vaccine 12/21/2024 02/21/2020 Covid-19 vaccine series (2024- season) 2025 07/14/2020, 06/19/2020 Cervical cancer screening Discontinued Colon cancer screening, Colonoscopy Discontinued Meningococcal B Vaccine Aged Out No l onger eligible based on patient's age to complete this topic Meningococcal Vaccine Aged Out No klever grace eligible based on patient's age to complete this topic [place] [address] [place] [address] MEDICARE [facility] MEDICARE [facility] MEDIC[facility] [employer] MEDICARE [facility] [employer] GENER[employer] MEDICARE Care Teams Sap Business Intelligence Consultant Relationship Specialty Start Date End Date No, Pcp (Do Not Change Name) PCP - General 11/07/20
--- OUTSIDE RECORDS SUMMARY | 2025-02-18 15:58 | XMS_ITS | Encounter Summary ---
Author Organization [facility] Address [address] [place] [phone] Care Team Providers Care Strategic Marketing Specialist Name Role Phone Roro Wilson MD Primary Care Provider Encounter Details Date Type Department Care Team (Latest Contact Info) Description 06/14/2024 Lab Requisition [facility] - Main Lab [address] [facility] [place] [address] Judd Johnson MD [address] [place] [address], [phone] Myelodysplastic syndrome, unspecified (CMS/HCC V24, CMS/HCC V28); Hyperlipidemia, unspecified Social History Tobacco Use Types [...] CBC auto differential (06/14/2024 5:56 AM EST) [facility] Signature WBC 11.6(H) 4.8 - 10.8 K/mcL LAB HEMETOLOGY METHOD 06/14/2024 10:07 AM [facility] RBC 3.60(L) 3.80 - 4.80 M/mcL LAB HEMETOLOGY METHOD 06/14/2024 10:07 AM [facility] Hemoglobin 11.0(L) 11.5 - 16.0 g/dL LAB HEMETOLOGY METHOD 06/14/2024 10:07 AM [facility] Hematocrit 33.3(L) 35.0 - 47.0 % LAB HEMETOLOGY METHOD 06/14/2024 10:07 AM [facility] MCV 92.0 79.0 - 98.0 FL LAB HEMETOLOGY METHOD 06/14/2024 10:07 AM [facility] MCH 30.4 27.0 - 32.0 pcg LAB HEMETOLOGY METHOD 06/14/2024 10:07 AM [facility] MCHC 33.0 32.0 - 37.0 g/dL LAB HEMETOLOGY METHOD 06/14/2024 10:07 AM [facility] RDW 14.0 11.0 - 15.0 % LAB HEMETOLOGY METHOD 06/14/2024 10:07 AM [facility] Platelets 313 130 - 400 K/mcL LAB HEMETOLOGY METHOD 06/14/2024 10:07 AM [facility] MPV 11.3(H) 7.0 - 11.0 FL LAB HEMETOLOGY METHOD 06/14/2024 10:07 AM [facility] NRBC 0.0 <1.0 % LAB HEMETOLOGY METHOD 06/14/2024 10:07 AM [facility] NRBC Absolute 0.00 <0.10 K/mcL LAB HEMETOLOGY METHOD 06/14/2024 10:07 AM [facility] Neutrophils Relative 75.8 % LAB HEMETOLOGY METHOD 06/14/2024 10:07 AM [facility] Comment:This is an appended report. These results have been appended to a previously preliminary verified report. Lymphocytes Relative 14.1 % LAB HEMETOLOGY METHOD 06/14/2024 10:07 AM [facility] Comment:This is an appended report. These results have been appended to a previously preliminary verified report. Monocytes Relative 7.4 % LAB HEMETOLOGY METHOD 06/14/2024 10:07 AM [facility] Comment:This is an appended report. These results have been appended to a previously preliminary verified report. Eosinophils Relative 0.3 % LAB HEMETOLOGY METHOD 06/14/2024 10:07 AM [facility] Comment:This is an appended report. These results have been appended to a previously preliminary verified report. Basophils Relative 0.3 % LAB HEMETOLOGY METHOD 06/14/2024 10:07 AM [facility] Comment:This is an appended report. These results have been appended to a previously preliminary verified report. Immature Granulocytes Relative 2.1 % LAB HEMETOLOGY METHOD 06/14/2024 10:07 AM [facility] Comment:This is an appended report. These results have been appended to a previously preliminary verified report. Neutrophils Absolute 8.82(H) 1.50 - 7.00 K/mcL LAB HEMETOLOGY METHOD 06/14/2024 10:07 AM [facility] Comment:This is an appended report. These results have been appended to a previously preliminary verified report. Lymphocytes Absolute 1.64 1.00 - 5.00 K/mcL LAB HEMETOLOGY METHOD 06/14/2024 10:07 AM [facility] Comment:This is an appended report. These results have been appended to a previously preliminary verified report. Monocytes Absolute 0.86 0.20 - 1.00 K/mcL LAB HEMETOLOGY METHOD 06/14/2024 10:07 AM EST [facility] Comment:This is an appended report. These results have been appended to a previously preliminary verified report. Eosinophils Absolute 0.03 0.00 - 0.50 K/mcL LAB [facility] 06/14/2024 10:07 AM EST [facility] Comment:This is an appended report. These results have been appended to a previously preliminary verified report. Basophils Absolute 0.04 0.00 - 0.20 K/mcL LAB [facility] METHOD 06/14/2024 10:07 AM EST [facility] Comment:This is an appended report. These results have been appended to a previously preliminary verified report. Immature Granulocytes Absolute 0.24(H) 0.00 - 0.03 K/mcL LAB [facility] METHOD 06/14/2024 10:07 AM EST [facility] Comment:This is an appended report. These results have been appended to a previously preliminary verified report. Blood Venous blood specimen / Unknown Venipuncture / Unknown 06/14/2024 5:56 AM EST 06/14/2024 8:45 AM EST us Judd Johnson MD LAB BLOOD ORDERABLES Final Resul t [facility] [address] [place] [address], * (ABNORMAL) Comprehensive metabolic panel (06/14/2024 5:56 AM EST) Sodium 134 133 - 145 mmol/L LAB CHEMISTRY METHOD 06/14/2024 9:53 AM EST [facility] Potassium 3.6 3.5 - 5.5 mmol/L LAB CHEMISTRY METHOD 06/14/2024 9:53 AM EST [facility] Chloride 100 96 - 110 mmol/L LAB CHEMISTRY METHOD 06/14/2024 9:53 AM [facility] CO2 25 21 - 32 mmol/L LAB CHEMISTRY METHOD 06/14/2024 9:53 AM [facility] Anion Gap 9 3 - 11 LAB CHEMISTRY METHOD 06/14/2024 9:53 AM [facility] Glucose 123(H) 70 - 100 mg/dL LAB CHEMISTRY METHOD 06/14/2024 9:53 AM [facility] BUN 18 5 - 25 mg/dL LAB CHEMISTRY METHOD 06/14/2024 9:53 AM [facility] Creatinine 0.67 0.50 - 1.10 mg/dL LAB CHEMISTRY METHOD 06/14/2024 9:53 AM [facility] eGFR 85 >=60 mL/min/1. 73m2 LAB CHEMISTRY METHOD 06/14/2024 9:53 AM [facility] Comment:Calculation based on the Chronic Kidney Disease Epidemiology Collaboration (CKD-EPI) equation refit without adjustment for race. BUN/Creatinine Ratio 26.9 LAB CHEMISTRY METHOD 06/14/2024 9:53 AM [facility] Calcium 8.2(L) 8.5 - 10.5 mg/dL LAB CHEMISTRY METHOD 06/14/2024 9:53 AM [facility] AST (SGOT) 347(H) 10 - 42 unit/L LAB CHEMISTRY METHOD 06/14/2024 9:53 AM [facility] ALT (SGPT) 206(H) 10 - 60 unit/L LAB CHEMISTRY METHOD 06/14/2024 9:53 AM [facility] Alkaline Phosphatase 194(H) 42 - 121 unit/L LAB CHEMISTRY METHOD 06/14/2024 9:53 AM [facility] Total Protein 6.5 6.0 - 8.0 g/dL LAB CHEMISTRY METHOD 06/14/2024 9:53 AM [facility] Albumin 2.3(L) 3.2 - 5.0 g/dL LAB CHEMISTRY METHOD 06/14/2024 9:53 AM EST [facility] Total Bilirubin 0.9 0.0 - 1.4 mg/dL LAB CHEMISTRY METHOD 06/14/2024 9:53 AM EST [facility] Blood Venous blood specimen / Unknown Venipuncture / Unknown 06/14/2024 5:56 AM EST 06/14/2024 8:45 AM EST us Judd Johnson MD LAB BLOOD ORDERABLES Final Resul t [facility] [address] [place] [address], documented in this encounter Visit Diagnoses Diagnosis Myelodysplastic syndrome, unspecified (CMS/HCC V24, CMS/HCC V28) Myelodysplastic syndrome, unspecified Hyperlipidemia, unspecified documented in this encounter Care Teams Strategic Marketing Specialist Relationship Specialty Start Date End Date Roro Wilson MD [address] [address] PCP - General Internal Medicine 08/13/24 documented as of this encounter
--- OUTSIDE RECORDS SUMMARY | 2025-02-18 15:58 | XMS_ITS | Patient Health Record ---
Author Organization [facility] Address [address] [place] [address] Care Team Providers Care Director Supply Name Role Phone Roro Wilson Primary Care Provider UnavailBakari Cristina Unavailable [phone] Allergies Allergen (clinical drug ingredient) Drug/Non Drug [...] neuroapthy, metatarsalgia with need for mt pads grady; Duration: . 08/08/2014 Not-Taking Keflex 500 500 MG 1 capsule Orally rachelle ry 12 hrs; Duration: 10 day(s) 06/02/2022 Active Januvia 50 MG 2 tablets Orally Onc e a day Active Immunizations Vaccine Route Administration Date Status Comme nts Influenza Unknown 01/21/2022 Administered COVID-19 Moderna Vaccine Unknown 01/21/2022 Administered 2020,2020 unsure dates Social History Tobacco Use: Social History Observation [...] Polyneuropathy due to type 2 diabetes mellitus (529155689) Type 2 diabetes mellitus with diabetic polyneuropathy (E11.42) Active confirmed Plan Of Treatment Pending Test Test Name Order Date I&D ABSCESS- SIMPLE,SINGLE 014 Insurance Providers Payer Name Payer Address Payer Phone Subscriber Number Group Number Insured Name Patient Relationship to Insured Coverage Start Date Coverage End Date Medicare National Govt [employer] [address] [place] [address] [id number] Millie Corcoran Self - patient is the insured [employer] [address] [place] [address] [phone] [id number] Millie Corcoran Self - patient is the [...]
--- OUTSIDE RECORDS SUMMARY | 2025-02-18 15:58 | XMS_ITS | Encounter Summary ---
Author Organization [facility] Address [id number] [place] [id number] Care Team Providers Care Contracts Administrator Name Role Phone Roro Wilson MD Primary Care Provider Encounter Details Date Type Department Care Team (Late st Contact Info) Description 06/19/2024 Lab Requisition [facility] - Main Lab [address] [facility] [place] [address] Judd Johnson MD [address] [place] [address], [phone] Polyneuropathy, unspecified; Squamous cell carcinoma of [...] LAB CHEMISTRY METHOD 06/20/2024 12:38 PM EST [facility] Blood Venous blood specimen / Unknown Venipuncture / Unknown 06/20/2024 7:20 AM EST 06/20/2024 12:38 PM EST us Judd Johnson MD LAB BLOOD ORDERABLES Final Resul t [facility] [address] [place] [address], * (ABNORMAL) Comprehensive metabolic panel (06/20/2024 7:20 AM EST) Pathologist [facility] Sodium 137 133 - 145 mmol/L LAB CHEMISTRY METHOD 06/20/2024 12:57 PM [facility] Potassium 3.8 3.5 - 5.5 mmol/L LAB CHEMISTRY METHOD 06/20/2024 12:57 PM [facility] Chloride 103 96 - 110 mmol/L LAB CHEMISTRY METHOD 06/20/2024 12:57 PM [facility] CO2 29 21 - 32 mmol/L LAB CHEMISTRY METHOD 06/20/2024 12:57 PM [facility] Anion Gap 5 3 - 11 LAB CHEMISTRY METHOD 06/20/2024 12:57 PM [facility] Glucose 112(H) 70 - 100 mg/dL LAB CHEMISTRY METHOD 06/20/2024 12:57 PM [facility] BUN 11 5 - 25 mg/dL LAB CHEMISTRY METHOD 06/20/2024 12:57 PM [facility] Creatinine 0.64 0.50 - 1.10 mg/dL LAB CHEMISTRY METHOD 06/20/2024 12:57 PM [facility] eGFR 86 >=60 mL/min/1. 73m2 LAB CHEMISTRY METHOD 06/20/2024 12:57 PM [facility] Comment:Calculation based on the Chronic Kidney Disease Epidemiology Collaboration (CKD-EPI) equation refit without adjustment for race. BUN/Creatinine Ratio 17.2 LAB CHEMISTRY METHOD 06/20/2024 12:57 PM [facility] Calcium 8.4(L) 8.5 - 10.5 mg/dL LAB CHEMISTRY METHOD 06/20/2024 12:57 PM [facility] AST (SGOT) 44(H) 10 - 42 unit/L LAB CHEMISTRY METHOD 06/20/2024 12:57 PM [facility] ALT (SGPT) 66(H) 10 - 60 unit/L LAB CHEMISTRY METHOD 06/20/2024 12:57 PM [facility] Alkaline Phosphatase 114 42 - 121 unit/L LAB CHEMISTRY METHOD 06/20/2024 12:57 PM [facility] Total Protein 6.1 6.0 - 8.0 g/dL LAB CHEMISTRY METHOD 06/20/2024 12:57 PM [facility] Albumin 2.3(L) 3.2 - 5.0 g/dL LAB CHEMISTRY METHOD 06/20/2024 12:57 PM [facility] Total Bilirubin 0.5 0.0 - 1.4 mg/dL LAB CHEMISTRY METHOD 06/20/2024 12:57 PM [facility] Blood Venous blood specimen / Unknown Venipuncture / Unknown 06/20/2024 7:20 AM EST 06/20/2024 12:38 PM EST us Judd Johnson MD LAB BLOOD ORDERABLES Final Resul t [facility] [address] [place] [address], * (ABNORMAL) Complete blood count (06/20/2024 7:20 AM EST) [facility] WBC 7.9 4.8 - 10.8 K/mcL LAB HEMETOLOGY METHOD 06/20/2024 12:19 PM [facility] RBC 3.30(L) 3.80 - 4.80 M/mcL LAB HEMETOLOGY METHOD 06/20/2024 12:19 PM [facility] Hemoglobin 10.1(L) 11.5 - 16.0 g/dL LAB HEMETOLOGY METHOD 06/20/2024 12:19 PM [facility] Hematocrit 31.0(L) 35.0 - 47.0 % LAB HEMETOLOGY METHOD 06/20/2024 12:19 PM [facility] MCV 93.7 79.0 - 98.0 FL LAB HEMETOLOGY METHOD 06/20/2024 12:19 PM [facility] MCH 30.5 27.0 - 32.0 pcg LAB HEMETOLOGY METHOD 06/20/2024 12:19 PM [facility] MCHC 32.6 32.0 - 37.0 g/dL LAB HEMETOLOGY METHOD 06/20/2024 12:19 PM [facility] RDW 13.8 11.0 - 15.0 % LAB HEMETOLOGY METHOD 06/20/2024 12:19 PM [facility] Platelets 466(H) 130 - 400 K/mcL LAB HEMETOLOGY METHOD 06/20/2024 12:19 PM [facility] MPV 9.7 7.0 - 11.0 FL LAB HEMETOLOGY METHOD 06/20/2024 12:19 PM [facility] NRBC 0.0 <1.0 % LAB HEMETOLOGY METHOD 06/20/2024 12:19 PM EST [facility] NRBC Absolute 0.00 <0.10 K/mcL LAB HEMETOLOGY METHOD 06/20/2024 12:19 PM EST [facility] Blood Venous blood specimen / Unknown Venipuncture / Unknown 06/20/2024 7:20 AM EST 06/20/2024 11:08 AM EST us Judd Johnson MD LAB BLOOD ORDERABLES Final Resul t [facility] [address] [place] [address], documented in this encounter Visit Diagnoses Diagnosis Polyneuropathy, unspecified 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
--- OUTSIDE RECORDS SUMMARY | 2025-02-18 15:58 | XMS_ITS | Clinical Summary ---
Author Organization [facility] Address [address] [place] [phone] Phone Care Team Providers Care Video Manager Name Role Phone Roro Wilson MD Primary Care Provider [phone] Pancho Fallon MD Unavailable [phone] Allergies Active Allergy Reactions Criticality Noted Date Comments Chloroquine GI Upset 11/05/2020 Gabapentin Rash Low 11/05/2020 Lidocaine 06/29/2021 Medications vitamins A,C,V-hwuw-gnbxhw (PRESERVISION AREDS) [id number] wbxn-[id number] Cap Take 1 capsule by mouth 2 (two) times a day with meals. Active cholecalciferol, vitamin D3, 25 mcg (1,000 unit) capsule Take 1,000 Units by mouth daily. Active fluticasone propionate (FLONASE) 50 mcg/actuation nasal sprayIndications: Allergic rhinitis, unspecified seasonality, unspecified trigger INHALE 1 PUFF INTO EACH NOSTRIL DAILY. 16 g 2 10/17/19 22 Active pyridoxine, vitamin B6, (B-6) 100 MG tablet Take 100 mg by mouth daily. Active alpha lipoic acid 200 mg CapIndications:12 00 2x a day Take 6 capsules (1,200 mg total) by mouth 2 (two) times a day. Indications: 1200 2x a day 03/02/20 23 Active escitalopram oxalate (LEXAPRO) 5 MG tabletIndications :Depression, unspecified depression type Take 1 tablet (5 mg total) by mouth daily. 90 tablet 1 09/12/19 24 Active flash glucose sensor (FREESTYLE MICHELLE 2 SENSOR) kitIndications:Ty pe 2 diabetes mellitus with diabetic polyneuropathy, with long-term current use of insulin 1 each by Miscellaneous route every 14 (fourteen) days. 1 kit 11 01/19/20 24 Active FREESTYLE MICHELLE 2 READERIndications :Type 2 diabetes mellitus with diabetic polyneuropathy, with long-term current use of insulin use as directed 1 each 02/21/20 24 Active levothyroxine (SYNTHROID, LEVOTHROID) 75 MCG tabletIndications :Acquired hypothyroidism TAKE ONE TABLET BY MOUTH EVERY MORNING 90 tablet 3 08/07/19 25 Active metFORMIN (GLUCOPHAGE-XR) 500 MG 24 hr tabletIndications :Type 2 diabetes mellitus with diabetic polyneuropathy, with long-term current use of insulin TAKE ONE TABLET BY MOUTH TWICE A DAY 180 tablet 3 08/07/19 25 Active atorvastatin (LIPITOR) 40 MG tabletIndications :Hyperlipidemia TAKE ONE TABLET BY MOUTH EVERY DAY 90 tablet 11/20/19 25 Active pregabalin (LYRICA) 75 MG capsuleIndication s:Type 2 diabetes mellitus with diabetic polyneuropathy, with long-term current use of insulin Take 1 capsule (75 mg total) by mouth 2 (two) times a day. 180 capsule 1 01/19/20 25 Active SITagliptin phosphate (JANUVIA) 50 MG tabletIndications :Type 2 diabetes mellitus with diabetic polyneuropathy, with long-term current use of insulin Take 1 tablet (50 mg total) by mouth 2 (two) times a day. 180 tablet 02/13/20 25 Active SITagliptin phosphate (JANUVIA) 50 MG tabletIndications :Type 2 diabetes mellitus with diabetic polyneuropathy, with long-term current use of insulin Take 1 tablet (50 mg total) by mouth 2 (two) times a day. 180 tablet 3 01/03/20 24 025 Discontin ued(Reord er) SITagliptin phosphate (JANUVIA) 50 MG tabletIndications :Type 2 diabetes mellitus with diabetic polyneuropathy, with long-term current use of insulin Take 1 tablet (50 mg total) by mouth 2 (two) times a day. 180 tablet 02/08/20 25 025 Discontin ued(Reord er) SITagliptin phosphate (JANUVIA) 50 MG tabletIndications :Type 2 diabetes mellitus with diabetic polyneuropathy, with long-term current use of insulin Take 1 tablet (50 mg total) by mouth 2 (two) times a day. 180 tablet 3 02/13/20 25 025 Discontin ued(Reord er) Active Problems Problem Noted Date Diagnosed Date Change in voice 01/07/2024 Assessment & Plan (01/07/2024 7:06 PM EDT): She has noted a change in her voice. It is hard for her to raise or put force behind it. Referred to ENT for evaluation. Excessive sweating 01/07/2024 Assessment & Plan (01/07/2024 7:12 PM EDT): We discussed that escitalopram may contribute to this. Will continue to monitor. Itching 11/01/2023 Assessment & Plan (11/01/2023 11:30 AM EDT): Discussed use of topical emollients to relieve her dry skin. Seborrheic keratosis 09/29/2023 Assessment & Plan (01/07/2024 6:55 PM EDT): The one on the left side of the nose bothers her and is in her line of sight. Referred to dermatology for removal. Assessment & Plan (09/29/2023 2:36 PM EDT): These appear to seborrheic keratoses. Will monitor over time. Squamous cell carcinoma of arm, right 03/29/2023 Assessment & Plan (03/29/2023 9:03 PM EST): She has not heard from [facility]. She is concerned that she needs a sooner appointment. Will ask staff to follow up on this referral as well. Vitamin D deficiency, unspecified 03/02/2023 Assessment & Plan (03/02/2023 8:40 PM EDT): Will get vitamin D level as requested by Dr. Choudhury. Balance disorder 03/02/2023 Assessment & Plan (12/03/2024 10:10 PM EDT): She would like to see physical therapy again. Referral placed. Orders: Ambulatory referral to [facility] Physical Therapy Assessment & Plan (11/01/2023 11:27 AM EDT): She had another fall. Will refer back to physical therapy. We discussed the importance of continuing her home exercise regimen. Assessment & Plan (03/29/2023 8:53 PM EST): She continues to ambulate using a cane. She is starting physical therapy. Assessment & Plan (03/02/2023 8:52 PM EDT): She is trying to walk as directed but this is difficult. Will refer back to physical therapy. Fatigue 03/02/2023 Assessment & Plan (03/02/2023 8:50 PM EDT): This has returned. We were unable to find a clear cause for this in the past. Will monitor. Decreased appetite 03/02/2023 Assessment & Plan (07/02/2024 12:32 PM EST): Advised trying to offer small amounts of food throughout the day as noted above. Assessment & Plan (03/02/2023 8:50 PM EDT): She has no desire to eat at this time. Again, cause was unclear in the past. Will monitor. Mild cognitive impairment 01/29/2023 Assessment & Plan (03/01/2024 8:50 PM EDT): She had a follow up evaluation with Dr. Choudhury yesterday. She will meet with him next month for the results. Assessment & Plan (03/29/2023 8:56 PM EST): Stable. Assessment & Plan (03/02/2023 8:49 PM EDT): The results of her neuropsych testing revealed mild cognitive impairment. She is satisfied with this. She will follow up with him in 6 months for reevaluation. Will complete blood work that he requested. Assessment & Plan (02/10/2023 10:05 AM EDT): She did have the neuropsych testing done. We are awaiting results. We again reviewed the imaging that was done at [facility] when she was last there. We will meet up again after neuropsych testing results are available. Assessment & Plan (01/29/2023 11:31 AM EDT): She expressed concern of this diagnosis given by Dr. Tilley. She is interested in pursuing this possible diagnosis further. We discussed pursuing formal neuropsychological testing. A referral was placed for this. Tremor of both hands 01/14/2023 Assessment & Plan (01/29/2023 11:33 AM EDT): She is noticing more tremor in her hands. Will monitor. Assessment & Plan (01/14/2023 8:09 PM EDT): She has noted a tremor in her hands that is interfering with her work. She will discuss this with Dr. Barrow as well. Trigger thumb of both hands 02/18/2022 Assessment & Plan (02/18/2022 10:45 AM EDT): She is working with Dr. Cheek for her trigger thumbs. She may need surgery. We discussed that her a1c is well controlled so she could proceed with surgery if needed. Atherosclerosis of [place] co ronary artery of [place] heart without angina pectoris 12/03/2021 Assessment & Plan (12/08/2022 9:57 PM EDT): Having known vascular disease increases the risk of having peripheral vascular disease. Assessment & Plan (12/03/2021 9:20 PM EDT): We discussed resuming aspirin therapy after both cataract surgeries are completed for secondary prevention. Allergic rhinitis 04/24/2021 Assessment & Plan (04/24/2021 11:38 PM EST): Will do trial of Flonase. Type 2 diabetes mellitus wit h diabetic polyneuropathy, with long-term current use of insulin 03/16/2021 Assessment & Plan (01/20/2025 12:14 PM EDT): Her neuropathy continues to be her largest complaint. Will increase her Lyrica to 75 mg BID. Will monitor for sedation. Orders: pregabalin (LYRICA) 75 MG capsule; Take 1 capsule (75 mg total) by mouth 2 (two) times a day. Assessment & Plan (03/01/2024 6:29 PM EDT): She has had good control of her diabetes. She continues to be frustrated by her neuropathy. Will continue Lyrica and ALA. Assessment & Plan (01/07/2024 7:03 PM EDT): Her neuropathy continues to bother her daily. We discussed the medications she has tried in the past. She will continue on Lyrica and alpha lipoic acid for her neuropathy. Assessment & Plan (11/01/2023 11:26 AM EDT): Her diabetes is well controlled. She continues to have difficulty with her neuropathy. Will continue to monitor. Assessment & Plan (08/07/2023 4:42 PM EDT): Her diabetes is well controlled. She is at higher risk for infection given her diabetes. Assessment & Plan (06/29/2023 11:09 PM EST): This has been under good control with the guidance of Dr. Fallon. Her neuropathy continues to bother her. We discussed that she has tried many different medications which have not been effective. Walking and working does help. Continue to encourage activities which distract her from her neuropathy. Assessment & Plan (03/29/2023 8:48 PM EST): Her diabetes has been well controlled. We discussed that neuropathy can persist despite despite having her blood sugar under control. She would still like to discuss her neuropathy with a neurologist to see if there are any other causes. Assessment & Plan (01/29/2023 11:23 AM EDT): This has been well controlled. Assessment & Plan (01/14/2023 8:05 PM EDT): Managed by Dr. Fallon. The neuropathy is very upsetting to her. We discussed that she has tried duloxetine, gabapentin, and Lyrica. Her response has been less than desired although improvement is noted. She is hoping that Dr. Barrow will have other options for her. Assessment & Plan (12/08/2022 9:48 PM EDT): We discussed her frustration with management of her neuropathy. We discussed that most of the items advertised will not cure her neuropathy and that there is no cure but we can work to manage the symptoms. We also discussed evaluating to make sure that her PMR has not returned. Can also try a TENS unit for pain. Assessment & Plan (09/13/2022 12:59 PM EDT): She continues to want to work to reduce medication. I advised that she remain on metformin and Januvia. She will discuss with Dr. Fallon. Assessment & Plan (02/18/2022 10:43 AM EDT): Her diabetes continues to be well controlled. We did discuss that the numbness of her neuropathy does not have treatment. Continue metformin to keep her diabetes controlled. Assessment & Plan (09/23/2021 10:43 PM EDT): She has improved and her diabetes continues to show good control. She is now off insulin and continues to do well. Her dietary changes have been helpful. Will continue metformin and Januvia. Assessment & Plan (06/29/2021 8:58 PM EST): She has improved and is now off steroids. Her A1c is excellent. Will work to reduce her insulin and maintain her a1c. She was also advised to stop NAC. Will follow up again in 3 months. Assessment & Plan (05/27/2021 10:26 PM EST): She is much improved as she weans off steroids and with her dietary changes. Continue to encourage her new lifestyle changes. We also discussed that I am not convinced that she has or ever had PMR and that her gains should continue after weaning off steroids. She would like to wean off medications and will see what other medications can be weaned. Assessment & Plan (04/11/2021 8:33 PM EST): Her diabetes has been well controlled. Diabetic neuropathy Assessment & Plan (12/03/2024 10:10 PM EDT): She continues to focus on neuropathy. This is very distressing to her. She is understanding that this will not go away. Continue pregabalin. Assessment & Plan (10/04/2024 9:42 PM EDT): Her diabetes has been well controlled. Her neuropathy is stable. Assessment & Plan (07/02/2024 12:32 PM EST): We discussed that she has tried all recommended treatments at this time. No additional recommendations. Her diabetes is managed by Dr. Fallon. She is going for her lab work after this visit. Assessment & Plan (03/02/2023 4:55 PM EDT): This continues to be a problem. Her would like her to stop Lyrica as he is concerned that this is worsening her fatigue. We discussed that her neuropathy would likely worsen. Will continue. Assessment & Plan (02/10/2023 10:13 AM EDT): She would like another opinion on her neuropathy, referral placed. Assessment & Plan (01/29/2023 11:23 AM EDT): She is still very symptomatic from her diabetic neuropathy. Will continue Lyrica. Assessment & Plan (09/13/2022 1:04 PM EDT): Continue Lyrica. Hyperlipidemia Assessment & Plan (10/04/2024 9:42 PM EDT): Continue atorvastatin. Orders: Lipid panel; Future Hypertension Assessment & Plan (12/03/2024 10:10 PM EDT): Well controlled. Assessment & Plan (07/02/2024 12:32 PM EST): Well controlled. Assessment & Plan (03/28/2023 2:11 PM EST): Blood pressure is fine off losartan today. Will stop this. Assessment & Plan (01/14/2023 8:13 PM EDT): Her blood pressure is under good control on 12.5 mg losartan. Will continue. Assessment & Plan (09/13/2022 12:58 PM EDT): Well controlled. Will monitor for reduction in blood pressure as she exercises more. Hypothyroid Assessment & Plan (03/02/2023 8:58 PM EDT): Dr. Fallon has recently adjusted her levothyroxine. Adjusted it here to reflect this. Osteoporosis Assessment & Plan (09/13/2022 1:03 PM EDT): She has not started the Fosamax due to concern for GI side effects and risk of spiral fractures. We discussed other medication classes. She will discuss with Dr. Fallon. Resolved Problems Problem Noted Date Diagnosed Date Resolved Date Closed nondisplaced fracture of left clavicle 01/07/2007/02/2024 Assessment & Plan (01/07/2024 7:14 PM EDT): She is healing well and using the arm as tolerated. Skin tear of left lower leg without complication 07/06/2023 11/01/2023 Assessment & Plan (08/07/2023 4:36 PM EDT): She has a new skin tear after bumping the leg in a taxi. The wound is healing well. We discussed wound care. Assessment & Plan (07/06/2023 8:55 PM EST): Wound cleansed and dressed today. Discussed wound care at home. Polymyalgia rheumatica 10/21/202005/27 Overview (11/25/2020): diagnosed at [facility] Assessment & Plan (05/06/2021 10:38 PM EST): She is reporting improvement as she tapers off methylprednisolone. Will continue taper and hope for further improvement. Assessment & Plan (04/24/2021 11:42 PM EST): We discussed that I am not sure that PMR is the correct diagnosis for her. Will need to assess her as she tapers of steroids. Will also continue to monitor her lab work as she tapers off. Assessment & Plan (04/11/2021 8:33 PM EST): Her recent bloodwork showed an elevated CRP which was concerning. Will get repeat lab work for more evaluation. Will also get urine to evaluate for possible infection. Encounters Date Type Department Care Team Description 02/11/[address] [place] [address] Roro Wilson MD Medication Refill; Medication Prior Authorization 02/11/[address] [place] [address] Roro Wilson MD Medication Question 02/07/[address] [place] [address] Roro Wilson MD Medication Refill 01/18/2025 1:00 PM EDT Office Visit [address] [place] [address] Roro Wilson MD Type 2 diabetes mellitus with diabetic polyneuropathy, with long-term current use of insulin (Primary Dx) 12/31/[address] [place] [address] Roro Wilson MD Medication Refill 12/03/2024 9:45 AM EDT Office Visit [address] [place] [address] Roro Wilson MD Mastodynia (Primary Dx); Diabetic polyneuropathy associated with type 2 diabetes mellitus; Balance disorder; Primary hypertension; Posterior cervical adenopathy 12/03/[address] [place] [address] Roro Wilson MD Appointment 11/20/[address] [place] [address] Roro Wilson MD 11/19/[address] [place] [address] Roro Wilson MD Breast Pain 11/19/[address] [place] [address] Roro Wilson MD Medication Refill from Last 3 Months Immunizations Immunization Administration Dates Next Due COVID-19 (Pre) Moderna Vaccine, mRNA, PF 07/14/2020,06/20/2020,06/19/2020 COVID-19 (Pre-03/14) Pfizer Vaccine, mRNA, PF 07/18/2020 COVID-19 Moderna Spikevax Vaccine 12+ 02/20/2023 ,01/21/2022 Hepatitis A, Unspecified 03/27/2008,03/10/2005 INFLUENZA, SPLIT VIRUS, TRIV ALENT W/ PRESERVATIVE IM 02/21/2020,02/27/2019,02/20/2018 Influenza, Unspecified Formulation 01/21/2022 Pneumococcal conjugate PCV13 06/10/2015 Pneumococcal polysaccharide PPSV23 05/23/2013 Td, unspecified formulation 02/24/2005 Typhoid, ViCPs 03/27/2008,02/24/2005 Zoster recombinant 12/21/2018,09/20/2018 Family History Medical History Relation Comments Stroke Brother Cancer Mother gallbladder Diabetes Mother insulin dependen t Relation Status Comments Brother Mother Social History Tobacco Use Types Packs/Day Years Used Date Smoking Tobacco: Never Smokeless Tobacco: Never Tobacco Cessation:Counseling Given: Not Answered Alcohol Use Standard Drinks/Week Comments Not Currently 0 (1 standard drink = 0.6 oz pur e alcohol) occasionally Child or Family Care Answer Date Record [...] file Not on file Not on file Last Filed Vital Signs Vital Sign Reading Time Taken Comments Blood Pressure 118/64 01/18/2025 1:07 PM EDT Pulse 85 01/18/2025 1:07 PM EDT Temperature 34.8 C (94.6 F) 12/03/2024 9:54 AM EDT Respiratory Rate 16 06/01/2022 11:13 AM EST Oxygen Saturation 97% 01/18/2025 1:07 PM EDT Inhaled Oxygen Concentration - - Weight 57.4 kg (126 lb 9.6 oz) 01/18/2025 1:07 P M EDT Height 157.5 cm (5' 2.01 ) 01/03/2024 3:52 PM ED T Body Mass Index 23.15 01/03/2024 3:52 PM EDT Plan of Treatment Upcoming Encounters Date Type Department Care Team (Late st Contact Info) Description 02/27/2025 10:30 AM EDT Office Visit [facility] [address] [place] [phone] Roro Wilson MD [address] [place] [phone] [email or web address] Janice Buckner, PT [address] [place] [address] [email or web address] 03/05/2025 9:45 AM EDT Office Visit [facility] [address] [place], [place] [address] [place] [address] Roro Wilson MD [address] [place] [phone] [email or web address] 03/05/2025 2:00 PM EDT Office Visit [address] [address] Roro Wilson MD [address] [place] [phone] [email or web address] Janice Buckner, PT [address] [place] [address] [email or web address] 03/13/2025 10:30 AM EDT Office Visit [facility] [address] [place] [address] Roro Wilson MD [address] [place] [phone] [email or web address] Janice Buckner, PT [address] [place] [address] [email or web address] 03/20/2025 10:30 AM EDT Office Visit [facility] [address] [place] [address] Roro Wilson MD [address] [place] [phone] [email or web address] Janice Buckner, PT [address] [place] [address] [email or web address] 04/03/2025 12:00 PM EST Office Visit [facility] [address] [place] [address] Roro Wilson MD [address] [place] [phone] [email or web address] Janice Buckner, PT [address] [place] [address] [email or web address] 04/09/2025 10:45 AM EST Office Visit [facility] [address] [place] [address] Roro Wilson MD [address] [place] [phone] [email or web address] Janice Buckner, PT [address] [place] [address] [email or web address] 04/24/2025 1:45 PM EST Office Visit [facility] [address] [place] [address] Dr [place], [place] [address] Roro Wilson MD [address] [place] [address], [address] [place] [address] [email or web address] Health Maintenance Due Date Last Done Comments RSV VACCINE (1 - 1-dose 75+ series) 09/05/2011 Adult Td,Tdap Booster 02/24/2015 02/24/2005 DIABETIC EYE EXAM 11/03/2023 11/02/2022, , 09/15/2021, Additional history exists CREATININE LEVEL 12/24/2023 12/23/2022, , 03/16/2022, Additional history exists INFLUENZA VACCINE (#1) 2024 , 02/21/2020, 02/27/2019, Additional history exists HEMOGLOBIN A1C 12/30/2024 07/02/2024, 11/0 05/2023, 02/28/2024, Additional history exists COVID-19 VACCINE ( season) 2025 02/20/2023, 01/21/2022, 07/18/2020, Additional history exists URINE MICROALBUMIN/CREATININE RATIO 03/23/2025 03/23/2024, 09/16/2022, 12/01/2021, Additional history exists TSH LEVEL 07/02/2025 07/02/2024, 08/0 07/2022, 09/16/2022, Additional history exists DEPRESSION SCREENING 01/18/2026 01/18/2025, 01/14/20 23 HEPATITIS A VACCINES Aged Out 03/27/2008, 03/10/20 05 No longer eligible based on patient's age to complete this topic PNEUMOCOCCAL VACCINES (50+ years) Completed 06/10/2015, 05/23/2013 ZOSTER VACCINES Completed 12/21/2018, 09/20/2018 OSTEOPOROSIS SCREENING INITIAL (ONE-TIME) Completed 08/03/2023 HIB VACCINES Aged Out No longer eligi ble based on patient's age to complete this topic MENINGOCOCCAL VACCINES (ACWY) Aged Out No longer eligible based on patient's age to complete this topic MENINGOCOCCAL VACCINES (B) Aged Out N o longer eligible based on patient's age to complete this topic Medical Devices Not on file Procedures Procedure Name Priority Date/Time Associated Diagnosis Comments BI MAMMOGRAM DIAGNOSTIC (LEFT) Routine 12/03/2024 10:09 AM EDT Mastodynia HEMOGLOBIN A1C Routine 07/02/2024 11:29 AM EST Diabetic polyneuropathy associated with type 2 diabetes mellitus TSH Routine 07/02/2024 11:29 AM EST Uncontrolled type 2 diabetes mellitus with hyperglycemia Age-related osteoporosis without current pathological fracture Hypothyroidism, unspecified type HM DEXA SCAN Routine 08/03/2023 10:47 AM EDT COMPREHENSIVE METABOLIC PANEL Routine 12/23/2022 11:49 AM EDT Fatigue, unspecified type MICROALBUMIN/CREATINI NE RATIO, RANDOM URINE Routine 10/16/2021 1:30 PM EDT Hyperlipidemia, unspecified hyperlipidemia type Hypothyroidism, adult Type 2 diabetes mellitus with diabetic polyneuropathy, with long-term current use of insulin DIABETES EYE EXAM FOR RESULT ENTRY ONLY Routine 09/15/2021 from Last 3 Months or Most Recently Relevant to Health Maintenance Results * TSH (07/02/2024 11:29 AM EST) TSH 1.47 0.27 - 4.20 uIU/mL [facility] Blood 07/02/2024 11:2 9 AM EST 07/02/2024 11:32 AM EST us Pancho Fallon MD LAB BLOOD ORDERABLES Final R esult [address] [address] * (ABNORMAL) Hemoglobin A1c (07/02/2024 11:29 AM EST) HEMOGLOBIN A1C 6.7(H) 4.3 - 5.8 % [facility] Blood 07/02/2024 11:2 9 AM EST 07/02/2024 11:32 AM EST Pancho Fallon MD LAB BLOOD ORDERABLES Final R esult [facility] [address] [place] [address] * DEXA SCAN (08/03/2023 10:47 AM EDT) Pancho Fallon MD HEALTH MAINTENANCE Final Res ult * (ABNORMAL) Comprehensive metabolic panel (12/23/2022 11:49 AM EDT) SODIUM 139 133 - 146 mmol/L [facility] POTASSIUM 4.2 3.3 - 5.1 mmol/L [facility] CHLORIDE 102 96 - 108 mmol/L [facility] CO2 26 21 - 35 mmol/L [facility] BUN 28(H) 6 - 19 mg/dL [facility] CREATININE 1.00 0.5 - 1.5 mg/dL [facility] GLUCOSE 153(H) 70 - 99 mg/dL [facility] ALBUMIN 4.0 3.9 - 4.8 g/dL [facility] TOTAL PROTEIN 7.5 6.5 - 8.0 g/dL [facility] CALCIUM 10.0 8.4 - 10.3 mg/dL [facility] ALKALINE PHOSPHATASE 61 39 - 117 U/L [facility] TOTAL BILIRUBIN 0.3 0.0 - 1.2 mg/dL [facility] AST 26 0 - 37 U/L [facility] ALT 29 0 - 40 U/L [facility] GLOBULIN 3.5 1 - 4.8 g/dL [facility] EGFR 55(L) >59 mL/min/1.7 3m2 [facility] Comment:Estimated glomerular filtration rate calculated using the CKD-EPI refit equation. ANION GAP 15 10 - 20 mmol/L [facility] Blood 12/23/2022 11:4 9 AM EDT 12/23/2022 11:54 AM EDT Roro Wilson MD LAB BLOOD ORDERABLES Final Result Performing Organization Address City/[facility]/ZIP Co de Phone Number [address] [address] * Microalbumin/creatinine ratio, random urine (10/16/2021 1:30 PM EDT) URINE MICROALBUMIN <1.2 0 - 2.3 mg/dL [facility] URINE CREATININE 61 mg/dL [facility] MICROALB/CRE RATIO NOT CALCULATED 0 - 20 mg/g Cre [facility] Comment:due to Microalbumin <1.2 Urine (Urine) 10/16/2021 1:3 0 PM EDT 10/16/2021 4:07 PM EDT Pancho Fallon MD URINE ORDERABLES Final Resul t Performing Organization Address [facility] Co de Phone Number [address] [address] * DIABETES EYE EXAM FOR RESULT ENTRY ONLY (09/15/2021) Historical Provider HEALTH MAINTENANCE Edited Result - Final from Last 3 Months or Most Recently Relevant to Health Maintenance Insurance [employer] SUPPLEMENT MEDICARE PART A & B MEDICARE PART A & B [employer] SUPPLEMENT MEDICARE PART A & B [employer] SUPPLEMENT MEDICARE PART A & B [employer] MEDEX SUPPLEMENT MEDICARE PART A & B [employer] MEDEX SUPPLEMENT MEDICARE PART A & B [employer] MEDEX SUPPLEMENT MEDICARE PART A & B [employer] MEDEX SUPPLEMENT MEDICARE PART A & B [facility] MEDEX SUPPLEMENT MEDICARE PART A & B Advance Directives For more information, please contact: [phone] (9AM - 5PM [facility], Tuesday-Tuesday) Documents on File Type Date Recorded Patient Bilingual Counter Sales Retail Expl anation Healthcare Proxy 06/26/2024 [facility] care proxy 06/26/24 Care Teams Video Manager Relationship Specialty Start Date End Date Roro Wilson MD [address] [place] [address], [facility] [place] [address] PCP - General Internal Medicine 09/22/20 Pancho Fallon MD [address] [place] [id number] [email or web address] Endocrinology 08/02/23 Additional Source Comments The information contained in this document represents components of the legal health record. It is not the complete legal health record.[facility]
== END 2025-02-18 15:08 | disposition home or self-care (01) ==
PROVIDERS: PCP Internal Medicine; Visit Provider Student in an Organized Health Care Education/Training Program
DX: M84.375A Stress fracture, left foot, initial encounter for fracture (principal); S93.492A Sprain of other ligament of left ankle, initial encounter
CPT/HCPCS: 29550; 99203

== ENCOUNTER → 2025-02-18 14:07 | Outpatient (BNVA) | payer MEDICARE, SELFPAY | PROVIDERS: PCP Internal Medicine; Visit Provider Student in an Organized Health Care Education/Training Program | DX: M84.375A Stress fracture, left foot, initial encounter for fracture (principal); S93.402A Sprain of unspecified ligament of left ankle, initial encounter | CPT/HCPCS: 29550; 99202 ==

== ENCOUNTER 2025-03-11 16:21 | Inpatient (IN) | payer MEDICARE, SELFPAY ==
--- OUTSIDE RECORDS SUMMARY | 2025-03-08 14:00 | XMS_ITS | Encounter Summary ---
Author Organization [facility] Address [address] [facility] [address] [place] [phone] Phone Care Team Providers Care Air Valve Mechanic Name Role Phone Roro Wilson MD Primary Care Provider [phone] Pancho Fallon MD Unavailable [phone] Reason for Visit * Reason Comments Dizziness Has had a lot of diz ziness last two days, and 3-4 wks ago broke LT 4th toe - was seen by [facility] for this - is booted; would like to re wrap foot if needed/suggested. Encounter Details Date Type Department Care Team (Late st Contact Info) Description 03/08/2025 2:00 PM EDT Office Visit [facility] [address] [place] [address] [place] [address] Heather Ochoa MD [address] [place] [address], [address] [place] [address] [email or web address] Dizzy (Primary Dx); Type 2 diabetes mellitus with diabetic polyneuropathy, with long-term current use of insulin; Hypothyroidism, unspecified type Social History Tobacco Use Types Packs/Day Years [...] Sign Reading Time Taken Comments Blood Pressure 126/66 03/08/2025 2:10 PM EDT Pulse 77 03/08/2025 2:10 PM EDT Temperature - - Respiratory Rate - - Oxygen Saturation 99% 03/08/2025 2:10 PM EDT Inhaled Oxygen Concentration - - Weight - - Height - - Body Mass Index - - documented in this encounter Progress Notes * Jess Watknis - 03/08/2025 2:00 PM EDT Rx Care Gap Status - Instructions for Clinical Staff (prescriber discretion applies): > Mismatch review guide > At least one request does not meet full criteria. Specifics below. > Labs due: Please remind patient. > No new orders needed. A1c BMP Lipid panel Urine Microalbumin Visit Info Last visit: 03/05/2025 Roro Wilson MD - Family Medicine [facility] > Requested f/u: Not specified Upcoming visit: 03/12/2025 Roro Wilson MD - [facility] ACTIONS TAKEN BY Jess Watkins - Labs needed - Teed up orders and/or reminded pt. Diabetes Rx Protocol (on Diabetes Registry) - sitagliptin phosphate Criteria not met; renew for up to 3 months. Visit in the past 14 months: Yes Clinical criteria: - BMP within past year: None (has active order) - A1c within past 6 months: None (has active order) - Lipid panel within past year: None (has active order) (LDL 86 on 09/16/2022) - Urine microalbumin within past year or on RODRICK/ARB: None (has active order) Lab Results Component Value Date SODIUM 139 12/23/2022 POTASSIUM 4.2 12/23/2022 CHLORIDE 102 12/23/2022 CO2 26 12/23/2022 BUN 28 (H) 12/23/2022 CREATININE 1.00 12/23/2022 EGFR 55 (L) 12/23/2022 Lab Results Component Value Date Creatinine, serum - External 1.1 10/14/2022 Creatinine, serum - External 1 03/16/2022 CREATININE 1.00 12/23/2022 EGFR 55 (L) 12/23/2022 EGFR 63 10/16/2021 EGFR 80 03/16/2021 Lab Results Component Value Date Hemoglobin A1c 6.8 (*) 10/31/2023 HEMOGLOBIN A1C 6.7 (H) 07/02/2024 MICROALB/CRE RATIO NOT CALCULATED 10/16/2021 URINE MICROALBUMIN <1.2 10/16/2021 Lab Results Component Value Date LDL - External 86 09/16/2022 HDL - External 60 09/16/2022 Cholesterol, total - External 203 (*) 09/16/2022 Health Maintenance Labs Due / Due Soon Topic Date Due CREATININE LEVEL 12/24/2023 HEMOGLOBIN A1C 12/30/2024 URINE MICROALBUMIN/CREATININE RATIO 03/23/2025 * Heather Ochoa MD - 03/08/2025 2:00 PM EDT Subjective: Patient ID: Millie Corcoran is a 89 y.o. female. Woke up yesterday feeling dizzy. Feels like the back of her head is falling off. Feels off balance and has to hold on. She reports this happened in the past and went to [facility] and saw PT for vestibular training but this feels different. She is not spinning. She admits to eating and drinking normally. She does have hearing aids. No sinus symptoms. Review of Systems Constitutional: Negative for fever. HENT: Negative for congestion. Respiratory: Negative for shortness of breath. Cardiovascular: Negative for chest pain. Neurological: Negative for numbness. Objective: Physical Exam Vitals and nursing note reviewed. Constitutional: General: She is not in acute distress. Appearance: Normal appearance. She is not ill-appearing, toxic-appearing or diaphoretic. HENT: Right Ear: Tympanic membrane, ear canal and external ear normal. There is no impacted cerumen. Left Ear: Tympanic membrane, ear canal and external ear normal. There is no impacted cerumen. Neck: Vascular: No carotid bruit. Cardiovascular: Rate and Rhythm: Normal rate and regular rhythm. Pulses: Normal pulses. Heart sounds: Normal heart sounds. No murmur heard. No friction rub. No gallop. Pulmonary: Effort: No respiratory distress. Breath sounds: Normal breath sounds. No stridor. No wheezing, rhonchi or rales. Chest: Chest wall: No tenderness. Neurological: Mental Status: She is alert. Cranial Nerves: No cranial nerve deficit. Sensory: No sensory deficit. Gait: Gait abnormal. Romberg negative but she is unable to walk without assistance. Assessment/Plan: Problem List Items Addressed This Visit Endocrine Hypothyroid Relevant Orders TSH Type 2 diabetes mellitus with diabetic polyneuropathy, with long-term current use of insulin Relevant Medications SITagliptin phosphate (JANUVIA) 50 MG tablet Other Visit Diagnoses Dizzy - Primary 30 minutes spent today documenting visit, reviewing labs, previous notes, specialist notes, imagingand discussing diagnostic and treatment options. She has labs previously ordered by PCP and she will get those done. Will add TSH as she is on thyroid meds. Consider imaging of the brain to r/o CVA. documented in this encounter Plan of Treatment Upcoming Encounters Date Type Department Care Team (Late st Contact Info) Description 03/11/2025 Procedure Pass [address] [place] [address] 03/12/2025 3:45 PM EDT Office Visit [address] [place] [address] Roro Wilson MD [address] [place] [phone] [email or web address] 04/01/2025 3:15 PM EST Appointment [address] [place] [address] Roro Wilson MD [address] [place] [phone] [email or web address] 04/24/2025 1:45 PM EST Office Visit [address] [place] [address] Roro Wilson MD [address] [place] [phone] 04/29/2025 10:45 AM EST Office Visit [facility] [address] [place] [address] Roro Wilson MD [address] [place] [phone] [email or web address] Janice Buckner, PT [address] [place] [address] [email or web address] 05/07/2025 10:45 AM EST Office Visit [address] [address] Roro Wilson MD [address] [place] [phone] [email or web address] Janice Buckner, PT [address] [place] [address] [email or web address] 05/14/2025 10:45 AM EST Office Visit [address] [address] Roro Wilson MD [address] [place] [phone] [email or web address] Janice Buckner, PT [address] [place] [address] [email or web address] 05/21/2025 10:45 AM EST Office Visit [address] [address] Roro Wilson MD [address] [place] [address] Janice Buckner, PT [address] [place] [address] [email or web address] 05/28/2025 10:45 AM EST Office Visit [address] [address] Roro Wilson MD [address] [place] [phone] [email or web address] Janice Buckner, PT [address] [place] [address] .Infinia 06/04/2025 10:45 AM EST Office Visit [facility] [address] [place] [address] Roro Wilson MD [address] [place] [phone] [email or web address] Janice Buckner, PT [address] [place] [address] .Infinia documented as of this encounter Results * TSH (03/08/2025 2:49 PM EDT) TSH 2.05 0.27 - 4.20 uIU/mL [facility] Blood 03/08/2025 2:49 PM EDT 03/08/2025 2:55 PM EDT us Heather A Don AMBRIZ LAB BLOOD ORDERABLES Final Re sult [facility] [address] [place] [address] documented in this encounter Visit Diagnoses Diagnosis Dizzy- Primary Dizziness and giddiness Type 2 diabetes mellitus with diabetic polyneuropathy, with long-term current use of insulin Hypothyroidism, unspecified type documented in this encounter Additional Health Concerns Assessment Noted Time PHQ-9 Depression Total Score: 12 023 6:54 PM EDT PHQ-2 Depression Total Score: 0 02/28/20 25 9:41 AM EDT documented as of this encounter Care Teams Air Valve Mechanic Relationship Specialty Start Date End Date Roro Wilson MD [address] [place] [id number] PCP - General Internal Medicine 09/22/20 Pancho Fallon MD [address] [place] [phone] [email or web address] Endocrinology 08/02/23 documented as of this encounter Additional Source Comments The information contained in this document represents components of the legal health record. It is not the complete legal health record.[facility]
--- NOTE | ~2025-03-11 | XR_ITS ---
CLINICAL HISTORY: pain 3 view, pelvis and right hip Comparison: None provided Findings: No acute fracture or dislocation. There is enthesopathy. The hip joint demonstrates no acute abnormalities. There are minimal degenerative changes. The soft tissues are unremarkable. IMPRESSION: No acute findings. This document has been electronically signed by: Nick Curry MD on 03/11/2025 18:52:56
--- NOTE | ~2025-03-11 | XR_ITS ---
CLINICAL HISTORY: pain 2 view right tibia-fibula Comparison: None provided Findings There is also soft tissue edema and suspected soft tissue emphysema along the proximal anterior aspect of the tibia. There is also a bony defect at the tibial tubercle of uncertain nature. No joint effusion. 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 IMPRESSION: 1. Possibly aggressive bony lesion along the anterior aspect of the proximal tibia, osteomyelitis is not excluded. There is no periosteal reaction noted. 2. Adjacent soft tissue edema and suspected soft tissue emphysema along the proximal tibial shaft. 3. 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 This document has been electronically signed by: Nick Curry MD on 03/11/2025 18:51:44
--- NOTE | ~2025-03-11 | CT_ITS ---
CLINICAL HISTORY: dizzy CT head without contrast Comparison: CT/REG/SR - CT HEAD/BRAIN WO IV CON - 11/15/23 21:05 EDT Findings: No intra-axial mass, midline shift, hydrocephalus, or acute hemorrhage. There is moderate cortical atrophy and microvascular changes are noted. The findings are unchanged. There is no sinus or mastoid fluid. The orbits are within normal limits. No skull fracture. IMPRESSION: 1. No acute intracranial findings. This document has been electronically signed by: Nick Curry MD on 03/11/2025 18:20:28
--- NOTE | ~2025-03-11 | CT_ITS ---
CLINICAL HISTORY: pain ? fx, s p fall. --- Additional Notes or Special Instructions: please go down a bitt further if possible CT of the right knee without IV contrast. COMPARISON: XR right knee dated 03/11/25 at 18:00 EDT FINDINGS: Distal femur and patella appear intact. Proximal fibula appears intact. Displaced fracture of the proximal anterior aspect of the tibia. There is resorption along the fracture margins and ill-defined edema/soft tissue fullness within the fracture site. Fracture extends along the tibial tuberosity. Chondrocalcinosis. Osteopenia. Osteophytes present along the medial, lateral and patellofemoral compartments. Small suprapatellar joint effusion. Diffuse soft tissue edema overlying the anterior aspect of the knee. IMPRESSION: 1. Comminuted mildly displaced fracture of the anterior aspect of the proximal tibia extending into the tibial tuberosity and anterior aspect of the joint space. There is associated soft tissue edema/fullness along the fracture margins which raises suspicion for hematoma which may represent hematoma. Pathologic fracture is not excluded although is considered less likely given lack of mass effect or definable mass. Recommend correlation with clinical history and prior imaging if available. 2. Diffuse soft tissue swelling overlying the anterior aspect of the knee. Small suprapatellar joint effusion. 3. Moderate tricompartment degenerative changes of the right knee. 4. Osteopenia. This document has been electronically signed by: Andre Florence MD on 03/11/2025 20:57:18
--- NOTE | ~2025-03-11 | XR_ITS ---
CLINICAL HISTORY: fall Four views right knee Comparison: None provided Findings There is also soft tissue edema and suspected soft tissue emphysema along the proximal anterior aspect of the tibia. There is also a bony defect at the tibial tubercle of uncertain nature. No joint effusion. 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 IMPRESSION: 1. Possibly aggressive bony lesion along the anterior aspect of the proximal tibia, osteomyelitis is suspected.. There is no periosteal reaction noted. Consider CT, MRI or three-phase bone scan. 2. Adjacent soft tissue edema and suspected soft tissue emphysema along the proximal tibial shaft. 3. 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 This document has been electronically signed by: Nick Curry MD on 03/11/2025 18:55:53
[2025-03-11 16:33] VITALS: BP 126/88; BP 146/67; PULSE 76; PULSE 83; RESP 16; TEMP 36.4; O2SAT 98; O2SAT 99; BMI 24.5
--- NOTE | 2025-03-11 16:40 | ECG_ITS ---
Test Reason : DIZINESS Blood Pressure : */* mmHG Vent. Rate : 75 BPM Atrial Rate : 75 BPM P-R Int : 156 ms QRS Dur : 72 ms QT Int : 408 ms P-R-T Axes : 11 -10 15 degrees QTcB Int : 455 ms Normal sinus rhythm Normal ECG When compared with ECG of 07-Jun-2024 10:12, No significant change was found Referred By: Cecile Ibarra Electronically Signed By: BEATRIZ TIERNEY MD
--- NOTE | 2025-03-11 16:41 | ED_ITS ---
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 Patient had dizziness. Which she describes as just generalized weakness. It has been ongoing for days. There is no chest pain associated with it. There is no fever no chills. There is no coughing congestion. There is no bloody stool. Patient not on blood thinners. The symptom has been ongoing for days. Patient was trying to walk on a bad foot on the left side. She fell on her right side. Complaining of pain to the right knee area. Patient from home. Lives with an elderly spouse. Has a long history of diabetes. Been compliant with meds. Related Data Home Medications ?Medication ?Instructions ?Recorded ?Confirmed atorvastatin 40 mg tablet 40 mg PO DAILY 10/30/2005/23 cholecalciferol (vitamin D3) 25 25 mcg PO DAILY 06/07/24 mcg (1,000 unit) capsule pregabalin 25 mg capsule (Lyrica) 50 mg PO DAILY 01/0606/07/24 alpha lipoic acid 600 mg tablet 1,200 mg PO BID 06/07/24 levothyroxine 50 mcg capsule 75 mcg PO DAILY 02/18/23 06/07/24 ipratropium bromide 21 mcg (0.03 2 spray intranasal TI D 06/07/24 06/07/24 %) nasal spray pyridoxine (vitamin B6) 100 mg 100 mg PO DAILY 5 06/07/24 tablet (Vitamin B-6) vit C 250 mg-vit E 90 mg-zinc 40 1 tab PO BID 06/07/24 06/07/24 mg-copper 1 [id number] capsule (PreserVision AREDS-2) Allergies Allergy/AdvReac Type Severity Reaction Status Date / Time gabapentin Allergy Severe Rash Verified 03/11/25 16:36 chloroquine (CHLOROQUINE) Allergy Mild RASH Verified 03/11/25 16:36 Review of Systems 2 Review of Systems: Positive pain to the right knee Yes all other systems are reviewed and are negative PMFSH Past Medical History Attestation statement: The following information was validated with the patient. Medical History Vertigo COVID-19 vaccine series completed Myocardial infarction Hx of breast cancer Polymyalgia Ankle injury Hypothyroidism Hypertension Dyslipidemia Diabetes mellitus Surgical History History of esophagogastroduodenoscopy (EGD) H/O colonoscopy H/O breast surgery Hx of appendectomy Family History Family History Father HTN (hypertension) Mother HTN (hypertension) Diabetes Gallbladder cancer Social History Social History Are you a primary out of school hours care worker to a significant other at home: No Do you presently have visiting nurse or other home services: No Alcohol intake: former Patient Tobacco Use Status: Never used Tobacco e-Cigarette/Vaping Use: Never Used Substance Use Type: Other Advance Directives: Yes Advance Directives on File: Yes Advance Directives Date on File: 06/19/24 Current occupational status: employed 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 Oriented X3. No acute distress. Eyes: Pupils equal, round and reactive to light. ENT: Pharynx normal. Neck: Normal inspection. Neck supple. No lymph nodes noted. No crepitus CVS: Normal heart rate and rhythm. Pulses normal. Normal S1 and S2 Respiratory: No respiratory distress. Breath sounds normal. No Wheezing. No rales Abdomen: Soft and nontender. No rigidity. No distention. good BS x4 Skin: Skin warm and dry. Normal skin color. Normal skin turgor. Extremities: Positive pain on palpation of the knee. Range of motion is limited secondary to pain. There is pain on palpation of the patella. Pain on palpation of the medial and lateral collateral ligaments. There is swelling inferior near the tibial tuberosity. More distally patient has no gross pain or deformities noted at the ankle or foot. There is good distal pulses. Sensation intact. Neuro: Oriented X 3. No motor deficit. No sensory deficit. Moving all extermities. No slurred speech Vital Signs: Vital Signs: Last Vital Signs Temp 97.5 F 10/20/25 16:33 Pulse 79 03/11/25 21:42 Resp 12 03/11/25 21:42 BP 148/56 H 03/11/25 21:42 Pulse Ox 100 03/11/25 21:42 O2 Del Method Room Air 03/11/25 21:42 BMI result Body Mass Index 24.5 Medications Administered Discontinued Medications Generic Name Dose Route Start Last Admin Trade Name Freq PRN Reason Stop Dose Admin Hydromorphone HCl 0.25 mg 03/11/25 18:06 03/11/25 19:23 Hydromorphone Hcl 0.5 Mg/0.5 Ml Syringe IVPUSH 03/11/25 18:07 Not Given ONCE ONE Protocol Sodium Chloride 1,000 mls @ 999 mls/hr 03/11/25 16:45 03/11/25 19:23 Ns IV 03/11/25 17:45 Infused .Q1H1M RABIA Infusion Ketorolac Tromethamine 15 mg 03/11/25 18:06 03/11/25 19:23 Ketorolac Tromethamine 15 Mg/Ml Vial IVPUSH 03/11/25 18:07 Not Given ONCE ONE Medical Decision Making Medical Decision Making MDM Narrative: Patient's urine showed question UTI. A dose of Rocephin was given. Patient's x-ray of the knee showed question fracture by my interpretation of the proximal tib-fib area. Radiology's interpretation showed a question malignancy. We did a CT scan of the knee. Radiology's interpretation of the CT knee more consistent with a tib-fib fracture. Consulted Orthopedics. Patient unable to ambulate she is 89 years old lives with an elderly spells. Will give pain medication. On Orthopedics advice will place patient in a knee immobilizer. Patient to be admitted to the hospitalist service. Hospitalist team was consulted agree with plan. My interpretation of patient's EKG showed a sinus rhythm heart rate is 80 RI QRS QTC normal no acute ST segment elevation noted. Differential Diagnosis Differential Diagnoses: The differential diagnosis associated with the presentation includes Fracture sprain Admission/Observation Consideration of admission/observation: Escalation of care including admission/observation considered Consult Healthcare Provider Management of the patient was discussed with: Hospitalist and Party Director (Orthopedics) Lab Data [facility] Lab Attestation statement: I reviewed the patient's lab results. 03/11/25 16:52 03/11/25 16:52 Labs: Lab Results 03/11/25 03/11/25 Range/Units 16:52 19:33 WBC 8.3 (4.8-10.8) X10*3/uL RBC 4.25 D (4.20-5.50) X10*6/uL Hgb 13.4 D (12.0-16.0) g/dl Hct 39.8 D (37.0-47.0) % MCV 93.6 (80.0-98.0) fL MCH 31.5 (27.0-33.0) pg MCHC 33.7 (31.0-35.0) g/dl RDW 13.4 (11.0-16.0) % Plt Count 221 (160-400) X10*3/uL MPV 11.0 (9.4-12.3) fL Immature Gran % (Auto) 0.2 (0.0-0.4) % Neut % (Auto) 61.6 (45-73) % Lymph % (Auto) 28.0 (20-40) % Sac % (Auto) 8.1 (2-11) % Eos % (Auto) 1.5 (0-4) % Baso % (Auto) 0.6 (0-2) % Lymph # (Auto) 2.3 (1.2-4.9) X10*3/uL Sac # (Auto) 0.7 (0.1-1.2) X10*3/uL Eos # (Auto) 0.1 (0.0-0.4) X10*3/uL Baso # (Auto) 0.1 (0.0-0.2) X10*3/uL Abs Immat Gran (auto) 0.02 (0.00-0.03) X10*3/uL Absolute Neuts (auto) 5.1 (2.0-8.3) x10*3/uL Absolute Nucleated RBC 0.000 (0.0-0.012) X10*3/uL Nucleated RBC % (auto) 0.0 (0.0-0.2) /100WBC Sodium 135 (135-145) mmol/L Potassium 4.2 D (3.3-5.1) mmol/L Chloride 100 (96-108) mmol/L Carbon Dioxide 26 (22-29) mmol/L Anion Gap 13 (12-20) BUN 15 (9-16) mg/dL Creatinine 0.99 (0.5-1.4) mg/dL Estim Creat Clear Calc 33.9 Estimated GFR 53 Random Glucose 180 H (60-115) mg/dL Calcium 9.7 D (8.4-10.2) mg/dL Troponin I High Sens < 2.7 (<3.5-17.0) ng/L Urine Color Yellow Urine Appearance Clear Urine pH 6.0 (5.0-9.0) Ur Specific [place] <= 1.005 (1.005-1.025) Urine Protein Negative (Neg-Trace) mg/dL Urine Glucose (UA) Negative (Negative) mg/dL Urine Ketones Negative (Negative) mg/dL Urine Blood Trace H (Negative) Urine Nitrite Negative (Negative) Ur Leukocyte Esterase Trace H (Negative) Urine RBC 11-20 H (0-2) /HPF Urine WBC 0-5 (0-5) /HPF Ur Squamous Epith Cells 0-2 (0-2) /HPF Urine Bacteria 4+ (None Seen) Hyaline Casts 0-2 (0-2) /LPF Independent Interpretation I performed an independent interpretation of an: EKG (EKG reading as above), Plain X-Ray (Question fracture in the right tib-fib) and CT Scan (CT head negative for any evidence of bleeding. CT scan of the knee question fracture noted in the tibia) Radiology Impression Discussion of test interpretation with radiology: I have reviewed the radiologist's reading. External Record Review External record reviewed: Inpatient record Social Determinants Patient?s care significantly limited by Social Determinants of Health including: Problems related to primary support group Discharge Plan Discharge Clinical Impression: Fracture of tibia and fibula, Urinary tract infection Patient Disposition: Admitted As Inpatient
[2025-03-11 16:58] LABS: MANUAL DIFF FLAG NO
[2025-03-11 17:01] LABS: Hematocrit 39.8 % (37.0-47.0); Hemoglobin 13.4 g/dl (12.0-16.0); Imm Gran Abs Auto 0.02 X10*3/uL (0.00-0.03); Imm Gran Pct Auto 0.2 % (0.0-0.4); Lymphocytes Absolute Auto 2.3 X10*3/uL (1.2-4.9); Mean Corpuscular HGB Conc 33.7 g/dl (31.0-35.0); Mean Corpuscular Hemoglobin 31.5 pg (27.0-33.0); Mean Corpuscular Volume 93.6 fL (80.0-98.0); NRBC Abs Auto 0.000 X10*3/uL (0.0-0.012); NRBC Pct Auto 0.0 /100WBC (0.0-0.2); Platelet Count 221 X10*3/uL (160-400); Red Blood Count 4.25 X10*6/uL (4.20-5.50); White Blood Count 8.3 X10*3/uL (4.8-10.8)
[2025-03-11 17:20] LABS: Anion Gap 13 (12-20); Blood Urea Nitrogen 15 mg/dL (9-16); Calcium 9.7 mg/dL (8.4-10.2); Carbon Dioxide 26 mmol/L (22-29); Chloride 100 mmol/L (96-108); Creatinine Clr Calc Pharmacy 33.9; Estimated Glomerular Filt Rate 53; Potassium 4.2 mmol/L (3.3-5.1); Sodium 135 mmol/L (135-145)
[2025-03-11 17:23] LABS: Troponin-I High Sensitivity < 2.7 ng/L (<3.5-17.0)
[2025-03-11 19:40] LABS: Appearance Urine Clear; Glucose Urine UA Negative (Negative); PH 6.0 (5.0-9.0); Specific Gravity - Urine <= 1.005 (1.005-1.025); UMIC TRIGGER UACC YES
--- OUTSIDE RECORDS SUMMARY | 2025-03-11 20:46 | XMS_ITS | Encounter Summary ---
Author Organization [facility] Address [address] [place] [address] [place] [address] Phone Care Team Providers Care Assistant Boiler Operator Name Role Phone Roro Wilson MD Primary Care Provider [phone] Pancho Fallon MD Unavailable Reason for Referral * MRI/CAT Scan - Authorized Specialty Diagnoses / Procedures Referred By Darinel truong Referred To Contact Radiology Diagnoses Dizziness and giddiness Procedures MRI Brain Roro Wilson MD [address] [place] [address], [address] [place] [address] Phone: tel: fax: [email or web address] Referral ID Status Reason Start Date Expiration Date V isits Requested Visits Authorized [id number] Authorized 03/11/2025 03/11/2026 1 1 Reason for Visit * Reason Onset Date Comments Results 03/11/2025 Encounter Details Date Type Department Care Team (Late st Contact Info) Description 03/11/2025 Telephone [facility] [address] [place] [address] [place] [phone] Roro Wilson MD [address] [place] [address], [address] [place] [address] [email or web address] Results Social History Tobacco Use Types Packs/Day Years [...] on file documented as of this encounter Progress Notes * Nalini Jewell RN - 03/11/2025 1:32 PM EDT Patient called and tols dr. Wilson signed and order for an MRI of the Brain. Patient given Central Scheduling number to schedule MRI. * Roro Wilson MD - 03/11/2025 1:25 PM EDT Signed. * Nalini Jewell RN - 03/11/2025 7:39 AM EDT MRI Brain order pended for MD * Nalini Jewell RN - 03/11/2025 7:38 AM EDT Images from the original note were not included. Heather Ochoa MD [facility] R[facility] I do not know if she reads her portal messages. Blood work is not showing any cause of the dizziness. I would like to order imaging of head. Please que up MRI brain. documented in this encounter Plan of Treatment Upcoming Encounters Date Type Department Care Team (Late st Contact Info) Description 03/11/2025 Procedure Pass [address] [place] [address] 03/12/2025 3:45 PM EDT Office Visit [facility] [address] [place] [address] [place] [address] Roro Wilson MD [address] [place] [address], [address] [place] [address] DAO Morales [address] 04/01/2025 3:15 PM EST Appointment [address] [place] [address] Roro Wilson MD [address] [place] [address] 04/24/2025 1:45 PM EST Office Visit [facility] [address] [place] [address] [place] [address] Roro Wilson MD [address] [place] [address] 04/29/2025 10:45 AM EST Office Visit [address] [address] Roro Wilson MD [address] [place] [address] Janice Buckner, PT [address] [place] [address] 05/07/2025 10:45 AM EST Office Visit [address] [address] Roro Wilson MD [address] [place] [address] Janice Buckner, PT [address] [place] [address] 05/14/2025 10:45 AM EST Office Visit [address] [address] Roro Wilson MD [address] [place] [address] Janice Buckner, PT [address] [place] [address] 05/21/2025 10:45 AM EST Office Visit [facility] [address] [place] [address] Roro Wilson MD [address] [place] [address] Janice Buckner, PT [address] [place] [address] 05/28/2025 10:45 AM EST Office Visit [facility] [address] [place] [address] Roro Wilson MD [address] [place] [address] Janice Buckner, PT [address] [place] [address] 06/04/2025 10:45 AM EST Office Visit [facility] [address] [place] [address] Roro Wilson MD [address] [place] [address] Janice Buckner, PT [address] [place] [address] Scheduled Orders Name Type Priority Associated Diagnoses Orde r Schedule MRI Brain Imaging Routine Dizziness and giddiness Expected: 03/18/2025, Expires: 06/11/2025 documented as of this encounter Visit Diagnoses Diagnosis Dizziness and giddiness- Primary documented in this encounter Additional Health Concerns Assessment Noted Time PHQ-9 Depression Total Score: 12 023 6:54 PM EDT PHQ-2 Depression Total Score: 0 02/28/20 25 9:41 AM EDT documented as of this encounter Care Teams Assistant Boiler Operator Relationship Specialty Start Date End Date Roro Wilson MD [address] [place] [address] 2nd [place] [address] [email or web address] PCP - General Internal Medicine 09/22/20 Pancho Fallon MD [address] [place] [address] [email or web address] Endocrinology 08/02/23 documented as of this encounter Additional Source Comments The information contained in this document represents components of the legal health record. It is not the complete legal health record.[facility]
--- OUTSIDE RECORDS SUMMARY | 2025-03-11 20:46 | XMS_ITS | Encounter Summary ---
Author Organization [facility] Address [address] [facility] [address] [place] [address] Phone Care Team Providers Care Trucking Contractor Name Role Phone Roro Wilson MD Primary Care Provider [phone] Pancho Fallon MD Unavailable [phone] Reason for Visit * Reason Onset Date Comments Triage 03/08/2025 Concho + dizzine ss + 03/07 Encounter Details Date Type Department Care Team (Late st Contact Info) Description 03/08/2025 Telephone [facility] [address] [place] [address] [place] [address] Roro Wilson MD [address] [place] [address], 2nd [place] [address] [email or web address] Triage (Concho + dizziness + 03/07) Social History Tobacco Use Types Packs/Day Years [...] as of this encounter Progress Notes * Quang Morfin RN - 03/08/2025 9:21 AM EDT Millie states yesterday she woke with dizziness. Dizziness occurs when ambulating/standing and today required assistance from Homero as she could not ambulate on her own. Currently she is resting and feels better. Denies any associated symptoms. No fever/chills or any other concerns. Homero notes her BS today is 165. Scheduled with DS today at 2pm. * Stephenie Mascorro - 03/08/2025 9:17 AM EDT [facility] PEN Top Smart Phrases: Complete the Following for ALL Patient Symptoms VCS Red Concho Yellow Green Tool Call Back Number: (& caller's name if not the patient) Homero, spouse [phone] Description of Symptoms: What symptoms are you experiencing? Dizziness When did the symptoms start? 03/07 Has this happened before? No - symptoms started on 03/07 1) Enter the Reason for Call (TRIAGE) & RFC Comment (COLOR + Symptom) (Ex: TRIAGE - YELLOW, tick bite ) 2) Select the color-based designation below before taking next steps & documenting the outcome Concho Call Designation & Outcome Concho Symptom(s): Triage (Concho + dizziness + 03/07) Route HIGH Priority to competency evaluated nurse aide. A nurse will call back to discuss symptoms further so as to determine best next steps. documented in this encounter Plan of Treatment Upcoming Encounters Date Type Department Care Team (Late st Contact Info) Description 03/11/2025 Procedure Pass [address] [place] [address] 03/12/2025 3:45 PM EDT Office Visit [address] [place] [address] Roro Wilson MD [address] [place] [address] [email or web address] 04/01/2025 3:15 PM EST Appointment [address] [place] [address] Roro Wilson MD [address] [place] [address] 04/24/2025 1:45 PM EST Office Visit [address] [place] [address] Roro Wilson MD [address] [place] [address] 04/29/2025 10:45 AM EST Office Visit [facility] [address] [place] [address] Roro Wilson MD [address] [place] [address] Janice Buckner, PT [address] [place] [address] 05/07/2025 10:45 AM EST Office Visit [address] [address] Roro Wilson MD [address] [place] [address] Janice Buckner, PT [address] [place] [address] [email or web address] 05/14/2025 10:45 AM EST Office Visit [address] [address] Roro Wilson MD [address] [place] [address] Janice Buckner, PT [address] [place] [address] 05/21/2025 10:45 AM EST Office Visit [address] [address] Roro Wilson MD [address] [place] [address] Janice Buckner, PT [address] [place] [address] 05/28/2025 10:45 AM EST Office Visit [facility] [address] [place] [address] Roro Wilson MD [address] [place] [address] SitaJanice, PT [address] [place] [address] [email or web address] 06/04/2025 10:45 AM EST Office Visit [facility] [address] [place] [address] Roro Wilson MD [address] [place] [address] KinneyJanice, PT [address] [place] [address] [email or web address] documented as of this encounter Visit Diagnoses Not on filedocumented in this encounter Additional Health Concerns Assessment Noted Time PHQ-9 Depression Total Score: 12 01/13/ 023 6:54 PM EDT PHQ-2 Depression Total Score: 0 02/28/20 25 9:41 AM EDT documented as of this encounter Care Teams Trucking Contractor Relationship Specialty Start Date End Date Roro Wilson MD [address] [place] [address] PCP - General Internal Medicine 09/22/20 Pancho Fallon MD [address] [place] [address] Endocrinology 08/02/23 documented as of this encounter Additional Source Comments The information contained in this document represents components of the legal health record. It is not the complete legal health record.[facility]
--- OUTSIDE RECORDS SUMMARY | 2025-03-11 20:46 | XMS_ITS | Encounter Summary ---
Author Organization [facility] Address [address] [place] [address] Phone Care Team Providers Care Area Mechanic Name Role Phone Roro Wilson MD Primary Care Provider [phone] Pancho Fallon MD Unavailable [phone] Encounter Details Date Type Department Care Team (Late st Contact Info) Description 07/05/2023 Procedure Pass [facility], [address] [place] [address] Social History Tobacco Use Types Packs/Day Years [...] st Contact Info) Description 03/11/2025 Procedure Pass [address] [place] [address] 03/12/2025 3:45 PM EDT Office Visit [facility] [address] [place] [address] [place] [address] Roro Wilson MD [address] [place] [address], [address] Floor [place] [address] 04/01/2025 3:15 PM EST Appointment [address] [place] [address] Roro Wilson MD [address] [place] [address] 04/24/2025 1:45 PM EST Office Visit [facility] [address] [place] [address] [place] [address] Roro Wilson MD [address] [place] [address], [address] [place] [address] 04/29/2025 10:45 AM EST Office Visit [address] [address] Roro Wilson MD [address] [place] [address] Janice Buckner, PT [address] [place] [address] 05/07/2025 10:45 AM EST Office Visit [address] [address] Roro Wilson MD [address] [place] [address] Janice Buckner, PT [address] [place] [address] 05/14/2025 10:45 AM EST Office Visit [address] [address] Roro Wilson MD [address] [place] [address] Janice Buckner, PT [address] [place] [address] 05/21/2025 10:45 AM EST Office Visit [facility] [address] [place] [address] Roro Wilson MD [address] [place] [address] Janice Buckner, PT [address] [place] [address] 05/28/2025 10:45 AM EST Office Visit [address] [address] Roro Wilson MD [address] [place] [address] Janice Buckner, PT [address] [place] [address] 06/04/2025 10:45 AM EST Office Visit [address] [address] Roro Wilson MD [address] [place] [address] Janice Buckner, PT [address] [place] [address] documented as of this encounter Visit Diagnoses Not on filedocumented in this encounter Additional Health Concerns Assessment Noted Time PHQ-9 Depression Total Score: 12 023 6:54 PM EDT PHQ-2 Depression Total Score: 1 02/09/20 23 9:30 AM EDT documented as of this encounter Care Teams Area Mechanic Relationship Specialty Start Date End Date Roro Wilson MD [address] [place] [address] [email or web address] PCP - General Internal Medicine 09/22/20 Pancho Fallon MD [address] [place] [address] [email or web address] Endocrinology 08/02/23 documented as of this encounter Additional Source Comments The information contained in this document represents components of the legal health record. It is not the complete legal health record.[facility]
--- OUTSIDE RECORDS SUMMARY | 2025-03-11 20:46 | XMS_ITS | Encounter Summary ---
Author Organization [facility] Address [address] [facility] [address] [place] [address] Phone Care Team Providers Care Cotton Stomper Name Role Phone Roro Wilson MD Primary Care Provider [phone] Pancho Fallon MD Unavailable [phone] Encounter Details Date Type Department Care Team (Late st Contact Info) Description 03/08/2025 Telephone [facility] [address] [place] [address] [place] [address] Roro Wilson MD [address] [place] [address], [address] [place] [address] [email or web address] Social History Tobacco Use Types Packs/Day Years [...] as of this encounter Progress Notes * Ten Enriquez - 03/08/2025 3:07 PM EDT error documented in this encounter Plan of Treatment Upcoming Encounters Date Type Department Care Team (Late st Contact Info) Description 03/11/2025 Procedure Pass [address] [place] [address] 03/12/2025 3:45 PM EDT Office Visit [facility] [address] [place] [address] [place] [address] Roro Wilson MD [address] [place] [address], 2[address] [place] [address] 04/01/2025 3:15 PM EST Appointment [address] [place] [address] Roro Wilson MD [address] [place] [address], [address] [place] [address] 04/24/2025 1:45 PM EST Office Visit [facility] [address] [place] [address] [place] [address] Roro Wilson MD [address] [place] [address] 04/29/2025 10:45 AM EST Office Visit [facility] [address] [place] [address] Roro Wilson MD [address] [place] [address] Janice Buckner, PT [address] [place] [address] 05/07/2025 10:45 AM EST Office Visit [facility] [address] [place] [address] Roro Wilson MD [address] [place] [address] Janice Buckner, PT [address] [place] [address] 05/14/2025 10:45 AM EST Office Visit [address] [address] Roro Wilson MD [address] [place] [address] Janice Buckner, PT [address] [place] [address] 05/21/2025 10:45 AM EST Office Visit [address] [address] Roro Wilson MD [address] [place] [address] Janice Buckner, PT [address] [place] [address] 05/28/2025 10:45 AM EST Office Visit [address] [address] Roro Wilson MD [address] [place] [address] Janice Buckner, PT [address] [place] [address] 06/04/2025 10:45 AM EST Office Visit [address] [address] Roro Wilson MD [address] [place] [address] Janice Buckner, PT [address] [place] [address] documented as of this encounter Visit Diagnoses Not on filedocumented in this encounter Additional Health Concerns Assessment Noted Time PHQ-9 Depression Total Score: 12 023 6:54 PM EDT PHQ-2 Depression Total Score: 0 02/28/20 25 9:41 AM EDT documented as of this encounter Care Teams Cotton Stomper Relationship Specialty Start Date End Date Roro Wilson MD [address] [place] [address] [email or web address] PCP - General Internal Medicine 09/22/20 Pancho Fallon MD [address] [place] [address] [email or web address] Endocrinology 08/02/23 documented as of this encounter Additional Source Comments The information contained in this document represents components of the legal health record. It is not the complete legal health record.[facility]
--- OUTSIDE RECORDS SUMMARY | 2025-03-11 20:47 | XMS_ITS | Clinical Summary ---
Author Organization [address] [address] Phone Care Team Providers Care Door Builder Name Role Phone No, Pcp (Do Not [...] patient's age to complete this topic Insurance [address] [address] MEDICARE [facility] MEDICARE [facility] MEDICARE [facility] [employer] GENER[employer] MEDICARE [facility] [employer] GENERIC MEDICARE Care Teams Door Builder Relationship Specialty Start Date End Date No, Pcp (Do Not Change Name) PCP - General 11/07/20
--- OUTSIDE RECORDS SUMMARY | 2025-03-11 20:48 | XMS_ITS | Patient Health Record ---
[facility] Organization [facility] Address [address] [place] [address] Care Team Providers Care Mining Manager Name Role Phone Roro Wilson Primary Care Provider Unavailab Bakari Ballard Unavailable [phone] Allergies Allergen (clinical drug ingredient) Drug/Non Drug [...] Polyneuropathy due to type 2 diabetes mellitus (200285910) Type 2 diabetes mellitus with diabetic polyneuropathy (E11.42) Active confirmed Plan Of Treatment Pending Test Test Name Order Date I&D ABSCESS- SIMPLE,SINGLE 014 Insurance Providers Payer Name Payer Address Payer Phone Subscriber Number Group Number Insured Name Patient Relationship to Insured Coverage Start Date Coverage End Date Medicare [employer] [facility] [address] [place] [address] [id number] Millie Corcoran Self - patient is the insured [employer] [address] [place] [address] [id number] Millie Corcoran Self - patient is the [...]
--- OUTSIDE RECORDS SUMMARY | 2025-03-11 20:48 | XMS_ITS | Clinical Summary ---
Author Organization [facility] Address [address] [place] [address] Phone Care Team Providers Care Associate Java Developer Name Role Phone Roro Wilson MD Primary Care Provider [phone] Pancho Fallon MD Unavailable [phone] Allergies Active Allergy Reactions Criticality Noted Date Comments Chloroquine GI Upset 11/05/2020 Gabapentin Rash Low 11/05/2020 Lidocaine 06/29/2021 Medications vitamins A,C,Q-zebp-zsfuhy (PRESERVISION AREDS) [id number] onod-dg-pwqe Cap Take 1 capsule by mouth 2 [...] 2 (two) times a day. 180 tablet 03/08/20 25 Active SITagliptin phosphate (JANUVIA) 50 MG [...] 3 02/13/20 25 025 Discontin ued(Reord er) SITagliptin phosphate (JANUVIA) 50 MG tabletIndications :Type 2 diabetes mellitus with diabetic polyneuropathy, with long-term current use of insulin Take 1 tablet (50 mg total) by mouth 2 (two) times a day. 180 tablet 02/13/20 25 025 Discontin ued(Reord er) SITagliptin phosphate (JANUVIA) 50 MG tabletIndications :Type 2 diabetes mellitus with diabetic polyneuropathy, with long-term current use of insulin Take 1 tablet (50 mg total) by mouth 2 (two) times a day. 180 tablet 02/21/20 25 025 Discontin ued(Reord er) Active Problems [...] PM EST): She has not heard from [facility]. She is concerned that she needs [...] again. Referral placed. Orders: Ambulatory referral to [facility] Physical Therapy Assessment & Plan (11/01/2023 11:27 [...] reviewed the imaging that was done at [facility] when she was last there. We will [...] proceed with surgery if needed. Atherosclerosis of [place] co ronary artery of [place] heart without angina pectoris 12/03/2021 Assessment & [...] Polymyalgia rheumatica 10/21/202005/27 Overview (11/25/2020): diagnosed at [facility] Assessment & Plan (05/06/2021 10:38 PM [...] Encounters Date Type Department Care Team Description 03/11/[address] [place] [address] Roro Wilson MD Results 03/08/2025 2:36 PM EDT - 03/08/2025 11:59 PM EDT Hospital Encounter [facility] [address] [place] [address] [place] [address] Heather Ochoa MD Discharge Disposition: Home or Self Care 03/08/2025 2:00 PM EDT Office Visit [address] [place] [address] Heather Ochoa MD Dizzy (Primary Dx); Type 2 diabetes mellitus with diabetic polyneuropathy, with long-term current use of insulin; Hypothyroidism, unspecified type 03/08/2025 Telephone [facility] [address] [place] [address] Roro Wilson MD 03/08/[address] [place] [address] Roro Wilson MD Triage ([place] + dizziness + 03/07) 02/11/[address] [place] [address] Roro Wilson MD Medication Refill; Medication Prior Authorization 02/11/[address] [place] [address] Roro Wilson MD Medication Question 02/07/[address] [place] [address] Roro Wilson MD Medication Refill 01/18/2025 1:00 PM EDT Office Visit [address] [place] [address] Roro Wilson MD Type 2 diabetes mellitus with diabetic polyneuropathy, with long-term current use of insulin (Primary Dx) 12/31/[address] [place] [address] Roro Wilson MD Medication Refill from Last 3 Months Immunizations Immunization Administration Dates Next Due COVID-19 (Pre) Moderna Vaccine, mRNA, PF 07/14/2020,06/20/2020,06/19/2020 COVID-19 (Pre-03/14) Pfizer Vaccine, mRNA, PF 07/18/2020 COVID-19 Moderna Spikevax Vaccine 12+ 02/20/2023 ,01/21/2022 COVID-19, Unspecified Formulation 2022,02/24/2022,08/25/2021,03/17,07/18/2020,06/20/2020 Hepatitis A, Unspecified 03/27/2008,03/10/2005 INFLUENZA, SPLIT VIRUS, TRIV ALENT W/ PRESERVATIVE IM 02/21/2020,02/27/2019,02/20/2018 Influenza, Unspecified Formulation 03/24/2023, Pneumococcal conjugate PCV13 06/10/2015 Pneumococcal polysaccharide PPSV23 05/23/2013 RSV Vaccine, Unspecified 02/20/2023 Td, unspecified formulation 02/24/2005 Typhoid, ViCPs 03/27/2008,02/24/2005 Zoster recombinant 12/21/2018,09/20/2018 Zoster unspecified formulation 12/15/2018,2018 Family History Medical History Relation Comments Stroke [...] Pulse 77 03/08/2025 2:10 PM EDT Temperature 34.8 C (94.6 F) 12/03/2024 9:54 AM EDT Respiratory Rate 16 06/01/2022 11:13 AM EST Oxygen Saturation 99% 03/08/2025 2:10 PM EDT Inhaled Oxygen Concentration - - Weight 57.4 kg (126 lb 9.6 oz) 01/18/2025 1:07 P M EDT Height 157.5 cm (5' 2.01 ) 01/03/2024 3:52 PM ED T Body Mass Index 23.15 01/03/2024 3:52 PM EDT Plan of Treatment Upcoming Encounters Date Type Department Care Team (Late st Contact Info) Description 03/11/2025 Procedure Pass [address] [place] [address] 03/12/2025 3:45 PM EDT Office Visit [facility] [address] [place] [address] [place] [address] Roro Wilson MD [address] [place] [address], [address] Floor DAO Morales [address] [email or web address] 04/01/2025 3:15 PM EST Appointment [address] [place] [address] Roro Wilson MD [address] [place] [address] 04/24/2025 1:45 PM EST Office Visit [facility] [address] [place] [address] [place] [address] Roro Wilson MD [address] [place] [address] 04/29/2025 10:45 AM EST Office Visit [address] [address] Roro Wilson MD [address] [place] [address] Janice Buckner, PT [address] [place] [address] [email or web address] 05/07/2025 10:45 AM EST Office Visit [address] [address] Roro Wilson MD [address] [place] [address] Janice Buckner, PT [address] [place] [address] [email or web address] 05/14/2025 10:45 AM EST Office Visit [address] [address] Roro Wilson MD [address] [place] [address] Janice Buckner, PT [address] [place] [address] [email or web address] 05/21/2025 10:45 AM EST Office Visit [facility] [address] [place] [address] Roro Wilson MD [address] [place] [address] Janice Buckner, PT [address] [place] [address] [email or web address] 05/28/2025 10:45 AM EST Office Visit [facility] [address] [place] [address] Roro Wilson MD [address] [place] [address] Janice Buckner, PT [address] [place] [address] [email or web address] 06/04/2025 10:45 AM EST Office Visit [facility] [address] [place] [address] Roro Wilson MD [address] [place] [address] Janice Buckner, PT [address] [place] [address] [email or web address] Health Maintenance Due Date Last Done Comments Adult Td,Tdap Booster 02/24/2015 02/24/2005 DIABETIC EYE EXAM 11/03/2023 11/02/2022, , 09/15/2021, Additional history exists INFLUENZA VACCINE (#1) 2024 , 01/21/2022, 02/21/2020, Additional history exists HEMOGLOBIN A1C 12/30/2024 07/02/2024, 11/0 05/2023, 02/28/2024, Additional history exists COVID-19 VACCINE ( season) 2025 02/20/2023, 02/20/2023, 02/24/2022, Additional history exists URINE MICROALBUMIN/CREATININE RATIO 03/23/2025 03/23/2024, 09/16/2022, 12/01/2021, Additional history exists DEPRESSION SCREENING 02/27/2026 02/27/2025, 01/14/20 23 CREATININE LEVEL 03/08/2026 03/08/2025, 07/2022, 10/14/2022, Additional history exists TSH LEVEL 03/08/2026 03/08/2025, 06/23, 12/23/2022, Additional history exists HEPATITIS A VACCINES Aged Out 03/27/2008, 03/10/20 05 No longer eligible based on patient's age to complete this topic PNEUMOCOCCAL VACCINES (50+ years) Completed 06/10/2015, 05/23/2013 ZOSTER VACCINES Completed 12/21/2018, 11/21, 09/20/2018, Additional history exists RSV VACCINE Completed 02/20/2023 OSTEOPOROSIS SCREENING INITIAL (ONE-TIME) Completed 08/03/2023 HIB [...] Procedure Name Priority Date/Time Associated Diagnosis Comments TSH Routine 03/08/2025 2:49 PM EDT Hypothyroidism, unspecified type LIPID PANEL Routine 03/08/2025 2:49 PM EDT Type 2 diabetes mellitus with diabetic polyneuropathy, with long-term current use of insulin BASIC METABOLIC PANEL Routine 03/08/2025 2:49 PM EDT Type 2 diabetes mellitus with diabetic polyneuropathy, with long-term current use of insulin CBC AND DIFFERENTIAL Routine 03/08/2025 2:49 PM EDT Posterior cervical adenopathy HEMOGLOBIN A1C Routine 07/02/2024 11:29 AM EST Diabetic polyneuropathy associated with type 2 diabetes mellitus DEXA SCAN Routine 08/03/2023 10:47 AM EDT MICROALBUMIN/CREATIN INE RATIO, RANDOM URINE Routine 10/16/2021 1:30 PM EDT Hyperlipidemia, unspecified hyperlipidemia type Hypothyroidism, adult Type 2 diabetes mellitus with diabetic polyneuropathy, with long-term current use of insulin DIABETES EYE EXAM FOR RESULT ENTRY ONLY Routine 09/15/2021 from Last 3 Months or Most Recently Relevant to Health Maintenance Results * (ABNORMAL) CBC and differential (03/08/2025 2:49 PM EDT) WBC 6.32 4.00 - 11.00 K/uL [facility] RBC 3.99(L) 4.00 - 5.20 M/uL [facility] HGB 12.5 12.0 - 16.0 g/dL [facility] HCT 37.9 36.0 - 46.0 % [facility] PLT 200 150 - 450 K/uL [facility] MCV 95.0 80.0 - 100.0 fL [facility] MCH 31.3(H) 27.0 - 31.0 pg [facility] MCHC 33.0 32.0 - 36.0 g/dL [facility] RDW 13.2 11.5 - 14.5 % [facility] MPV 11.6 8.4 - 12.0 fL [facility] NRBC 0.00 0.00 /100 WBCs [facility] ABSOLUTE NRBC 0.00 0.00 K/uL [facility] DIFF METHOD Auto [facility] NEUTS 58.3 48.0 - 76.0 % [facility] LYMPHS 32.0 18.0 - 41.0 % [facility] MONOS 7.9 4.0 - 11.0 % [facility] EOS 0.9 0.0 - 5.0 % [facility] BASOS 0.6 0.0 - 1.5 % [facility] Granulocytes, immature (%) 0.3 0.0 - 0.9 % [facility] ABSOLUTE NEUTS 3.68 1.92 - 7.60 K/uL [facility] ABSOLUTE LYMPHS 2.02 0.72 - 4.10 K/uL [facility] ABSOLUTE MONOS 0.50 0.16 - 1.10 K/uL [facility] ABSOLUTE EOS 0.06 0.00 - 0.50 K/uL [facility] ABSOLUTE BASOS 0.04 0.00 - 0.15 K/uL [facility] Granulocytes, immature 0.02 0.00 - 0.09 K/uL [facility] Blood 03/08/2025 2:49 PM EDT 03/08/2025 2:55 PM EDT us Roro Wilson MD LAB BLOOD ORDERABLES Final Result [address] [address] * TSH (03/08/2025 2:49 PM EDT) TSH 2.05 0.27 - 4.20 uIU/mL [facility] Blood 03/08/2025 2:49 PM EDT 03/08/2025 2:55 PM EDT us Heather Ochoa MD LAB BLOOD ORDERABLES Final Re sult [address] [address] * (ABNORMAL) Lipid panel (03/08/2025 2:49 PM EDT) HDL 61 mg/dL [facility] Comment: Interpretation <40 mg/dL: Low HDL cholesterol (major risk factor for CHD) Greater than or equal to 60 mg/dL: High HDL cholesterol ( negative risk factor for CHD) HDL - cholesterol is affected by a number of factors, e.g. smoking, excerise, hormones, sex and age. CHOLESTEROL 176 0 - 240 mg/dL [facility] TRIGLYCERIDES 149 30 - 160 mg/dL [facility] LDL 85 50 - 129 mg/dL [facility] Comment: LDL levels in terms of risk for coronary heart disease: <100 mg/dL: Optimal 100-129 mg/dL: Near or above optimal 130-159 mg/dL: Borderline high 160-189 mg/dL: High >190 mg/dL: Very High CARDIAC RISK RATIO 2.9(L) 3.3 - 4.4 [facility] Blood 03/08/2025 2:49 PM EDT 03/08/2025 2:55 PM EDT Roro Wilson MD LAB BLOOD ORDERABLES Final Result [address] [address] * (ABNORMAL) Basic metabolic panel (03/08/2025 2:49 PM EDT) Pathologist [facility] SODIUM 138 133 - 146 mmol/L [facility] CHLORIDE 104 96 - 108 mmol/L [facility] POTASSIUM 4.1 3.3 - 5.1 mmol/L [facility] CO2 25 21 - 35 mmol/L [facility] BUN 16 6 - 19 mg/dL [facility] CREATININE 0.70 0.5 - 1.5 mg/dL [facility] GLUCOSE 156(H) 70 - 99 mg/dL [facility] CALCIUM 10.0 8.4 - 10.3 mg/dL [facility] EGFR 83 >59 mL/min/1.7 3m2 [facility] Comment:Estimated glomerular filtration rate calculated using the CKD-EPI refit equation. ANION GAP 13 10 - 20 mmol/L [facility] Blood 03/08/2025 2:49 PM EDT 03/08/2025 2:55 PM EDT Roro Wilson MD LAB BLOOD ORDERABLES Final Result [address] [address] * (ABNORMAL) Hemoglobin A1c (07/02/2024 11:29 AM EST) HEMOGLOBIN A1C 6.7(H) 4.3 - 5.8 % [facility] Blood 07/02/2024 11:2 9 AM EST 07/02/2024 11:32 AM EST Pancho Fallon MD LAB BLOOD ORDERABLES Final R esult Performing Organization Address City/[facility] Co de Phone Number [address] [address] * DEXA SCAN (08/03/2023 10:47 AM EDT) Pancho Fallon MD HEALTH MAINTENANCE Final Res ult * Microalbumin/creatinine ratio, random urine (10/16/2021 1:30 PM EDT) URINE MICROALBUMIN <1.2 0 - 2.3 mg/dL [facility] URINE CREATININE 61 mg/dL [facility] MICROALB/CRE RATIO NOT CALCULATED 0 - 20 mg/g Cre [facility] Comment:due to Microalbumin <1.2 Urine (Urine) 10/16/2021 1:3 0 PM EDT 10/16/2021 4:07 PM EDT Pancho Fallon MD URINE ORDERABLES Final Resul t Performing Organization Address [facility] Co de Phone Number [address] [address] * DIABETES EYE EXAM FOR RESULT ENTRY ONLY (09/15/2021) us Radha Zhou MD HEALTH MAINTENANCE Edited Result - Final from Last 3 Months or Most Recently Relevant to Health Maintenance Insurance [facility] MEDEX SUPPLEMENT MEDICARE PART A & B [facility] MEDEX SUPPLEMENT MEDICARE PART A & B docpl[employer] MEDEX SUPPLEMENT MEDICARE PART A & B [employer] MEDEX SUPPLEMENT MEDICARE PART A & B [employer]pl[employer] MEDEX SUPPLEMENT MEDICARE PART A & B [employer] MEDEX SUPPLEMENT MEDICARE PART A & B [employer] MEDEX SUPPLEMENT MEDICARE PART A & B [employer] MEDEX SUPPLEMENT MEDICARE PART A & B MEDEX SUPPLEMENT MEDICARE PART A & B Advance Directives For more information, please contact: [phone] (9AM - 5PM [facility], Tuesday-Tuesday) Documents on File Type Date Recorded Patient Erector Operator Expl anation Healthcare Proxy 06/26/2024 [facility] proxy 06/26/24 Care Teams Associate Java Developer Relationship Specialty Start Date End Date Roro Wilson MD [address] [place] [address], [address] [place] [address] PCP - General Internal Medicine 09/22/20 Pancho Fallon MD [address] [place] [address] Endocrinology 08/02/23 Additional Source Comments The information contained in this document represents components of the legal health record. It is not the complete legal health record.[facility]
--- OUTSIDE RECORDS SUMMARY | 2025-03-11 20:48 | XMS_ITS | Encounter Summary ---
Author Organization [facility] Address [address] [place] [address] Phone Care Team Providers Care Bristle Machine Operator Name Role Phone Pcp, Unknown Primary Care Provider Roro Segovia MD Primary Care Provider Marybel Salas RN Unavailable [phone] Pancho Fallon MD Unavailable Encounter Details Date Type Department Care Team (Late st Contact Info) Description 12/14/2019 Transcribe Orders [facility] [address] [place] [address] Mary Rodriguez MD [address] [place] [address] Social History Tobacco Use Types Packs/Day Years [...] st Contact Info) Description 03/11/2025 Procedure Pass [facility] - [address] [place] [address] 03/12/2025 3:45 PM EDT Office Visit [facility] [address] [place] [address] [place] [address] Roro Wilson MD [address] [place] [address] 04/01/2025 3:15 PM EST Appointment [address] [place] [address] Roro Wilson MD [address] [place] [address] 04/24/2025 1:45 PM EST Office Visit [facility] [address] [place] [address] Roro Wilson MD [address] [place] [address] 04/29/2025 10:45 AM EST Office Visit [facility] [address] [place] [address] Roro Wilson MD [address] [place] [address] Janice Buckner, PT [address] [place] [address] [email or web address] 05/07/2025 10:45 AM EST Office Visit [facility] [address] [place] [address] Roro Wilson MD [address] [place] [address] Janice Buckner, PT [address] [place] [address] [email or web address] 05/14/2025 10:45 AM EST Office Visit [facility] [address] [place] [address] Roro Wilson MD [address] [place] [address] [email or web address] Janice Buckner, PT [address] [place] [address] [email or web address] 05/21/2025 10:45 AM EST Office Visit [address] [address] Roro Wilson MD [address] [place] [address] [email or web address] Janice Buckner, PT [address] [place] [address] [email or web address] 05/28/2025 10:45 AM EST Office Visit [address] [address] Roro Wilson MD [address] [place] [address] Janice Buckner, PT [address] [place] [address] [email or web address] 06/04/2025 10:45 AM EST Office Visit [address] [address] Roro Wilson MD [address] [place] [address] [email or web address] Janice Buckner, PT [address] [place] [address] [email or web address] documented as of this encounter Visit Diagnoses Not on filedocumented in this encounter Care Teams Bristle Machine Operator Relationship Specialty Start Date End Date Pcp, Unknown PCP - General 12/14/19 09/21/20 Roro Wilson MD [address] [place] [address], [address] [place] [address] [email or web address] PCP - General Internal Medicine 09/22/20 Marybel Salas, RN [address] [place] [address] [email or web address] [facility] Police Captain Senior 12/15/21 01/17/22 Pancho Fallon MD [address] [place] [address] [email or web address] Endocrinology 08/02/23 documented as of this encounter Additional Source Comments The information contained in this document represents components of the legal health record. It is not the complete legal health record.[facility]
--- OUTSIDE RECORDS SUMMARY | 2025-03-11 20:48 | XMS_ITS | Patient Health Record ---
Author Organization [facility] Address [address] [place] [address] Care Team Providers Care Billing Coordinator Name Role Phone Roro Wilson M.D. Primary Care Provider UnaElvin Ctoto Jr Unavailable [phone] Allergies Allergen (clinical drug ingredient) Drug/Non Drug Allergy documented on EMR Reaction Allergy Type Onset Date Status CHLOROFIN (uncoded) Unknown Allergy Active Reason For Referral No Information Medications Medication SIG (Take, Route, Frequency, Duration) Notes Start Date End Date Status Omeprazole 20 MG 1 capsule 30 minutes before morning meal Orally Once a day; Duration: 30 day(s) 01/01/2021 Active Vitamin D3 Active Insulin Aspart Activ e PreserVision AREDS A ctive MiraLax (colon prep) 8.3 ounce ((238) grams mixed with Gatorade or Crystal Light orally begin at 5:00 p.m. the day before the procedure; Duration: 1 day 01/01/2021 Active Vitamin B6 Active [...] Problem Status W/U Status Risk Notes Problem Epigastric pain (26115112) Epigastric pain (R10.13) Active confirmed Problem Altered bowel function (99159087) Change in bowel function (R19.8) Active confirmed Plan Of Treatment Future Test Test Name Order Date UPPER GI ENDOSCOPY 01/01/2021 COLONOSCOPY 01/01/2021 Insurance Providers Payer Name Payer Address Payer Phone Subscriber Number Group Number Insured Name Patient Relationship to Insured Coverage Start Date Coverage End Date MEDICARE OF [place] [address] [place] [address] [id number] ANITA ROTH Self - patient is the insured MEDEX ATTN CLAIMS [address] [place] [phone] [id number] ANITA ROTH Self - patient is the insured Medical (General) History Medical History History ICD Code diabetes mellitus hypertension heart attack hx of breast cancer /lumpectomy fibromyalgia Polymyalgia rheumatica Surgical History Surgery Date(Month/Year) appendectomy/ at age 5 lumpectomy/ hx of breast cancer
[2025-03-11 21:42] VITALS: BP 148/56; PULSE 79; RESP 12; O2SAT 100
--- NOTE | 2025-03-11 22:46 | PHA.MEDREC ---
Addendum entered by Ryan Romero [facility] 03/12/25 14:21: Called [facility] [phone] and spoke to Abhinav who confirmed levothyroxine 75 mg daily, pregabalin 75 mg bid and januvia 50 mg bid. Metformin ER 500 mg bid and atorvastatin 40 mg daily were last fill 11/19/24 for 90 day supply so they were not able to confirm if patient is still taking them. Dr. Cuevas was made aware that we were not able to confirm atorvastatin and metformin. Original Note: Pharmacy Consult ? Medication Reconciliation Pharmacy not able to confirm pt med rec. Spoke with pt and spouse at bedtime and they had an outdated list of meds on pt phone they utilized with me' pt nor spouse knew dose of meds; will have morning med rec team confirm with pt pharmacy ([facility]) to get dose of meds. Pt states too she gets some meds through mail order in [place] but her nor her remember which meds (stating its the expensive meds).
--- NOTE | 2025-03-11 23:00 | PC.NURSE ---
Pt a&ox3, can be forgetful at times, breathing unlabored, skin p/w/d. denies pain. knee immobilizer applied to right knee, pt tolerating well. at bedside.
--- NOTE | 2025-03-11 23:13 | PM.IMHP ---
History of Present Illness Date of Service: 03/11/25 Attending physician on admission: Bala Jameson Chief Complaint: fall, leg pain Patient is an 89-year-old female with a past medical history significant for HLD, COPD, hypothyroid, vertigo, history RI, PMR, HTN and type 2 diabetes, who presented to the ED due to he witnessed fall due to dizziness and weakness. The patient reports that she has been dizzy for the past few days. She fell from standing onto her right knee and then to her side. She denies any head strike or loss of consciousness. She did not feel that the room was spinning. She is not experiencing 5/10 right knee pain, worse with movements, minimal pain at rest. She recently fractured a toe on her left foot and has been using a boot and feels that this contributed to her fall. She also has pain in her right ankle. She denies any recent medication changes but is no longer taking her hypertensive medications. She has been on Lyrica for years but had a recent dose adjustment few months ago. She feels that her dizziness is related to lack of hydration. She denies any chest pain, shortness of breath, nausea, vomiting, abdominal pain or urinary symptoms including frequency, urgency or dysuria. Review of Systems Constitutional: Constitutional: Denies body ache(s), Denies chills, Denies fatigue, Denies fever(s) and Denies headache(s) Eyes: Eyes: Denies change in vision ENT: Denies headache(s), Denies nasal congestion and Denies sore throat Cardiovascular: Cardiovascular: Denies chest pain, Denies rapid heart rate, Denies lightheadedness and Denies dyspnea Respiratory: Respiratory: Denies chest congestion, Denies cough, Denies dyspnea and Denies wheezing Gastrointestinal: Gastrointestinal: Denies abdominal pain, Denies nausea and Denies vomiting Genitourinary: Genitourinary: Denies dysuria and Denies urinary urgency Musculoskeletal: Musculoskeletal: Reports as per HPI Integumentary/Breasts: Skin/Breast: Denies rash Neurologic: Denies confusion and Denies headache(s) Psychiatric: Psychiatric: Denies confusion Endocrine: Endocrine: Denies fatigue Hematologic/Lymphatic: Hematologic/Lymphatic: Denies easy bleeding and Denies easy bruising Allergic/Immunologic: Allergic/Immunologic: Denies wheezing [facility] Medical History Vertigo COVID-19 vaccine series completed Myocardial infarction Hx of breast cancer Polymyalgia Ankle injury Hypothyroidism Hypertension Dyslipidemia Diabetes mellitus Family History Father HTN (hypertension) Mother HTN (hypertension) Diabetes Gallbladder cancer Surgical History History of esophagogastroduodenoscopy (EGD) H/O colonoscopy H/O breast surgery Hx of appendectomy Social History Are you a primary cardiac care unit nurse to a significant other at home: No Do you presently have visiting nurse or other home services: No Alcohol intake: former Patient Tobacco Use Status: Never used Tobacco e-Cigarette/Vaping Use: Never Used Substance Use Type: Other Advance Directives: Yes Advance Directives on File: Yes Advance Directives Date on File: 06/19/24 Current occupational status: employed 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 Narrative: no smoking or etoh Meds Allergies Allergy/AdvReac Type Severity Reaction Status Date / Time gabapentin Allergy Severe Rash Verified 03/11/25 16:36 chloroquine (CHLOROQUINE) Allergy Mild RASH Verified 03/11/25 16:36 Active Medications: Current Medications Acetaminophen (Acetaminophen 325 Mg Tablet) 975 mg PO Q6H PRN PRN Reason: Pain, Mild 1-3,fever,headache Atorvastatin Calcium (Atorvastatin Calcium 40 Mg Tablet) 40 mg PO DAILY [facility] Calcium Carbonate (Calcium Carbonate 750 Mg Tab.Chew) 750 mg PO Q4H PRN PRN Reason: Heartburn Dextrose (Dextrose 50 % 25 Gm/50 Ml Syringe) 25 gm IVPUSH Q15M PRN; Protocol PRN Reason: per Hypoglycemia Standing Ord. Glucose (Glucose Gel 15 Gm Gel..Gram.) 15 gm PO Q15M PRN; Protocol PRN Reason: per Hypoglycemia Standing Ord. Heparin Sodium (Porcine) (Heparin Sodium,Porcine 5,000 Unit/Ml Vial) 5,000 unit SUBCUT Q12H [facility] Insulin Human Lispro (Insulin Lispro 100 Unit/Ml 3 Ml Vial) 0 unit SUBCUT QIDACHS [facility]; Protocol Levothyroxine Sodium (Levothyroxine Sodium 50 Mcg Tablet) 50 mcg PO DAILY@0600 [facility] Magnesium Hydroxide (Milk Of Magnesia 30 Ml Oral.Susp) 30 ml PO DAILY PRN PRN Reason: Constipation Melatonin (Melatonin 3 Mg Tablet) 6 mg PO BEDTIME PRN PRN Reason: Insomnia Ondansetron HCl (Ondansetron Hcl 4 Mg/2 Ml Vial) 4 mg IVPUSH Q8H PRN PRN Reason: Nausea and Vomiting Oxycodone HCl (Oxycodone Hcl Immed Release 5 Mg Tablet) 5 mg PO Q6H PRN PRN Reason: Pain, Severe (Pain Scale 7-10) Pyridoxine HCl (Pyridoxine Hcl (Vitamin B6) 50 Mg Tablet) 100 mg PO DAILY [facility] Sodium Chloride (0.9 % Sodium Chloride Flush 3 Ml Syringe) 3 ml IVFLUSH QSHIFT [facility] Vitamin D (Cholecalciferol (Vitamin D3) 25 Mcg Tablet) 25 mcg PO DAILY [facility] Home Medications ?Medication ?Instructions ?Recorded ?Confirmed ?Last Taken ?Type atorvastatin 40 mg tablet 40 mg PO DAILY 10/30/20 06/07/24 1 Day Ago History ~06/06/24 cholecalciferol (vitamin D3) 25 25 mcg PO DAILY 10/30/20 06/07/24 1 Day Ago History mcg (1,000 unit) capsule ~06/06/24 pregabalin 25 mg capsule (Lyrica) 50 mg PO DAILY 01/06/23 06/07/24 1 Day Ago History ~06/06/24 alpha lipoic acid 600 mg tablet 1,200 mg PO BID 02/18/23 06/07/24 1 Day Ago History ~06/06/24 levothyroxine 50 mcg capsule 75 mcg PO DAILY 02/18/23 06/07/24 1 Day Ago History ~06/06/24 ipratropium bromide 21 mcg (0.03 2 spray intranasal TID 06/07/24 06/07/24 Unknown History %) nasal spray pyridoxine (vitamin B6) 100 mg 100 mg PO DAILY 06/07/24 06/07/24 1 Day Ago History tablet (Vitamin B-6) ~06/06/24 vit C 250 mg-vit E 90 mg-zinc 40 1 tab PO BID 06/07/24 06/07/24 1 Day Ago History mg-copper 1 [id number] ~06/06/24 capsule (PreserVision AREDS-2) Physical Exam Vital Signs and Narrative: Vital Signs: Last Vital Signs Temp 97.5 F 03/11/25 16:33 Pulse 79 03/11/25 21:42 Resp 12 03/11/25 21:42 BP 148/56 H 03/11/25 21:42 Pulse Ox 100 03/11/25 21:42 O2 Del Method Room Air 03/11/25 21:42 BMI result Body Mass Index 24.5 General: AOx3, no acute distress, seen with bedside Resp: CTA bilaterally CVS: S1, S2, RRR GI: +BS, NT, no distention Skin: Warm, dry Neuro: Cranial nerves II-XII grossly intact bilaterally. Motor grossly intact bilaterally Extremities: No pitting edema. R lower leg externally rotated, bruising on goldebrg. pain with movement. pulses intact. Psych: Appropriate affect Const: General: No confusion Orientation/consciousness: No confusion Neuro: General: No confusion Results Labs 03/11/25 16:52 03/11/25 16:52 Labs: Laboratory Results - last 24 hr 03/11/25 03/11/25 16:52 19:33 MCV 93.6 MCH 31.5 MCHC 33.7 RDW 13.4 Plt Count 221 MPV 11.0 Immature Gran % (Auto) 0.2 Neut % (Auto) 61.6 Lymph % (Auto) 28.0 [place] % (Auto) 8.1 Eos % (Auto) 1.5 Baso % (Auto) 0.6 Lymph # (Auto) 2.3 [place] # (Auto) 0.7 Eos # (Auto) 0.1 Baso # (Auto) 0.1 Abs Immat Gran (auto) 0.02 Absolute Neuts (auto) 5.1 Absolute Nucleated RBC 0.000 Nucleated RBC % (auto) 0.0 Anion Gap 13 Estim Creat Clear Calc 33.9 Estimated GFR 53 Random Glucose 180 H Calcium 9.7 D Troponin I High Sens < 2.7 Urine Color Yellow Urine Appearance Clear Urine pH 6.0 Ur Specific [place] <= 1.005 Urine Protein Negative Urine Glucose (UA) Negative Urine Ketones Negative Urine Blood Trace H Urine Nitrite Negative Ur Leukocyte Esterase Trace H Urine RBC 11-20 H Urine WBC 0-5 Ur Squamous Epith Cells 0-2 Urine Bacteria 4+ Hyaline Casts 0-2 Assessment and Plan (1) Fracture of tibia, closed: Status: Acute (2) Fall: Status: Acute (3) Dizziness: Status: Acute Plan Patient is an 89-year-old female with a past medical history significant for HLD, COPD, hypothyroid, vertigo, history RI, PMR, HTN and type 2 diabetes, who presented to the ED due to he witnessed fall due to dizziness and weakness. Imaging consistent with R conminuted tibia fracture, ED provider discussed with ortho who suggested admission to medicine tibia fracture - ortho consult - pain management - splint - elevate leg fall secondary to dizziness - orthostatics deferred due to tibia fx - echo - tele - cardiology consult - hold lyrica abnormal UA, asympotmatic - given ceftriaxone in ED, hold further abx pending culture - f/u outpt for repeat UA due to microscopic hematuria HLD - no meds moderate COPD, no acute exacerbation - continue home inhalers hypothyroid - levothyroxine HTN - nomotensive, no home meds T2DM - hold metformin and jardiance - SSI - diabetic diet full code VTE prophy: heparin Pt with tibia fx from dizziness and fall, requiring admission for at least 2 midnights stay for further evaluation and specialist consultations. Quality Stroke Does the patient have a stroke diagnosis?: No VTE Prior VTE?: No VTE Risk Level:: Medical - moderate - high VTE Device Contraindication: Treatment Not Indicated VTE Drug Contraindication: N/A - Med Ordered
[2025-03-12] VITALS (7 sets, daily range): BP systolic 105–149; BP diastolic 51–76; PULSE 86–100; RESP 15–20; TEMP 36.4–37; O2SAT 96–99
[2025-03-12] MEDS: 0.9 % Sodium Chloride Flush 3 ML SYRINGE IVFLUSH ×2 (00:01→22:53)
[2025-03-12 05:09] LABS: Hematocrit 34.5 % (37.0-47.0); Hemoglobin 11.3 g/dl (12.0-16.0); Mean Corpuscular HGB Conc 32.8 g/dl (31.0-35.0); Mean Corpuscular Hemoglobin 30.7 pg (27.0-33.0); Mean Corpuscular Volume 93.8 fL (80.0-98.0); NRBC Abs Auto 0.000 X10*3/uL (0.0-0.012); NRBC Pct Auto 0.0 /100WBC (0.0-0.2); Platelet Count 180 X10*3/uL (160-400); Red Blood Count 3.68 X10*6/uL (4.20-5.50); White Blood Count 10.2 X10*3/uL (4.8-10.8)
[2025-03-12 05:24] LABS: Anion Gap 13 (12-20); Blood Urea Nitrogen 14 mg/dL (9-16); Calcium 9.0 mg/dL (8.4-10.2); Carbon Dioxide 25 mmol/L (22-29); Chloride 108 mmol/L (96-108); Creatinine Clr Calc Pharmacy 38.2; Estimated Glomerular Filt Rate > 60; Potassium 4.3 mmol/L (3.3-5.1); Sodium 142 mmol/L (135-145)
--- NOTE | 2025-03-12 07:00 | CA_ITS ---
Transthoracic Echocardiogram Patient (Last, First, Middle): Millie Corcoran L Gender: F Date of : 1935 Age: 89 Procedure Date: 03/12/2025 Procedure Type: Transthoracic Echocardiogram Location: ER Height: 160.02 cm Weight: 61.69 kg BSA: 1.64 m2 Heart Rate: bpm BP: 106 / 47 mmHg Exhibition Designer: TO Referring MD: Helena Sam PA-C [employer]: Adolfo Greene MD Symptoms: dizziness Study Quality: Fair/Contrast ECG Rhythm: Sinus Conclusions: - 1. Normal LV ejection fraction of 65-70% with mild asymmetric septal hypertrophy with suggestion of dynamic LVOT obstruction consistent with hypertrophic obstructive cardiomyopathy 2. Mild aortic regurgitation 3. Normal RV systolic pressure 4. No gross pericardial effusion Findings Procedure Information Contrast agent, definity, is being given per protocol without apparent complications. The study quality is limited by the patients inability to tolerate the test. Left Ventricle Normal left ventricular size, thickness, and systolic function. The visually estimated ejection fraction is between 65-70%. There is dynamic left ventricular outflow tract obstruction. There is systolic anterior motion of the chordae of the mitral valve. Spectral Doppler is indicative of an impaired relaxation filling pattern. E/E prime ratio is <8, consistent with normal filling pressures. Evidence suggests grade I (mild) diastolic dysfunction. There is mild septal asymmetric hypertrophy. that has mildly increased gradient across the LVOT at rest suggestive of mild obstructive physiology which worsens with Valsalva suggestive of dynamic obstructive physiology Right Ventricle Normal right ventricular cavity size and systolic function. Atria The left atrium is normal in size. There is no evidence of interatrial shunt. The right atrium is normal in size. Aortic Valve There is mild calcification of the aortic valve. There is no aortic valve stenosis. There is mild aortic valve regurgitation. Mitral Valve Likely normal mitral valve structure and function. There is no mitral valve regurgitation. There is no mitral valve stenosis. Pulmonic Valve The pulmonic valve was not well visualized. Tricuspid Valve Likely normal tricuspid valve structure and function. There is trace tricuspid valve regurgitation. The right ventricular systolic pressure is normal. The right ventricular systolic pressure is 22 mmHg. Normal right atrial pressure. There is no evidence of pulmonary hypertension. Great Vessels All visible segments of the aorta are normal in size. The pulmonary artery was not well visualized. There is no dilatation of the ascending aorta measuring 3.30 cm. Venous The inferior vena cava is normal in size and collapses greater than 50% with inspiration. Pericardium/Pleural There is no evidence of pericardial effusion. Prior Study Comparison No prior study available for comparison. Measurements 2D Linear Measurements IVSd: 0.72 0.6-0.9/0.6-1.0 cm LVIDd: 3.49 3.9-5.3/4.2-5.9 cm LVIDd Index: 2.13 2.4-3.2/2.2-3.1 cm/m2 LVIDs: 2.25 2.0-3.6 cm LVPWd: 0.79 0.7-1.1 cm LA Diam: 2.30 2.7-3.8/3.0-4.0 cm LAIDs Index: 1.40 1.5-2.3 cm/m2 LV Mass: 85.40 67-162/88-224 g LV Mass Index: 52.07 43-95/49-115 g/m2 LVOT Diam: 2.00 3.0+(-)1.3 cm 2D Systolic Function EF 4C: 62.20 >55% Mitral Valve MV Pk E: 0.45 MV PK A: 0.75 MV Decel Time: 129.00 E/A: 0.60 E'Lateral: 6.53 E'Medial: 3.70 E/E' Med: 12.20 E/E' Lat: 6.90 PHT: 38.00 MVA PHT: 5.79 Decel [place]: 3.48 Aortic Valve AoV Pk Hero: 1.48 AoV Mn Hero: 0.89 AoV VTI: 0.25 AoV Pk Grad: 9.00 Aov Mn Grad: 4.00 MANJEET Cont.VTI: 2.08 LVOT LVOT Pk Hero: 1.04 LVOT Mn Hero: 0.69 LVOT VTI: 0.16 LVOT Pk Grad: 4.00 LVOT Mn Grad: 2.00 LVOT Diam: 2.00 LVOT Area: 3.14 Diastolic Function MV Pk E: 0.45 MV Pk A: 0.75 E/A: 0.60 E'Medial: 3.70 E/E' Med: 12.20 E' Laterial: 6.53 E/E' Lat: 6.90 Tricuspid Valve TR Pk Hero: 2.20 TR Pk Grad: 19.00 RA Press: 3.00 RVSP: 22.00 Great Vessels Aorta Sinus of Valsalva: 3.05 2.0-3.5 cm Ao Asc: 3.30 2.1-3.4 cm Updated in Other Vendor System with Status of Final Adolfo Greene MD electronically signed on 03/12/2025 4:42:18 PM with status of Final
[2025-03-12 07:16] LABS: Glucose, Whole Blood 158 mg/dL (60-115)
--- NOTE | 2025-03-12 08:18 | PC.NURSE ---
report received and care assumed at 0700. RN to bedside to answer call ibarra. pt requiring information regarding when she will be getting a bed and moved upstairs. Rn provided education and was honest with the information regarding there not being a clear idea on a time frame and/or when a bed upstairs will be available. Pt verbally expressed her dissatisfaction with the thought of remaining down in the ED and asked what she could do to help expedite the process. Pt educated once again. Pt was repositioned for comfort and proper positioning for safe eating practices. Meal tray warmed per patient request and assistance provided with setting up. Call ibarra within reach
--- NOTE | 2025-03-12 08:28 | HO.PM.IMPN ---
Subjective Subjective Date of Service: 03/12/25 Interval History: f/u on fall, R tibia fracture suspected orthostatic hypotension Physical Exam Vital Signs: Vital Signs: Last Vital Signs Temp 98 F 03/12/25 07:07 Pulse 100 03/12/25 07:07 Resp 15 03/12/25 07:07 BP 130/76 03/12/25 07:07 Pulse Ox 99 03/12/25 07:07 O2 Del Method Room Air 03/12/25 07:07 BMI result Body Mass Index 24.5 Const: Other: General: AO X 3, no acute distress Resp: CTA bilateral CVS: S1,S2,RRR GI: +BS, NT, no distention Skin: No rash Neuro: motor grossly intact Psych: appropriate affect Objective Data Active Medications Acetaminophen (Acetaminophen 325 Mg Tablet) 975 mg PO Q6H PRN PRN Reason: Pain, Mild 1-3,fever,headache Calcium Carbonate (Calcium Carbonate 750 Mg Tab.Chew) 750 mg PO Q4H PRN PRN Reason: Heartburn Dextrose (Dextrose 50 % 25 Gm/50 Ml Syringe) 25 gm IVPUSH Q15M PRN; Protocol PRN Reason: per Hypoglycemia Standing Ord. Glucose (Glucose Gel 15 Gm Gel..Gram.) 15 gm PO Q15M PRN; Protocol PRN Reason: per Hypoglycemia Standing Ord. Heparin Sodium (Porcine) (Heparin Sodium,Porcine 5,000 Unit/Ml Vial) 5,000 unit SUBCUT Q12H COUNTS INCLUDE 234 BEDS AT THE [facility] Last Admin: 03/11/25 23:59 Dose: 5,000 unit Documented By: ARJUN Insulin Human Lispro (Insulin Lispro 100 Unit/Ml 3 Ml Vial) 0 unit SUBCUT QIDAS COUNTS INCLUDE 234 BEDS AT THE [facility]; Protocol Last Admin: 03/12/25 07:17 Dose: Not Given Documented By: PILAR Non-Admin Reason: [id number] Levothyroxine Sodium (Levothyroxine Sodium 50 Mcg Tablet) 50 mcg PO DAILY@0600 COUNTS INCLUDE 234 BEDS AT THE [facility] Last Admin: 03/12/25 05:37 Dose: 50 mcg Documented By: ARJUN Magnesium Hydroxide (Milk Of Magnesia 30 Ml Oral.Susp) 30 ml PO DAILY PRN PRN Reason: Constipation Melatonin (Melatonin 3 Mg Tablet) 6 mg PO BEDTIME PRN PRN Reason: Insomnia Ondansetron HCl (Ondansetron Hcl 4 Mg/2 Ml Vial) 4 mg IVPUSH Q8H PRN PRN Reason: Nausea and Vomiting Oxycodone HCl (Oxycodone Hcl Immed Release 5 Mg Tablet) 5 mg PO Q6H PRN PRN Reason: Pain, Severe (Pain Scale 7-10) Pyridoxine HCl (Pyridoxine Hcl (Vitamin B6) 50 Mg Tablet) 100 mg PO DAILY COUNTS INCLUDE 234 BEDS AT THE [facility] Sodium Chloride (0.9 % Sodium Chloride Flush 3 Ml Syringe) 3 ml IVFLUSH QSHIFT COUNTS INCLUDE 234 BEDS AT THE [facility] Last Admin: 03/12/25 00:01 Dose: 3 ml Documented By: ARJUN Tramadol HCl (Tramadol Hcl 50 Mg Tablet) 50 mg PO Q6H PRN PRN Reason: Pain, Moderate(Pain Scale 4-6) Vitamin D (Cholecalciferol (Vitamin D3) 25 Mcg Tablet) 25 mcg PO DAILY COUNTS INCLUDE 234 BEDS AT THE [facility] Labs 03/12/25 03:59 03/12/25 03:59 Labs: Laboratory Results - last 24 hr 03/11/25 03/11/25 03/12/25 16:52 19:33 03:59 MCV 93.6 93.8 MCH 31.5 30.7 MCHC 33.7 32.8 RDW 13.4 13.2 Plt Count 221 180 MPV 11.0 11.4 Immature Gran % (Auto) 0.2 Neut % (Auto) 61.6 Lymph % (Auto) 28.0 [place] % (Auto) 8.1 Eos % (Auto) 1.5 Baso % (Auto) 0.6 Lymph # (Auto) 2.3 [place] # (Auto) 0.7 Eos # (Auto) 0.1 Baso # (Auto) 0.1 Abs Immat Gran (auto) 0.02 Absolute Neuts (auto) 5.1 Absolute Nucleated RBC 0.000 0.000 Nucleated RBC % (auto) 0.0 0.0 Anion Gap 13 13 Estim Creat Clear Calc 33.9 38.2 Estimated GFR 53 > 60 POC Glucose Random Glucose 180 H 153 H Calcium 9.7 D 9.0 D Troponin I High Sens < 2.7 Urine Color Yellow Urine Appearance Clear Urine pH 6.0 Ur Specific [place] <= 1.005 Urine Protein Negative Urine Glucose (UA) Negative Urine Ketones Negative Urine Blood Trace H Urine Nitrite Negative Ur Leukocyte Esterase Trace H Urine RBC 11-20 H Urine WBC 0-5 Ur Squamous Epith Cells 0-2 Urine Bacteria 4+ Hyaline Casts 0-2 10/21/25 07:08 MCV MCH MCHC RDW Plt Count MPV Immature Gran % (Auto) Neut % (Auto) Lymph % (Auto) [place] % (Auto) Eos % (Auto) Baso % (Auto) Lymph # (Auto) [place] # (Auto) Eos # (Auto) Baso # (Auto) Abs Immat Gran (auto) Absolute Neuts (auto) Absolute Nucleated RBC Nucleated RBC % (auto) Anion Gap Estim Creat Clear Calc Estimated GFR POC Glucose 158 H Random Glucose Calcium Troponin I High Sens Urine Color Urine Appearance Urine pH Ur Specific [place] Urine Protein Urine Glucose (UA) Urine Ketones Urine Blood Urine Nitrite Ur Leukocyte Esterase Urine RBC Urine WBC Ur Squamous Epith Cells Urine Bacteria Hyaline Casts Assessment and Plan (1) Diabetes mellitus: Status: Acute (2) Fracture of tibia, closed: Status: Acute Plan 89-year-old female with a history of hyperlipidemia, COPD, hypothyroidism, vertigo, prior [place], PMR, hypertension, and type 2 diabetes presented after a witnessed fall attributed to dizziness and weakness. She denies chest pain, palpitations, or shortness of breath. No urinary symptoms reported. Right Tibia Fracture d/t fall Ortho consult Pain management as needed Splint in place, leg elevated Fall likely Secondary orthostatic drop in BP, unalble to verify at this point Orthostatics deferred due to fracture Echocardiogram and telemetry monitoring Cardiology consult noted Hold Lyrica Abnormal UA, Asymptomatic Received ceftriaxone in ED; hold further antibiotics pending culture results Outpatient follow-up for repeat UA due to microscopic hematuria Hyperlipidemia No current medications COPD (Moderate, Stable) no exacerbation Continue home inhalers Hypothyroidism Continue levothyroxine Hypertension Normotensive, no home antihypertensives Type 2 Diabetes Mellitus Hold metformin and Jardiance Initiate sliding scale insulin Diabetic diet VTE Prophylaxis Initiate heparin Code Status:?Full code Disposition: Admitted for management of right tibia fracture, pain control, and further evaluation of fall etiology. Anticipate at least a two-midnight stay for ongoing care and specialist consultations. Quality Stroke Does the patient have a stroke diagnosis?: No VTE Prior VTE?: No VTE Risk Level:: Medical - moderate - high VTE Device Contraindication: Treatment Not Indicated VTE Drug Contraindication: N/A - Med Ordered
--- NOTE | 2025-03-12 08:48 | P.CONOP_ITS ---
History of Present Illness HPI Consult date: 03/12/25 Chief complaint: Tib fib fx, dizziness Narrative: 89-year-old female with a past medical history significant for HLD, COPD, hypothyroid, vertigo, history [place], PMR, HTN and type 2 diabetes with neuropathy, admitted to the medical service after sustaining a fall. She had a witnessed fall due to dizziness and weakness. The patient reports that she has been dizzy for the past few days. She fell from standing onto her right knee and then to her side. She denies any head strike or loss of consciousness. She recently fractured a toe on her left foot and has been using a boot and feels that this contributed to her fall. She also has pain in her right ankle. She denies any recent medication changes but is no longer taking her hypertensive medications. She has been on Lyrica for years but had a recent dose adjustment few months ago. She feels that her dizziness is related to lack of hydration. She lives at home with her and uses a cane to ambulate. 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 Review of Systems 2 Review of Systems: Yes all other systems are reviewed and are negative [facility] Past Medical History Medical History Vertigo COVID-19 vaccine series completed Myocardial infarction Hx of breast cancer Polymyalgia Ankle injury Hypothyroidism Hypertension Dyslipidemia Diabetes mellitus Family History Family History Father HTN (hypertension) Mother HTN (hypertension) Diabetes Gallbladder cancer Surgical History Surgical History History of esophagogastroduodenoscopy (EGD) H/O colonoscopy H/O breast surgery Hx of appendectomy Social History Social History Are you a primary pet care assistant to a significant other at home: No Do you presently have visiting nurse or other home services: No Alcohol intake: former Patient Tobacco Use Status: Never used Tobacco e-Cigarette/Vaping Use: Never Used Substance Use Type: Other Advance Directives: Yes Advance Directives on File: Yes Advance Directives Date on File: 06/19/24 service: No Current occupational status: employed 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 Glucose (Glucose Gel 15 Gm Gel..Gram.) 15 gm PO Q15M PRN; Protocol PRN Reason: per Hypoglycemia Standing Ord. Heparin Sodium (Porcine) (Heparin Sodium,Porcine 5,000 Unit/Ml Vial) 5,000 unit SUBCUT Q12H [facility] Last Admin: 03/11/25 23:59 Dose: 5,000 unit Insulin Human Lispro (Insulin Lispro 100 Unit/Ml 3 Ml Vial) 0 unit SUBCUT QIDACHS [facility]; Protocol Last Admin: 03/12/25 07:17 Dose: Not Given Levothyroxine Sodium (Levothyroxine Sodium 50 Mcg Tablet) 50 mcg PO DAILY@0600 [facility] Last Admin: 03/12/25 05:37 Dose: 50 mcg Magnesium Hydroxide (Milk Of Magnesia 30 Ml Oral.Susp) 30 ml PO DAILY PRN PRN Reason: Constipation Melatonin (Melatonin 3 Mg Tablet) 6 mg PO BEDTIME PRN PRN Reason: Insomnia Ondansetron HCl (Ondansetron Hcl 4 Mg/2 Ml Vial) 4 mg IVPUSH Q8H PRN PRN Reason: Nausea and Vomiting Oxycodone HCl (Oxycodone Hcl Immed Release 5 Mg Tablet) 5 mg PO Q6H PRN PRN Reason: Pain, Severe (Pain Scale 7-10) Pyridoxine HCl (Pyridoxine Hcl (Vitamin B6) 50 Mg Tablet) 100 mg PO DAILY [facility] Sodium Chloride (0.9 % Sodium Chloride Flush 3 Ml Syringe) 3 ml IVFLUSH QSHIFT [facility] Last Admin: 03/12/25 00:01 Dose: 3 ml Tramadol HCl (Tramadol Hcl 50 Mg Tablet) 50 mg PO Q6H PRN PRN Reason: Pain, Moderate(Pain Scale 4-6) Vitamin D (Cholecalciferol (Vitamin D3) 25 Mcg Tablet) 25 mcg PO DAILY [facility] Home Medications ?Medication ?Instructions ?Recorded ?Confirmed ?Last Taken ?Type atorvastatin 40 mg tablet 40 mg PO DAILY 10/30/2005/23 1 Day Ago History ~06/06/24 pregabalin 25 mg capsule (Lyrica) 75 mg PO BID 3 03/12/25 1 Day Ago History ~06/06/24 levothyroxine 75 mcg tablet 75 mcg PO DAILY@0600 03/1203/12/25 Unknown History metformin 500 mg tablet,extended 500 mg PO BID 5 Unknown History release 24 hr sitagliptin phosphate 50 mg tablet 50 mg PO BID 03/12/25 Unknown History (Senait) Physical Exam 2 Vital Signs: Vital Signs: Last Vital Signs Temp 98 F 03/12/25 07:07 Pulse 100 03/12/25 07:07 Resp 15 03/12/25 07:07 BP 130/76 03/12/25 07:07 Pulse Ox 99 03/12/25 07:07 O2 Del Method Room Air 03/12/25 07:07 BMI result Body Mass Index 24.5 Const: General: cooperative and no acute distress O rientation/consciousness: patient oriented x3 Resp: Effort & Inspection: normal respiratory effort and able to speak in complete sentences Cardio: Peripheral pulses: Peripheral pulses 2+ throughout Neuro: General: patient oriented x3 Extrem: Other: Right knee swelling noted with tenderness over the proximal tibia. She has surrounding ecchymosis. She is able to plantar and dorsi flex the foot and ankle, NVI. She does have discoloration of both lower extremities which she states is chronic from an old illness Results Labs 03/12/25 03:59 03/12/25 03:59 Labs: Abnormal lab results 03/11/25 03/11/25 03/12/25 Range/Units 16:52 19:33 03:59 RBC 3.68 L (4.20-5.50) X10*6/uL Hgb 11.3 L (12.0-16.0) g/dl Hct 34.5 L (37.0-47.0) % POC Glucose (60-115) mg/dL Random Glucose 180 H 153 H (60-115) mg/dL Urine Blood Trace H (Negative) Ur Leukocyte Esterase Trace H (Negative) Urine RBC 11-20 H (0-2) /HPF 03/12/25 Range/Units 07:08 RBC (4.20-5.50) X10*6/uL Hgb (12.0-16.0) g/dl Hct (37.0-47.0) % POC Glucose 158 H (60-115) mg/dL Random Glucose (60-115) mg/dL Urine Blood (Negative) Ur Leukocyte Esterase (Negative) Urine RBC (0-2) /HPF H & H 03/11/25 03/12/25 Range/Units 16:52 03:59 Hgb 13.4 D 11.3 L (12.0-16.0) g/dl Hct 39.8 D 34.5 L (37.0-47.0) % All other labs normal. Diagnostic results Knee x-ray: report reviewed (IMPRESSION: 1. Possibly aggressive bony lesion along the anterior aspect of the proximal tibia, osteomyelitis is suspected.. There is no periosteal reaction noted. Consider CT, MRI or three-phase bone scan. 2. Adjacent soft tissue edema and suspected soft tissue emphysema along the proximal tibia) Knee CT: report reviewed (IMPRESSION: 1. Comminuted mildly displaced fracture of the anterior aspect of the proximal tibia extending into the tibial tuberosity and anterior aspect of the joint space. There is associated soft tissue edema/fullness along the fracture margins which raises suspicion for hematoma which may rep) Assessment and Plan (1) Fracture of tibia, closed: Status: Acute Plan I discussed with the patient the extent of her injury along with the options available. This is a fracture which is minimally displaced and can often be treated NWB x12 weeks. Dr Swartz was also available to meet with the patient and her spouse at bedside. We discussed surgical intervention would be ideal if the fracture was displaced to the extent the fracture would have poor chance of healing or the joint space was compromised. The patient will remain NWB with the knee immobilizer, No bending the knee as the fractue extends into the tibial tubercle. She will require assistance with daily activities and transport. We discussed she may need STR to help with her daily needs. She does express understanding. She will f/u with our office in 10 days for f/u with xrays. Procedures Date of Service Date of Service: 03/12/25
--- NOTE | 2025-03-12 09:55 | PC.NURSE ---
Pt report 8/10 pain to the right foot that she describes as Burning in nature. RN offered PRN oxycodone for pain but she declined stating she didn't like the way they make her feel, tramadol and tylenol ordered as well but she declined those also for pain.... no pain medications provided at this time
--- NOTE | 2025-03-12 12:17 | PM.CNCAR ---
History of Present Illness History of Present Illness Date of Service: 03/12/25 Requesting physician: Zia Yancey Consult reason: other (Dizziness) Chief complaint: Tib fib fx, dizziness Narrative: I was consulted to see this patient because she came in with fall related to and after dizziness leading to injury to her right lower extremity with fracture of her tibia and fibula. Currently being evaluated by orthopedics. Patient in the recent past has been getting increasingly dizzy and has had multiple falls 1 leading to a clavicular fracture and 1 leading to left metatarsal fracture. Patient says that when she is upright she gets suddenly dizzy/lightheadedness and then can not balance herself and falls down. Patient has not actually lost consciousness in any of these episodes. She denies any chest pain or shortness of breath with this episodes. Denies any rapid heart rate or palpitations. Unfortunately orthostatic vitals could not be performed because of her right lower extremity injury at this time. She has remained stable overall with blood pressure the normal range and no arrhythmias noted overnight. 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 She has no other major cardiovascular history in the past. EKGs shows no acute changes. Troponin was within normal limits Review of Systems Constitutional: Constitutional: Reports frequent falls Eyes: Eyes: Reports no additional eye complaints Cardiovascular: Cardiovascular: Denies chest pain, Denies rapid heart rate, Reports lightheadedness, Denies Loss of Consciousness and Denies dyspnea Respiratory: Respiratory: Denies no additional respiratory complaints and Denies dyspnea Gastrointestinal: Gastrointestinal: Denies no additional gastrointestinal complaints Genitourinary: Genitourinary: Denies no additional female genitourinary complaints Musculoskeletal: Musculoskeletal: Denies no additional musculoskeletal complaints Neurologic: Denies system reviewed and no additional complaints, except as documented and Reports frequent falls [facility] Past Medical History Medical History Vertigo COVID-19 vaccine series completed Myocardial infarction Hx of breast cancer Polymyalgia Ankle injury Hypothyroidism Hypertension Dyslipidemia Diabetes mellitus Family History Family History Father HTN (hypertension) Mother HTN (hypertension) Diabetes Gallbladder cancer Surgical History Surgical History History of esophagogastroduodenoscopy (EGD) H/O colonoscopy H/O breast surgery Hx of appendectomy Social History Social History Are you a primary managed care analyst to a significant other at home: No Do you presently have visiting nurse or other home services: No Alcohol intake: former Patient Tobacco Use Status: Never used Tobacco e-Cigarette/Vaping Use: Never Used Substance Use Type: Other Advance Directives: Yes Advance Directives on File: Yes Advance Directives Date on File: 06/19/24 Current occupational status: employed 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 Glucose (Glucose Gel 15 Gm Gel..Gram.) 15 gm PO Q15M PRN; Protocol PRN Reason: per Hypoglycemia Standing Ord. Heparin Sodium (Porcine) (Heparin Sodium,Porcine 5,000 Unit/Ml Vial) 5,000 unit SUBCUT Q12H [facility] Last Admin: 03/11/25 23:59 Dose: 5,000 unit Insulin Human Lispro (Insulin Lispro 100 Unit/Ml 3 Ml Vial) 0 unit SUBCUT QIDACHS [facility]; Protocol Last Admin: 03/12/25 07:17 Dose: Not Given Levothyroxine Sodium (Levothyroxine Sodium 50 Mcg Tablet) 50 mcg PO DAILY@0600 [facility] Last Admin: 03/12/25 05:37 Dose: 50 mcg Magnesium Hydroxide (Milk Of Magnesia 30 Ml Oral.Susp) 30 ml PO DAILY PRN PRN Reason: Constipation Melatonin (Melatonin 3 Mg Tablet) 6 mg PO BEDTIME PRN PRN Reason: Insomnia Ondansetron HCl (Ondansetron Hcl 4 Mg/2 Ml Vial) 4 mg IVPUSH Q8H PRN PRN Reason: Nausea and Vomiting Oxycodone HCl (Oxycodone Hcl Immed Release 5 Mg Tablet) 5 mg PO Q6H PRN PRN Reason: Pain, Severe (Pain Scale 7-10) Pyridoxine HCl (Pyridoxine Hcl (Vitamin B6) 50 Mg Tablet) 100 mg PO DAILY [facility] Last Admin: 03/12/25 09:06 Dose: 100 mg Sodium Chloride (0.9 % Sodium Chloride Flush 3 Ml Syringe) 3 ml IVFLUSH QSHIFT [facility] Last Admin: 03/12/25 09:08 Dose: Not Given Tramadol HCl (Tramadol Hcl 50 Mg Tablet) 50 mg PO Q6H PRN PRN Reason: Pain, Moderate(Pain Scale 4-6) Last Admin: 03/12/25 11:46 Dose: 50 mg Vitamin D (Cholecalciferol (Vitamin D3) 25 Mcg Tablet) 25 mcg PO DAILY [facility] Last Admin: 03/12/25 09:06 Dose: 25 mcg Home Medications ?Medication ?Instructions ?Recorded ?Confirmed ?Last Taken ?Type atorvastatin 40 mg tablet 40 mg PO DAILY 10/30/20 06/07/24 1 Day Ago History ~06/06/24 pregabalin 25 mg capsule (Lyrica) 50 mg PO DAILY 01/06/23 06/07/24 1 Day Ago History ~06/06/24 levothyroxine 75 mcg tablet 75 mcg PO DAILY@0600 03/12/25 03/12/25 Unknown History metformin 500 mg tablet,extended 500 mg PO BID 03/12/25 Unknown History release 24 hr sitagliptin phosphate 50 mg tablet 50 mg PO BID 03/12/25 03/12/25 Unknown History (Senait) Physical Exam Vital Signs: Vital Signs: Last Vital Signs Temp 98 F 03/12/25 07:07 Pulse 100 03/12/25 07:07 Resp 15 03/12/25 07:07 BP 130/76 03/12/25 07:07 Pulse Ox 99 03/12/25 07:07 O2 Del Method Room Air 03/12/25 07:07 BMI result Body Mass Index 24.5 Const: General: cooperative, comfortable, no acute distress, alert and awake Nutritional Appearance: average body habitus Orientation/consciousness: patient oriented x3 Limitations: no limitations HEENT: Head: Yes normocephalic and Yes atraumatic Neck: Neck: Yes trachea midline, Yes supple and Yes no JVD Resp: Effort & Inspection: normal respiratory effort Auscultation: clear to auscultation bilaterally Cardio: Jugular venous distension: no JVD Rate: regular rate Rhythm: regular rhythm Heart sounds: S1 normal heart sound present, S2 normal heart sound present, no click, no gallops, no murmurs and no rubs GI: Auscultation: normal bowel sounds Skin: General skin exam: no rashes or lesions noted Neuro: General: patient oriented x3 and no focal motor deficits Extrem: General: Yes no clubbing, cyanosis or edema Objective Labs and Meds 03/12/25 03:59 03/12/25 03:59 Lab results: Laboratory Results - last 24 hr 03/11/25 03/11/25 03/12/25 16:52 19:33 03:59 WBC 8.3 10.2 RBC 4.25 D 3.68 L Hgb 13.4 D 11.3 L Hct 39.8 D 34.5 L MCV 93.6 93.8 MCH 31.5 30.7 MCHC 33.7 32.8 RDW 13.4 13.2 Plt Count 221 180 MPV 11.0 11.4 Immature Gran % (Auto) 0.2 Neut % (Auto) 61.6 Lymph % (Auto) 28.0 [place] % (Auto) 8.1 Eos % (Auto) 1.5 Baso % (Auto) 0.6 Lymph # (Auto) 2.3 [place] # (Auto) 0.7 Eos # (Auto) 0.1 Baso # (Auto) 0.1 Abs Immat Gran (auto) 0.02 Absolute Neuts (auto) 5.1 Absolute Nucleated RBC 0.000 0.000 Nucleated RBC % (auto) 0.0 0.0 Sodium 135 142 Potassium 4.2 D 4.3 Chloride 100 108 Carbon Dioxide 26 25 Anion Gap 13 13 BUN 15 14 Creatinine 0.99 0.88 Estim Creat Clear Calc 33.9 38.2 Estimated GFR 53 > 60 POC Glucose Random Glucose 180 H 153 H Calcium 9.7 D 9.0 D Troponin I High Sens < 2.7 Urine Color Yellow Urine Appearance Clear Urine pH 6.0 Ur Specific [place] <= 1.005 Urine Protein Negative Urine Glucose (UA) Negative Urine Ketones Negative Urine Blood Trace H Urine Nitrite Negative Ur Leukocyte Esterase Trace H Urine RBC 11-20 H Urine WBC 0-5 Ur Squamous Epith Cells 0-2 Urine Bacteria 4+ Hyaline Casts 0-2 03/12/25 07:08 WBC RBC Hgb Hct MCV MCH MCHC RDW Plt Count MPV Immature Gran % (Auto) Neut % (Auto) Lymph % (Auto) [place] % (Auto) Eos % (Auto) Baso % (Auto) Lymph # (Auto) [place] # (Auto) Eos # (Auto) Baso # (Auto) Abs Immat Gran (auto) Absolute Neuts (auto) Absolute Nucleated RBC Nucleated RBC % (auto) Sodium Potassium Chloride Carbon Dioxide Anion Gap BUN Creatinine Estim Creat Clear Calc Estimated GFR POC Glucose 158 H Random Glucose Calcium Troponin I High Sens Urine Color Urine Appearance Urine pH Ur Specific [place] Urine Protein Urine Glucose (UA) Urine Ketones Urine Blood Urine Nitrite Ur Leukocyte Esterase Urine RBC Urine WBC Ur Squamous Epith Cells Urine Bacteria Hyaline Casts Assessment and Plan (1) Dizziness: Status: Acute Patient with dizziness which is suggestive of orthostatic hypotension although this can not be verified at this point time as orthostatic vitals are difficult to obtain at this point in time. This might be contributed by her relative dehydration and hypovolemia. I have advised her to increase hydration therapy. Advised to seek sitting or supine position when she gets dizzy. The no evidence of cardiac arrhythmias or acute cardiac ischemia or heart failure. Would suggest an echocardiogram however to evaluate for cardiac function and structure. 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 If she needs to undergo orthopedic surgery, she is currently optimized to undergo procedure with intermediate risk for perioperative cardiovascular morbidity mortality based on her age. Will sign of the case. Thank you for allowing me to partake in her care Procedures Date of Service Date of Service: 03/12/25
--- NOTE | 2025-03-12 12:26 | MHC.CM.PN ---
IMM 03/12/25, Pt. lives with her , she has a private care specialist, she has used [facility] in the past, is not currently. For DME, she uses a cane. Pt. was at [facility] for STR in the past, and said it was terrible. Pt. to arrange transport home at [place], DCP: home with services. CM to follow for DC needs.
[2025-03-12 13:22] LABS: Glucose, Whole Blood 168 mg/dL (60-115)
--- NOTE | 2025-03-12 14:12 | PC.NURSE ---
Dr. Swartz here for pt consult
--- NOTE | 2025-03-12 14:54 | HO.NURTONUR ---
Pt here since 1649 yesterday s/p mechanical fall at home w/ no loc. Pt had been c/o gen weakness for a few dayx, now w/ tibia fx and UTI. Pt is currently in knee immobolizer w/ plans for surgery per Dr. Swartz. Pt had c/o 8 pain ealier, but was skeptical of oxycodone, so medicated w/ tramadol w/ good effect. Pt takes pills whole without diff, and is currently on purewick. Pt is also has hx of niddm, but refuses sliding insulin. She also endorses poor po intake but states this is baseline.
--- NOTE | 2025-03-12 16:10 | MHC.EDTECH ---
500mL of yellow urine emptied from suction canister
[2025-03-12 17:04] LABS: Glucose, Whole Blood 183 mg/dL (60-115)
[2025-03-12 20:08] LABS: Glucose, Whole Blood 163 mg/dL (60-115)
[2025-03-13] VITALS: BP 117/56; PULSE 90; RESP 16; TEMP 36.2; O2SAT 96
[2025-03-13 02:59] VITALS: BP 143/65; PULSE 91; RESP 18; TEMP 36.5; O2SAT 94
[2025-03-13 07:07] LABS: Glucose, Whole Blood 174 mg/dL (60-115)
[2025-03-13 07:19] LABS: Hematocrit 27.8 % (37.0-47.0); Hemoglobin 9.4 g/dl (12.0-16.0); Mean Corpuscular HGB Conc 33.8 g/dl (31.0-35.0); Mean Corpuscular Hemoglobin 31.1 pg (27.0-33.0); Mean Corpuscular Volume 92.1 fL (80.0-98.0); NRBC Abs Auto 0.000 X10*3/uL (0.0-0.012); NRBC Pct Auto 0.0 /100WBC (0.0-0.2); Platelet Count 157 X10*3/uL (160-400); Red Blood Count 3.02 X10*6/uL (4.20-5.50); White Blood Count 9.0 X10*3/uL (4.8-10.8)
[2025-03-13 07:21] VITALS: BP 125/59; PULSE 95; RESP 16; TEMP 36.8; O2SAT 97
[2025-03-13 07:30] LABS: Anion Gap 11 (12-20); Blood Urea Nitrogen 19 mg/dL (9-16); Calcium 8.7 mg/dL (8.4-10.2); Carbon Dioxide 26 mmol/L (22-29); Chloride 104 mmol/L (96-108); Creatinine Clr Calc Pharmacy 41.5; Estimated Glomerular Filt Rate > 60; Potassium 4.1 mmol/L (3.3-5.1); Sodium 137 mmol/L (135-145)
--- NOTE | 2025-03-13 07:57 | P.PNIM_ITS ---
Subjective Subjective Date of Service: 03/13/25 Interval History: f/u on fall, orthostatic hypotension, and tibia fracture Physical Exam 2 Vital Signs: Vital Signs: Last Vital Signs Temp 98.2 F 03/13/25 07:21 Pulse 95 03/13/25 07:21 Resp 16 03/13/25 07:21 BP 125/59 L 03/13/25 07:21 Pulse Ox 97 03/13/25 07:21 O2 Del Method Room Air 03/13/25 07:21 BMI result Body Mass Index 24.5 Const: Other: General: AO X 3, no acute distress Resp: CTA bilateral CVS: S1,S2,RRR GI: +BS, NT, no distention Skin: No rash Neuro: motor grossly intact Psych: appropriate affect Objective Data Active Medications Acetaminophen (Acetaminophen 325 Mg Tablet) 975 mg PO Q6H PRN PRN Reason: Pain, Mild 1-3,fever,headache Calcium Carbonate (Calcium Carbonate 750 Mg Tab.Chew) 750 mg PO Q4H PRN PRN Reason: Heartburn Dextrose (Dextrose 50 % 25 Gm/50 Ml Syringe) 25 gm IVPUSH Q15M PRN; Protocol PRN Reason: per Hypoglycemia Standing Ord. Glucose (Glucose Gel 15 Gm Gel..Gram.) 15 gm PO Q15M PRN; Protocol PRN Reason: per Hypoglycemia Standing Ord. Heparin Sodium (Porcine) (Heparin Sodium,Porcine 5,000 Unit/Ml Vial) 5,000 unit SUBCUT Q12H [facility] Last Admin: 03/12/25 22:52 Dose: 5,000 unit Documented By: EDITH Insulin Human Lispro (Insulin Lispro 100 Unit/Ml 3 Ml Vial) 0 unit SUBCUT QIDACHS [facility]; Protocol Last Admin: 03/13/25 07:34 Dose: Not Given Documented By: HUSSAIN Non-Admin Reason: Patient Refused Levothyroxine Sodium (Levothyroxine Sodium 75 Mcg Tablet) 75 mcg PO DAILY@0600 [facility] Last Admin: 03/13/25 05:03 Dose: 75 mcg Documented By: EDITH Magnesium Hydroxide (Milk Of Magnesia 30 Ml Oral.Susp) 30 ml PO DAILY PRN PRN Reason: Constipation Melatonin (Melatonin 3 Mg Tablet) 6 mg PO BEDTIME PRN PRN Reason: Insomnia Ondansetron HCl (Ondansetron Hcl 4 Mg/2 Ml Vial) 4 mg IVPUSH Q8H PRN PRN Reason: Nausea and Vomiting Oxycodone HCl (Oxycodone Hcl Immed Release 5 Mg Tablet) 5 mg PO Q6H PRN PRN Reason: Pain, Severe (Pain Scale 7-10) Pyridoxine HCl (Pyridoxine Hcl (Vitamin B6) 50 Mg Tablet) 100 mg PO DAILY [facility] Last Admin: 03/12/25 09:06 Dose: 100 mg Documented By: PILAR Sodium Chloride (0.9 % Sodium Chloride Flush 3 Ml Syringe) 3 ml IVFLUSH QSHIFT [facility] Last Admin: 03/12/25 22:53 Dose: 3 ml Documented By: EDITH Tramadol HCl (Tramadol Hcl 50 Mg Tablet) 50 mg PO Q6H PRN PRN Reason: Pain, Moderate(Pain Scale 4-6) Last Admin: 03/12/25 17:46 Dose: 50 mg Documented By: HUSSAIN Vitamin D (Cholecalciferol (Vitamin D3) 25 Mcg Tablet) 25 mcg PO DAILY [facility] Last Admin: 03/12/25 09:06 Dose: 25 mcg Documented By: PILAR Labs 03/13/25 06:27 03/13/25 06:27 Labs: Laboratory Results - last 24 hr 03/12/25 03/12/25 03/12/25 13:19 17:00 20:05 MCV MCH MCHC RDW Plt Count MPV Absolute Nucleated RBC Nucleated RBC % (auto) Anion Gap Estim Creat Clear Calc Estimated GFR POC Glucose 168 H 183 H 163 H Random Glucose Calcium 03/13/25 03/13/25 06:27 07:02 MCV 92.1 MCH 31.1 MCHC 33.8 RDW 13.2 Plt Count 157 L MPV 11.4 Absolute Nucleated RBC 0.000 Nucleated RBC % (auto) 0.0 Anion Gap 11 L Estim Creat Clear Calc 41.5 Estimated GFR > 60 POC Glucose 174 H Random Glucose 180 H Calcium 8.7 Assessment and Plan (1) Diabetes mellitus: Status: Acute (2) Fracture of tibia, closed: Status: Acute Plan 89-year-old female with a history of hyperlipidemia, COPD, hypothyroidism, vertigo, prior [place], PMR, hypertension, and type 2 diabetes presented after a witnessed fall attributed to dizziness and weakness. She denies chest pain, palpitations, or shortness of breath. No urinary symptoms reported. Right Tibia Fracture d/t fall Ortho recommends conservative management with NRB x 12 weeks Pain control will ultimately need STR Suspected Orthostatic hypotension, leading to fall, can't confirm at this time, avoid hypotension Abnormal UA, Asymptomatic Received ceftriaxone in ED; hold further antibiotics pending culture results Outpatient follow-up for repeat UA due to microscopic hematuria Hyperlipidemia No current medications COPD (Moderate, Stable) no exacerbation Continue home inhalers Hypothyroidism Continue levothyroxine Hypertension Normotensive, no home antihypertensives Type 2 Diabetes Mellitus Resatart Sitagliptin continue SSI Unclear if still on Metformin, hold for now Diabetic diet VTE Prophylaxis: heparin Dispo: STR, since surgery is deffered and not ambulatory at this point Quality Stroke Does the patient have a stroke diagnosis?: No VTE Prior VTE?: No VTE Risk Level:: Medical - moderate - high VTE Device Contraindication: Treatment Not Indicated VTE Drug Contraindication: N/A - Med Ordered
[2025-03-13] MEDS: 0.9 % Sodium Chloride Flush 3 ML SYRINGE IVFLUSH ×2 (09:23→20:44)
--- NOTE | 2025-03-13 09:29 | P.PNOP_ITS ---
Subjective Subjective Date of Service: 03/13/25 Interval history: Length of stay day 1 right tibial plateau/tubercle fracture Patient is resting in bed with knee immobilizer on No overnight events Physical Exam Vital Signs: Vital Signs: Last Vital Signs Temp 98.2 F 03/13/25 07:21 Pulse 95 03/13/25 07:21 Resp 16 03/13/25 07:21 BP 125/59 L 03/13/25 07:21 Pulse Ox 97 03/13/25 07:21 O2 Del Method Room Air 03/13/25 07:21 BMI result Body Mass Index 24.5 Const: General: cooperative and no acute distress Orientation/consc iousness: patient oriented x3 Resp: Effort & Inspection: normal respiratory effort and able to speak in complete sentences Cardio: Peripheral pulses: Peripheral pulses 2+ throughout Neuro: General: patient oriented x3 Extrem: Other: Right knee swelling noted with tenderness over the proximal tibia. She has surrounding ecchymosis. She is able to plantar and dorsi flex the foot and ankle, NVI. She does have discoloration of both lower extremities which she states is chronic from an old illness Procedures Date of Service Date of Service: 03/13/25 Progress Note: A&P Assessment and plan (1) Fracture of tibia, closed: Status: Acute Assessment and Plan: Continue knee immobilizer right lower extremity, nonweightbearing no range of motion of the knee Okay to remove brace for hygiene but do not bend the knee Follow up with Orthopedics in approximately 10 days for routine x-rays. Time Spent With Patient Time: Total time managing care of this patient today ____ minutes. Quality Stroke Does the patient have a stroke diagnosis?: No VTE Prior VTE?: No VTE Risk Level:: Medical - moderate - high VTE Device Contraindication: Treatment Not Indicated VTE Drug Contraindication: N/A - Med Ordered
--- NOTE | 2025-03-13 11:01 | MHC.CM.PN ---
CM met with pt. and her to discuss DCP. PT rec STR, pt. has been to [facility] in the past for STR and it was a very bad experience. We discussed referrals to other SNF's which she is willing to go to, referrals out.
[2025-03-13 11:52] LABS: Glucose, Whole Blood 174 mg/dL (60-115)
[2025-03-13 16:00] VITALS: BP 153/83; PULSE 70; RESP 19; TEMP 36; O2SAT 94
[2025-03-13 16:54] LABS: Glucose, Whole Blood 147 mg/dL (60-115)
[2025-03-13 19:21] VITALS: BP 142/63; PULSE 93; RESP 18; TEMP 36.7; O2SAT 97
[2025-03-13 20:34] LABS: Glucose, Whole Blood 176 mg/dL (60-115)
[2025-03-14 03:20] VITALS: BP 117/57; PULSE 80; RESP 16; TEMP 36.5; O2SAT 93
[2025-03-14 05:37] LABS: Hematocrit 27.1 % (37.0-47.0); Hemoglobin 9.1 g/dl (12.0-16.0); Mean Corpuscular HGB Conc 33.6 g/dl (31.0-35.0); Mean Corpuscular Hemoglobin 31.1 pg (27.0-33.0); Mean Corpuscular Volume 92.5 fL (80.0-98.0); NRBC Abs Auto 0.000 X10*3/uL (0.0-0.012); NRBC Pct Auto 0.0 /100WBC (0.0-0.2); Platelet Count 149 X10*3/uL (160-400); Red Blood Count 2.93 X10*6/uL (4.20-5.50); White Blood Count 7.9 X10*3/uL (4.8-10.8)
[2025-03-14 05:52] LABS: Anion Gap 11 (12-20); Blood Urea Nitrogen 12 mg/dL (9-16); Calcium 8.8 mg/dL (8.4-10.2); Carbon Dioxide 24 mmol/L (22-29); Chloride 106 mmol/L (96-108); Creatinine Clr Calc Pharmacy 43.6; Estimated Glomerular Filt Rate > 60; Potassium 4.1 mmol/L (3.3-5.1); Sodium 137 mmol/L (135-145)
[2025-03-14 07:59] VITALS: BP 133/66; PULSE 84; RESP 18; TEMP 36.4; O2SAT 97
[2025-03-14 07:59] LABS: Glucose, Whole Blood 168 mg/dL (60-115)
[2025-03-14] MEDS: 0.9 % Sodium Chloride Flush 3 ML SYRINGE IVFLUSH (08:57)
--- NOTE | 2025-03-14 09:13 | P.PNIM_ITS ---
Subjective Subjective Date of Service: 03/14/25 Interval History: f/u on fall, orthostatic hypotension, and tibia/fib fracture no surgery planned for [facility] for 12 weeks Physical Exam 2 Vital Signs: Vital Signs: Last Vital Signs Temp 97.6 F 03/14/25 07:59 Pulse 84 03/14/25 07:59 Resp 18 03/14/25 07:59 BP 133/66 03/14/25 07:59 Pulse Ox 97 03/14/25 07:59 O2 Del Method Room Air 03/14/25 07:59 BMI result Body Mass Index 24.5 Const: Other: General: AO X 2, no acute distress Resp: CTA bilateral CVS: S1,S2,RRR GI: +BS, NT, no distention Skin: No rash Neuro: motor grossly intact Psych: appropriate affect Objective Data Active Medications Acetaminophen (Acetaminophen 325 Mg Tablet) 975 mg PO Q6H PRN PRN Reason: Pain, Mild 1-3,fever,headache Apixaban (Apixaban 2.5 Mg Tablet) 2.5 mg PO BID [facility] Last Admin: 03/14/25 08:57 Dose: 2.5 mg Documented By: YESEINA Calcium Carbonate (Calcium Carbonate 750 Mg Tab.Chew) 750 mg PO Q4H PRN PRN Reason: Heartburn Dextrose (Dextrose 50 % 25 Gm/50 Ml Syringe) 25 gm IVPUSH Q15M PRN; Protocol PRN Reason: per Hypoglycemia Standing Ord. Glucose (Glucose Gel 15 Gm Gel..Gram.) 15 gm PO Q15M PRN; Protocol PRN Reason: per Hypoglycemia Standing Ord. Insulin Human Lispro (Insulin Lispro 100 Unit/Ml 3 Ml Vial) 0 unit SUBCUT QIDACHS [facility]; Protocol Last Admin: 03/14/25 08:20 Dose: Not Given Documented By: YESENIA Non-Admin Reason: Patient Refused Levothyroxine Sodium (Levothyroxine Sodium 75 Mcg Tablet) 75 mcg PO DAILY@0600 [facility] Last Admin: 03/14/25 05:38 Dose: 75 mcg Documented By: KATE Magnesium Hydroxide (Milk Of Magnesia 30 Ml Oral.Susp) 30 ml PO DAILY PRN PRN Reason: Constipation Melatonin (Melatonin 3 Mg Tablet) 6 mg PO BEDTIME PRN PRN Reason: Insomnia Ondansetron HCl (Ondansetron Hcl 4 Mg/2 Ml Vial) 4 mg IVPUSH Q8H PRN PRN Reason: Nausea and Vomiting Oxycodone HCl (Oxycodone Hcl Immed Release 5 Mg Tablet) 5 mg PO Q6H PRN PRN Reason: Pain, Severe (Pain Scale 7-10) Pregabalin (Pregabalin 75 Mg Capsule) 75 mg PO BID [facility] Last Admin: 03/14/25 08:57 Dose: 75 mg Documented By: YESENIA Pyridoxine HCl (Pyridoxine Hcl (Vitamin B6) 50 Mg Tablet) 100 mg PO DAILY [facility] Last Admin: 03/14/25 08:57 Dose: 100 mg Documented By: YESENIA Sitagliptin Phosphate (Sitagliptin Phosphate 50 Mg Tablet) 50 mg PO BID [facility] Last Admin: 03/14/25 08:57 Dose: 50 mg Documented By: YESENIA Sodium Chloride (0.9 % Sodium Chloride Flush 3 Ml Syringe) 3 ml IVFLUSH QSHIFT [facility] Last Admin: 03/14/25 08:57 Dose: 3 ml Documented By: YESENIA Tramadol HCl (Tramadol Hcl 50 Mg Tablet) 50 mg PO Q6H PRN PRN Reason: Pain, Moderate(Pain Scale 4-6) Last Admin: 03/14/25 08:57 Dose: 50 mg Documented By: YESENIA Vitamin D (Cholecalciferol (Vitamin D3) 25 Mcg Tablet) 25 mcg PO DAILY [facility] Last Admin: 03/14/25 08:57 Dose: 25 mcg Documented By: YESENIA Labs 03/14/25 05:27 03/14/25 05:27 Labs: Laboratory Results - last 24 hr 03/13/25 03/13/25 03/13/25 11:47 16:45 20:23 MCV MCH MCHC RDW Plt Count MPV Absolute Nucleated RBC Nucleated RBC % (auto) Anion Gap Estim Creat Clear Calc Estimated GFR POC Glucose 174 H 147 H 176 H Random Glucose Calcium 03/14/25 03/14/25 05:27 07:32 MCV 92.5 MCH 31.1 MCHC 33.6 RDW 13.0 Plt Count 149 L MPV 11.1 Absolute Nucleated RBC 0.000 Nucleated RBC % (auto) 0.0 Anion Gap 11 L Estim Creat Clear Calc 43.6 Estimated GFR > 60 POC Glucose 168 H Random Glucose 161 H Calcium 8.8 Assessment and Plan (1) Diabetes mellitus: Status: Acute (2) Fracture of tibia, closed: Status: Acute Plan 89-year-old female with a history of hyperlipidemia, COPD, hypothyroidism, vertigo, prior [place], PMR, hypertension, and type 2 diabetes presented after a witnessed fall attributed to dizziness and weakness. She denies chest pain, palpitations, or shortness of breath. No urinary symptoms reported. Right Tibia Fracture d/t fall Ortho recommends conservative management with NRB x 12 weeks Pain control will ultimately need STR Suspected Orthostatic hypotension, leading to fall, can't confirm at this time, avoid hypotension Abnormal UA, Asymptomatic Received ceftriaxone in ED; hold further antibiotics pending culture results Outpatient follow-up for repeat UA due to microscopic hematuria Hyperlipidemia No current medications COPD (Moderate, Stable) no exacerbation Continue home inhalers Hypothyroidism Continue levothyroxine Hypertension Normotensive, no home antihypertensives Type 2 Diabetes Mellitus Resatart Sitagliptin continue SSI Unclear if still on Metformin, hold for now Diabetic diet VTE Prophylaxis: heparin Dispo: STR, since surgery is deffered and not ambulatory at this point Quality Stroke Does the patient have a stroke diagnosis?: No VTE Prior VTE?: No VTE Risk Level:: Medical - moderate - high VTE Device Contraindication: Treatment Not Indicated VTE Drug Contraindication: N/A - Med Ordered
[2025-03-14 11:30] LABS: Glucose, Whole Blood 133 mg/dL (60-115)
--- NOTE | 2025-03-14 13:27 | PM.DS ---
DS: Providers Provider Date of Service: 03/14/25 Date of admission: 03/11/25 22:09 Date of discharge: 03/14/25 Primary care physician: Roro Wilson MD Consults: 03/11/25 23:10 Consult to Orthopedics Routine Consulting Provider: Avery Swartz Reason for consultation: tib fx, pt known to you 03/11/25 23:32 Consult to Cardiology Routine Consulting Provider: [facility] Reason for consultation: dizziness, fall DS: Diagnosis Discharge Diagnosis (1) Diabetes mellitus: Status: Acute (2) Fracture of tibia, closed: Status: Acute DS: Summary Hospital Course Hospital Course: HPI 89-year-old female with a history of hyperlipidemia, COPD, hypothyroidism, vertigo, prior [place], polymyalgia rheumatica (PMR), hypertension, and type 2 diabetes presented after a witnessed fall at home. The fall was attributed to dizziness and weakness, possibly related to dehydration and recent use of a walking boot for a left toe fracture. She landed on her right knee and side, with no head strike or loss of consciousness. She reported 5/10 right knee pain, worse with movement, and some right ankle pain. She denied chest pain, shortness of breath, nausea, vomiting, abdominal pain, or urinary symptoms. No recent medication changes except discontinuation of antihypertensives. Hospital Course: Right Tibia Fracture: Sustained a right tibial fracture due to the fall. Orthopedics recommended conservative management with non?weight bearing (NWB) for 12 weeks. Pain was managed with analgesics. She is not ambulatory at this time and will require subacute rehab for further management and physical therapy. Orthostatic Hypotension: Suspected as a contributing factor to her fall, though not definitively confirmed. Efforts were made to avoid hypotension during hospitalization. Abnormal Urinalysis: UA was abnormal with microscopic hematuria but the patient remained asymptomatic. She received a single dose of ceftriaxone in the ED; no further antibiotics were given pending culture results. Urine culture is negative Hyperlipidemia: No current lipid-lowering therapy. COPD (Moderate, Stable): No evidence of exacerbation. Continued home inhalers. Hypothyroidism: Continued home levothyroxine. Hypertension: Remained normotensive off antihypertensive medications during admission. Type 2 Diabetes Mellitus: Sitagliptin was restarted. Sliding scale insulin continued. Metformin held for now due to unclear home use. Diabetic diet maintained. VTE Prophylaxis: eliquis Condition at Discharge: Stable, non-ambulatory, pain controlled, appropriate for transfer to subacute rehab. Time Attestation Discharge Coordination Time (in mins): 45 Quality: Safe Use of Opioids Does Pt have an Active Cancer Diagnosis on the Problem List?: No Quality: Stroke Does the patient have a stroke diagnosis?: No Physical Exam Vital Signs: Vital Signs: Last Vital Signs Temp 97.6 F 03/14/25 07:59 Pulse 84 03/14/25 07:59 Resp 18 03/14/25 07:59 BP 133/66 03/14/25 07:59 Pulse Ox 97 03/14/25 07:59 O2 Del Method Room Air 03/14/25 07:59 BMI result Body Mass Index 24.5 DS: Data Data Completed and Pending Labs on day of discharge: Laboratory Results - last 24 hr 03/13/25 03/13/25 03/14/25 16:45 20:23 05:27 WBC 7.9 RBC 2.93 L Hgb 9.1 L Hct 27.1 L MCV 92.5 MCH 31.1 MCHC 33.6 RDW 13.0 Plt Count 149 L MPV 11.1 Absolute Nucleated RBC 0.000 Nucleated RBC % (auto) 0.0 Sodium 137 Potassium 4.1 Chloride 106 Carbon Dioxide 24 Anion Gap 11 L BUN 12 Creatinine 0.77 Estim Creat Clear Calc 43.6 Estimated GFR > 60 POC Glucose 147 H 176 H Random Glucose 161 H Calcium 8.8 03/14/25 03/14/25 07:32 11:25 WBC RBC Hgb Hct MCV MCH MCHC RDW Plt Count MPV Absolute Nucleated RBC Nucleated RBC % (auto) Sodium Potassium Chloride Carbon Dioxide Anion Gap BUN Creatinine Estim Creat Clear Calc Estimated GFR POC Glucose 168 H 133 H Random Glucose Calcium Discharge Plan Discharge Anticipated Discharge Date/Time: 03/14/25 13:08 Patient Disposition: Xfer SNF Discharge Diagnosis: Tibia fracture Referrals: Dinorah Guillermo [Outside] - 1 Week Melany Buckner PA-C [Physician Lead Javascript Developer, Orthopedics] - 1 Week Referral Note: 03/25/25 08:45 [facility] Melany Buckner PA-C Santiago, Yarima Sol, MD [Primary Care Provider, Internal Medicine] - 1 Week Discharge Medications: New acetaminophen 325 mg Tablet 650 mg PO Q6H PRN (Reason: Pain, Mild 1-3,Fever,Headache) Qty: 60 0RF oxycodone 5 mg Tablet 5 mg PO Q6H PRN (Reason: Pain, Severe (Pain Scale 7-10)) Qty: 20 0RF Rx Instructions: Partial Fill upon patient request. Eliquis 2.5 mg Tablet 2.5 mg PO BID Qty: 60 0RF Continued levothyroxine 75 mcg Tablet 75 mcg PO DAILY@0600 metformin 500 mg Tablet Extended Release 24 Hr 500 mg PO BID Januvia 50 mg Tablet 50 mg PO BID atorvastatin 40 mg tablet 40 mg PO DAILY pregabalin [Lyrica] 25 mg capsule 75 mg PO BID Discharge Orders: Discharge Order (Routine); Ordered 03/14/25 Ordered By: Zia Cuevas Diet: Advance to usual diet Activity on Discharge: As tolerated Stand Alone Forms: Patient Portal Discharge page Print Language: Sinhala Care Plan Goals: recovery from tibia fracture Health Concerns: tibia fracture Plan of Treatment: to rehab [facility] for 12 weeks follow up with Ortho (Dr. Swartz) Oxycodone for pain, along with tylenol eliquis for DVT prevention Assessment: see above
[2025-03-14 15:14] VITALS: BP 130/64; PULSE 82; RESP 18; TEMP 36; O2SAT 97
== END 2025-03-14 15:43 | disposition skilled nursing facility (03) | DRG 563 ==
LOC: HO.ED 17:11 → HO.EDOVER 22:11 → HO.IMC 03-12 14:35 → HO.S3 03-13 14:00
PROVIDERS: Hospitalist; Admitting Provider Physician Assistant; Emergency Provider Emergency Medicine Emergency Medical Services; PCP Internal Medicine; Visit Provider Internal Medicine
DX: S82.151A Displaced fracture of right tibial tuberosity, initial encounter for closed fracture (principal); E03.9 Hypothyroidism, unspecified; E11.42 Type 2 diabetes mellitus with diabetic polyneuropathy; M35.3 Polymyalgia rheumatica; I95.1 Orthostatic hypotension; E78.5 Hyperlipidemia, unspecified; R31.21 Asymptomatic microscopic hematuria; J44.9 Chronic obstructive pulmonary disease, unspecified; I10 Essential (primary) hypertension; W19.XXXA Unspecified fall, initial encounter; Z79.84 Long term (current) use of oral hypoglycemic drugs; Z79.890 Hormone replacement therapy; Z79.899 Other long term (current) drug therapy
CPT/HCPCS: 36415; 70450; 73502; 73562; 73590; 73700; 80048; 81001; 82947; 84484; 85025; 85027; 93005; 93306; 97162; 97167; 99285; J0696; J1644

== ENCOUNTER → 2025-03-11 16:40 | Outpatient (BNV) | payer MEDICARE, SELFPAY | PROVIDERS: Emergency Provider Emergency Medicine Emergency Medical Services; PCP Internal Medicine; Visit Provider Radiology Diagnostic Radiology | DX: S82.151A Displaced fracture of right tibial tuberosity, initial encounter for closed fracture (principal); R42 Dizziness and giddiness; M25.551 Pain in right hip; M11.261 Other chondrocalcinosis, right knee; M79.661 Pain in right lower leg | CPT/HCPCS: 73700 ==

== ENCOUNTER 2025-03-11 22:09 | Outpatient (BNV) | payer MEDICARE, SELFPAY | END 2025-03-12 07:00 | PROVIDERS: Admitting Provider Physician Assistant; Emergency Provider Emergency Medicine Emergency Medical Services; PCP Internal Medicine; Visit Provider Internal Medicine Cardiovascular Disease | DX: I42.1 Obstructive hypertrophic cardiomyopathy (principal); I35.1 Nonrheumatic aortic (valve) insufficiency | CPT/HCPCS: 93306 ==

== ENCOUNTER → 2025-03-11 22:09 | Outpatient (BNV) | payer MEDICARE, SELFPAY | PROVIDERS: Admitting Provider Physician Assistant; Emergency Provider Emergency Medicine Emergency Medical Services; PCP Internal Medicine; Visit Provider Internal Medicine Cardiovascular Disease | DX: R42 Dizziness and giddiness (principal) | CPT/HCPCS: 93010; 99222 ==

== ENCOUNTER → 2025-03-11 22:09 | Outpatient (BNV) | payer MEDICARE, SELFPAY | PROVIDERS: Admitting Provider Physician Assistant; Emergency Provider Emergency Medicine Emergency Medical Services; PCP Internal Medicine; Visit Provider Internal Medicine | DX: E11.9 Type 2 diabetes mellitus without complications (principal); S82.209A Unspecified fracture of shaft of unspecified tibia, initial encounter for closed fracture | CPT/HCPCS: 99223; 99232; 99239 ==

== ENCOUNTER → 2025-03-11 22:09 | Outpatient (BNV) | payer MEDICARE, SELFPAY | PROVIDERS: Admitting Provider Physician Assistant; Emergency Provider Emergency Medicine Emergency Medical Services; PCP Internal Medicine; Visit Provider Physician Assistant | DX: S82.201A Unspecified fracture of shaft of right tibia, initial encounter for closed fracture (principal) | CPT/HCPCS: 99222; 99231 ==

== ENCOUNTER 2025-03-25 08:38 | Outpatient (AMB) | payer MEDICARE, SELFPAY ==
--- NOTE | 2025-03-25 08:44 | MHC.OFFVIS ---
Intake Visit Reasons: Right tibial tubercle/plateau fracture Intake Note: Millie is an 89 year old female who presents today for an ER follow up to evaluate her right tibial plateau/tubercle fracture. Patient presented to [facility] ER on 03/11/25 status post fall. X-rays were performed and she was placed in a knee immobilizer. She was discharged to [facility]. Today patient reports that she has been being very careful and applying no weight bear to her right leg. Current pain level is a 2.5 out of 10. States finds relief with pain medication that was prescirbed. Allergies gabapentin Allergy (Severe, Verified 03/25/25 09:07) Rash chloroquine (CHLOROQUINE) Allergy (Mild, Verified 03/25/25 09:07) RASH Medication List - Last Reviewed 03/25/25 by DORITA Walker acetaminophen 650 mg (2 x 325 mg) PO Q6H PRN apixaban (Eliquis) 2.5 mg PO BID atorvastatin 40 mg PO DAILY levothyroxine 75 mcg PO DAILY@0600 metformin ER 500 mg PO BID pregabalin (Lyrica) 75 mg PO BID sitagliptin phosphate (Januvia) 50 mg PO BID tramadol 50 mg PO Q6H PRN HPI HPI Right tibial tubercle/plateau fracture: Details: 89-year-old female presents to the office today for an injury she sustained to her right knee on 02/2025. She sustained a fall which resulted in a right tibial tubercle fracture with extension into the tibial plateau. She is currently in his short-term rehab. She has nonweightbearing in a knee immobilizer. No bending of the right knee. She has no concerns today. [facility] Medical History Vertigo COVID-19 vaccine series completed Myocardial infarction Hx of breast cancer Polymyalgia Ankle injury Hypothyroidism Hypertension Dyslipidemia Diabetes mellitus Surgical History History of esophagogastroduodenoscopy (EGD) H/O colonoscopy H/O breast surgery Hx of appendectomy Family History Father HTN (hypertension) Mother HTN (hypertension) Diabetes Gallbladder cancer Social History Household Members: Spouse Housing: House Are you a primary patient centered care specialist to a significant other at home: No Do you presently have visiting nurse or other home services: No Alcohol intake: former Patient Tobacco Use Status: Never used Tobacco e-Cigarette/Vaping Use: Never Used Substance Use Type: Other Advance Directives Date on File: 06/19/24 service: No Current occupational status: employed 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 Review of Systems Const All systems reviewed & are unremarkable except as noted in HPI and below Physical Exam Vital Signs: Last Vital Signs Temp 98.2 F 03/13/25 07:21 Pulse 95 03/13/25 07:21 Resp 16 03/13/25 07:21 BP 125/59 L 03/13/25 07:21 Pulse Ox 97 03/13/25 07:21 O2 Del Method Room Air 03/13/25 07:21 BMI result Body Mass Index 24.5 Const General: cooperative and no acute distress Orientation/consciousness: patient oriented x3 Resp Effort & Inspection: normal respiratory effort and able to speak in complete sentences Cardio Peripheral pulses: Peripheral pulses 2+ throughout Neuro General: patient oriented x3 Extrem Other: Right knee improvement of swelling noted with tenderness over the proximal tibia. She is able to plantar and dorsi flex the foot and ankle, NVI. She does have discoloration of both lower extremities which she states is chronic from an old illness Office Procedures AMB Fracture Care Fracture Billing Code: Fracture Billing Code Results Reviewed Results Reviewed: X-rays of the right knee obtained in the office today show tibial tubercle fracture with extension into the tibial plateau without further displacement. Assessment & Plan Assessment & Plan (1) Fracture of tibia, closed: Code(s): S82.209A - Unspecified fracture of shaft of unspecified tibia, initial encounter for closed fracture Category: Medical Plan: Patient will continue nonweightbearing right lower extremity with a knee immobilizer. No bending of the right knee. Knee immobilizer should be on at all times for transfers. The knee immobilizer can be removed for hygiene and icing but there should be no bending of the right knee. I did explain to the patient typically 3 months for good bone healing however with poor quality of bone it may be longer. I would like to see her back in 4 weeks with repeat x-rays, sooner if needed. Orders: Orders XR knee RT 2V Today M25.569 - Pain in unspecified knee Coding Level of Care Code Global (38780) Diagnoses Fracture of tibia, closed S82.209A CPT Codes Fracture Care - Fracture Billing Code: Fracture Billing Code ([id number])
--- OUTSIDE RECORDS SUMMARY | 2025-03-25 09:04 | XMS_ITS | Encounter Summary ---
Author Organization [facility] Address [address] [place] [address] [place] [address] Phone Care Team Providers Care Data Processing Operator Name Role Phone Roro Wilson MD Primary Care Provider [phone] Pancho Fallon MD Unavailable [phone] Encounter Details Date Type Department Care Team (Late st Contact Info) Description 07/05/2023 Procedure Pass [facility], [address] [place] [address] Social History Tobacco Use Types Packs/Day Years [...] st Contact Info) Description 03/11/2025 Procedure Pass [address] [place] [address] 04/01/2025 3:15 PM EST Appointment [address] [place] [address] Roro Wilson MD 170 [facility], 2nd Floor DAO Morales [address] [email or web address] 04/24/2025 1:45 PM EST Office Visit [facility] [address] [place] [address] [place] [address] Roro Wilson MD [address] [place] [address] 04/29/2025 10:45 AM EST Office Visit [address] [address] Roro Wilson MD [address] [place] [address] Janice Buckner, PT [address] [place] [address] 05/07/2025 10:45 AM EST Office Visit [address] [address] Roro Wilson MD [address] [place] [address] Janice Buckner, PT [address] [place] [address] 05/14/2025 10:45 AM EST Office Visit [address] [address] Roro Wilson MD [address] [place] [address] Janice Buckner, PT [address] [place] [address] 05/21/2025 10:45 AM EST Office Visit [address] [address] Roro Wilson MD [address] [place] [address] Janice Buckner, PT [address] [place] [address] 05/28/2025 10:45 AM EST Office Visit [address] [address] Roro Wilson MD [address] [place] [address] SitaJanice, PT [address] [place] [address] 06/04/2025 10:45 AM EST Office Visit [address] [address] Roro Wilson MD [address] [place] [address] WilcoxJanice, PT [address] [place] [address] documented as of this encounter Visit Diagnoses Not on filedocumented in this encounter Additional Health Concerns Assessment Noted Time PHQ-9 Depression Total Score: 12 023 6:54 PM EDT PHQ-2 Depression Total Score: 1 02/09/20 23 9:30 AM EDT documented as of this encounter Care Teams Data Processing Operator Relationship Specialty Start Date End Date Roro Wilsno MD [address] [place] [address] PCP - General Internal Medicine 09/22/20 Pancho Fallon MD [address] [place] [address] Endocrinology 08/02/23 documented as of this encounter Additional Source Comments The information contained in this document represents components of the legal health record. It is not the complete legal health record.[facility]
--- OUTSIDE RECORDS SUMMARY | 2025-03-25 09:04 | XMS_ITS | Encounter Summary ---
Author Organization [facility] Address [address] [place] [address] Phone Care Team Providers Care Practical Nurse Clinical Coordinator Name Role Phone Roro Wilson MD Primary Care Provider [phone] Pancho Fallon MD Unavailable [phone] Encounter Details Date Type Department Care Team (Late st Contact Info) Description 03/12/2025 Orders Only [facility] [address] [place] [address] Provider, MD Radha [address] [place] [address] Social History Tobacco Use Types Packs/Day Years [...] st Contact Info) Description 03/11/2025 Procedure Pass [address] [place] [address] 04/01/2025 3:15 PM EST Appointment [address] [place] [address] Roro Wilson MD [address] [place] [address], [address] [place] [address] 04/24/2025 1:45 PM EST Office Visit [facility] [address] [place] [address] [place] [address] Roro Wilson MD [address] [place] [address], [address] [place] [address] [email or web address] 04/29/2025 10:45 AM EST Office Visit [facility] [address] [place] [address] Roro Wilson MD [address] [place] [address], [address] [place] [address] Janice Buckner, PT [address] [place] [address] [email or web address] 05/07/2025 10:45 AM EST Office Visit [address] [address] Roro Wilson MD [address] [place] [address], [address] [place] [address] Janice Buckner, PT [address] [place] [address] [email or web address] 05/14/2025 10:45 AM EST Office Visit [address] [address] Roro Wilson MD [address] [place] [address] Janice Buckner, PT [address] [place] [address] [email or web address] 05/21/2025 10:45 AM EST Office Visit [address] [address] Roro Wilson MD [address] [place] [address], [address] [place] [address] Janice Buckner, PT [address] [place] [address] [email or web address] 05/28/2025 10:45 AM EST Office Visit [address] [address] Roro Wilson MD 170 [facility], 2[address] [place] [address] [email or web address] Janice Buckner, PT 380 [facility] [place] [address] [email or web address] 06/04/2025 10:45 AM EST Office Visit [facility] [address] [place] [address] Roro Wilson MD 170 [facility], [address] [place] [address] [email or web address] Janice Buckner, PT [address] [place] [address] [email or web address] documented as of this encounter Procedures Procedure Name Priority Date/Time Associated Diagnosis Comments OUTSIDE IMAGING Routine 03/11/2025 12:08 PM EDT OUTSIDE IMAGING Routine 03/11/2025 12:07 PM EDT OUTSIDE IMAGING Routine 03/11/2025 12:07 PM EDT OUTSIDE IMAGING Routine 03/11/2025 12:06 PM EDT OUTSIDE IMAGING Routine 03/11/2025 12:05 PM EDT documented in this encounter Results * Outside Imaging Report Only (03/11/2025 12:08 PM EDT) Historical Provider MD ROTH XR CHEST Edited Re sult - Final * Outside Imaging Report Only (03/11/2025 12:07 PM EDT) Historical Provider MD ROTH XR CHEST Edited Re sult - Final * Outside Imaging Report Only (03/11/2025 12:07 PM EDT) Historical Provider MD ROTH XR CHEST Edited Re sult - Final * Outside Imaging Report Only (03/11/2025 12:06 PM EDT) Historical Provider MD ROTH XR CHEST Edited Re sult - Final * Outside Imaging Report Only (03/11/2025 12:05 PM EDT) us Historical Provider MD ROTH XR CHEST Edited Re sult - Final documented in this encounter Visit Diagnoses Not on filedocumented in this encounter Additional Health Concerns Assessment Noted Time PHQ-9 Depression Total Score: 12 01/13/ 023 6:54 PM EDT PHQ-2 Depression Total Score: 0 02/28/20 25 9:41 AM EDT documented as of this encounter Care Teams Practical Nurse Clinical Coordinator Relationship Specialty Start Date End Date Roro Wilson MD [address] [place] [address], 2[address] [place] [address] PCP - General Internal Medicine 09/22/20 Pancho Fallon MD [address] [place] [address] Endocrinology 08/02/23 documented as of this encounter Additional Source Comments The information contained in this document represents components of the legal health record. It is not the complete legal health record.[facility]
--- OUTSIDE RECORDS SUMMARY | 2025-03-25 09:04 | XMS_ITS | Encounter Summary ---
Author Organization [facility] Address [address] [facility] [address] [place] [address] Phone Care Team Providers Care Uc Architect Name Role Phone Roro Wilson MD Primary Care Provider [phone] Pancho Fallon MD Unavailable Reason for Visit * Reason Onset Date Comments Medication Refill 03/20/2025 Medication Prior Authorization 03/20/2025 Encounter Details Date Type Department Care Team (Late st Contact Info) Description 03/20/2025 Refill [facility] [address] [place] [address] [place] [address] Roro Wilson MD [address] [place] [address], [address] [place] [address] [email or web address] Medication Refill; Medication Prior Authorization Social History Tobacco Use Types Packs/Day Years [...] as of this encounter Progress Notes * Jess Watkins - 03/22/2025 8:44 AM EDT Faxed with confirmation. * Pamela Santana PA-C - 03/21/2025 2:36 PM EDT * Jigna Correa MA - 03/21/2025 8:26 AM EDTAddended by: JIGNA CORREA on: 03/21/2025 08:26 AM Modules accepted: Orders * Jigna Correa MA - 03/21/2025 8:26 AM EDT Rx Care Gap Status - Instructions for Clinical Staff (prescriber discretion applies): > Mismatch review guide > At least one request does not meet full criteria. Specifics below. > Labs due: Please remind patient. > No new orders needed. A1c Urine Microalbumin Visit Info Last visit: 03/08/2025 Heather Ochoa MD - Family Medicine [facility] > Requested f/u: Return if symptoms worsen or fail to improve. Upcoming visit: 04/24/2025 Roro Wilson MD - Family Medicine [facility] ACTIONS TAKEN BY Jigna Correa MA - Labs needed - Teed up orders and/or reminded pt. Diabetes Rx Protocol (on Diabetes Registry) - sitagliptin phosphate Criteria not met; renew for up to 3 months. Visit in the past 14 months: Yes Clinical criteria: - BMP within past year: Yes - A1c within past 6 months: None (has active order) - Lipid panel within past year: Yes (LDL 85 on 03/08/2025) - Urine microalbumin within past year or on RODRICK/ARB: None (has active order) Lab Results Component Value Date SODIUM 138 03/08/2025 POTASSIUM 4.1 03/08/2025 CHLORIDE 104 03/08/2025 CO2 25 03/08/2025 BUN 16 03/08/2025 CREATININE 0.70 03/08/2025 EGFR 83 03/08/2025 Lab Results Component Value Date Hemoglobin A1c 6.8 (*) 10/31/2023 HEMOGLOBIN A1C 6.7 (H) 07/02/2024 MICROALB/CRE RATIO NOT CALCULATED 10/16/2021 URINE MICROALBUMIN <1.2 10/16/2021 Lab Results Component Value Date LDL 85 03/08/2025 HDL 61 03/08/2025 CARDIAC RISK RATIO 2.9 (L) 03/08/2025 TRIGLYCERIDES 149 03/08/2025 CHOLESTEROL 176 03/08/2025 Health Maintenance Labs Due / Due Soon Topic Date Due HEMOGLOBIN A1C 12/30/2024 URINE MICROALBUMIN/CREATININE RATIO 03/23/2025 * Nidhi Madden - 03/20/2025 4:51 PM EDT Patient called in requesting refill for: SITagliptin phosphate (JANUVIA) 50 MG tablet [[id number]] Sent to: [facility] [employer] [facility] [[id number]] documented in this encounter Plan of Treatment Upcoming Encounters Date Type Department Care Team (Late st Contact Info) Description 03/11/2025 Procedure Pass [address] [place] [address] 04/01/2025 3:15 PM EST Appointment [address] [place] [address] Roro Wilson MD [address] [place] [address] [email or web address] 04/24/2025 1:45 PM EST Office Visit [facility] [address] [place] [address] [place] [address] Roro Wilson MD [address] [place] [address] [email or web address] 04/29/2025 10:45 AM EST Office Visit [facility] [address] [place] [address] Roro Wilson MD [address] [place] [address] [email or web address] Janice Buckner, PT [address] [place] [address] [email or web address] 05/07/2025 10:45 AM EST Office Visit [facility] [address] [place] [address] Roro Wilson MD [address] [place] [address] Janice Buckner, PT [address] [place] [address] [email or web address] 05/14/2025 10:45 AM EST Office Visit [address] [address] Roro Wilson MD [address] [place] [address] [email or web address] Janice Buckner, PT [address] [place] [address] [email or web address] 05/21/2025 10:45 AM EST Office Visit [address] [address] Roro Wilson MD [address] [place] [address] Janice Buckner, PT [address] [place] [address] [email or web address] 05/28/2025 10:45 AM EST Office Visit [address] [address] Roro Wilson MD [address] [place] [address] Janice Buckner, PT [address] [place] [address] [email or web address] 06/04/2025 10:45 AM EST Office Visit [address] [address] Roro Wilson MD [address] [place] [address], [address] [place] [address] Janice Buckner, PT 380 [facility] [place] [address] [email or web address] documented as of this encounter Visit Diagnoses Diagnosis Type 2 diabetes mellitus with diabetic polyneuropathy, with long-term current use of insulin documented in this encounter Additional Health Concerns Assessment Noted Time PHQ-9 Depression Total Score: 12 01/13/ 023 6:54 PM EDT PHQ-2 Depression Total Score: 0 02/28/20 25 9:41 AM EDT documented as of this encounter Care Teams Uc Architect Relationship Specialty Start Date End Date Roro Wilson MD [address] [place] [address], [address] [place] [address] PCP - General Internal Medicine 09/22/20 Pancho Fallon MD [address] [place] [address] [email or web address] Endocrinology 08/02/23 documented as of this encounter Additional Source Comments The information contained in this document represents components of the legal health record. It is not the complete legal health record.[facility]
--- OUTSIDE RECORDS SUMMARY | 2025-03-25 09:04 | XMS_ITS | Clinical Summary ---
Author Organization [address] [address] Phone Care Team Providers Care Baccarat Manager Name Role Phone No, Pcp (Do Not [...] patient's age to complete this topic [place] [address] MEDICARE [facility] MEDICARE [facility] MEDICARE [facility] [employer] GENERIC MEDICARE [facility] [employer] GENERIC MEDICARE Care Teams Baccarat Manager Relationship Specialty Start Date End Date No, Pcp (Do Not Change Name) PCP - General 11/07/20
--- OUTSIDE RECORDS SUMMARY | 2025-03-25 09:04 | XMS_ITS | Encounter Summary ---
Author Organization [facility] Address [address] [place] [address] [place] [address] Phone Care Team Providers Care Manager Equity Name Role Phone Pcp, Unknown Primary Care Provider Roro Segovia MD Primary Care Provider Marybel Salas RN Unavailable [phone] Pancho Fallon MD Unavailable Encounter Details Date Type Department Care Team (Late st Contact Info) Description 12/14/2019 Transcribe Orders [facility] Specimen Processing [address] [place] [address] Mary Rodriguez MD [address] [place] [address] Social History Tobacco Use Types Packs/Day Years [...] Contact Info) Description 03/11/2025 Procedure Pass [address] [place] [address] 04/01/2025 3:15 PM EST Appointment [address] [place] [address] Roro Wilson MD [address] [place] [address] 04/24/2025 1:45 PM EST Office Visit [facility] [address] [place], [place] [address] [address] Roro Wilson MD [address] [place] [address] 04/29/2025 10:45 AM EST Office Visit [address] [address] Roro Wilson MD [address] [place] [address] Janice Buckner, PT [address] [place] [address] 05/07/2025 10:45 AM EST Office Visit [address] [address] Roro Wilson MD [address] [place] [address] Janice Buckner, PT [address] [place] [address] 05/14/2025 10:45 AM EST Office Visit [address] [address] Roro Wilson MD [address] [place] [address] Janice Buckner, PT [address] [place] [address] 05/21/2025 10:45 AM EST Office Visit [facility] [address] [place] [address] Roro Wilson MD [address] [place] [address] Janice Buckner, PT [address] [place] [address] 05/28/2025 10:45 AM EST Office Visit [facility] [address] [place] [address] Roro Wilson MD [address] [place] [address] Janice Buckner, PT [address] [place] [address] 06/04/2025 10:45 AM EST Office Visit [facility] [address] [place] [address] Roro Wilson MD [address] [place] [address] Janice Buckner, PT [address] [place] [address] documented as of this encounter Visit Diagnoses Not on filedocumented in this encounter Care Teams Manager Equity Relationship Specialty Start Date End Date Pcp, Unknown PCP - General 12/14/19 09/21/20 Roro Wilson MD [address] [place] [address], [address] [place] [address] PCP - General Internal Medicine 09/22/20 Marybel Salas, RN [address] [place] [address] [facility] De Icer Element Winder 12/15/21 01/17/22 Pancho Fallon MD [address] [place] [address] Endocrinology 08/02/23 documented as of this encounter Additional Source Comments The information contained in this document represents components of the legal health record. It is not the complete legal health record.[facility]
--- OUTSIDE RECORDS SUMMARY | 2025-03-25 09:04 | XMS_ITS | Patient Health Record ---
Author Organization [facility] Address [address] [place] [address] Care Team Providers Care Market Asset Protection Manager Name Role Phone Roro Wilson M.D. Primary Care Provider UnaElvin Cotto Jr Unavailable [phone] Allergies Allergen (clinical drug ingredient) Drug/Non Drug [...] W/U Status Risk Notes Problem Epigastric pain (48686746) Epigastric pain (R10.13) Active confirmed Problem Altered bowel function (29194931) Change in bowel function (R19.8) Active confirmed Plan Of Treatment Future Test Test Name Order Date UPPER GI ENDOSCOPY 01/01/2021 COLONOSCOPY 01/01/2021 Insurance Providers Payer Name Payer Address Payer Phone Subscriber Number Group Number Insured Name Patient Relationship to Insured Coverage Start Date Coverage End Date MEDICARE OF [place] [address] [place] [address] [id number] ANITA ROTH Self - patient is the insured [employer] ATT[employer] CLAIMS [address] [place] [address] [id number] ANITA ROTH Self - patient is the insured Medical (General) History Medical History History ICD Code diabetes mellitus hypertension heart attack hx of breast cancer /lumpectomy fibromyalgia Polymyalgia rheumatica Surgical History Surgery Date(Month/Year) appendectomy/ at age 5 lumpectomy/ hx of breast cancer
--- OUTSIDE RECORDS SUMMARY | 2025-03-25 09:05 | XMS_ITS | Clinical Summary ---
Author Organization [facility] Address [address] [place] [address] Phone Care Team Providers Care Buffet Attendant Name Role Phone Roro Wilson MD Primary Care Provider [phone] Pancho Fallon MD Unavailable [phone] Allergies Active Allergy Reactions Criticality Noted Date Comments Chloroquine GI Upset 11/05/2020 Gabapentin Rash Low 11/05/2020 Lidocaine 06/29/2021 Medications vitamins A,C,W-hize-lxxkke (PRESERVISION AREDS) [id number] pwhp-cs-swbn Cap Take 1 capsule by mouth 2 [...] 2 (two) times a day. 180 tablet 03/21/20 25 Active SITagliptin phosphate (JANUVIA) 50 MG tabletIndications :Type 2 diabetes mellitus with diabetic polyneuropathy, with long-term current use of insulin Take 1 tablet (50 mg total) by mouth 2 (two) times a day. 180 tablet 02/21/20 25 025 Discontin ued(Reord er) SITagliptin phosphate (JANUVIA) 50 MG tabletIndications :Type 2 diabetes mellitus with diabetic polyneuropathy, with long-term current use of insulin Take 1 tablet (50 mg total) by mouth 2 (two) times a day. 180 tablet 03/08/20 25 025 Discontin ued(Reord er) Active Problems [...] PM EST): She has not heard from [facility]. She is concerned that she needs [...] again. Referral placed. Orders: Ambulatory referral to [facility] Physical Therapy Assessment & Plan (11/01/2023 [...] reviewed the imaging that was done at [facility] when she was last there. We [...] proceed with surgery if needed. Atherosclerosis of [place] co ronary artery of [place] heart without angina pectoris 12/03/2021 Assessment & [...] good control with the guidance of Dr. aFllon. Her neuropathy continues to bother her. We [...] Polymyalgia rheumatica 10/21/202005/27 Overview (11/25/2020): diagnosed at [facility] Assessment & Plan [...] Encounters Date Type Department Care Team Description 03/20/[address] [place] [address] Roro Wilson MD Medication Refill; Medication Prior Authorization 03/14/[address] [place] [address] Roro Wilson MD Hip Injury 03/12/2025 Orders Only [facility] [address] [place] [address] ProviderRadha MD 03/11/[address] [place] [address] Roro Wilson MD Results 03/08/2025 2:36 PM EDT - 03/08/2025 11:59 PM EDT Hospital Encounter [facility] [address] [place] [address] Heather Ochoa MD Discharge Disposition: Home or Self Care 03/08/2025 2:00 PM EDT Office Visit [address] [place] [address] Heather Ochoa MD Dizzy (Primary Dx); Type 2 diabetes mellitus with diabetic polyneuropathy, with long-term current use of insulin; Hypothyroidism, unspecified type 03/08/2025 Telephone [facility] [address] [place] [address] Roro Wilson MD 03/08/[address] [place] [address] Roro Wilson MD Triage ([place] + dizziness + 03/07) 02/11/[address] [place] [address] Roro Wilson MD Medication Refill; Medication Prior Authorization 02/11/[address] [place] [address] Roro Wilson MD Medication Question 02/07/[address] [place] [address] Roro Wilson MD Medication Refill 01/18/2025 1:00 PM EDT Office Visit [address] [place] [address] Roro Wilson MD Type 2 diabetes mellitus with diabetic polyneuropathy, with long-term current use of insulin (Primary Dx) 12/31/[address] [place] [address] Roro Wilson MD Medication Refill from Last 3 Months Immunizations Immunization Administration Dates Next Due COVID-19 (Pre) Moderna Vaccine, mRNA, PF 07/14/2020,06/20/2020,06/19/2020 COVID-19 (Pre) Pfizer Vaccine, mRNA, PF 07/18/2020 COVID-19 Moderna [...] st Contact Info) Description 03/11/2025 Procedure Pass [address] [place] [address] 04/01/2025 3:15 PM EST Appointment [address] [place] [address] Roro Wilson MD [facility] [place]O [place] [address] 04/24/2025 1:45 PM EST Office Visit [facility] [address] [place] [address] [place] [address] Roro Wilson MD [address] [place] [phone] [email or web address] 04/29/2025 10:45 AM EST Office Visit [address] [address] Roro Wilson MD [address] [place] [phone] [email or web address] Janice Buckner, PT [address] [place] [address] [email or web address] 05/07/2025 10:45 AM EST Office Visit [address] [address] Roro Wilson MD [address] [place] [address] [email or web address] Janice Buckner, PT [address] [place] [address] [email or web address] 05/14/2025 10:45 AM EST Office Visit [address] [address] Roro Wilson MD [address] [place] [address] [email or web address] Janice Buckner, PT [address] [place] [address] [email or web address] 05/21/2025 10:45 AM EST Office Visit [address] [address] Roro Wilson MD [address] [place] [phone] [email or web address] Janice Buckner, PT [address] [place] [address] [email or web address] 05/28/2025 10:45 AM EST Office Visit [address] [address] Roro Wilson MD [address] [place] [address], [address] [place] [address] [email or web address] Janice Buckner, PT [address] [place] [address] [email or web address] 06/04/2025 10:45 AM EST Office Visit [address] [address] Roro Wilson MD [address] [place] [address], [address] [place] [phone] [email or web address] Janice Buckner, PT [address] [place] [address] [email or web address] Health Maintenance Due Date Last Done Comments Adult Td,Tdap Booster 02/24/2015 02/24/2005 DIABETIC EYE EXAM 11/03/2023 11/02/2022, , 09/15/2021, Additional history exists INFLUENZA VACCINE (#1) 2024 , 01/21/2022, 02/21/2020, Additional history exists HEMOGLOBIN A1C 12/30/2024 07/02/2024, 11/0 05/2023, 02/28/2024, Additional history exists COVID-19 VACCINE (2024- season) 2025 02/20/2023, 02/20/2023, 02/24/2022, Additional history [...] OUTSIDE IMAGING Routine 03/11/2025 12:05 PM EDT THYROID STIMULATING HORMONE (TSH) Routine 03/08/2025 2:49 PM EDT Hypothyroidism, unspecified type LIPID PANEL Routine 03/08/2025 2:49 PM EDT Type 2 diabetes mellitus with diabetic polyneuropathy, with long-term current use of insulin BASIC METABOLIC PANEL (BMP) Routine 03/08/2025 2:49 PM EDT Type 2 [...] Recently Relevant to Health Maintenance Results * Outside Imaging Report Only (03/11/2025 12:08 PM EDT) [facility] Provider MD HWANGG XR CHEST Edited Re sult - Final * Outside Imaging Report Only (03/11/2025 12:07 PM EDT) [facility] Provider IMG XR CHEST Edited Re sult - Final * Outside Imaging Report Only (03/11/2025 12:07 PM EDT) [facility] Provider MD HWANGG XR CHEST Edited Re sult - Final * Outside Imaging Report Only (03/11/2025 12:06 PM EDT) [facility] Provider IMG XR CHEST Edited Re sult - Final * Outside Imaging Report Only (03/11/2025 12:05 PM EDT) Result [facility] Provider IMG XR CHEST Edited Re sult - Final * (ABNORMAL) CBC and differential (03/08/2025 2:49 PM EDT) WBC 6.32 4.00 - 11.00 K/uL [facility] RBC 3.99(L) 4.00 - 5.20 M/uL [facility] HGB 12.5 12.0 - 16.0 g/dL [facility] HCT 37.9 36.0 - 46.0 % [facility] PLT 200 150 - 450 K/uL [facility] MCV 95.0 80.0 - 100.0 fL [facility] MCH 31.3(H) 27.0 - 31.0 pg [facility] MCHC 33.0 32.0 - 36.0 g/dL [facility] RDW 13.2 11.5 - 14.5 % [facility] MPV 11.6 8.4 - 12.0 fL [facility] NRBC 0.00 0.00 /100 WBCs [facility] ABSOLUTE NRBC 0.00 0.00 K/uL [facility] DIFF METHOD Auto [facility] NEUTS 58.3 48.0 - 76.0 % [facility] LYMPHS 32.0 18.0 - 41.0 % [facility] MONOS 7.9 4.0 - 11.0 % [facility] EOS 0.9 0.0 - 5.0 % [facility] BASOS 0.6 0.0 - 1.5 % [facility] Granulocytes, immature (%) 0.3 0.0 - 0.9 % [facility] ABSOLUTE NEUTS 3.68 1.92 - 7.60 K/uL [facility] ABSOLUTE LYMPHS 2.02 0.72 - 4.10 K/uL [facility] ABSOLUTE MONOS 0.50 0.16 - 1.10 K/uL [facility] ABSOLUTE EOS 0.06 0.00 - 0.50 K/uL [facility] ABSOLUTE BASOS 0.04 0.00 - 0.15 K/uL [facility] Granulocytes, immature 0.02 0.00 - 0.09 K/uL [facility] Blood 03/08/2025 2:49 PM EDT 03/08/2025 2:55 PM EDT us Roro Wilson MD LAB BLOOD BKR ORDERABLES Fi nal Result [facility] [address] [place] [address] * TSH (03/08/2025 2:49 PM EDT) TSH 2.05 0.27 - 4.20 uIU/mL [facility] Blood 03/08/2025 2:49 PM EDT 03/08/2025 2:55 PM EDT us Heather Ochoa MD LAB BLOOD BKR ORDERABLES Jazmín l Result Performing Organization Address [facility]/ZIP Co de Phone Number [address] [address] * (ABNORMAL) Lipid panel (03/08/2025 2:49 PM EDT) HDL 61 mg/dL [facility] Comment: Interpretation <40 mg/dL: Low HDL cholesterol (major risk factor for CHD) Greater than or equal to 60 mg/dL: High HDL cholesterol ( negative risk factor for CHD) HDL - cholesterol is affected by a number of factors, e.g. smoking, excerise, hormones, sex and age. CHOLESTEROL 176 0 - 240 mg/dL [facility] TRIGLYCERIDES 149 30 - 160 mg/dL [facility] LDL 85 50 - 129 mg/dL [facility] Comment: LDL levels in terms of risk for coronary heart disease: <100 mg/dL: Optimal 100-129 mg/dL: Near or above optimal 130-159 mg/dL: Borderline high 160-189 mg/dL: High >190 mg/dL: Very High CARDIAC RISK RATIO 2.9(L) 3.3 - 4.4 [facility] Blood 03/08/2025 2:49 PM EDT 03/08/2025 2:55 PM EDT us Roro Wilson MD LAB BLOOD BKR ORDERABLES Fi nal Result Performing Organization Address [facility]/ZIP Co de Phone Number [address] [address] * (ABNORMAL) Basic metabolic panel (03/08/2025 2:49 PM EDT) SODIUM 138 133 - 146 mmol/L [facility] CHLORIDE 104 96 - 108 mmol/L [facility] POTASSIUM 4.1 3.3 - 5.1 mmol/L [facility] CO2 25 21 - 35 mmol/L [facility] BUN 16 6 - 19 mg/dL [facility] CREATININE 0.70 0.5 - 1.5 mg/dL [facility] GLUCOSE 156(H) 70 - 99 mg/dL [facility] CALCIUM 10.0 8.4 - 10.3 mg/dL [facility] EGFR 83 >59 mL/min/1.7 3m2 [facility] Comment:Estimated glomerular filtration rate calculated using the CKD-EPI refit equation. ANION GAP 13 10 - 20 mmol/L [facility] Blood 03/08/2025 2:49 PM EDT 03/08/2025 2:55 PM EDT us Roro Wilson MD LAB BLOOD BKR ORDERABLES Fi nal Result Performing Organization Address City/[facility]/ZIP Co de Phone Number [address] [address] * (ABNORMAL) Hemoglobin A1c (07/02/2024 11:29 AM EST) HEMOGLOBIN A1C 6.7(H) 4.3 - 5.8 % [facility] Blood 07/02/2024 11:2 9 AM EST 07/02/2024 11:32 AM EST us Pancho Fallon MD LAB BLOOD BKR ORDERABLES Fin al Result Performing Organization Address City/[facility]/ZIP Co de Phone Number [address] [address] * HM DEXA SCAN (08/03/2023 10:47 AM EDT) us Pancho Fallon MD HEALTH MAINTENANCE Final Res ult * Microalbumin/creatinine ratio, random urine (10/16/2021 1:30 PM EDT) URINE MICROALBUMIN <1.2 0 - 2.3 mg/dL [facility] URINE CREATININE 61 mg/dL [facility] MICROALB/CRE RATIO NOT CALCULATED 0 - 20 mg/g Cre [facility] Comment:due to Microalbumin <1.2 Urine (Urine) 10/16/2021 1:3 0 PM EDT 10/16/2021 4:07 PM EDT us Pancho Fallon MD LAB URINE ORDERABLES Final R esult [facility] [address] [place] [address] * DIABETES EYE EXAM FOR RESULT ENTRY ONLY (09/15/2021) us Historical Provider HEALTH MAINTENANCE Edited Result - Final from Last 3 Months or Most Recently Relevant to Health Maintenance Insurance [place] [employer] SUPPLEMENT MEDICARE PART A & B [place] [employer] SUPPLEMENT MEDICARE PART A & [place] [address] [place] [address] CROSS MEDEX SUPPLEMENT MEDICARE PART A & B [employer] CROSS MEDEX SUPPLEMENT MEDICARE PART A & B [employer]EX SUPPLEMENT MEDICARE PART A & B MEDICARE PART A & B [employer] SUPPLEMENT MEDICARE PART A & B [employer] SU[employer] MEDICARE PART A & B [employer] SUPPLEMENT MEDICARE PART A & B Advance Directives For more information, please contact: [phone] (9AM - 5PM [facility], Tuesday-Tuesday) Documents on File Type Date Recorded Patient Pharmacy Buyer Expl [facility] Healthcare Proxy 06/26/2024 [facility] care proxy 06/26/24 Care Teams Buffet Attendant Relationship Specialty Start Date End Date Roro Wilson MD [address] [place] [address], [address] [place] [address] PCP - General Internal Medicine 09/22/20 Pancho Fallon MD [address] [place] [address] Endocrinology 08/02/23 Additional Source Comments The information contained in this document represents components of the legal health record. It is not the complete legal health record.[facility]
--- OUTSIDE RECORDS SUMMARY | 2025-03-25 09:05 | XMS_ITS | Patient Health Record ---
[facility] Organization [facility] Address [address] [place] [address] Care Team Providers Care Risk Manager Name Role Phone Roro Wilson Primary Care Provider Unavailab Bakari Ballard Unavailable [phone] Allergies Allergen (clinical drug ingredient) Drug/Non Drug [...] Polyneuropathy due to type 2 diabetes mellitus (166743923) Type 2 diabetes mellitus with diabetic polyneuropathy (E11.42) Active confirmed Plan Of Treatment Pending Test Test Name Order Date I&D ABSCESS- SIMPLE,SINGLE 014 Insurance Providers Payer Name Payer Address Payer Phone Subscriber Number Group Number Insured Name Patient Relationship to Insured Coverage Start Date Coverage End Date Medicare National Govt [employer] Card Management AS [facility] [address] [place] [address] [id number] Millie Corcoran Self - patient is the insured [employer] [address] [place] [address] [id number] Millie Corcoran Self - patient is the [...]
== END 2025-03-25 09:38 | disposition home or self-care (01) ==
LOC: HO.HOS 08:38
PROVIDERS: PCP Internal Medicine; Visit Provider Physician Assistant
DX: S82.201A Unspecified fracture of shaft of right tibia, initial encounter for closed fracture (principal)
CPT/HCPCS: 99213

== ENCOUNTER → 2025-03-25 08:53 | Outpatient (BNV) | payer MEDICARE, SELFPAY | PROVIDERS: Visit Provider Radiology Diagnostic Radiology | DX: M17.11 Unilateral primary osteoarthritis, right knee (principal) | CPT/HCPCS: 73560 ==

== ENCOUNTER 2025-03-25 12:54 | Outpatient (REF) | payer MEDICARE, SELFPAY ==
--- NOTE | ~2025-03-25 | XR_ITS ---
EXAMINATION: XR KNEE, RIGHT CLINICAL INFORMATION: M25.569 - Pain in unspecified knee COMPARISON: March 11, [address] dated March 11, 2025. TECHNIQUE: AP and cross lateral view of the right knee. FINDINGS: Comminuted fracture, lateral tibial plateau and lateral aspect proximal metaphysis/diaphysis junction of the tibia and anterior tuberosity with a persistent 7 mm gap between the fragments. There is chondrocalcinosis of the menisci. Joint space narrowing involving the medial lateral compartments. Osteopenia versus osteoporosis. No subcutaneous emphysema. No gross suprapatellar bursa joint effusion. XR/XR knee RT 2V IMPRESSION: No healing comminuted fracture, lateral tibial plateau/anterior tibial tuberosity. 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 Osteopenia versus osteoporosis. Electronically signed by: Fortino Harrison MD 03/25/2025 09:35 AM DORA
--- OUTSIDE RECORDS SUMMARY | 2025-03-26 15:31 | XMS_ITS | Data Portability ---
Author Organization [facility] ABBYY Language Services [facility], Main Office Address [address] [facility] [place] [address] Care Team Providers Care Kettle Tender Name Role Phone REGKAUSHIK CARVALHO - 2ND FLOOR OTHER JANAE RICKETTS [...] Details Recorded Time Type 2 diabetes mellitus 63725428 Active 2024 Eun Webster NP [address] [facility], [address], [place], [address], [facility] 5 11:31:44 Hyperlipidemia 13814360 Active 2024 Eun Webster NP [address] [facility], [address], [place], [address], [facility] [employer] 5 11:32:03 Hypothyroidism 17666191 Active 2024 Eun Webster NP [address] [facility], [address], [place], [address], [facility] [employer] 5 11:32:54 Neuropathy 825108168 Active 2024 Eun Webster NP [address], [address], [place], [address], [facility] 5 11:33:21 Squamous cell carcinoma 847886993 Active 2024 Eun Webster NP [address], [address], [place], [address], [facility] 5 11:33:42 Hypertensive disorder 26430675 Active 2024 Eun Webster NP [address], [address], [place], [address], [facility] 5 11:33:53 Influenza 0392426 Active 2024 Eun Webster NP [address], [address], [place], [address], [facility] 5 11:34:22 Asthenia 45019925 Active 2024 Eun Webster NP [address], [address], [place], [address], [facility] 5 11:34:41 Chronic pain 46434350 Active 2024 Eun Webster NP [address], [place], [address], [facility] 5 11:39:34 Problem Notes None recorded. Medical Equipment None Reported. Allergies Allergen ID Allergen Name Allergen Category Reaction Reaction Severity Criticality Documentation Date Start Date Code Code System Note Provider Name and Address Organization Details Recorded Time 00702 gabapenti n medicatio n other Not available unabletoasse 06/14/2024 91960 RxNorm Eun Webster NP [address], [address], [place], [address], [facility] 5 11:11:34 [address] chloroqui ne Not available other Not available unabletoasse 06/14/2024 2393 RxNorm Eun Webster NP [address], [address], [place], [address], [facility] 5 11:12:15 Medications Not known to be on any medication Vitals Date Recorded Heart rate Respiratory rate Body temperature Oxygen saturation Oxygen saturation in Arterial blood by Pulse oximetry Systolic And Diastolic Provider Name and Address Organization Details Last Updated DateTime 5 77 /min 18 /min 98.2 [degF] 96 % 96 % 98/66 mm[Hg] Eun Webster NP [address] [facility], [facility] [address], [place], [address], [facility] 5 11:07:51 Date Recorded Body weight Heart rate Respiratory rate Body temperature Systolic And Diastolic Provider Name and Address Organization Details Last Updated DateTime 5 99586.9 g 79 /min 17 /min 97.8 [degF] 185/83 mm[Hg] Judd Johnson MD [address] [facility], [facility] [address], [place], [address], [facility] 5 11:39:24 Date Recorded Heart rate Respiratory rate Body temperature Oxygen saturation Oxygen saturation in Arterial blood by Pulse oximetry Systolic And Diastolic Provider Name and Address Organization Details Last Updated DateTime 5 60 /min 18 /min 97.1 [degF] 96 % 96 % 130/59 mm[Hg] Eun Webster NP [address] [facility], [facility] [address], [place], [address], [facility] 5 14:55:41 Date Recorded Systolic And Diastolic Provider Name and Address Organization Details Last Updated DateTime 06/25/2024 124/60 mm[Hg] Judd Johnson MD [address] [place] [address], [place], [address], [facility] 06/25/2024 09:20:42 Social History Question Answer Notes LastModified by Organizat ion Details LastModified Time Tobacco Smoking Status Never Smoker Eun Webster NP [address] [facility] [address], [place], [address], [facility] 06/14/2024 12:19:20 Do You Have An Advance Directive? Yes Information not available 06/14/2024 What Is Your Code Status? Full Code Information not available 06/14/2024 Where Do You Live? [facility] Information not available 06/14/2024 What Was The Date Of Your Most Recent Tobacco Screening? 06/14/2024 Information not available 06/14/2024 Do You Have An Out Of Hospital DNR? No Information not available 06/14/2024 What Is Your Relationship Status? Information not available 06/14/2024 Has Tobacco Cessation Counseling Been Provided? No Na Information not available 06/14/2024 Do You Have Any Dietary Restrictions? No Information not available 06/14/2024 Sex: Female Functional Status Question Answer Note LastModified by Organizat ion Details LastModified Time Do you use any illicit or recreational drugs? No Information not available 06/14/2024 Do you or have you ever used any other forms of tobacco or nicotine? No Information not available 06/14/2024 What is your level of alcohol consumption? None Information not available 06/14/2024 Mental Status None recorded. Family History Nothing Reported Notes:father stroke brother stroke mother gallbladder ca Medical History No medical history recorded. Gynecological HistoryNo gynecological history recorded. Obstetrics History GPAL:G 0 P 0 0 0 0 Immunizations Vaccine Type Date Status Note Provider Nam e and Address Organization Details Recorded Time Respiratory syncytial virus (RSV) vaccine, unspecified 02/20/2023 prabhu Kaplan [facility] 06/14/2024 15:06:27 influenza, unspecified formulation 03/24/2023 prabhu Kaplan [facility] 06/14/2024 15:06:42 SARS-COV-2 (COVID-19) vaccine, UNSPECIFIED 06/20/2020 completed Noreen Kaplan [facility] 06/14/2024 15:06:58 SARS-COV-2 (COVID-19) vaccine, UNSPECIFIED 07/18/2020 completed Noreen Kaplan [facility] 06/14/2024 15:07:07 SARS-COV-2 (COVID-19) vaccine, UNSPECIFIED 03/17/2021 completed Noreen Kaplan [facility] 06/14/2024 15:07:15 SARS-COV-2 (COVID-19) vaccine, UNSPECIFIED 08/25/2021 completed [facility] 06/14/2024 15:07:36 SARS-COV-2 (COVID-19) vaccine, UNSPECIFIED 02/24/2022 completed [facility] 06/14/2024 15:07:45 SARS-COV-2 (COVID-19) vaccine, UNSPECIFIED 02/20/2023 completed [facility] 06/14/2024 15:07:52 zoster, unspecified formulation 08/05/2018 completed [facility] 06/14/2024 15:08:08 zoster, unspecified formulation 12/15/2018 [facility] 06/14/2024 15:08:17 Past Encounters Encounter ID Performer Location Encounter Start Date Encounter Closed Date Diagnosis/Indication Diagnosis SNOMED-CT Code Diagnosis ICD10 Code Diagnosis IMO Codes Diagnosis Note [id number] Eun Webster NP [address] [address] 06/14/2024 11:07:12 06/15/2024 16:26:51 Influenza 1139759 J11.1 flu A positive on 06/12 or 06/13 in [facility] with increased fluids, zofran, immodium, robitussin however not dc'd with thesewi order 06/14robitu ssin 10 ml prn q 6 hours cough0-4 liters prn sat <90%mucine x dm bid x 5 days and then prn q 12 hoursmonit or for need to repeat cxr if neededcont ipatropium bromide 21 mcg 0.03% 2 sprays intranasal tiddroplet and contact precaution smonitor Hypertensive disorder 38 082807 I10 not on meds for thismonito r bps while here and adjust if needed Neuropathy 713504744 G62 .9 on jltaag69 mg qdmonitor Hypothyroidism 28574659 E03.9 levothyrox ine 75 mcg qdmonitor tsh on admit and prn Type 2 kimberley betes mellitus 24211167 E11.9 Metformin 500 mg po bid stopped in hospital for loose stoolsinsu ocry SSI started to bridge her here with decreased po intakemoni tor and when diarrhea resolved then restart metforminm onitor Hyperlipidemia 91261927 E78.5 atorvastat in 40 mg po qdmonitor Squamous c ell carcinoma 819808044 C80.1 Left breast lumpectomy >10 years ago and post treatmentn ot on any meds for this Asthenia 75465620 R53.81 PT OT eval and treat sp flu with weaknesssu pportive caremonito r Chronic pain 28390317 G8 9.29 lyrica 50 mg po qdtyl prn painmonito r Vitamin deficiency 07532 002 E56.9 cholecalci ferol 24 mcg qdalpha lipoic acid 1200mg po bidpreserv ision 1 tab po bidvit b6 100 mg po qdmonitor Recurrent falls 91775976 2 R29.6 hx of falls at home >2 per yearsuppor tive carePT OT eval and treatmonit or [id number] Judd Johnson MD [address] [address] 06/16/2024 11:38:16 06/19/2024 15:04:06 Influenza 0908701 J11.1 see HPImonitor respirator y status and neb utilizatio ncxr prn Hypertensive disorder 38 938343 I10 carrying dx not maintained on medication elevated at facilitymo nitor need to start medication Hypothyroidism 47821953 E03.8 synthroid 75 mcg qdmonitor tsh prn Type 2 kimberley betes mellitus 08439424 E11.42 metformin was d/c in hospital due to poor po intakenow on SSlyrica 50 mg qdrestart as patient returns to baseline Hyperlipidemia 82398731 E78.2 lipitor 40 mg qdcontinue d Squamous c ell carcinoma 146376200 C80.1 carrying dx with hx of left breast lumpectomy >10 years agoadded to PMH Asthenia 89337498 R53.81 PT OT eval and treatmonit or fall risk and need for increased support in community Recurrent falls 40975334 2 R29.6 see above with [facility] cquired pneumonia 834380841 Y95 concern for secondary pneumonias tat CXR Acute infe ctive cystitis 622752727 N30.00 see HPIUA c and sdiscussed with nursing and caregiver present [id number] Eun Webster NP [address] [address] 06/21/2024 14:21:57 06/22/2024 12:11:48 Influenza 2094777 J11.1 resolvingf saundra A positive on 06/12 or 06/13 in [facility] ssin 10 ml prn q 6 hours cough0-4 liters prn sat <90%mucine x dm prn q 12 hoursmonit or for need to repeat cxr if needed in 3 weeksipatr opium bromide 21 mcg 0.03% 2 sprays intranasal tiddc droplet and contact precaution smonitor Neuropathy 769183107 G62 .9 contlyrica 50 mg qdalpha lipoic acid (will have bender hand bring in)monitor Type 2 kimberley betes mellitus 66986855 E11.9 hardly any BS in MARMetform in 500 mg po bid stopped in hospital for loose stoolswill restart metformin 500mg po daily and monitor with BS bid to adjustdc insulin SSI started to bridge her here with decreased po intakemoni tor Asthenia 89377110 R53.81 PT OT eval and treat sp flu with weaknesssu pportive caremonito r Chronic pain 82552613 G8 9.29 lyrica 50 mg po qdtyl prn painmonito r Recurrent falls 21106312 2 R29.6 hx of falls at home >2 per yearsuppor tive carePT OT eval and treatmonit or Restlessne ss and agitation 530928885 R45.1 pt is restless today and wants a sleeping pill in the daytimeshe refuses and anxiety med/30 will increase melatonin to 10 mg qhs to help with sleep06/21 trazodone 12.5 mg po q 8 hours prn agitation/ restlessne ssmonitor [id number] Judd Johnson MD [address] [address] 06/25/2024 09:19:19 06/26/2024 11:38:55 Influenza 9233577 J11.1 now resolved Asthenia 21224514 R53.81 has returned to baselineSW to validate services in place at home then cleared for discharged iscussed with therapy Type 2 kimberley betes mellitus 67529772 E11.42 metformin was d/c in hospital due to poor po intakenow on SSlyrica 50 mg qd restarted Hypertensive disorder 38 776519 I10 carrying dx not maintained on medication recheck bp at fu with PCP Hypothyroidism 55552253 E03.8 synthroid 75 mcg qdmonitor tsh prn Hyperlipidemia 22764435 E78.2 lipitor 40 mg qdcontinue d Squamous c ell carcinoma 332734987 C80.1 carrying dx with hx of left breast lumpectomy >10 years agoadded to PMH Recurrent falls 99573138 2 R29.6 see above with recent falls Health Concerns Section Related Observation LastModified by Organization Detai ls LastModified Time None Recorded Concern Status LastModified by Organization Details LastModified Time None Recorded Advance Directives Directive Y: Payers Insurance Date Sequence Insurance Name Policy Number Policy Cosme Covered Member ID Cosme Member ID Guarantor Name 06/25/2024 1 [place] [employer] Millie Asecnio Nilo [id number] Millie Singht 06/25/2024 2 [place] [id number] Millie Singht [id number] Millie [facility] Notes Date Note Type Note Provider Name and Address Organization Details Recorded Time 5 text/html ROS as noted in the HPI Pt is seen for an initial intake summary. Millie is an 88 yo f with PMH HTN, HLD, NIDDM2, hypothyroidism, peripheral neuropathy, sqamous cell carcinoma left breast, who present to [facility] [place]08[place] for weakness, [...] at home is in the hospital. Her LOIN PULLER is here visiting. On exam, She is lying in bed in NAD. She has a notable cough and admits to weakness today. No resp distress. Admits to feeling weak. She reports decreased eating lately. She denies any nausea and states the diarrhea is slowing down. BIMS 13MORSE: high riskMOLST: Full code, no art nutrition and hydration and dialysis for short term only Eun Webster NP [address] [facility], [address], [place], [address], [facility] 06/14/2024 12:26:25 5 text/html ROS as noted in the HPI Patient is an 88 yo female admit [...] eval and treat Judd Johnson MD [address] [facility], [address], [place], [address], [facility] 06/16/2024 12:01:12 5 text/html ROS as noted in the HPI Pt is seen for an acute rounding visit. PMH HTN, HLD, NIDDM2, hypothyroidism, peripheral neuropathy, squamous cell carcinoma left breast She is an 88 yo f with , who presented to [facility] 06[place]08[place]06[place]14 for weakness, headache, nausea, fevers, and myalgias dx with influenza A. She was not felt safe to return to home and reported to be in hospital who is a commissary assistant. note: Workup consisted of symptomatic treatment with [...] short term only Eun Webster NP [address] [facility], [address], [place], [address], [facility] 06/21/2024 15:19:57 5 text/html ROS as noted in the HPI Patient is an 88 yo female resident [...] care for patient. Judd Johnson MD [address] [facility], [address], [place], [address], [facility] 06/25/2024 09:25:26 OBGyn Episode No OBEpisode recorded.
--- OUTSIDE RECORDS SUMMARY | 2025-03-26 15:31 | XMS_ITS | Encounter Summary ---
Author Organization [facility] Address [address] [place] [address] [place] [address] Phone Care Team Providers Care Infection Control Rn Name Role Phone Roro Wilsno MD Primary Care Provider [phone] Pancho Fallon MD Unavailable [phone] Encounter Details Date Type Department Care Team (Late st Contact Info) Description 07/05/2023 Procedure Pass [facility], [address] [place] [address] Social History Tobacco Use Types Packs/Day Years [...] st Contact Info) Description 03/11/2025 Procedure Pass [address] [place] [address] 04/01/2025 3:15 PM EST Appointment [address] [place] [address] Roro Wilson MD [address] [facility], 2nd Floor [place]O [place] [address] [email or web address] 04/24/2025 1:45 PM EST Office Visit [facility] [address] [place] [address] [place] [address] Roro Wilson MD [address] [place] [address] 04/29/2025 10:45 AM EST Office Visit [address] [address] Roro Wilson MD [address] [place] [address] Janice Buckner, PT [address] [place] [address] 05/07/2025 10:45 AM EST Office Visit [address] [address] Roro Wilson MD [address] [place] [address] Janice Buckner, PT [address] [place] [address] 05/14/2025 10:45 AM EST Office Visit [address] [address] Roro Wilson MD [address] [place] [address] Janice Buckner, PT [address] [place] [address] 05/21/2025 10:45 AM EST Office Visit [address] [address] Roro Wilson MD [address] [place] [address] Janice Buckner, PT [address] [place] [address] 05/28/2025 10:45 AM EST Office Visit [address] [address] Roro Wilson MD [address] [place] [address] SitaJanice, PT [address] [place] [address] 06/04/2025 10:45 AM EST Office Visit [address] [address] Roro Wilson MD [address] [place] [address] ElliottJanice, PT [address] [place] [address] documented as of this encounter Visit Diagnoses Not on filedocumented in this encounter Additional Health Concerns Assessment Noted Time PHQ-9 Depression Total Score: 12 023 6:54 PM EDT PHQ-2 Depression Total Score: 1 02/09/20 23 9:30 AM EDT documented as of this encounter Care Teams Infection Control Rn Relationship Specialty Start Date End Date Roro Wilson MD [address] [place] [address] PCP - General Internal Medicine 09/22/20 Pancho Fallon MD [address] [place] [address] Endocrinology 08/02/23 documented as of this encounter Additional Source Comments The information contained in this document represents components of the legal health record. It is not the complete legal health record.[facility]
--- OUTSIDE RECORDS SUMMARY | 2025-03-26 15:32 | XMS_ITS | Patient Health Record ---
Author Organization [facility] Address [address] [place] [address] Care Team Providers Care Locomotive Engineer Electric Name Role Phone Roro Wilson Primary Care Provider Unavailab Bakari Ballard Unavailable [phone] Allergies Allergen (clinical drug ingredient) Drug/Non Drug [...] Polyneuropathy due to type 2 diabetes mellitus (995456536) Type 2 diabetes mellitus with diabetic polyneuropathy (E11.42) Active confirmed Plan Of Treatment Pending Test Test Name Order Date I&D ABSCESS- SIMPLE,SINGLE 014 Insurance Providers Payer Name Payer Address Payer Phone Subscriber Number Group Number Insured Name Patient Relationship to Insured Coverage Start Date Coverage End Date Medicare National Govt [employer] [facility] [address] [place] [address] [id number] Millie Corcoran Self - patient is the insured [employer] [address] [place] [address] [phone] [id number] Millie Corcoran Self - patient is the [...]
--- OUTSIDE RECORDS SUMMARY | 2025-03-26 15:32 | XMS_ITS | Encounter Summary ---
Author Organization [facility] Address [address] [place] [address] Care Team Providers Care Graphic Coordinator Name Role Phone Roro Wilson MD Primary Care Provider [phone] Encounter Details Date Type Department Care Team (Late st Contact Info) Description 06/26/2024 Lab Requisition [facility] Main Lab [address] [facility] [place] [address] Judd Johnson MD [address] [place] [address] [address] [place], [address] Malignant melanoma of right ear and [...] unspecified documented in this encounter Care Teams Graphic Coordinator Relationship Specialty Start Date End Date Roro Wilson MD [address] [place] [phone] PCP - General Internal Medicine 08/13/24 documented as of this encounter
--- OUTSIDE RECORDS SUMMARY | 2025-03-26 15:32 | XMS_ITS | Encounter Summary ---
Author Organization [facility] Address [address] [facility] [address] [place] [address] Phone Care Team Providers Care Building Architect Name Role Phone Roro Wilson MD Primary Care Provider [phone] Pancho Fallon MD Unavailable [phone] Reason for Visit * Reason Onset Date Comments Medication Refill 03/20/2025 Medication Prior Authorization 03/20/2025 Encounter Details Date Type Department Care Team (Late st Contact Info) Description 03/20/2025 Refill [facility] [address] [place] [address] [place] [address] Roro Wilson MD [address] [place] [address], [address] [place] [address] [email or web address] Medication Refill; Medication Prior Authorization Social History [...] Heather Ochoa MD - Family Medicine [facility] > Requested f/u: Return if symptoms worsen or fail to improve. Upcoming visit: 04/24/2025 Roro Wilson MD - Family Medicine [facility] ACTIONS TAKEN BY Jigna Correa MA - [...] for: SITagliptin phosphate (JANUVIA) 50 MG tablet [[id number]] Sent to: [employer] [facility] [06402] documented in this encounter Plan of Treatment Upcoming Encounters Date Type Department Care Team (Late st Contact Info) Description 03/11/2025 Procedure Pass [address] [place] [address] 04/01/2025 3:15 PM EST Appointment [address] [place] [address] Roro Wilson MD [address] [place] [address] [email or web address] 04/24/2025 1:45 PM EST Office Visit [facility] [address] [place] [address] [place] [address] Roro Wilson MD [address] [place] [address] [email or web address] 04/29/2025 10:45 AM EST Office Visit [facility] [address] [place] [address] Roro Wilson MD [address] [place] [address] [email or web address] Janice Buckner, PT [address] [place] [address] [email or web address] 05/07/2025 10:45 AM EST Office Visit [facility] [address] [place] [address] Roro Wilson MD [address] [place] [address] Janice Buckner, PT [address] [place] [address] [email or web address] 05/14/2025 10:45 AM EST Office Visit [address] [address] Roro Wilson MD [address] [place] [address] [email or web address] Janice Buckner, PT [address] [place] [address] [email or web address] 05/21/2025 10:45 AM EST Office Visit [address] [address] Roro Wilson MD [address] [place] [address] Janice Buckner, PT [address] [place] [address] [email or web address] 05/28/2025 10:45 AM EST Office Visit [address] [address] Roro Wilson MD [address] [place] [address] Janice Buckner, PT [address] [place] [address] [email or web address] 06/04/2025 10:45 AM EST Office Visit [address] [address] Roro Wilson MD [address] [place] [address], [address] [place] [address] Janice Buckner, PT [address] [place] [address] [email or web address] documented as of this encounter Visit Diagnoses Diagnosis Type 2 diabetes mellitus with diabetic polyneuropathy, with long-term current use of insulin documented in this encounter Additional Health Concerns Assessment Noted Time PHQ-9 Depression Total Score: 12 01/13/ 023 6:54 PM EDT PHQ-2 Depression Total Score: 0 02/28/20 25 9:41 AM EDT documented as of this encounter Care Teams Building Architect Relationship Specialty Start Date End Date Roro Wilson MD [address] [place] [address], [address] [place] [address] PCP - General Internal Medicine 09/22/20 Pancho Fallon MD [address] [place] [address] [email or web address] Endocrinology 08/02/23 documented as of this encounter Additional Source Comments The information contained in this document represents components of the legal health record. It is not the complete legal health record.[facility]
--- OUTSIDE RECORDS SUMMARY | 2025-03-26 15:32 | XMS_ITS | Patient Health Record ---
Author Organization [facility] Address [address] [place] [address] Care Team Providers Care Still Tender Name Role Phone Roro Wilson M.D. Primary [...] W/U Status Risk Notes Problem Epigastric pain (76935552) Epigastric pain (R10.13) Active confirmed Problem Altered bowel function (51466065) Change in bowel function (R19.8) Active confirmed Plan Of Treatment Future Test Test Name Order Date UPPER GI ENDOSCOPY 01/01/2021 COLONOSCOPY 01/01/2021 Insurance Providers Payer Name Payer Address Payer Phone Subscriber Number Group Number Insured Name Patient Relationship to Insured Coverage Start Date Coverage End Date MEDICARE OF [place] [address] [place] [address] [id number] ANITA ROTH Self - patient is the insured [employer] ATT[employer] CLAIMS [address] [place] [address] [id number] ANITA ROTH Self - patient is the insured Medical (General) History Medical History History ICD Code diabetes mellitus hypertension heart attack hx of breast cancer /lumpectomy fibromyalgia Polymyalgia rheumatica Surgical History Surgery Date(Month/Year) appendectomy/ at age 5 lumpectomy/ hx of breast cancer
--- OUTSIDE RECORDS SUMMARY | 2025-03-26 15:32 | XMS_ITS | Data Portability ---
Author Organization [place] - [facility] Address [address] [address] Care Team Providers Care Double Bottom Driver Name Role Phone JANAE RICKETTS Referring Provider Assessment Encounter Date Assessment Date Assessment LastModified by Organization Details LastModified Time 05/14/2024 05/14/2024 Hx of crumpling sensation of right ear for 2 months. She also has chronic nasal drip. Cerumen impactions removed bilaterally. I suggested 3 drops of distilled vinegar twice weekly. I have also suggested some ipratropium bromide. She will contact me in 4 to 6 weeks. If the abnormal sensation of the right ear persists, we can consider an MRI scan, however, hearing is relatively stable compared to 2019. suggest hearing aid reprogramming [email or web address] Not available 05/14/2024 11:34:37 Plan of Treatment Reminders Order Date Submit Date Provider Last Modified By Organization Details Last Modified Time Details Appointments None recorded. Lab None recorded. Referral None recorded. Procedures None recorded. Surgeries None recorded. Imaging None recorded. Medication Orders ipratropium bromide 21 mcg (0.03 %) nasal spray 2023 024 [id number], [address] [place], [address], 14:48:23 Patient TargetsNo targets recorded. Patient InstructionsNo instructions recorded. Reason for Referral None Reported. Results Created Date Observation Date Name Description Value Unit Range Abnormal Flag Note LastModifiedBy Organization Detail LastModifiedTime 05/14/20 24 audio gram No observ ation record ed. BARCODE Not Available 2023 13:53:00 Result Notes None recorded. Problems Name Problem SNOMED Code Status Onset Date Resolution Date Notes Provider Name and Address Organization Details Recorded Time Subjectiv e tinnitus 78207788 Active 2014 Subjectiv e tinnitus; Note: Date Diagnosed : 05/29/2014 3:06 PM (388.31) Not Available [facility] 4 02:51:12 Impacted cerumen in right ear 29667074781 16239 Active 2015 Impacted cerumen, right ear; Note: Date Diagnosed : 02/03/2016 11:51 AM (H61.21) Not Available [facility] 4 02:51:08 Dizziness and giddiness 998393934 Active 2015 Vertigo NOS; Note: Date Diagnosed : 02/03/2016 12:04 PM (R42) Not Available [facility] 4 02:51:07 Sensorine ural hearing loss of bilateral ears 637770603 Active 2017 Sensorine ural HL, bilateral ; Note: Date Diagnosed : 05/29/2014 2:29 PM (389.18) ; Start Date : 5 Sensori neural hearing loss, bilateral ; Note: Date Diagnosed : 12/02/2017 1:38 PM (H90.3) Not Available [facility] 4 02:51:13 Deviated nasal septum 237869814 Active 2018 Deviated nasal septum; Note: Date Diagnosed : 06/28/2018 2:46 PM (J34.2) Not Available [facility] 4 02:51:10 Impacted cerumen of bilateral ears 60521352024 10310 Active 2018 Impacted cerumen, bilateral ; Note: Date Diagnosed : 06/28/2018 2:46 PM (H61.23) Not Available [facility] 4 02:51:13 Chronic rhinitis 93440776 Active 2018 Chronic rhinitis; Note: Date Diagnosed : 06/28/2018 2:46 PM (J31.0) Not Available [facility] 4 02:51:10 Benign paroxysma l positiona l vertigo 817413976 Active 2020 Benign paroxysma l vertigo, unspecifi ed ear; Note: Date Diagnosed : 02/03/2016 12:04 PM (H81.10) ; Start Date : 6 Benign paroxysma l vertigo, left ear; Note: Date Diagnosed : 08/26/2020 3:06 PM (H81.12) Not Available [facility] 4 02:51:07 Bleeding from nose 129703565 Active 2021 Epistaxis ; Note: Date Diagnosed : 06/04/2021 5:05 PM (R04.0) Not Available [facility] 4 02:51:12 Impacted cerumen in left ear 47419510445 11797 Active 2021 Impacted cerumen, left ear; Note: Date Diagnosed : 02/18/2022 11:48 AM (H61.22) Not Available [facility] 4 02:51:05 Abnormal auditory perceptio n 64130358 Active 2023 IDALIA JIN MD [address] [place] [address], [place], [address] , [facility] - [facility] 4 10:46:59 Abnormal auditory perceptio n 21204852 Active 2023 IDALIA JIN MD [address] [place] [address], [place], [address] , [facility] 4 10:47:27 Problem Notes None recorded. Procedures Surgical History Date Name Laterality Status Provider Name and Address Organization Details Recorded Time 05/14/2024 Comp Audio with Tymps - 10194 & 72361 completed Heather Cobos [place] - [facility] 05/14/2024 11:16:24 Imaging Results None recorded. Procedure Notes None recorded. Medical Equipment None Reported. Allergies Allergen ID Allergen Name Allergen Category Reaction Reaction Severity Criticality Documentation Date Start Date Code Code System Note Provider Name and Address Organization Details Recorded Time 094205 chloroqui ne Not available other Not available Not available 10/04/2023 3513 RxNorm React ion: unkno wn, unspe cifie d;; Not Available [facility] 4 01:18:42 Medications Name Sig Start Date Stop Date Status Note LastModified by Organization Details LastModified Time losartan 50 mg tablet 2017 active Medicatio n ID: [id number] Br and Name: losartan Send Method: E-Prescri bed Subs Allowed: subs OK Medica tionGener icName: losartan Not Available Not Available Not Available atorvastat in 40 mg tablet 2017 active Medicatio n ID: [id number] Br and Name: atorvasta tin Send Method: E-Prescri bed Subs Allowed: subs OK Medica tionGener icName: atorvasta tin Not Available Not Available Not Available diazepam 2 mg tablet TAKE 1 TABLET BY MOUTH THREE TIMES A DAY NEEDED FOR DIZZINESS /VRETIGO active Not Available Not Available No t Available levothyrox ine 50 mcg tablet 1 tablet by mouth 2017 active Medicatio n ID: [id number] Br and Name: levothyro xine Send Method: E-Prescri bed Subs Allowed: subs OK Medica tionGener icName: levothyro xine Not Available Not Available Not Available ipratropiu m bromide 21 mcg (0.03 %) nasal spray [place] 2 sprays 3 times a day by intranasa l route. 2023 active Not Available Not Available Not Avai lable metformin ER 500 mg tablet,ext ended release 24hr (osmotic) 2017 active Medicatio n ID: [id number] Br and Name: metformin Send Method: E-Prescri bed Subs Allowed: subs OK Medica tionGener icName: metformin Not Available Not Available Not Available aspirin 2017 active Medicatio n ID: [id number] Br and Name: aspirin S end Method: E-Prescri bed Subs Allowed: subs OK Medica tionGener icName: aspirin Not Available Not Available Not Available Januvia 25 mg tablet 2017 active Medicatio n ID: [id number] Br and Name: Januvia S end Method: E-Prescri bed Subs Allowed: subs [place] Medica tionGener icName: Januvia Not Available Not Available Not Available Vitals None Recorded Social History None recorded. Functional Status None recorded. Mental Status None recorded. Family History Nothing Reported. Medical History Condition Response Diabetes Y Hyperlipidemia Y Cancer Y Thyroid Problems Y Hypertension Y Glaucoma Y Gynecological HistoryNo gynecological history recorded. Obstetrics History GPAL:G 0 P 0 0 0 0 Past Encounters Encounter ID Performer Location Encounter Start Date Encounter Closed Date Diagnosis/Indication Diagnosis SNOMED-CT Code Diagnosis ICD10 Code Diagnosis IMO Codes Diagnosis Note [id number] IDALIA JIN MD [facility] [address] [address] 05/14/2024 10:20:50 05/14/2024 12:16:14 Abnormal auditory perception 88546669 H93.291 Impacted c erumen of bilateral ears 1103160722 424734 H61.23 Deviated nasal septum 12 6856816 J34.2 Chronic rhinitis 6043240 6 J31.0 [id number] PRO LOBO [facility] [address] [address] 05/14/2024 11:15:49 05/18/2024 11:59:55 Sensorineural hearing loss of bilateral ears 340921764 H90.3 Audiologic al evaluation results:Ri ght ear:Modera te sloping to moderately severe sensorineu ral hearing loss with excellent word recognitio n.Left ear:Mild sloping to moderately severe sensorineu ral hearing loss with excellent word recognitio n. Tympanomet ry:Right Ear:Type ALeft Ear:Type A Health Concerns Section Related Observation LastModified by Organization Detai ls LastModified Time None Recorded Concern Status LastModified by Organization Details LastModified Time None Recorded Advance Directives Directive None Recorded Payers Insurance Date Sequence Insurance Name Policy Number Policy Cosme Covered Member ID Cosme Member ID Guarantor Name 05/31/2024 2 BCBS-ID:ELICEO MILLS [facility] PLAN F (MEDICARE SUPPLEMENT) [id number] Millie Corcoran [id number] Millie Corcoran 05/14/2024 1 [place] [employer] [id number] Millie Corcoran [id number] Millie Corcoran Notes Date Note Type Note Provider Name and Address Organization Details Recorded Time 05/14/2024 text/html Feels right ear blocked and sensation of crumpled paper. Chronic clear rhinorrheaFeels right ear dull Hx of peripheral neuropathyHx cerumen and HL IDALIA PARRISH MD [address] [place] [address], [place], [address], [facility] - [facility] 05/14/2024 11:34:51 OBGyn Episode No OBEpisode recorded.
--- OUTSIDE RECORDS SUMMARY | 2025-03-26 15:32 | XMS_ITS | Encounter Summary ---
Author Organization [facility] Address [address] [place] [address] Care Team Providers Care Software Quality Assurance Specialist Name Role Phone Roro Wilson MD Primary Care Provider [phone] Encounter Details Date Type Department Care Team (Latest Contact Info) Description 06/14/2024 Lab Requisition [facility] - Main Lab [address] [facility] [place] [address] Judd Johnson MD [address] [place] [address], [phone] Myelodysplastic syndrome, unspecified (CMS/HCC V24, CMS/HCC [...] CBC auto differential (06/14/2024 5:56 AM EST) [facility] Signature WBC 11.6(H) 4.8 - 10.8 K/mcL LAB HEMETOLOGY METHOD 06/14/2024 10:07 AM [facility] RBC 3.60(L) 3.80 - 4.80 M/mcL LAB HEMETOLOGY METHOD 06/14/2024 10:07 AM [facility] Hemoglobin 11.0(L) 11.5 - 16.0 g/dL LAB HEMETOLOGY METHOD 06/14/2024 10:07 AM [facility] Hematocrit 33.3(L) 35.0 - 47.0 % LAB HEMETOLOGY METHOD 06/14/2024 10:07 AM [facility] MCV 92.0 79.0 - 98.0 FL LAB HEMETOLOGY METHOD 06/14/2024 10:07 AM [facility] MCH 30.4 27.0 - 32.0 pcg LAB HEMETOLOGY METHOD 06/14/2024 10:07 AM [facility] MCHC 33.0 32.0 - 37.0 g/dL LAB HEMETOLOGY METHOD 06/14/2024 10:07 AM [facility] RDW 14.0 11.0 - 15.0 % LAB HEMETOLOGY METHOD 06/14/2024 10:07 AM [facility] Platelets 313 130 - 400 K/mcL LAB HEMETOLOGY METHOD 06/14/2024 10:07 AM [facility] MPV 11.3(H) 7.0 - 11.0 FL LAB HEMETOLOGY METHOD 06/14/2024 10:07 AM [facility] NRBC 0.0 <1.0 % LAB HEMETOLOGY METHOD 06/14/2024 10:07 AM [facility] NRBC Absolute 0.00 <0.10 K/mcL LAB HEMETOLOGY METHOD 06/14/2024 10:07 AM [facility] Neutrophils Relative 75.8 % LAB HEMETOLOGY METHOD 06/14/2024 10:07 AM [facility] Comment:This is an appended report. These results have been appended to a previously preliminary verified report. Lymphocytes Relative 14.1 % LAB HEMETOLOGY METHOD 06/14/2024 10:07 AM [facility] Comment:This is an appended report. These results have been appended to a previously preliminary verified report. Monocytes Relative 7.4 % LAB HEMETOLOGY METHOD 06/14/2024 10:07 AM [facility] Comment:This is an appended report. These results have been appended to a previously preliminary verified report. Eosinophils Relative 0.3 % LAB HEMETOLOGY METHOD 06/14/2024 10:07 AM [facility] Comment:This is an appended report. These results have been appended to a previously preliminary verified report. Basophils Relative 0.3 % LAB HEMETOLOGY METHOD 06/14/2024 10:07 AM [facility] Comment:This is an appended report. These results have been appended to a previously preliminary verified report. Immature Granulocytes Relative 2.1 % LAB HEMETOLOGY METHOD 06/14/2024 10:07 AM [facility] Comment:This is an appended report. These results have been appended to a previously preliminary verified report. Neutrophils Absolute 8.82(H) 1.50 - 7.00 K/mcL LAB HEMETOLOGY METHOD 06/14/2024 10:07 AM [facility] Comment:This is an appended report. These results have been appended to a previously preliminary verified report. Lymphocytes Absolute 1.64 1.00 - 5.00 K/mcL LAB HEMETOLOGY METHOD 06/14/2024 10:07 AM [facility] Comment:This is an appended report. These results have been appended to a previously preliminary verified report. Monocytes Absolute 0.86 0.20 - 1.00 K/mcL LAB HEMETOLOGY METHOD 06/14/2024 10:07 AM EST [facility] Comment:This is an appended report. These results have been appended to a previously preliminary verified report. Eosinophils Absolute 0.03 0.00 - 0.50 K/mcL [facility] 06/14/2024 10:07 AM EST [facility] Comment:This is an appended report. These results have been appended to a previously preliminary verified report. Basophils Absolute 0.04 0.00 - 0.20 K/mcL LAB [facility] METHOD 06/14/2024 10:07 AM EST [facility] Comment:This is an appended report. These results have been appended to a previously preliminary verified report. Immature Granulocytes Absolute 0.24(H) 0.00 - 0.03 K/mcL LAB [facility] METHOD 06/14/2024 10:07 AM EST [facility] Comment:This is an appended report. These results have been appended to a previously preliminary verified report. Blood Venous blood specimen / Unknown Venipuncture / Unknown 06/14/2024 5:56 AM EST 06/14/2024 8:45 AM EST us Judd Johnson MD LAB BLOOD ORDERABLES Final Resul t [facility] [address] [place] [address], * (ABNORMAL) Comprehensive metabolic panel (06/14/2024 5:56 AM EST) Sodium 134 133 - 145 mmol/L LAB CHEMISTRY METHOD 06/14/2024 9:53 AM EST [facility] Potassium 3.6 3.5 - 5.5 mmol/L LAB CHEMISTRY METHOD 06/14/2024 9:53 AM EST [facility] Chloride 100 96 - 110 mmol/L LAB CHEMISTRY METHOD 06/14/2024 9:53 AM [facility] CO2 25 21 - 32 mmol/L LAB CHEMISTRY METHOD 06/14/2024 9:53 AM [facility] Anion Gap 9 3 - 11 LAB CHEMISTRY METHOD 06/14/2024 9:53 AM [facility] Glucose 123(H) 70 - 100 mg/dL LAB CHEMISTRY METHOD 06/14/2024 9:53 AM [facility] BUN 18 5 - 25 mg/dL LAB CHEMISTRY METHOD 06/14/2024 9:53 AM [facility] Creatinine 0.67 0.50 - 1.10 mg/dL LAB CHEMISTRY METHOD 06/14/2024 9:53 AM [facility] eGFR 85 >=60 mL/min/1. 73m2 LAB CHEMISTRY METHOD 06/14/2024 9:53 AM [facility] Comment:Calculation based on the Chronic Kidney Disease Epidemiology Collaboration (CKD-EPI) equation refit without adjustment for race. BUN/Creatinine Ratio 26.9 LAB CHEMISTRY METHOD 06/14/2024 9:53 AM [facility] Calcium 8.2(L) 8.5 - 10.5 mg/dL LAB CHEMISTRY METHOD 06/14/2024 9:53 AM [facility] AST (SGOT) 347(H) 10 - 42 unit/L LAB CHEMISTRY METHOD 06/14/2024 9:53 AM [facility] ALT (SGPT) 206(H) 10 - 60 unit/L LAB CHEMISTRY METHOD 06/14/2024 9:53 AM [facility] Alkaline Phosphatase 194(H) 42 - 121 unit/L LAB CHEMISTRY METHOD 06/14/2024 9:53 AM [facility] Total Protein 6.5 6.0 - 8.0 g/dL LAB CHEMISTRY METHOD 06/14/2024 9:53 AM [facility] Albumin 2.3(L) 3.2 - 5.0 g/dL LAB CHEMISTRY METHOD 06/14/2024 9:53 AM EST [facility] Total Bilirubin 0.9 0.0 - 1.4 mg/dL LAB CHEMISTRY METHOD 06/14/2024 9:53 AM EST [facility] Blood Venous blood specimen / Unknown Venipuncture / Unknown 06/14/2024 5:56 AM EST 06/14/2024 8:45 AM EST us Judd Johnson MD LAB BLOOD ORDERABLES Final Resul t [facility] ([facility] [address] [place] [address], documented in this encounter Visit Diagnoses Diagnosis Myelodysplastic syndrome, unspecified (CMS/HCC V24, CMS/HCC V28) Myelodysplastic syndrome, unspecified Hyperlipidemia, unspecified documented in this encounter Care Teams Software Quality Assurance Specialist Relationship Specialty Start Date End Date Roro Wilson MD [address] [address] PCP - General Internal Medicine 08/13/24 documented as of this encounter
--- OUTSIDE RECORDS SUMMARY | 2025-03-26 15:32 | XMS_ITS | Encounter Summary ---
Author Organization [facility] Address [address] [place] [address] Phone Care Team Providers Care Higher Level Teaching Assistant Name Role Phone Roro Wilson MD Primary Care Provider [phone] Pancho Fallon MD Unavailable [phone] Encounter Details Date Type Department Care Team (Late st Contact Info) Description 03/12/2025 Orders Only [facility] Medicine [address] [place] [address] Provider, MD Radha [address] [place] [address] Social History Tobacco Use Types [...] st Contact Info) Description 03/11/2025 Procedure Pass [address] [place] [address] 04/01/2025 3:15 PM EST Appointment [address] [place] [address] Roro Wilson MD [address] [place] [address], [address] [place] [address] 04/24/2025 1:45 PM EST Office Visit [facility] [address] [place] [address] [place] [address] Roro Wilson MD [address] [place] [address], [address] [place] [address] [email or web address] 04/29/2025 10:45 AM EST Office Visit [facility] [address] [place] [address] Roro Wilson MD [address] [place] [address], [address] [place] [address] Janice Buckner, PT [address] [place] [address] [email or web address] 05/07/2025 10:45 AM EST Office Visit [address] [address] Roro Wilson MD [address] [place] [address], [address] [place] [address] Janice Buckner, PT [address] [place] [address] [email or web address] 05/14/2025 10:45 AM EST Office Visit [address] [address] Roro Wilson MD [address] [place] [address] Janice Buckner, PT [address] [place] [address] [email or web address] 05/21/2025 10:45 AM EST Office Visit [address] [address] Roro Wilson MD [address] [place] [address], [address] [place] [address] Janice Buckner, PT [address] [place] [address] [email or web address] 05/28/2025 10:45 AM EST Office Visit [address] [address] Roro Wilson MD [address] [facility] [place] [address] [email or web address] Janice Buckner, PT [address] [place] [address] [email or web address] 06/04/2025 10:45 AM EST Office Visit [facility] [address] [place] [address] Roro Wilson MD [address] [facility] [place] [address] [email or web address] Janice Buckner, PT [address] [place] [address] [email or web address] documented as of this encounter Procedures Procedure [...] documented as of this encounter Care Teams Higher Level Teaching Assistant Relationship Specialty Start Date End Date Roro Wilson MD [address] [place] [address], [address] [place] [address] PCP - General Internal Medicine 09/22/20 Pancho Fallon MD [address] [place] [address] Endocrinology 08/02/23 documented as of this encounter Additional Source Comments The information contained in this document represents components of the legal health record. It is not the complete legal health record.[facility]
--- OUTSIDE RECORDS SUMMARY | 2025-03-26 15:32 | XMS_ITS | Clinical Summary ---
Author Organization [address] [address] Phone Care Team Providers Care Nps Name Role Phone No, Pcp (Do Not [...] patient's age to complete this topic Insurance [address] [place] [address] MEDICARE [facility] MEDICARE [facility] MEDICARE [facility] [employer] MEDICARE [facility] [employer] GENERIC MEDICARE Care Teams Nps Relationship Specialty Start Date End Date No, Pcp (Do Not Change Name) PCP - General 11/07/20
--- OUTSIDE RECORDS SUMMARY | 2025-03-26 15:32 | XMS_ITS | Encounter Summary ---
Author Organization [facility] Address [address] [place] [address] [place] [phone] Phone Care Team Providers Care Manager Agricultural Name Role Phone Pcp, Unknown Primary Care Provider Roro Segovia MD Primary Care Provider Marybel Salas RN Unavailable Pancho Fallon MD Unavailable Encounter Details Date Type Department Care Team (Late st Contact Info) Description 12/14/2019 Transcribe Orders [facility] Specimen Processing [address] [place] [address] Mary Rodriguez MD [address] [place] [address] Social History Tobacco Use Types Packs/Day Years [...] st Contact Info) Description 03/11/2025 Procedure Pass [address] [place] [address] 04/01/2025 3:15 PM EST Appointment [address] [place] [address] Roro Wilson MD [address] [place] [address] 04/24/2025 1:45 PM EST Office Visit [facility] [address] [place], [place] [address] [address] Roro Wilson MD [address] [place] [address] 04/29/2025 10:45 AM EST Office Visit [address] [address] Roro Wilson MD [address] [place] [address] Janice Buckner, PT [address] [place] [address] [email or web address] 05/07/2025 10:45 AM EST Office Visit [address] [address] Roro Wilson MD [address] [place] [address] Janice Buckner, PT [address] [place] [address] [email or web address] 05/14/2025 10:45 AM EST Office Visit [address] [address] Roro Wilson MD [address] [place] [address] Janice Buckner, PT [address] [place] [address] [email or web address] 05/21/2025 10:45 AM EST Office Visit [facility] [address] [place] [address] Roro Wilson MD [address] [place] [address] Janice Buckner, PT [address] [place] [address] [email or web address] 05/28/2025 10:45 AM EST Office Visit [facility] [address] [place] [address] Roro Wilson MD [address] [place] [address] [email or web address] Janice Buckner, PT [address] [place] [address] [email or web address] 06/04/2025 10:45 AM EST Office Visit [facility] [address] [place] [address] Roro Wilson MD [address] [place] [address] Janice Buckner, PT [address] [place] [address] [email or web address] documented as of this encounter Visit Diagnoses Not on filedocumented in this encounter Care Teams Manager Agricultural Relationship Specialty Start Date End Date Pcp, Unknown PCP - General 12/14/19 09/21/20 Roro Wilson MD [address] [place] [address], [address] [place] [address] PCP - General Internal Medicine 09/22/20 Marybel Salas, RN [address] [place] [phone] [facility] Fac[facility] Custodian 12/15/21 01/17/22 Pancho Fallon MD [address] [place] [phone] Endocrinology 08/02/23 documented as of this encounter Additional Source Comments The information contained in this document represents components of the legal health record. It is not the complete legal health record.[facility]
--- OUTSIDE RECORDS SUMMARY | 2025-03-26 15:32 | XMS_ITS | Clinical Summary ---
Author Organization [address] [facility] Address [address] [place] [address] Phone Care Team Providers Care Platinum And Palladium Kettle Tender Name Role Phone Roro Wilson MD Primary Care Provider Encounters Date Type Department Care Team Description 03/20/2025 Lab Requisition [facility] [address] [place] [phone] Khanh Kulkarni MD Essential (primary) hypertension 03/16/2025 Lab Requisition [facility] [address] [place] [phone] Khanh Kulkarni MD Essential (primary) hypertension 03/15/2025 Lab Requisition [facility] Lab [address] [place] [phone] Khanh Kulkarni MD Essential (primary) hypertension 01/29/2025 10:18 AM EDT - 01/29/2025 11:59 PM EDT Hospital Encounter [facility] Ultrasound [address] [place] [address] Mastodynia Discharge Disposition: Home or Self Care 01/29/2025 9:30 AM EDT - 01/29/2025 11:59 PM EDT Hospital Encounter [facility] [address] [place] [address] Mastodynia Discharge Disposition: Home or Self Care [...] (2 - Td or Tdap) 02/24/2015 02/24/2005 Falls Risk Assessment 04/24/2022 Medicare Annual Wellness Visit 04/24/2022 Osteoporosis Screening (Bone Density Screening) 04/24/2022 Social Influencers of Health Screening 04/24/2022 Depression Screening 05/23/2024 Diabetes: Blood Sugar Control Test (HGBA1C) 06/19/2024 COVID-19 Vaccine ( season) 2025 02/20/2023, 02/24/2022, 01/21/2022, Additional history exists Influenza Vaccine (#1) 2025 3, 03/06/2022, 01/21/2022, Additional history exists Hypertension/CHF/CAD Annual BMP Blood Test 03/21/2026 03/21/2025, 03/18/2025, 03/15/2025, Additional history exists Cholesterol Screening (Lipid Panel) 03/08/2030 03/08/2025 Hepatitis A Vaccines Aged Out 03/27/2008, 03/10/20 [...] Procedure Name Priority Date/Time Associated Diagnosis Comments BASIC METABOLIC PANEL Routine 03/21/2025 5:33 AM EDT Essential (primary) hypertension COMPLETE BLOOD COUNT Routine 03/21/2025 5:33 AM EDT Essential (primary) hypertension COMPREHENSIVE METABOLIC PANEL Routine 03/18/2025 5:10 AM EDT Essential (primary) hypertension COMPLETE BLOOD COUNT Routine 03/18/2025 5:10 AM EDT Essential (primary) hypertension COMPREHENSIVE METABOLIC PANEL Routine 03/15/2025 5:36 AM EDT Essential (primary) hypertension COMPLETE BLOOD COUNT Routine 03/15/2025 5:36 AM EDT Essential (primary) hypertension MG MAMMO DIGITAL DIAGNOSTIC W STAN LEFT Routine 01/29/2025 11:05 AM EDT Mastodynia US BREAST LIMITED LEFT Routine 01/29/2025 10:47 AM EDT Mastodynia from Last 3 Months Results * (ABNORMAL) Complete blood count (03/21/2025 5:33 AM EDT) Only the most recent of3 resultswithin the time period is included. [facility] Signature WBC 5.7 4.8 - 10.8 K/mcL LAB HEMETOLOGY METHOD 03/21/2025 8:45 AM [facility] LAB RBC 2.80(L) 3.80 - 4.80 M/mcL LAB HEMETOLOGY METHOD 03/21/2025 8:45 AM EDT [facility] LAB Hemoglobin 8.7(L) 11.5 - 16.0 g/dL LAB HEMETOLOGY METHOD 03/21/2025 8:45 AM [facility] LAB Hematocrit 27.3(L) 35.0 - 47.0 % LAB HEMETOLOGY METHOD 03/21/2025 8:45 AM [facility] LAB MCV 97.2 79.0 - 98.0 FL LAB HEMETOLOGY METHOD 03/21/2025 8:45 AM [facility] LAB MCH 31.0 27.0 - 32.0 pcg LAB HEMETOLOGY METHOD 03/21/2025 8:45 AM [facility] LAB MCHC 31.9(L) 32.0 - 37.0 g/dL LAB HEMETOLOGY METHOD 03/21/2025 8:45 AM [facility] LAB RDW 13.5 11.0 - 15.0 % LAB HEMETOLOGY METHOD 03/21/2025 8:45 AM [facility] LAB Platelets 314 130 - 400 K/mcL LAB HEMETOLOGY METHOD 03/21/2025 8:45 AM [facility] LAB MPV 10.1 7.0 - 11.0 FL LAB HEMETOLOGY METHOD 03/21/2025 8:45 AM [facility] LAB NRBC 0.0 <1.0 % LAB HEMETOLOGY METHOD 03/21/2025 8:45 AM EDT [facility] LAB NRBC Absolute 0.00 <0.10 K/mcL LAB HEMETOLOGY METHOD 03/21/2025 8:45 AM [facility] LAB Blood Venous blood specimen / Unknown Venipuncture / Unknown 03/21/2025 5:33 AM EDT 03/21/2025 8:02 AM EDT us Khanh Kulkarni MD LAB BLOOD ORDERABLES Final Resu lt [facility] LAB [address] [place] [address], [place] [phone] * (ABNORMAL) Basic metabolic panel (03/21/2025 5:33 AM EDT) Sodium 138 133 - 145 mmol/L LAB CHEMISTRY METHOD 03/21/2025 9:03 AM [facility] LAB Potassium 4.5 3.5 - 5.5 mmol/L LAB CHEMISTRY METHOD 03/21/2025 9:03 AM [facility] LAB Chloride 106 96 - 110 mmol/L LAB CHEMISTRY METHOD 03/21/2025 9:03 AM [facility] LAB CO2 28 21 - 32 mmol/L LAB CHEMISTRY METHOD 03/21/2025 9:03 AM [facility] LAB Anion Gap 4 3 - 11 LAB CHEMISTRY METHOD 03/21/2025 9:03 AM [facility] LAB Glucose 148(H) 70 - 100 mg/dL LAB CHEMISTRY METHOD 03/21/2025 9:03 AM [facility] LAB BUN 16 5 - 25 mg/dL LAB CHEMISTRY METHOD 03/21/2025 9:03 AM [facility] LAB Creatinine 0.84 0.50 - 1.10 mg/dL LAB CHEMISTRY METHOD 03/21/2025 9:03 AM [facility] LAB eGFR 67 >=60 mL/min/1. 73m2 LAB CHEMISTRY METHOD 03/21/2025 9:03 AM T [facility] LAB Comment:Calculation based on the Chronic Kidney Disease Epidemiology Collaboration (CKD-EPI) equation refit without adjustment for race. BUN/Creatinine Ratio 19.0 LAB CHEMISTRY METHOD [facility]/21[facility]2025 [facility] Calcium 9.1 8.5 - 10.5 mg/dL LAB CHEMISTRY METHOD 03/21/2025 9:03 AM EDT [facility] LAB Blood Venous blood specimen / Unknown Venipuncture / Unknown 03/21/2025 5:33 AM EDT 03/21/2025 8:02 AM EDT us Khanh Kulkarni MD LAB BLOOD ORDERABLES Final Resu lt [facility] [address] [place] [address], [place] [phone] * (ABNORMAL) Comprehensive metabolic panel (03/18/2025 5:10 AM EDT) Only the most recent of2 resultswithin the time period is included. Sodium 137 133 - 145 mmol/L LAB CHEMISTRY METHOD 03/18/2025 10:57 AM [facility] LAB Potassium 4.3 3.5 - 5.5 mmol/L LAB CHEMISTRY METHOD 03/18/2025 10:57 AM [facility] LAB Chloride 104 96 - 110 mmol/L LAB CHEMISTRY METHOD 03/18/2025 10:57 AM [facility] LAB CO2 28 21 - 32 mmol/L LAB CHEMISTRY METHOD 03/18/2025 10:57 AM [facility] LAB Anion Gap 5 3 - 11 LAB CHEMISTRY METHOD 03/18/2025 10:57 AM [facility] LAB Glucose 150(H) 70 - 100 mg/dL LAB CHEMISTRY METHOD 03/18/2025 10:57 AM [facility] LAB BUN 21 5 - 25 mg/dL LAB CHEMISTRY METHOD 03/18/2025 10:57 AM [facility] LAB Creatinine 0.94 0.50 - 1.10 mg/dL LAB CHEMISTRY METHOD 03/18/2025 10:57 AM [facility] LAB eGFR 58(L) >=60 mL/min/1. 73m2 LAB CHEMISTRY METHOD 03/18/2025 10:57 AM [facility] LAB Comment:Calculation based on the Chronic Kidney Disease Epidemiology Collaboration (CKD-EPI) equation refit without adjustment for race. BUN/Creatinine Ratio 22.3 LAB CHEMISTRY METHOD 03/18/2025 10:57 AM [facility] LAB Calcium 8.8 8.5 - 10.5 mg/dL LAB CHEMISTRY METHOD 03/18/2025 10:57 AM [facility] LAB AST (SGOT) 32 10 - 42 unit/L LAB CHEMISTRY METHOD 03/18/2025 10:57 AM [facility] LAB ALT (SGPT) 31 10 - 60 unit/L LAB CHEMISTRY METHOD 03/18/2025 10:57 AM [facility] LAB Alkaline Phosphatase 89 42 - 121 unit/L LAB CHEMISTRY METHOD 03/18/2025 10:57 AM [facility] LAB Total Protein 6.1 6.0 - 8.0 g/dL LAB CHEMISTRY METHOD 03/18/2025 10:57 AM [facility] LAB Albumin 2.7(L) 3.2 - 5.0 g/dL LAB CHEMISTRY METHOD 03/18/2025 10:57 AM [facility] LAB Total Bilirubin 0.4 0.0 - 1.4 mg/dL LAB CHEMISTRY METHOD 03/18/2025 10:57 AM [facility] LAB Blood Venous blood specimen / Unknown Venipuncture / Unknown 03/18/2025 5:10 AM EDT 03/18/2025 10:03 AM EDT us Khanh Kulkarni MD LAB BLOOD ORDERABLES Final Resu lt [facility] [address] [place] [address], [place] [phone] * MG Mammo Digital Diagnostic w Stan [...] is recommended in 1 year. Mammo Location: [facility], [address] [place] [address] -------- FINAL REPORT -------- Dictated By: Vinicius Mack Dictated Date: 01/29/2025 10:08 ET Assigned Physician: Vinicius Mack Reviewed and Electronically Signed By: Vinicius Mack Signed Date: 01/29/2025 10:49 ET Workstation ID: [id number] Transcribed By: Self Edit Transcribed Date: 01/29/2025 [...] and CC projection is performed in the [employer] 2000-D unit. Computer aided detection utilizing the [...] and CC projection is performed in the [employer] [id number] unit. Computer aided detection utilizing the iCAD [...] is recommended in 1 year. Mammo Location: [facility], [address] [place] [phone] -------- FINAL REPORT -------- Dictated By: Vinicius Mack Dictated Date: 01/29/2025 10:08 ET Assigned Physician: Vinicius Mack Reviewed and Electronically Signed By: Vinicius Mack Signed Date: 01/29/2025 10:49 ET Workstation ID: [id number] Transcribed By: Self Edit Transcribed Date: 01/29/2025 10:15 ET us Roro Wilson MD IMG BI PROCEDURES Final Res ult * US Breast Limited Left (01/29/2025 10:47 AM EDT) Anatomical Region Laterality Modality Breast Left Ultrasound 01/29/2025 10:4 4 AM EDT Impressions 01/29/2025 10:47 AM EDT No mass or other abnormality is seen in the left breast at the area of clinical concern. Code 78775 -------- FINAL REPORT -------- Dictated By: Vinicius Mack Dictated Date: 01/29/2025 10:44 ET Assigned Physician: Vinicius Mack Reviewed and Electronically Signed By: Vinicius Mack Signed Date: 01/29/2025 10:47 ET Workstation ID: [id number] Transcribed By: Self Edit Transcribed Date: 01/29/2025 [...] breast at the area ofclinical concern. Code 83678 -------- FINAL REPORT -------- Dictated By: Vinicius Mack Dictated Date: 01/29/2025 10:44 ET Assigned Physician: Vinicius Mack Reviewed and Electronically Signed By: Vinicius Mack Signed Date: 01/29/2025 10:47 ET Workstation ID: [id number] Transcribed By: Self Edit Transcribed Date: 01/29/2025 10:45 ET us oRro Wilson MD IM US PROCEDURES Final Res ult from Last 3 Months Insurance MEDICARE [facility] Care Teams Platinum And Palladium Kettle Tender Relationship Specialty Start Date End Date Roro Wilson MD [address], [place] [address] PCP - General Internal Medicine 08/13/24
--- OUTSIDE RECORDS SUMMARY | 2025-03-26 15:33 | XMS_ITS | Encounter Summary ---
Author Organization [facility] Address [address] [place] [address] Care Team Providers Care Water Supply Engineer Name Role Phone Roro Wilson MD Primary Care Provider [phone] Encounter Details Date Type Department Care Team (Late st Contact Info) Description 03/15/2025 Lab Requisition [facility] Lab [address] [place] [address] Khanh Kulkarni MD [address] [place] [address] Essential (primary) hypertension Social History Tobacco Use Types Packs/Day Years [...] Associated Diagnosis Comments COMPLETE BLOOD COUNT Routine 03/15/2025 5:36 AM EDT Essential (primary) hypertension COMPREHENSIVE METABOLIC PANEL Routine 03/15/2025 5:36 AM EDT Essential (primary) hypertension documented in this encounter Results * (ABNORMAL) Comprehensive metabolic panel (03/15/2025 5:36 AM EDT) Sodium 137 133 - 145 mmol/L LAB CHEMISTRY METHOD 03/15/2025 11:41 AM EDT [facility] Potassium 4.2 3.5 - 5.5 mmol/L LAB CHEMISTRY METHOD 03/15/2025 11:41 AM [facility] LAB Chloride 102 96 - 110 mmol/L LAB CHEMISTRY METHOD 03/15/2025 11:41 AM [facility] LAB CO2 29 21 - 32 mmol/L LAB CHEMISTRY METHOD 03/15/2025 11:41 AM [facility] LAB Anion Gap 6 3 - 11 LAB CHEMISTRY METHOD 03/15/2025 11:41 AM [facility] LAB Glucose 151(H) 70 - 100 mg/dL LAB CHEMISTRY METHOD 03/15/2025 11:41 AM [facility] BUN 18 5 - 25 mg/dL LAB CHEMISTRY METHOD 03/15/2025 11:41 AM [facility] LAB Creatinine 0.95 0.50 - 1.10 mg/dL LAB CHEMISTRY METHOD 03/15/2025 11:41 AM [facility] LAB eGFR 58(L) >=60 mL/min/1. 73m2 LAB CHEMISTRY METHOD 03/15/2025 11:41 AM [facility] LAB Comment:Calculation based on the Chronic Kidney Disease Epidemiology Collaboration (CKD-EPI) equation refit without adjustment for race. BUN/Creatinine Ratio 18.9 LAB CHEMISTRY METHOD 03/15/2025 11:41 AM [facility] LAB Calcium 8.8 8.5 - 10.5 mg/dL LAB CHEMISTRY METHOD 03/15/2025 11:41 AM [facility] LAB AST (SGOT) 29 10 - 42 unit/L LAB CHEMISTRY METHOD 03/15/2025 11:41 AM [facility] LAB ALT (SGPT) 26 10 - 60 unit/L LAB CHEMISTRY METHOD 03/15/2025 11:41 AM [facility] LAB Alkaline Phosphatase 73 42 - 121 unit/L LAB CHEMISTRY METHOD 03/15/2025 11:41 AM [facility] LAB Total Protein 6.0 6.0 - 8.0 g/dL LAB CHEMISTRY METHOD 03/15/2025 11:41 AM T [facility] LAB Albumin 2.6(L) 3.2 - 5.0 g/dL LAB CHEMISTRY METHOD 03/15/2025 11:41 AM EDT [facility] LAB Total Bilirubin 0.4 0.0 - 1.4 mg/dL LAB CHEMISTRY METHOD 03/15/2025 11:41 AM EDT [facility] LAB Blood Venous blood specimen / Unknown Venipuncture / Unknown 03/15/2025 5:36 AM EDT 03/15/2025 9:55 AM EDT Khanh Kulkarni MD LAB BLOOD ORDERABLES Final Resu lt [facility] [address] [place] [address], * (ABNORMAL) Complete blood count (03/15/2025 5:36 AM EDT) WBC 7.5 4.8 - 10.8 K/mcL LAB HEMETOLOGY METHOD 03/15/2025 10:29 AM [facility] LAB RBC 2.80(L) 3.80 - 4.80 M/mcL LAB HEMETOLOGY METHOD 03/15/2025 10:29 AM [facility] LAB Hemoglobin 8.8(L) 11.5 - 16.0 g/dL LAB HEMETOLOGY METHOD 03/15/2025 10:29 AM [facility] LAB Hematocrit 26.2(L) 35.0 - 47.0 % LAB HEMETOLOGY METHOD 03/15/2025 10:29 AM [facility] LAB MCV 93.2 79.0 - 98.0 FL LAB HEMETOLOGY METHOD 03/15/2025 10:29 AM [facility] LAB MCH 31.3 27.0 - 32.0 pcg LAB HEMETOLOGY METHOD 03/15/2025 10:29 AM EDT [facility] LAB MCHC 33.6 32.0 - 37.0 g/dL LAB HEMETOLOGY METHOD 03/15/2025 10:29 AM EDT [facility] LAB RDW 12.9 11.0 - 15.0 % LAB HEMETOLOGY METHOD 03/15/2025 10:29 AM EDT [facility] Platelets 172 130 - 400 K/mcL LAB HEMETOLOGY METHOD 03/15/2025 10:29 AM EDT [facility] MPV 11.5(H) 7.0 - 11.0 FL LAB HEMETOLOGY METHOD 03/15/2025 10:29 AM EDT [facility] NRBC 0.0 <1.0 % LAB HEMETOLOGY METHOD 03/15/2025 10:29 AM EDT [facility] LAB NRBC Absolute 0.00 <0.10 K/mcL LAB HEMETOLOGY METHOD 03/15/2025 10:29 AM EDT [facility] LAB Blood Venous blood specimen / Unknown Venipuncture / Unknown 03/15/2025 5:36 AM EDT 03/15/2025 9:55 AM EDT us Khanh Kulkarni MD LAB BLOOD ORDERABLES Final Resu lt [facility] [address] [place] [address], [place] [phone] documented in this encounter Visit Diagnoses Diagnosis Essential (primary) hypertension Unspecified essential hypertension documented in this encounter Care Teams Water Supply Engineer Relationship Specialty Start Date End Date Roro Wilson MD [address] [place] [phone] PCP - General Internal Medicine 08/13/24 documented as of this encounter
--- OUTSIDE RECORDS SUMMARY | 2025-03-26 15:33 | XMS_ITS | Clinical Summary ---
Author Organization [facility] Address [address] [place] [address] Phone Care Team Providers Care Dial Lathe Operator Name Role Phone Roro Wilson MD Primary Care Provider [phone] Pancho Fallon MD Unavailable [phone] Allergies Active Allergy Reactions Criticality Noted Date Comments Chloroquine GI Upset 11/05/2020 Gabapentin Rash Low 11/05/2020 Lidocaine 06/29/2021 Medications vitamins A,C,B-zrxs-fpgigb ([employer] [facility]) [id number] anqt-wf-abhb Cap Take 1 capsule by mouth 2 [...] PM EST): She has not heard from [facility]. She is concerned that she needs [...] again. Referral placed. Orders: Ambulatory referral to [facility] Physical Therapy Assessment & Plan (11/01/2023 [...] reviewed the imaging that was done at [facility] when she was last there. We [...] proceed with surgery if needed. Atherosclerosis of [place] co ronary artery of [place] heart without angina pectoris 12/03/2021 Assessment & [...] Type Department Care Team Description 03/20/[address] [place] [address] Roro Wilson MD Medication Refill; Medication Prior Authorization 03/14/[address] [place] [address] Roro Wilson MD Hip Injury 03/12/2025 Orders Only [facility] [address] [place] [address] ProviderRadha MD 03/11/[address] [place] [address] Roro Wilson MD Results 03/08/2025 2:36 PM EDT - 03/08/2025 11:59 PM EDT Hospital Encounter [facility] [address] [place] [address] Heather Ochoa MD Discharge Disposition: Home or Self Care 03/08/2025 2:00 PM EDT Office Visit [address] [place] [address] Heather Ochoa MD Dizzy (Primary Dx); Type 2 diabetes mellitus with diabetic polyneuropathy, with long-term current use of insulin; Hypothyroidism, unspecified type 03/08/2025 Telephone [facility] [address] [place] [address] Roro Wilson MD 03/08/[address] [place] [address] Roro Wilson MD Triage ([place] + dizziness + 03/07) 02/11/[address] [place] [address] Roro Wilson MD Medication Refill; Medication Prior Authorization 02/11/[address] [place] [address] Roro Wilson MD Medication Question 02/07/[address] [place] [address] Roro Wilson MD Medication Refill 01/18/2025 1:00 PM EDT Office Visit [address] [place] [address] Roro Wilson MD Type 2 diabetes mellitus with diabetic polyneuropathy, with long-term current use of insulin (Primary Dx) 12/31/[address] [place] [address] Roro Wilson MD Medication Refill from Last [...] st Contact Info) Description 03/11/2025 Procedure Pass [address] [place] [address] 04/01/2025 3:15 PM EST Appointment [address] [place] [address] Roro Wilson MD [facility] [employer] [facility], [address] [facility] [place] [address] 04/24/2025 1:45 PM EST Office Visit [facility] [address] [place] [address] [place] [address] Roro Wilson MD [address] [place] [address] 04/29/2025 10:45 AM EST Office Visit [address] [address] Roro Wilson MD [address] [place] [address] Janice Buckner, PT [address] [place] [address] 05/07/2025 10:45 AM EST Office Visit [address] [address] Roro Wilson MD [address] [place] [address] Janice Buckner, PT [address] [place] [address] 05/14/2025 10:45 AM EST Office Visit [address] [address] Roro Wilson MD [address] [place] [address] Janice Buckner, PT [address] [place] [address] 05/21/2025 10:45 AM EST Office Visit [address] [address] Roro Wilson MD [address] [place] [address] Janice Buckner, PT [address] [place] [address] [email or web address] 05/28/2025 10:45 AM EST Office Visit [address] [address] Roro Wilson MD [address] [place] [address], [address] [place] [address] Janice Buckner, PT [address] [place] [address] [email or web address] 06/04/2025 10:45 AM EST Office Visit [address] [address] Roro Wilson MD [address] [place] [address], [address] [place] [address] Janice Buckner, PT [address] [place] [address] [email or web address] Health Maintenance Due Date Last Done Comments [...] Imaging Report Only (03/11/2025 12:08 PM EDT) [facility] Provider MD HWANGG XR CHEST Edited Re sult - Final * Outside Imaging Report Only (03/11/2025 12:07 PM EDT) [facility] Provider IMG XR CHEST Edited Re sult - Final * Outside Imaging Report Only (03/11/2025 12:07 PM EDT) [facility] Provider MD HWANGG XR CHEST Edited Re sult - Final * Outside Imaging Report Only (03/11/2025 12:06 PM EDT) [facility] Provider IMG XR CHEST Edited Re sult - Final * Outside Imaging Report Only (03/11/2025 12:05 PM EDT) Result [facility] Provider IMG XR CHEST Edited Re sult - Final * (ABNORMAL) CBC and differential (03/08/2025 2:49 PM EDT) WBC 6.32 4.00 - 11.00 K/uL [facility] RBC 3.99(L) 4.00 - 5.20 M/uL [facility] HGB 12.5 12.0 - 16.0 g/dL [facility] HCT 37.9 36.0 - 46.0 % [facility] PLT 200 150 - 450 K/uL [facility] MCV 95.0 80.0 - 100.0 fL [facility] MCH 31.3(H) 27.0 - 31.0 pg [facility] MCHC 33.0 32.0 - 36.0 g/dL [facility] RDW 13.2 11.5 - 14.5 % [facility] MPV 11.6 8.4 - 12.0 fL [facility] NRBC 0.00 0.00 /100 WBCs [facility] ABSOLUTE NRBC 0.00 0.00 K/uL [facility] DIFF METHOD Auto [facility] NEUTS 58.3 48.0 - 76.0 % [facility] LYMPHS 32.0 18.0 - 41.0 % [facility] MONOS 7.9 4.0 - 11.0 % [facility] EOS 0.9 0.0 - 5.0 % [facility] BASOS 0.6 0.0 - 1.5 % [facility] Granulocytes, immature (%) 0.3 0.0 - 0.9 % [facility] ABSOLUTE NEUTS 3.68 1.92 - 7.60 K/uL [facility] ABSOLUTE LYMPHS 2.02 0.72 - 4.10 K/uL [facility] ABSOLUTE MONOS 0.50 0.16 - 1.10 K/uL [facility] ABSOLUTE EOS 0.06 0.00 - 0.50 K/uL [facility] ABSOLUTE BASOS 0.04 0.00 - 0.15 K/uL [facility] Granulocytes, immature 0.02 0.00 - 0.09 K/uL [facility] Blood 03/08/2025 2:49 PM EDT 03/08/2025 2:55 PM EDT us Roro Wilson MD LAB BLOOD BKR ORDERABLES Fi nal Result [facility] [address] [place] [address] * TSH (03/08/2025 2:49 PM EDT) TSH 2.05 0.27 - 4.20 uIU/mL [facility] Blood 03/08/2025 2:49 PM EDT 03/08/2025 2:55 PM EDT us Heather Ochoa MD LAB BLOOD BKR ORDERABLES Jazmín l Result Performing Organization Address [facility]/ZIP Co de Phone Number [address] [address] * (ABNORMAL) Lipid panel (03/08/2025 2:49 PM EDT) HDL 61 mg/dL [facility] Comment: Interpretation <40 mg/dL: Low HDL cholesterol (major risk factor for CHD) Greater than or equal to 60 mg/dL: High HDL cholesterol ( negative risk factor for CHD) HDL - cholesterol is affected by a number of factors, e.g. smoking, excerise, hormones, sex and age. CHOLESTEROL 176 0 - 240 mg/dL [facility] TRIGLYCERIDES 149 30 - 160 mg/dL [facility] LDL 85 50 - 129 mg/dL [facility] Comment: LDL levels in terms of risk for coronary heart disease: <100 mg/dL: Optimal 100-129 mg/dL: Near or above optimal 130-159 mg/dL: Borderline high 160-189 mg/dL: High >190 mg/dL: Very High CARDIAC RISK RATIO 2.9(L) 3.3 - 4.4 C [facility] Blood 03/08/2025 2:49 PM EDT 03/08/2025 2:55 PM EDT us Roro Wilson MD LAB BLOOD BKR ORDERABLES Fi nal Result Performing Organization Address [facility]/ZIP Co de Phone Number [address] [address] * (ABNORMAL) Basic metabolic panel (03/08/2025 2:49 PM EDT) SODIUM 138 133 - 146 mmol/L [facility] CHLORIDE 104 96 - 108 mmol/L [facility] POTASSIUM 4.1 3.3 - 5.1 mmol/L [facility] CO2 25 21 - 35 mmol/L [facility] BUN 16 6 - 19 mg/dL [facility] CREATININE 0.70 0.5 - 1.5 mg/dL [facility] GLUCOSE 156(H) 70 - 99 mg/dL [facility] CALCIUM 10.0 8.4 - 10.3 mg/dL [facility] EGFR 83 >59 mL/min/1.7 3m2 [facility] Comment:Estimated glomerular filtration rate calculated using the CKD-EPI refit equation. ANION GAP 13 10 - 20 mmol/L [facility] Blood 03/08/2025 2:49 PM EDT 03/08/2025 2:55 PM EDT us Roro Wilson MD LAB BLOOD BKR ORDERABLES Fi nal Result Performing Organization Address City/[facility]/ZIP Co de Phone Number [address] [address] * (ABNORMAL) Hemoglobin A1c (07/02/2024 11:29 AM EST) HEMOGLOBIN A1C 6.7(H) 4.3 - 5.8 % [facility] Blood 07/02/2024 11:2 9 AM EST 07/02/2024 11:32 AM EST us Pancho Fallon MD LAB BLOOD BKR ORDERABLES Fin al Result Performing Organization Address City/[facility]/ZIP Co de Phone Number [address] [address] * HM DEXA SCAN (08/03/2023 10:47 AM EDT) us Pancho Fallon MD HEALTH MAINTENANCE Final Res ult * Microalbumin/creatinine ratio, random urine (10/16/2021 1:30 PM EDT) URINE MICROALBUMIN <1.2 0 - 2.3 mg/dL [facility] URINE CREATININE 61 mg/dL [facility] MICROALB/CRE RATIO NOT CALCULATED 0 - 20 mg/g Cre [facility] Comment:due to Microalbumin <1.2 Urine (Urine) 10/16/2021 1:3 0 PM EDT 10/16/2021 4:07 PM EDT us Pancho Fallon MD LAB URINE ORDERABLES Final R esult [facility] [address] [place] [address] * DIABETES EYE EXAM FOR RESULT ENTRY ONLY (09/15/2021) us Historical Provider HEALTH MAINTENANCE Edited Result - Final from Last 3 Months or Most Recently Relevant to Health Maintenance Insurance [employer] MEDEX SUPPLEMENT MEDICARE PART A & B [place] [employer] SUPPLEMENT MEDICARE PART A & [place] [address] [place] [address] CROSS MEDEX SUPPLEMENT MEDICARE PART A & B [employer] MEDEX SUPPLEMENT MEDICARE PART A & B [employer] MEDEX SUPPLEMENT MEDICARE PART A & B MEDICARE PART A & B [employer] MEDEX SUPPLEMENT MEDICARE PART A & B [employer] SUPPLEMENT MEDICARE PART A & B [employer] MED[employer] SUPPLEMENT MEDICARE PART A & B Advance Directives For more information, please contact: [phone] (9AM - 5PM [facility], Tuesday-Tuesday) Documents on File Type Date Recorded Patient Computer Information Systems Professor Expl [facility] Healthcare Proxy 06/26/2024 [facility] care proxy 06/26/24 Care Teams Dial Lathe Operator Relationship Specialty Start Date End Date Roro Wilson MD [address] [place] [address], [address] [place] [address] PCP - General Internal Medicine 09/22/20 Pacnho Fallon MD [address] [place] [address] Endocrinology 08/02/23 Additional Source Comments The information contained in this document represents components of the legal health record. It is not the complete legal health record.[facility]
--- OUTSIDE RECORDS SUMMARY | 2025-03-26 15:33 | XMS_ITS | Encounter Summary ---
Author Organization [facility] Address [address] [place] [phone] Care Team Providers Care Director Of Neighborhood Service Center Name Role Phone Rroo Wilson MD Primary Care Provider [phone] Encounter Details Date Type Department Care Team (Late st Contact Info) Description 06/19/2024 Lab Requisition [facility] [address] [facility] [place] [address] Judd Johnson MD [address] [place] [address], [phone] Polyneuropathy, unspecified; Squamous cell carcinoma of [...] LAB CHEMISTRY METHOD 06/20/2024 12:[address] [facility] Blood Venous blood specimen / Unknown Venipuncture / Unknown 06/20/2024 7:20 AM EST 06/20/2024 12:38 PM EST us Judd Johnson MD LAB BLOOD ORDERABLES Final Resul t [facility] [address] [place] [address], * (ABNORMAL) Comprehensive metabolic panel (06/20/2024 7:20 AM EST) Pathologist [facility] Sodium 137 133 - 145 mmol/L LAB CHEMISTRY METHOD 06/20/2024 12:57 PM [facility] Potassium 3.8 3.5 - 5.5 mmol/L LAB CHEMISTRY METHOD 06/20/2024 12:57 PM [facility] Chloride 103 96 - 110 mmol/L LAB CHEMISTRY METHOD 06/20/2024 12:57 PM [facility] CO2 29 21 - 32 mmol/L LAB CHEMISTRY METHOD 06/20/2024 12:57 PM [facility] Anion Gap 5 3 - 11 LAB CHEMISTRY METHOD 06/20/2024 12:57 PM [facility] Glucose 112(H) 70 - 100 mg/dL LAB CHEMISTRY METHOD 06/20/2024 12:57 PM [facility] BUN 11 5 - 25 mg/dL LAB CHEMISTRY METHOD 06/20/2024 12:57 PM [facility] Creatinine 0.64 0.50 - 1.10 mg/dL LAB CHEMISTRY METHOD 06/20/2024 12:57 PM [facility] eGFR 86 >=60 mL/min/1. 73m2 LAB CHEMISTRY METHOD 06/20/2024 12:57 PM [facility] Comment:Calculation based on the Chronic Kidney Disease Epidemiology Collaboration (CKD-EPI) equation refit without adjustment for race. BUN/Creatinine Ratio 17.2 LAB CHEMISTRY METHOD 06/20/2024 12:57 PM [facility] Calcium 8.4(L) 8.5 - 10.5 mg/dL LAB CHEMISTRY METHOD 06/20/2024 12:57 PM [facility] AST (SGOT) 44(H) 10 - 42 unit/L LAB CHEMISTRY METHOD 06/20/2024 12:57 PM [facility] ALT (SGPT) 66(H) 10 - 60 unit/L LAB CHEMISTRY METHOD 06/20/2024 12:57 PM [facility] Alkaline Phosphatase 114 42 - 121 unit/L LAB CHEMISTRY METHOD 06/20/2024 12:57 PM [facility] Total Protein 6.1 6.0 - 8.0 g/dL LAB CHEMISTRY METHOD 06/20/2024 12:57 PM [facility] Albumin 2.3(L) 3.2 - 5.0 g/dL LAB CHEMISTRY METHOD 06/20/2024 12:57 PM [facility] Total Bilirubin 0.5 0.0 - 1.4 mg/dL LAB CHEMISTRY METHOD 06/20/2024 12:57 PM [facility] Blood Venous blood specimen / Unknown Venipuncture / Unknown 06/20/2024 7:20 AM EST 06/20/2024 12:38 PM EST us Judd Johnson MD LAB BLOOD ORDERABLES Final Resul t [facility] [address] [place] [address], * (ABNORMAL) Complete blood count (06/20/2024 7:20 AM EST) [facility] WBC 7.9 4.8 - 10.8 K/mcL LAB HEMETOLOGY METHOD 06/20/2024 12:19 PM [facility] RBC 3.30(L) 3.80 - 4.80 M/mcL LAB HEMETOLOGY METHOD 06/20/2024 12:19 PM [facility] Hemoglobin 10.1(L) 11.5 - 16.0 g/dL LAB HEMETOLOGY METHOD 06/20/2024 12:19 PM [facility] Hematocrit 31.0(L) 35.0 - 47.0 % LAB HEMETOLOGY METHOD 06/20/2024 12:19 PM [facility] MCV 93.7 79.0 - 98.0 FL LAB HEMETOLOGY METHOD 06/20/2024 12:19 PM [facility] MCH 30.5 27.0 - 32.0 pcg LAB HEMETOLOGY METHOD 06/20/2024 12:19 PM [facility] MCHC 32.6 32.0 - 37.0 g/dL LAB HEMETOLOGY METHOD 06/20/2024 12:19 PM [facility] RDW 13.8 11.0 - 15.0 % LAB HEMETOLOGY METHOD 06/20/2024 12:19 PM [facility] Platelets 466(H) 130 - 400 K/mcL LAB HEMETOLOGY METHOD 06/20/2024 12:19 PM [facility] MPV 9.7 7.0 - 11.0 FL LAB HEMETOLOGY METHOD 06/20/2024 12:19 PM [facility] NRBC 0.0 <1.0 % LAB HEMETOLOGY METHOD 06/20/2024 12:[address] [facility] NRBC Absolute 0.00 <0.10 K/mcL LAB HEMETOLOGY METHOD 06/20/2024 12:[address] [facility] Blood Venous blood specimen / Unknown Venipuncture / Unknown 06/20/2024 7:20 AM EST 06/20/2024 11:08 AM EST us Judd Johnson MD LAB BLOOD ORDERABLES Final Resul t 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
--- OUTSIDE RECORDS SUMMARY | 2025-03-26 15:33 | XMS_ITS | Encounter Summary ---
Author Organization [facility] Address [address] [place] [address] Care Team Providers Care Quality Audit Representative Name Role Phone Roro Wilson MD Primary Care Provider [phone] Encounter Details Date Type Department Care Team (Late st Contact Info) Description 03/20/2025 Lab Requisition [facility] [address] [place] [address] Khanh Kulkarni MD [address] [place] [address] Essential (primary) hypertension Social History [...] Associated Diagnosis Comments COMPLETE BLOOD COUNT Routine 03/21/2025 5:33 AM EDT Essential (primary) hypertension BASIC METABOLIC PANEL Routine 03/21/2025 5:33 AM EDT Essential (primary) hypertension documented in this encounter Results * (ABNORMAL) Basic metabolic panel (03/21/2025 5:33 AM EDT) Sodium 138 133 - 145 mmol/L LAB CHEMISTRY METHOD 03/21/2025 9:03 AM EDT [facility] Potassium 4.5 3.5 - 5.5 mmol/L LAB CHEMISTRY METHOD 03/21/2025 9:03 AM [facility] Chloride 106 96 - 110 mmol/L LAB CHEMISTRY METHOD 03/21/2025 9:03 AM [facility] CO2 28 21 - 32 mmol/L LAB CHEMISTRY METHOD 03/21/2025 9:03 AM [facility] Anion Gap 4 3 - 11 LAB CHEMISTRY METHOD 03/21/2025 9:03 AM [facility] Glucose 148(H) 70 - 100 mg/dL LAB CHEMISTRY METHOD 03/21/2025 9:03 AM [facility] BUN 16 5 - 25 mg/dL LAB CHEMISTRY METHOD 03/21/2025 9:03 AM [facility] Creatinine 0.84 0.50 - 1.10 mg/dL LAB CHEMISTRY METHOD 03/21/2025 9:03 AM [facility] eGFR 67 >=60 mL/min/1. 73m2 LAB CHEMISTRY METHOD 03/21/2025 9:03 AM [facility] Comment:Calculation based on the Chronic Kidney Disease Epidemiology Collaboration (CKD-EPI) equation refit without adjustment for race. BUN/Creatinine Ratio 19.0 LAB CHEMISTRY METHOD 03/21/2025 9:03 AM [facility] Calcium 9.1 8.5 - 10.5 mg/dL LAB CHEMISTRY METHOD 03/21/2025 9:03 AM [facility] Blood Venous blood specimen / Unknown Venipuncture / Unknown 03/21/2025 5:33 AM EDT 03/21/2025 8:02 AM EDT us Khanh Kulkarni MD LAB BLOOD ORDERABLES Final Resu lt [facility] [address] [place] [address], * (ABNORMAL) Complete blood count (03/21/2025 5:33 AM EDT) [facility] Signature WBC 5.7 4.8 - 10.8 K/mcL LAB HEMETOLOGY METHOD 03/21/2025 8:45 AM [facility] RBC 2.80(L) 3.80 - 4.80 M/mcL LAB HEMETOLOGY METHOD 03/21/2025 8:45 AM [facility] Hemoglobin 8.7(L) 11.5 - 16.0 g/dL LAB HEMETOLOGY METHOD 03/21/2025 8:45 AM [facility] Hematocrit 27.3(L) 35.0 - 47.0 % LAB HEMETOLOGY METHOD 03/21/2025 8:45 AM [facility] MCV 97.2 79.0 - 98.0 FL LAB HEMETOLOGY METHOD 03/21/2025 8:45 AM [facility] MCH 31.0 27.0 - 32.0 pcg LAB HEMETOLOGY METHOD 03/21/2025 8:45 AM [facility] MCHC 31.9(L) 32.0 - 37.0 g/dL LAB HEMETOLOGY METHOD 03/21/2025 8:45 AM [facility] RDW 13.5 11.0 - 15.0 % LAB HEMETOLOGY METHOD 03/21/2025 8:45 AM [facility] Platelets 314 130 - 400 K/mcL LAB HEMETOLOGY METHOD 03/21/2025 8:45 AM [facility] MPV 10.1 7.0 - 11.0 FL LAB HEMETOLOGY METHOD 03/21/2025 8:45 AM [facility] NRBC 0.0 <1.0 % LAB HEMETOLOGY METHOD 03/21/2025 8:45 AM EDT [facility] NRBC Absolute 0.00 <0.10 K/mcL LAB HEMETOLOGY METHOD 03/21/2025 8:45 AM EDT [facility] Blood Venous blood specimen / Unknown Venipuncture / Unknown 03/21/2025 5:33 AM EDT 03/21/2025 8:02 AM EDT us hKanh Kulkarni MD LAB BLOOD ORDERABLES Final Resu lt [facility] [address] [place] [address], documented in this encounter Visit Diagnoses Diagnosis Essential (primary) hypertension Unspecified essential hypertension documented in this encounter Care Teams Quality Audit Representative Relationship Specialty Start Date End Date Roro Wilson MD [address] [place] [phone] PCP - General Internal Medicine 08/13/24 documented as of this encounter
--- OUTSIDE RECORDS SUMMARY | 2025-03-26 15:33 | XMS_ITS | Encounter Summary ---
Author Organization [facility] Address [address] [place] [address] Care Team Providers Care Manager Developmental Name Role Phone Roro Wilson MD Primary Care Provider [phone] Encounter Details Date Type Department Care Team (Late st Contact Info) Description 03/16/2025 Lab Requisition [facility] - Main Lab [address] [place] [address] Khanh Kulkarni MD [address] [place] [address] Essential (primary) hypertension Social History [...] Associated Diagnosis Comments COMPLETE BLOOD COUNT Routine 03/18/2025 5:10 AM EDT Essential (primary) hypertension COMPREHENSIVE METABOLIC PANEL Routine 03/18/2025 5:10 AM EDT Essential (primary) hypertension documented in this encounter Results * (ABNORMAL) Comprehensive metabolic panel (03/18/2025 5:10 AM EDT) Sodium 137 133 - 145 mmol/L LAB CHEMISTRY METHOD 03/18/2025 10:57 AM EDT [facility] Potassium 4.3 3.5 - 5.5 mmol/L LAB CHEMISTRY METHOD 03/18/2025 10:57 AM [facility] Chloride 104 96 - 110 mmol/L LAB CHEMISTRY METHOD 03/18/2025 10:57 AM [facility] CO2 28 21 - 32 mmol/L LAB CHEMISTRY METHOD 03/18/2025 10:57 AM [facility] Anion Gap 5 3 - 11 LAB CHEMISTRY METHOD 03/18/2025 10:57 AM [facility] Glucose 150(H) 70 - 100 mg/dL LAB CHEMISTRY METHOD 03/18/2025 10:57 AM [facility] BUN 21 5 - 25 mg/dL LAB CHEMISTRY METHOD 03/18/2025 10:57 AM [facility] Creatinine 0.94 0.50 - 1.10 mg/dL LAB CHEMISTRY METHOD 03/18/2025 10:57 AM [facility] eGFR 58(L) >=60 mL/min/1. 73m2 LAB CHEMISTRY METHOD 03/18/2025 10:57 AM [facility] LAB Comment:Calculation based on the Chronic Kidney Disease Epidemiology Collaboration (CKD-EPI) equation refit without adjustment for race. BUN/Creatinine Ratio 22.3 LAB CHEMISTRY METHOD 03/18/2025 10:57 AM [facility] Calcium 8.8 8.5 - 10.5 mg/dL LAB CHEMISTRY METHOD 03/18/2025 10:57 AM [facility] AST (SGOT) 32 10 - 42 unit/L LAB CHEMISTRY METHOD 03/18/2025 10:57 AM [facility] ALT (SGPT) 31 10 - 60 unit/L LAB CHEMISTRY METHOD 03/18/2025 10:57 AM [facility] Alkaline Phosphatase 89 42 - 121 unit/L LAB CHEMISTRY METHOD 03/18/2025 10:57 AM [facility] Total Protein 6.1 6.0 - 8.0 g/dL LAB CHEMISTRY METHOD 03/18/2025 10:[address] [facility] Albumin 2.7(L) 3.2 - 5.0 g/dL LAB CHEMISTRY METHOD 03/18/2025 10:[address] [facility] Total Bilirubin 0.4 0.0 - 1.4 mg/dL LAB CHEMISTRY METHOD 03/18/2025 10:[address] [facility] Blood Venous blood specimen / Unknown Venipuncture / Unknown 03/18/2025 5:10 AM EDT 03/18/2025 10:03 AM EDT us Khanh Kulkarni MD LAB BLOOD ORDERABLES Final Resu lt [facility] [address] [place] [address], * (ABNORMAL) Complete blood count (03/18/2025 5:10 AM EDT) WBC 7.7 4.8 - 10.8 K/mcL LAB HEMETOLOGY METHOD 03/18/2025 10:23 AM [facility] RBC 2.70(L) 3.80 - 4.80 M/mcL LAB HEMETOLOGY METHOD 03/18/2025 10:23 AM [facility] Hemoglobin 8.4(L) 11.5 - 16.0 g/dL LAB HEMETOLOGY METHOD 03/18/2025 10:[address] [facility] Hematocrit 26.0(L) 35.0 - 47.0 % LAB HEMETOLOGY METHOD 03/18/2025 10:23 AM [facility] MCV 96.3 79.0 - 98.0 FL LAB HEMETOLOGY METHOD 03/18/2025 10:23 AM [facility] MCH 31.1 27.0 - 32.0 pcg LAB HEMETOLOGY METHOD 03/18/2025 10:[address] [facility] MCHC 32.3 32.0 - 37.0 g/dL LAB HEMETOLOGY METHOD 03/18/2025 10:[address] [facility] RDW 13.2 11.0 - 15.0 % LAB HEMETOLOGY METHOD 03/18/2025 10:[address] [facility] Platelets 239 130 - 400 K/mcL LAB HEMETOLOGY METHOD 03/18/2025 10:[address] [facility] MPV 10.7 7.0 - 11.0 FL LAB HEMETOLOGY METHOD 03/18/2025 10:[address] [facility] NRBC 0.0 <1.0 % LAB HEMETOLOGY METHOD 03/18/2025 10:[address] [facility] NRBC Absolute 0.00 <0.10 K/mcL LAB HEMETOLOGY METHOD 03/18/2025 10:[address] [facility] Blood Venous blood specimen / Unknown Venipuncture / Unknown 03/18/2025 5:10 AM EDT 03/18/2025 10:03 AM EDT us Khanh Kulkarni MD LAB BLOOD ORDERABLES Final Resu lt [facility] [address] [place] [address], [place] [phone] documented in this encounter Visit Diagnoses Diagnosis Essential (primary) hypertension Unspecified essential hypertension documented in this encounter Care Teams Manager Developmental Relationship Specialty Start Date End Date Roro Wilson MD [address] [place] [phone] PCP - General Internal Medicine 08/13/24 documented as of this encounter
== END 2025-03-25 12:55 | disposition home or self-care (01) ==
LOC: HO.HOSX 12:54
PROVIDERS: Visit Provider Physician Assistant
DX: S82.141D Displaced bicondylar fracture of right tibia, subsequent encounter for closed fracture with routine healing (principal); X58.XXXD Exposure to other specified factors, subsequent encounter
CPT/HCPCS: 73560; 99212

== ENCOUNTER 2025-04-22 09:07 | Outpatient (AMB) | payer MEDICARE, SELFPAY ==
--- NOTE | 2025-04-22 09:20 | MHC.OFFVIS ---
Intake Visit Reasons: OV-RT tibial tubercle/plateau FC- w/xrays Intake Note: Millie is an 89 year old female who presents today in a wheel chair for a follow up of her right tibial plateau/tubercle fracture status post fall. At her last visit she was to remain non weight bearing of right lower extremity. No bending of the right knee. Knee immobilizer should be on at all times for transfers. Instructed to follow up in 4 weeks with x-rays. Today patient reports she has been doing well, however upon getting on the x-ray table today she experienced an intense pain. Allergies gabapentin Allergy (Severe, Verified 04/22/25 09:25) Rash chloroquine (CHLOROQUINE) Allergy (Mild, Verified 04/22/25 09:25) RASH Medication List - Last Reconciled 04/22/25 by Melany Buckner PA-C acetaminophen 650 mg (2 x 325 mg) PO Q6H PRN apixaban (Eliquis) 2.5 mg PO BID atorvastatin 40 mg PO DAILY levothyroxine 75 mcg PO DAILY@0600 pregabalin (Lyrica) 75 mg PO BID sitagliptin phosphate (Januvia) 50 mg PO BID tramadol 50 mg PO Q6H PRN HPI HPI OV-RT tibial tubercle/plateau FC- w/xrays: Details: 89-year-old female returns to the office today 6 weeks status post right tibial tubercle/plateau fracture. She has been nonweightbearing since the date of injury. She is still at [facility]. She states she is progressing well, using the immobilizer and not bending the knee and nwb. She does perform ankle pumps. [facility] Medical History Vertigo COVID-19 vaccine series completed Myocardial infarction Hx of breast cancer Polymyalgia Ankle injury Hypothyroidism Hypertension Dyslipidemia Diabetes mellitus Surgical History History of esophagogastroduodenoscopy (EGD) H/O colonoscopy H/O breast surgery Hx of appendectomy Family History Father HTN (hypertension) Mother HTN (hypertension) Diabetes Gallbladder cancer Social History Household Members: Spouse Housing: House Are you a primary youth career specialist to a significant other at home: No Do you presently have visiting nurse or other home services: No Alcohol intake: former Patient Tobacco Use Status: Never used Tobacco e-Cigarette/Vaping Use: Never Used Substance Use Type: Other Advance Directives Date on File: 06/19/24 service: No Current occupational status: employed 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 Review of Systems Const All systems reviewed & are unremarkable except as noted in HPI and below Physical Exam Vital Signs: Last Vital Signs Temp 98.2 F 03/13/25 07:21 Pulse 95 03/13/25 07:21 Resp 16 03/13/25 07:21 BP 125/59 L 03/13/25 07:21 Pulse Ox 97 03/13/25 07:21 O2 Del Method Room Air 03/13/25 07:21 BMI result Body Mass Index 24.5 Const General: cooperative and no acute distress Orientation/consciousness: patient oriented x3 Resp Effort & Inspection: normal respiratory effort and able to speak in complete sentences Cardio Peripheral pulses: Peripheral pulses 2+ throughout Neuro General: patient oriented x3 Extrem Other: Right knee skin intact with mild tenderness over the medial side of the proximal tibia. She is able to plantar and dorsi flex the foot and ankle, NVI. She does have discoloration of both lower extremities which she states is chronic from an old illness Results Reviewed Results Reviewed: X-rays of the right knee obtained in the office today show tibial tubercle fracture with extension into the tibial plateau without further displacement. Interval healing noted. Assessment & Plan Assessment & Plan (1) Fracture of tibia, closed: Code(s): S82.209A - Unspecified fracture of shaft of unspecified tibia, initial encounter for closed fracture Category: Medical Plan Dr. Swartz was available to see the patient with me today. Patient was given a playmaker knee brace while in the office today. Will begin ROM 0-10 deg with brace, increase ROM 10 deg every week. Continue NWB for another 5-6 weeks. Ok to remove the brace while at rest or for hygiene. Wear brace while sleeping. She will return to see me back in 5-6 weeks with x-rays, sooner if needed. Orders: Orders XR knee RT 2V Today M25.569 - Pain in unspecified knee Coding Level of Care Code Global (71410) Diagnoses Fracture of tibia, closed S82.209A
--- OUTSIDE RECORDS SUMMARY | 2025-04-22 10:38 | XMS_ITS | Clinical Summary ---
Author Organization [address] [facility] Address [address] [place] [address] Phone Care Team Providers Care Correctional Casework Specialist Name Role Phone Roro Wilson MD Primary Care Provider Encounters Date Type Department Care Team Description 03/20/2025 Lab Requisition [facility] - Main Lab [address] [place] [phone] Khanh Kulkarni MD Essential (primary) hypertension 03/16/2025 Lab Requisition [facility] Lab [address] [place] [phone] Khanh Kulkarni MD Essential (primary) hypertension 03/15/2025 Lab Requisition [facility] Lab [address] [place] [phone] Khanh Kulkarni MD Essential (primary) hypertension 01/29/2025 10:18 AM EDT - 01/29/2025 11:59 PM EDT Hospital Encounter [facility] Ultrasound [address] [place] [address] Mastodynia Discharge Disposition: Home or Self Care 01/29/2025 9:30 AM EDT - 01/29/2025 11:59 PM EDT Hospital Encounter [facility] [address] [place] [address] Mastodynia Discharge Disposition: Home or Self Care [...] of3 resultswithin the time period is included. [facility] Signature WBC 5.7 4.8 - 10.8 K/mcL LAB HEMETOLOGY METHOD 03/21/2025 8:45 AM [facility] RBC 2.80(L) 3.80 - 4.80 M/mcL LAB HEMETOLOGY METHOD 03/21/2025 8:45 AM EDT [facility] Hemoglobin 8.7(L) 11.5 - [...] LAB HEMETOLOGY METHOD 03/21/2025 8:45 AM EDT [facility] LAB NRBC Absolute 0.00 <0.10 K/mcL LAB HEMETOLOGY METHOD 03/21/2025 8:45 AM [facility] LAB Blood Venous blood specimen / Unknown Venipuncture / Unknown 03/21/2025 5:33 AM EDT 03/21/2025 8:02 AM EDT us Khanh Kulkarni MD LAB BLOOD ORDERABLES Final Resu lt [facility] LAB [address] [place] [address], [place] [phone] * (ABNORMAL) Basic metabolic panel (03/21/2025 5:33 AM EDT) Sodium 138 133 - 145 mmol/L LAB CHEMISTRY METHOD 03/21/2025 9:03 AM [facility] Potassium 4.5 3.5 - 5.5 mmol/L [...] LAB CHEMISTRY METHOD 03/21/2025 9:03 AM T [facility] LAB Comment:Calculation based on the Chronic Kidney Disease Epidemiology Collaboration (CKD-EPI) equation refit without adjustment for race. BUN/Creatinine Ratio 19.0 LAB CHE[facility]STR[facility] Calcium 9.1 8.5 - 10.5 mg/dL LAB CHEMISTRY METHOD 03/21/2025 9:03 AM EDT [facility] LAB Blood Venous blood specimen / Unknown Venipuncture / Unknown 03/21/2025 5:33 AM EDT 03/21/2025 8:02 AM EDT us Khanh Kulkarni MD LAB BLOOD ORDERABLES Final Resu lt [facility] LAB [address] [place] [address], [place] [phone] * (ABNORMAL) Comprehensive metabolic panel (03/18/2025 5:10 AM EDT) Only the most recent of2 resultswithin the time period is included. Sodium 137 133 - 145 mmol/L LAB CHEMISTRY METHOD 03/18/2025 10:57 AM [facility] Potassium 4.3 3.5 - 5.5 mmol/L LAB CHEMISTRY METHOD 03/18/2025 10:57 AM [facility] Chloride 104 96 - 110 mmol/L LAB CHEMISTRY METHOD 03/18/2025 10:57 AM [facility] CO2 28 21 - 32 mmol/L LAB CHEMISTRY METHOD 03/18/2025 10:57 AM [facility] Anion Gap 5 3 - 11 LAB CHEMISTRY METHOD 03/18/2025 10:57 AM [facility] Glucose 150(H) 70 - 100 mg/dL LAB CHEMISTRY METHOD 03/18/2025 10:57 AM [facility] BUN 21 5 - 25 mg/dL LAB CHEMISTRY METHOD 03/18/2025 10:57 AM [facility] Creatinine 0.94 0.50 - 1.10 mg/dL LAB CHEMISTRY METHOD 03/18/2025 10:57 AM [facility] LAB eGFR 58(L) >=60 mL/min/1. 73m2 LAB CHEMISTRY METHOD 03/18/2025 10:57 AM [facility] LAB Comment:Calculation based on the Chronic Kidney Disease Epidemiology Collaboration (CKD-EPI) equation refit without adjustment for race. BUN/Creatinine Ratio 22.3 LAB CHEMISTRY METHOD 03/18/2025 10:57 AM [facility] Calcium 8.8 8.5 - 10.5 mg/dL LAB CHEMISTRY METHOD 03/18/2025 10:57 AM [facility] AST (SGOT) 32 10 - 42 unit/L LAB CHEMISTRY METHOD 03/18/2025 10:57 AM [facility] ALT (SGPT) 31 10 - 60 unit/L LAB CHEMISTRY METHOD 03/18/2025 10:57 AM [facility] Alkaline Phosphatase 89 42 - 121 unit/L LAB CHEMISTRY METHOD 03/18/2025 10:57 AM [facility] Total Protein 6.1 6.0 - 8.0 g/dL LAB CHEMISTRY METHOD 03/18/2025 10:57 AM [facility] Albumin 2.7(L) 3.2 - 5.0 g/dL LAB CHEMISTRY METHOD 03/18/2025 10:57 AM [facility] Total Bilirubin 0.4 0.0 - 1.4 mg/dL LAB CHEMISTRY METHOD 03/18/2025 10:57 AM [facility] Blood Venous blood specimen / Unknown Venipuncture / Unknown 03/18/2025 5:10 AM EDT 03/18/2025 10:03 AM EDT us Khanh Kulkarni MD LAB BLOOD ORDERABLES Final Resu lt [facility] [address] [place] [address], [place] [phone] * MG Mammo Digital Diagnostic w Stan [...] is recommended in 1 year. Mammo Location: [facility], [address] [place] [address] -------- FINAL REPORT -------- Dictated By: Vinicius Mack Dictated Date: 01/29/2025 10:08 ET Assigned Physician: Vinicius Mack Reviewed and Electronically Signed By: Vinicius Mack Signed Date: 01/29/2025 10:49 ET Workstation ID: [id number] Transcribed By: Self Edit Transcribed Date: 01/29/2025 [...] and CC projection is performed in the HPC Brasile 2000-D unit. Computer aided detection utilizing the [...] and CC projection is performed in the Net 263 [id number] unit. Computer aided detection utilizing the iCAD [...] is recommended in 1 year. Mammo Location: [facility], [address] [place] [address] -------- FINAL REPORT -------- Dictated By: Vinicius Mack Dictated Date: 01/29/2025 10:08 ET Assigned Physician: Vinicius Mack Reviewed and Electronically Signed By: Vinicius Mack Signed Date: 01/29/2025 10:49 ET Workstation ID: [id number] Transcribed By: Self Edit Transcribed Date: 01/29/2025 10:15 ET us Roro Wilson MD IMG BI PROCEDURES Final Res ult * US Breast Limited Left (01/29/2025 10:47 AM EDT) Anatomical Region Laterality Modality Breast Left Ultrasound 01/29/2025 10:4 4 AM EDT Impressions 01/29/2025 10:47 AM EDT No mass or other abnormality is seen in the left breast at the area of clinical concern. Code 78238 -------- FINAL REPORT -------- Dictated By: Vinicius Mack Dictated Date: 01/29/2025 10:44 ET Assigned Physician: Vinicius Mack Reviewed and Electronically Signed By: Vinicius Mack Signed Date: 01/29/2025 10:47 ET Workstation ID: [id number] Transcribed By: Self Edit Transcribed Date: 01/29/2025 [...] breast at the area ofclinical concern. Code 35350 -------- FINAL REPORT -------- Dictated By: Vinicius Mack Dictated Date: 01/29/2025 10:44 ET Assigned Physician: Vinicius Mack Reviewed and Electronically Signed By: Vinicius Mack Signed Date: 01/29/2025 10:47 ET Workstation ID: [id number] Transcribed By: Self Edit Transcribed Date: 01/29/2025 10:45 ET us Roro Wislon MD IM US PROCEDURES Final Res ult from Last 3 Months Insurance MEDICARE [facility] Care Teams Correctional Casework Specialist Relationship Specialty Start Date End Date Roro Wilson MD [address] [address] PCP - General Internal Medicine 08/13/24
--- OUTSIDE RECORDS SUMMARY | 2025-04-22 10:38 | XMS_ITS | Clinical Summary ---
Author Organization [address] [address] Phone Care Team Providers Care Drop Clipper Name Role Phone No, Pcp (Do Not [...] patient's age to complete this topic [place] [address] [place] [address] MEDICARE [facility] MEDICARE [facility] MEDICARE [facility] [employer]OR VEHICLE GENERIC MEDICARE [facility] [employer] GENERIC MEDICARE Care Teams Drop Clipper Relationship Specialty Start Date End Date No, Pcp (Do Not Change Name) PCP - General 11/07/20
--- OUTSIDE RECORDS SUMMARY | 2025-04-22 10:38 | XMS_ITS | Encounter Summary ---
Author Organization [facility] Address [address] [place] [address] [place] [address] Phone Care Team Providers Care Promotions Manager Name Role Phone Roro Wilson MD Primary Care Provider [phone] Pancho Fallon MD Unavailable [phone] Encounter Details Date Type Department Care Team (Late st Contact Info) Description 07/05/2023 Procedure Pass [facility], [address] [place] [address] Social History Tobacco Use Types Packs/Day Years [...] Care Team (Late st Contact Info) Description 04/24/2025 1:45 PM EST Office Visit [facility] [address] [place] [address] [place] [address] Roro Wilson MD [address] [place] [address], [address] [place] [address] 04/29/2025 10:45 AM EST Office Visit [facility] [place] [address] Roro Wilson MD [address] [place] [address], [address] [place] [address] [email or web address] Janice Buckner, PT [address] [place] [address] [email or web address] 05/07/2025 10:45 AM EST Office Visit [address] [address] Roro Wilson MD [address] [place] [phone] [email or web address] Janice Buckner, PT [address] [place] [address] [email or web address] 05/14/2025 10:45 AM EST Office Visit [address] [address] Roro Wilson MD [address] [place] [phone] [email or web address] Janice Buckner, PT [address] [place] [address] [email or web address] 05/21/2025 10:45 AM EST Office Visit [address] [address] Roro Wilson MD [address] [place] [phone] [email or web address] Janice Buckner, PT [address] [place] [address] [email or web address] 05/28/2025 10:45 AM EST Office Visit [address] [address] Roro Wilson MD [address] [place] [phone] [email or web address] Janice Buckner, PT [address] [place] [address] 06/04/2025 10:45 AM EST Office Visit [facility] [address] [place] [address] Roro Wilson MD [address] [place] [phone] [email or web address] Janice Buckner, PT [address] [place] [address] documented as of this encounter Visit Diagnoses Not on filedocumented in this encounter Additional Health Concerns Assessment Noted Time PHQ-9 Depression Total Score: 12 01/13/ 023 6:54 PM EDT PHQ-2 Depression Total Score: 1 02/09/20 23 9:30 AM EDT documented as of this encounter Care Teams Promotions Manager Relationship Specialty Start Date End Date Roro Wilson MD [address] [place] [phone] [email or web address] PCP - General Internal Medicine 09/22/20 Pancho Fallon MD [address] [place] [phone] Endocrinology 08/02/23 documented as of this encounter Additional Source Comments The information contained in this document represents components of the legal health record. It is not the complete legal health record.[facility]
--- OUTSIDE RECORDS SUMMARY | 2025-04-22 10:40 | XMS_ITS | Patient Health Record ---
[facility] Address [address] [place] [address] Care Team Providers Care Forming Department Supervisor Name Role Phone Roro Wilson Primary Care Provider Unavailab Bakari Ballard Unavailable [phone] Allergies Allergen (clinical drug ingredient) Drug/Non Drug [...] Polyneuropathy due to type 2 diabetes mellitus ([id number]) Type 2 diabetes mellitus with diabetic polyneuropathy (E11.42) Active confirmed Plan Of Treatment Pending Test Test Name Order Date I&D ABSCESS- SIMPLE,SINGLE 014 Insurance Providers Payer Name Payer Address Payer Phone Subscriber Number Group Number Insured Name Patient Relationship to Insured Coverage Start Date Coverage End Date Medicare National Govt Queue-it [facility] [address] [facility] [place] [address] [id number] Millie Corcoran Self - patient is the insured [employer] [address] [place] [address] [id number] Millie Corcoran Self - patient is the [...]
--- OUTSIDE RECORDS SUMMARY | 2025-04-22 10:40 | XMS_ITS | Encounter Summary ---
Author Organization [facility] Address [id number] [place] [phone] Care Team Providers Care V Belt Curer Name Role Phone Roro Wilson MD Primary Care Provider [phone] Encounter Details Date Type Department Care Team (Latest Contact Info) Description 06/14/2024 Lab Requisition [facility] - Main Lab [address] [facility] [place] [address] Judd Johnson MD [address] [place] [address], [phone] Myelodysplastic syndrome, unspecified (CMS/HCC V24, CMS/HCC [...] CBC auto differential (06/14/2024 5:56 AM EST) [facility] Signature WBC 11.6(H) 4.8 - 10.8 K/mcL LAB HEMETOLOGY METHOD 06/14/2024 10:07 AM [facility] LAB RBC 3.60(L) 3.80 - 4.80 M/mcL LAB HEMETOLOGY METHOD 06/14/2024 10:07 AM [facility] LAB Hemoglobin 11.0(L) 11.5 - 16.0 g/dL LAB HEMETOLOGY METHOD 06/14/2024 10:07 AM [facility] LAB Hematocrit 33.3(L) 35.0 - 47.0 % LAB HEMETOLOGY METHOD 06/14/2024 10:07 AM [facility] LAB MCV 92.0 79.0 - 98.0 FL LAB HEMETOLOGY METHOD 06/14/2024 10:07 AM [facility] LAB MCH 30.4 27.0 - 32.0 pcg LAB HEMETOLOGY METHOD 06/14/2024 10:07 AM [facility] LAB MCHC 33.0 32.0 - 37.0 g/dL LAB HEMETOLOGY METHOD 06/14/2024 10:07 AM [facility] LAB RDW 14.0 11.0 - 15.0 % LAB HEMETOLOGY METHOD 06/14/2024 10:07 AM [facility] LAB Platelets 313 130 - 400 K/mcL LAB HEMETOLOGY METHOD 06/14/2024 10:07 AM [facility] LAB MPV 11.3(H) 7.0 - 11.0 FL LAB HEMETOLOGY METHOD 06/14/2024 10:07 AM [facility] LAB NRBC 0.0 <1.0 % LAB HEMETOLOGY METHOD 06/14/2024 10:07 AM [facility] LAB NRBC Absolute 0.00 <0.10 K/mcL LAB HEMETOLOGY METHOD 06/14/2024 10:07 AM [facility] LAB Neutrophils Relative 75.8 % LAB HEMETOLOGY METHOD 06/14/2024 10:07 AM [facility] LAB Comment:This is an appended report. These results have been appended to a previously preliminary verified report. Lymphocytes Relative 14.1 % LAB HEMETOLOGY METHOD 06/14/2024 10:07 AM [facility] LAB Comment:This is an appended report. These results have been appended to a previously preliminary verified report. Monocytes Relative 7.4 % LAB HEMETOLOGY METHOD 06/14/2024 10:07 AM [facility] LAB Comment:This is an appended report. These results have been appended to a previously preliminary verified report. Eosinophils Relative 0.3 % LAB HEMETOLOGY METHOD 06/14/2024 10:07 AM [facility] LAB Comment:This is an appended report. These results have been appended to a previously preliminary verified report. Basophils Relative 0.3 % LAB HEMETOLOGY METHOD 06/14/2024 10:07 AM [facility] LAB Comment:This is an appended report. These results have been appended to a previously preliminary verified report. Immature Granulocytes Relative 2.1 % LAB HEMETOLOGY METHOD 06/14/2024 10:07 AM [facility] LAB Comment:This is an appended report. These results have been appended to a previously preliminary verified report. Neutrophils Absolute 8.82(H) 1.50 - 7.00 K/mcL LAB HEMETOLOGY METHOD 06/14/2024 10:07 AM [facility] LAB Comment:This is an appended report. These results have been appended to a previously preliminary verified report. Lymphocytes Absolute 1.64 1.00 - 5.00 K/mcL LAB HEMETOLOGY METHOD 06/14/2024 10:07 AM [facility] LAB Comment:This is an appended report. These results have been appended to a previously preliminary verified report. Monocytes Absolute 0.86 0.20 - 1.00 K/mcL LAB HEMETOLOGY METHOD 06/14/2024 10:07 AM EST [facility] LAB Comment:This is an appended report. These results have been appended to a previously preliminary verified report. Eosinophils Absolute 0.03 0.00 - 0.50 K/mcL LAB [facility] METHOD 06/14/2024 10:07 AM EST [facility] LAB Comment:This is an appended report. These results have been appended to a previously preliminary verified report. Basophils Absolute 0.04 0.00 - 0.20 K/mcL LAB [facility] METHOD 06/14/2024 10:07 AM EST [facility] LAB Comment:This is an appended report. These results have been appended to a previously preliminary verified report. Immature Granulocytes Absolute 0.24(H) 0.00 - 0.03 K/mcL LAB [facility] METHOD 06/14/2024 10:07 AM EST [facility] LAB Comment:This is an appended report. These results have been appended to a previously preliminary verified report. Blood Venous blood specimen / Unknown Venipuncture / Unknown 06/14/2024 5:56 AM EST 06/14/2024 8:45 AM EST us Judd Johnson MD LAB BLOOD ORDERABLES Final Resul t [facility] LAB [address] [place] [address], * (ABNORMAL) Comprehensive metabolic panel (06/14/2024 5:56 AM EST) Sodium 134 133 - 145 mmol/L LAB CHEMISTRY METHOD 06/14/2024 9:53 AM EST [facility] LAB Potassium 3.6 3.5 - 5.5 mmol/L LAB CHEMISTRY METHOD 06/14/2024 9:53 AM EST [facility] LAB Chloride 100 96 - 110 mmol/L LAB CHEMISTRY METHOD 06/14/2024 9:53 AM [facility] LAB CO2 25 21 - 32 mmol/L LAB CHEMISTRY METHOD 06/14/2024 9:53 AM [facility] LAB Anion Gap 9 3 - 11 LAB CHEMISTRY METHOD 06/14/2024 9:53 AM [facility] LAB Glucose 123(H) 70 - 100 mg/dL LAB CHEMISTRY METHOD 06/14/2024 9:53 AM [facility] LAB BUN 18 5 - 25 mg/dL LAB CHEMISTRY METHOD 06/14/2024 9:53 AM [facility] LAB Creatinine 0.67 0.50 - 1.10 mg/dL LAB CHEMISTRY METHOD 06/14/2024 9:53 AM [facility] LAB eGFR 85 >=60 mL/min/1. 73m2 LAB CHEMISTRY METHOD 06/14/2024 9:53 AM [facility] LAB Comment:Calculation based on the Chronic Kidney Disease Epidemiology Collaboration (CKD-EPI) equation refit without adjustment for race. BUN/Creatinine Ratio 26.9 LAB CHEMISTRY METHOD 06/14/2024 9:53 AM [facility] LAB Calcium 8.2(L) 8.5 - 10.5 mg/dL LAB CHEMISTRY METHOD 06/14/2024 9:53 AM [facility] LAB AST (SGOT) 347(H) 10 - 42 unit/L LAB CHEMISTRY METHOD 06/14/2024 9:53 AM [facility] LAB ALT (SGPT) 206(H) 10 - 60 unit/L LAB CHEMISTRY METHOD 06/14/2024 9:53 AM [facility] LAB Alkaline Phosphatase 194(H) 42 - 121 unit/L LAB CHEMISTRY METHOD 06/14/2024 9:53 AM [facility] LAB Total Protein 6.5 6.0 - 8.0 g/dL LAB CHEMISTRY METHOD 06/14/2024 9:53 AM [facility] LAB Albumin 2.3(L) 3.2 - 5.0 g/dL LAB CHEMISTRY METHOD 06/14/2024 9:53 AM EST [facility] LAB Total Bilirubin 0.9 0.0 - 1.4 mg/dL LAB CHEMISTRY METHOD 06/14/2024 9:53 AM EST [facility] LAB Blood Venous blood specimen / Unknown Venipuncture / Unknown 06/14/2024 5:56 AM EST 06/14/2024 8:45 AM EST us Judd Johnson MD LAB BLOOD ORDERABLES Final Resul t [facility] LAB [address] [place] [address], documented in this encounter Visit Diagnoses Diagnosis Myelodysplastic syndrome, unspecified (CMS/HCC V24, CMS/HCC V28) Myelodysplastic syndrome, unspecified Hyperlipidemia, unspecified documented in this encounter Care Teams V Belt Curer Relationship Specialty Start Date End Date Roro Wilson MD [address] [address] PCP - General Internal Medicine 08/13/24 documented as of this encounter
--- OUTSIDE RECORDS SUMMARY | 2025-04-22 10:40 | XMS_ITS | Encounter Summary ---
Author Organization [facility] Address [address] [place] [address] Care Team Providers Care Account Installation Specialist Name Role Phone Roro Wilson MD Primary Care Provider Encounter Details Date Type Department Care Team (Late st Contact Info) Description 03/16/2025 Lab Requisition [facility] - Main Lab [address] [place] [address] Khanh Kulkarni MD [address] [place] [address] Essential (primary) hypertension Social History [...] LAB CHEMISTRY METHOD 03/18/2025 10:57 AM EDT [facility] Potassium 4.3 3.5 - 5.5 mmol/L LAB CHEMISTRY METHOD 03/18/2025 10:57 AM [facility] LAB Chloride 104 96 - 110 mmol/L LAB CHEMISTRY METHOD 03/18/2025 10:57 AM [facility] LAB CO2 28 21 - 32 mmol/L LAB CHEMISTRY METHOD 03/18/2025 10:57 AM [facility] LAB Anion Gap 5 3 - 11 LAB CHEMISTRY METHOD 03/18/2025 10:57 AM [facility] LAB Glucose 150(H) 70 - 100 mg/dL LAB CHEMISTRY METHOD 03/18/2025 10:57 AM [facility] LAB BUN 21 5 - 25 mg/dL LAB CHEMISTRY METHOD 03/18/2025 10:57 AM [facility] LAB Creatinine 0.94 0.50 - 1.10 mg/dL LAB CHEMISTRY METHOD 03/18/2025 10:57 AM [facility] LAB eGFR 58(L) >=60 mL/min/1. 73m2 LAB CHEMISTRY METHOD 03/18/2025 10:57 AM [facility] LAB Comment:Calculation based on the Chronic Kidney Disease Epidemiology Collaboration (CKD-EPI) equation refit without adjustment for race. BUN/Creatinine Ratio 22.3 LAB CHEMISTRY METHOD 03/18/2025 10:57 AM [facility] LAB Calcium 8.8 8.5 - 10.5 mg/dL LAB CHEMISTRY METHOD 03/18/2025 10:57 AM [facility] LAB AST (SGOT) 32 10 - 42 unit/L LAB CHEMISTRY METHOD 03/18/2025 10:57 AM [facility] LAB ALT (SGPT) 31 10 - 60 unit/L LAB CHEMISTRY METHOD 03/18/2025 10:57 AM [facility] LAB Alkaline Phosphatase 89 42 - 121 unit/L LAB CHEMISTRY METHOD 03/18/2025 10:57 AM [facility] LAB Total Protein 6.1 6.0 - 8.0 g/dL LAB CHEMISTRY METHOD 03/18/2025 10:57 AM T [facility] LAB Albumin 2.7(L) 3.2 - 5.0 g/dL LAB CHEMISTRY METHOD 03/18/2025 10:57 AM EDT [facility] LAB Total Bilirubin 0.4 0.0 - 1.4 mg/dL LAB CHEMISTRY METHOD 03/18/2025 10:57 AM EDT [facility] LAB Blood Venous blood specimen / Unknown Venipuncture / Unknown 03/18/2025 5:10 AM EDT 03/18/2025 10:03 AM EDT us Khanh Kulkarni MD LAB BLOOD ORDERABLES Final Resu lt [facility] LAB [address] [place] [address], * (ABNORMAL) Complete blood count (03/18/2025 5:10 AM EDT) WBC 7.7 4.8 - 10.8 K/mcL LAB HEMETOLOGY METHOD 03/18/2025 10:23 AM [facility] LAB RBC 2.70(L) 3.80 - 4.80 M/mcL LAB HEMETOLOGY METHOD 03/18/2025 10:23 AM [facility] LAB Hemoglobin 8.4(L) 11.5 - 16.0 g/dL LAB HEMETOLOGY METHOD 03/18/2025 10:23 AM T [facility] LAB Hematocrit 26.0(L) 35.0 - 47.0 % LAB HEMETOLOGY METHOD 03/18/2025 10:23 AM [facility] LAB MCV 96.3 79.0 - 98.0 FL LAB HEMETOLOGY METHOD 03/18/2025 10:23 AM [facility] LAB MCH 31.1 27.0 - 32.0 pcg LAB HEMETOLOGY METHOD 03/18/2025 10:23 AM EDT [facility] LAB MCHC 32.3 32.0 - 37.0 g/dL LAB HEMETOLOGY METHOD 03/18/2025 10:23 AM EDT [facility] LAB RDW 13.2 11.0 - 15.0 % LAB HEMETOLOGY METHOD 03/18/2025 10:23 AM EDT [facility] LAB Platelets 239 130 - 400 K/mcL LAB HEMETOLOGY METHOD 03/18/2025 10:23 AM EDT [facility] LAB MPV 10.7 7.0 - 11.0 FL LAB HEMETOLOGY METHOD 03/18/2025 10:23 AM EDT [facility] LAB NRBC 0.0 <1.0 % LAB HEMETOLOGY METHOD 03/18/2025 10:23 AM EDT [facility] LAB NRBC Absolute 0.00 <0.10 K/mcL LAB HEMETOLOGY METHOD 03/18/2025 10:23 AM EDT [facility] LAB Blood Venous blood specimen / Unknown Venipuncture / Unknown 03/18/2025 5:10 AM EDT 03/18/2025 10:03 AM EDT us Khanh Kulkarni MD LAB BLOOD ORDERABLES Final Resu lt [facility] LAB [address] [place] [address], [place] [phone] documented in this encounter Visit Diagnoses Diagnosis Essential (primary) hypertension Unspecified essential hypertension documented in this encounter Care Teams Account Installation Specialist Relationship Specialty Start Date End Date Roro Wilson MD [address] [place] [phone] PCP - General Internal Medicine 08/13/24 documented as of this encounter
--- OUTSIDE RECORDS SUMMARY | 2025-04-22 10:40 | XMS_ITS | Encounter Summary ---
Author Organization [facility] Address [address] [place] [address] Care Team Providers Care Check Scaler Name Role Phone Roro Wilson MD Primary Care Provider Encounter Details Date Type Department Care Team (Late st Contact Info) Description 03/20/2025 Lab Requisition [facility] - Main Lab [address] [place] [address] Khanh Kulkarni MD [address] [place] [address] Essential (primary) hypertension Social History [...] LAB CHEMISTRY METHOD 03/21/2025 9:03 AM EDT [facility] Potassium 4.5 3.5 - 5.5 mmol/L LAB CHEMISTRY METHOD 03/21/2025 9:03 AM [facility] LAB Chloride 106 96 - 110 mmol/L LAB CHEMISTRY METHOD 03/21/2025 9:03 AM [facility] LAB CO2 28 21 - 32 mmol/L LAB CHEMISTRY METHOD 03/21/2025 9:03 AM [facility] LAB Anion Gap 4 3 - 11 LAB CHEMISTRY METHOD 03/21/2025 9:03 AM [facility] LAB Glucose 148(H) 70 - 100 mg/dL LAB CHEMISTRY METHOD 03/21/2025 9:03 AM [facility] LAB BUN 16 5 - 25 mg/dL LAB CHEMISTRY METHOD 03/21/2025 9:03 AM [facility] LAB Creatinine 0.84 0.50 - 1.10 mg/dL LAB CHEMISTRY METHOD 03/21/2025 9:03 AM [facility] LAB eGFR 67 >=60 mL/min/1. 73m2 LAB CHEMISTRY METHOD 03/21/2025 9:03 AM [facility] LAB Comment:Calculation based on the Chronic Kidney Disease Epidemiology Collaboration (CKD-EPI) equation refit without adjustment for race. BUN/Creatinine Ratio 19.0 LAB CHEMISTRY METHOD 03/21/2025 9:03 AM [facility] LAB Calcium 9.1 8.5 - 10.5 mg/dL LAB CHEMISTRY METHOD 03/21/2025 9:03 AM [facility] LAB Blood Venous blood specimen / Unknown Venipuncture / Unknown 03/21/2025 5:33 AM EDT 03/21/2025 8:02 AM EDT us Khanh Kulkarni MD LAB BLOOD ORDERABLES Final Resu lt [facility] LAB [address] [place] [address], * (ABNORMAL) Complete blood count (03/21/2025 5:33 AM EDT) [facility] Signature WBC 5.7 4.8 - 10.8 K/mcL LAB HEMETOLOGY METHOD 03/21/2025 8:45 AM [facility] LAB RBC 2.80(L) 3.80 - 4.80 M/mcL LAB HEMETOLOGY METHOD 03/21/2025 8:45 AM [facility] LAB Hemoglobin 8.7(L) 11.5 - 16.0 g/dL LAB HEMETOLOGY METHOD 03/21/2025 8:45 AM [facility] LAB Hematocrit 27.3(L) 35.0 - 47.0 % LAB HEMETOLOGY METHOD 03/21/2025 8:45 AM [facility] LAB MCV 97.2 79.0 - 98.0 FL LAB HEMETOLOGY METHOD 03/21/2025 8:45 AM [facility] LAB MCH 31.0 27.0 - 32.0 pcg LAB HEMETOLOGY METHOD 03/21/2025 8:45 AM [facility] LAB MCHC 31.9(L) 32.0 - 37.0 g/dL LAB HEMETOLOGY METHOD 03/21/2025 8:45 AM [facility] LAB RDW 13.5 11.0 - 15.0 % LAB HEMETOLOGY METHOD 03/21/2025 8:45 AM [facility] LAB Platelets 314 130 - 400 K/mcL LAB HEMETOLOGY METHOD 03/21/2025 8:45 AM [facility] LAB MPV 10.1 7.0 - 11.0 FL LAB HEMETOLOGY METHOD 03/21/2025 8:45 AM [facility] LAB NRBC 0.0 <1.0 % LAB HEMETOLOGY METHOD 03/21/2025 8:45 AM EDT [facility] NRBC Absolute 0.00 <0.10 K/mcL LAB HEMETOLOGY METHOD 03/21/2025 8:45 AM EDT [facility] LAB Blood Venous blood specimen / Unknown Venipuncture / Unknown 03/21/2025 5:33 AM EDT 03/21/2025 8:02 AM EDT us Khanh Kulkarni MD LAB BLOOD ORDERABLES Final Resu lt [facility] LAB [address] [place] [address], documented in this encounter Visit Diagnoses Diagnosis Essential (primary) hypertension Unspecified essential hypertension documented in this encounter Care Teams Check Scaler Relationship Specialty Start Date End Date Roro Wilson MD [address] [place] [phone] PCP - General Internal Medicine 08/13/24 documented as of this encounter
--- OUTSIDE RECORDS SUMMARY | 2025-04-22 10:40 | XMS_ITS | Encounter Summary ---
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
--- OUTSIDE RECORDS SUMMARY | 2025-04-22 10:40 | XMS_ITS | Encounter Summary ---
Author Organization [facility] Address [address] [place] [address] [place] [phone] Phone Care Team Providers Care Agricultural Consultant Name Role Phone Pcp, Unknown Primary Care Provider UnavailRoro Wharton MD Primary Care Provider Marybel Salas RN Unavailable [phone] Pancho Fallon MD Unavailable Encounter Details Date Type Department Care Team (Late st Contact Info) Description 12/14/2019 Transcribe Orders [facility] Specimen Processing [address] [place] [address] Mary Rodriguez MD [address] [place] [phone] Social History Tobacco Use Types Packs/Day Years [...] Description 04/24/2025 1:45 PM EST Office Visit [facility] [address] [place] [address] [place] [address] Roro Wilson MD [address] [place] [address], [address] [place] [address] [email or web address] 04/29/2025 10:45 AM EST Office Visit [address] [address] Roro Wilson MD [address] [place] [address] Janice Buckner, PT [address] [place] [address] [email or web address] 05/07/2025 10:45 AM EST Office Visit [address] [address] Roro Wilson MD [address] [place] [address] Janice Buckner, PT [address] [place] [address] [email or web address] 05/14/2025 10:45 AM EST Office Visit [address] [address] Roro Wilson MD [address] [place] [address] Janice Buckner, PT [address] [place] [address] [email or web address] 05/21/2025 10:45 AM EST Office Visit [address] [address] Roro Wilson MD [address] [place] [address] Janice Buckner, PT [address] [place] [address] [email or web address] 05/28/2025 10:45 AM EST Office Visit [facility] [address] [place] [address] Roro Wilson MD [address] [place] [address] Janice Buckner, PT [address] [place] [address] [email or web address] 06/04/2025 10:45 AM EST Office Visit [facility] [address] [place] [address] Roro Wilson MD [address] [place] [address] Janice Buckner, PT [address] [place] [address] [email or web address] documented as of this encounter Visit Diagnoses Not on filedocumented in this encounter Care Teams Agricultural Consultant Relationship Specialty Start Date End Date Pcp, Unknown PCP - General 12/14/19 09/21/20 Roro Wilson MD [address] [place] [phone] PCP - General Internal Medicine 09/22/20 Marybel Salas, RN [address] [place] [phone] PHCM Preassembler And Inspector 12/15/21 01/17/22 Pancho Fallon MD [address] [place] [phone] Endocrinology 08/02/23 documented as of this encounter Additional Source Comments The information contained in this document represents components of the legal health record. It is not the complete legal health record.[facility]
--- OUTSIDE RECORDS SUMMARY | 2025-04-22 10:40 | XMS_ITS | Encounter Summary ---
Author Organization [facility] Address [address] [place] [phone] Care Team Providers Care Cut Order Hand Name Role Phone Roro Wilson MD Primary Care Provider [phone] Encounter Details Date Type Department Care Team (Late st Contact Info) Description 06/19/2024 Lab Requisition [facility] - Main Lab [address] [facility] [place] [address] Judd Johnson MD [address] [place] [address], [phone] Polyneuropathy, unspecified; Squamous cell carcinoma of [...] LAB CHEMISTRY METHOD 06/20/2024 12:38 PM EST [facility] Blood Venous blood specimen / Unknown Venipuncture / Unknown 06/20/2024 7:20 AM EST 06/20/2024 12:38 PM EST us Judd Johnson MD LAB BLOOD ORDERABLES Final Resul t [facility] [address] [place] [address], * (ABNORMAL) Comprehensive metabolic panel (06/20/2024 7:20 AM EST) Pathologist [facility] Sodium 137 133 - 145 mmol/L LAB CHEMISTRY METHOD 06/20/2024 12:57 PM [facility] Potassium 3.8 3.5 - 5.5 mmol/L LAB CHEMISTRY METHOD 06/20/2024 12:57 PM [facility] Chloride 103 96 - 110 mmol/L LAB CHEMISTRY METHOD 06/20/2024 12:57 PM [facility] CO2 29 21 - 32 mmol/L LAB CHEMISTRY METHOD 06/20/2024 12:57 PM [facility] Anion Gap 5 3 - 11 LAB CHEMISTRY METHOD 06/20/2024 12:57 PM [facility] Glucose 112(H) 70 - 100 mg/dL LAB CHEMISTRY METHOD 06/20/2024 12:57 PM [facility] BUN 11 5 - 25 mg/dL LAB CHEMISTRY METHOD 06/20/2024 12:57 PM [facility] Creatinine 0.64 0.50 - 1.10 mg/dL LAB CHEMISTRY METHOD 06/20/2024 12:57 PM [facility] eGFR 86 >=60 mL/min/1. 73m2 LAB CHEMISTRY METHOD 06/20/2024 12:57 PM [facility] Comment:Calculation based on the Chronic Kidney Disease Epidemiology Collaboration (CKD-EPI) equation refit without adjustment for race. BUN/Creatinine Ratio 17.2 LAB CHEMISTRY METHOD 06/20/2024 12:57 PM [facility] Calcium 8.4(L) 8.5 - 10.5 mg/dL LAB CHEMISTRY METHOD 06/20/2024 12:57 PM [facility] AST (SGOT) 44(H) 10 - 42 unit/L LAB CHEMISTRY METHOD 06/20/2024 12:57 PM [facility] ALT (SGPT) 66(H) 10 - 60 unit/L LAB CHEMISTRY METHOD 06/20/2024 12:57 PM [facility] Alkaline Phosphatase 114 42 - 121 unit/L LAB CHEMISTRY METHOD 06/20/2024 12:57 PM [facility] Total Protein 6.1 6.0 - 8.0 g/dL LAB CHEMISTRY METHOD 06/20/2024 12:57 PM [facility] Albumin 2.3(L) 3.2 - 5.0 g/dL LAB CHEMISTRY METHOD 06/20/2024 12:57 PM [facility] Total Bilirubin 0.5 0.0 - 1.4 mg/dL LAB CHEMISTRY METHOD 06/20/2024 12:57 PM [facility] Blood Venous blood specimen / Unknown Venipuncture / Unknown 06/20/2024 7:20 AM EST 06/20/2024 12:38 PM EST us Judd Johnson MD LAB BLOOD ORDERABLES Final Resul t [facility] [address] [place] [address], * (ABNORMAL) Complete blood count (06/20/2024 7:20 AM EST) [facility] WBC 7.9 4.8 - 10.8 K/mcL LAB HEMETOLOGY METHOD 06/20/2024 12:19 PM [facility] RBC 3.30(L) 3.80 - 4.80 M/mcL LAB HEMETOLOGY METHOD 06/20/2024 12:19 PM [facility] Hemoglobin 10.1(L) 11.5 - 16.0 g/dL LAB HEMETOLOGY METHOD 06/20/2024 12:19 PM [facility] Hematocrit 31.0(L) 35.0 - 47.0 % LAB HEMETOLOGY METHOD 06/20/2024 12:19 PM [facility] MCV 93.7 79.0 - 98.0 FL LAB HEMETOLOGY METHOD 06/20/2024 12:19 PM [facility] MCH 30.5 27.0 - 32.0 pcg LAB HEMETOLOGY METHOD 06/20/2024 12:19 PM [facility] MCHC 32.6 32.0 - 37.0 g/dL LAB HEMETOLOGY METHOD 06/20/2024 12:19 PM [facility] RDW 13.8 11.0 - 15.0 % LAB HEMETOLOGY METHOD 06/20/2024 12:19 PM [facility] Platelets 466(H) 130 - 400 K/mcL LAB HEMETOLOGY METHOD 06/20/2024 12:19 PM [facility] MPV 9.7 7.0 - 11.0 FL LAB HEMETOLOGY METHOD 06/20/2024 12:19 PM [facility] NRBC 0.0 <1.0 % LAB HEMETOLOGY METHOD 06/20/2024 12:19 PM EST [facility] NRBC Absolute 0.00 <0.10 K/mcL LAB HEMETOLOGY METHOD 06/20/2024 12:19 PM EST [facility] Blood Venous blood specimen / Unknown Venipuncture / Unknown 06/20/2024 7:20 AM EST 06/20/2024 11:08 AM EST us Judd Johnson MD LAB BLOOD ORDERABLES Final Resul t [facility] [address] [place] [address], documented in this encounter Visit Diagnoses Diagnosis Polyneuropathy, unspecified 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
--- OUTSIDE RECORDS SUMMARY | 2025-04-22 10:40 | XMS_ITS | Encounter Summary ---
Author Organization [facility] Address [address] [place] [address] Care Team Providers Care Parts And Service Manager Name Role Phone Roro Wilson MD Primary Care Provider Encounter Details Date Type Department Care Team (Late st Contact Info) Description 03/15/2025 Lab Requisition [facility] Lab [address] [place] [address] Khanh Kulkarni MD [address] [place] [address] Essential (primary) hypertension Social History [...] LAB CHEMISTRY METHOD 03/15/2025 11:41 AM EDT [facility] Potassium 4.2 3.5 - 5.5 mmol/L LAB CHEMISTRY METHOD 03/15/2025 11:41 AM [facility] Chloride 102 96 - 110 mmol/L LAB CHEMISTRY METHOD 03/15/2025 11:41 AM [facility] CO2 29 21 - 32 mmol/L LAB CHEMISTRY METHOD 03/15/2025 11:41 AM [facility] Anion Gap 6 3 - 11 LAB CHEMISTRY METHOD 03/15/2025 11:41 AM [facility] Glucose 151(H) 70 - 100 mg/dL LAB CHEMISTRY METHOD 03/15/2025 11:41 AM [facility] BUN 18 5 - 25 mg/dL LAB CHEMISTRY METHOD 03/15/2025 11:41 AM [facility] Creatinine 0.95 0.50 - 1.10 mg/dL LAB CHEMISTRY METHOD 03/15/2025 11:41 AM [facility] eGFR 58(L) >=60 mL/min/1. 73m2 LAB CHEMISTRY METHOD 03/15/2025 11:41 AM [facility] Comment:Calculation based on the Chronic Kidney Disease Epidemiology Collaboration (CKD-EPI) equation refit without adjustment for race. BUN/Creatinine Ratio 18.9 LAB CHEMISTRY METHOD 03/15/2025 11:41 AM [facility] Calcium 8.8 8.5 - 10.5 mg/dL LAB CHEMISTRY METHOD 03/15/2025 11:41 AM [facility] AST (SGOT) 29 10 - 42 unit/L LAB CHEMISTRY METHOD 03/15/2025 11:41 AM [facility] ALT (SGPT) 26 10 - 60 unit/L LAB CHEMISTRY METHOD 03/15/2025 11:41 AM [facility] Alkaline Phosphatase 73 42 - 121 unit/L LAB CHEMISTRY METHOD 03/15/2025 11:41 AM [facility] Total Protein 6.0 6.0 - 8.0 g/dL LAB CHEMISTRY METHOD 03/15/2025 11:41 AM T [facility] Albumin 2.6(L) 3.2 - 5.0 g/dL LAB CHEMISTRY METHOD 03/15/2025 11:41 AM EDT [facility] Total Bilirubin 0.4 0.0 - 1.4 mg/dL LAB CHEMISTRY METHOD 03/15/2025 11:41 AM EDT [facility] Blood Venous blood specimen / Unknown Venipuncture / Unknown 03/15/2025 5:36 AM EDT 03/15/2025 9:55 AM EDT Khanh Kulkarni MD LAB BLOOD ORDERABLES Final Resu lt [facility] [address] [place] [address], * (ABNORMAL) Complete blood count (03/15/2025 5:36 AM EDT) WBC 7.5 4.8 - 10.8 K/mcL LAB HEMETOLOGY METHOD 03/15/2025 10:29 AM [facility] RBC 2.80(L) 3.80 - 4.80 M/mcL LAB HEMETOLOGY METHOD 03/15/2025 10:29 AM [facility] Hemoglobin 8.8(L) 11.5 - 16.0 g/dL LAB HEMETOLOGY METHOD 03/15/2025 10:29 AM [facility] Hematocrit 26.2(L) 35.0 - 47.0 % LAB HEMETOLOGY METHOD 03/15/2025 10:29 AM [facility] MCV 93.2 79.0 - 98.0 FL LAB HEMETOLOGY METHOD 03/15/2025 10:29 AM [facility] MCH 31.3 27.0 - 32.0 pcg LAB HEMETOLOGY METHOD 03/15/2025 10:29 AM EDT [facility] MCHC 33.6 32.0 - 37.0 g/dL LAB HEMETOLOGY METHOD 03/15/2025 10:29 AM EDT [facility] RDW 12.9 11.0 - 15.0 % LAB HEMETOLOGY METHOD 03/15/2025 10:29 AM EDT [facility] Platelets 172 130 - 400 K/mcL LAB HEMETOLOGY METHOD 03/15/2025 10:29 AM EDT [facility] MPV 11.5(H) 7.0 - 11.0 FL LAB HEMETOLOGY METHOD 03/15/2025 10:29 AM EDT [facility] NRBC 0.0 <1.0 % LAB HEMETOLOGY METHOD 03/15/2025 10:29 AM EDT [facility] NRBC Absolute 0.00 <0.10 K/mcL LAB HEMETOLOGY METHOD 03/15/2025 10:29 AM EDT [facility] Blood Venous blood specimen / Unknown Venipuncture / Unknown 03/15/2025 5:36 AM EDT 03/15/2025 9:55 AM EDT us Khanh Kulkarni MD LAB BLOOD ORDERABLES Final Resu lt [facility] [address] [place] [address], [place] [phone] documented in this encounter Visit Diagnoses Diagnosis Essential (primary) hypertension Unspecified essential hypertension documented in this encounter Care Teams Parts And Service Manager Relationship Specialty Start Date End Date Roro Wilson MD [address] [place] [phone] PCP - General Internal Medicine 08/13/24 documented as of this encounter
--- OUTSIDE RECORDS SUMMARY | 2025-04-22 10:41 | XMS_ITS | Clinical Summary ---
Author Organization [facility] Address [address] [place] [phone] Phone Care Team Providers Care Manager Training And Development Name Role Phone Roro Wilson MD Primary Care Provider [phone] Pancho Fallon MD Unavailable [phone] Allergies Active Allergy Reactions Criticality Noted Date Comments Chloroquine GI Upset 11/05/2020 Gabapentin Rash Low 11/05/2020 Lidocaine 06/29/2021 Medications vitamins A,C,J-yfmj-ahheis (PRESERVISION AREDS) [id number] [id number]-[id number] Cap Take 1 capsule by mouth 2 (two) times a day with meals. Active cholecalciferol, vitamin D3, 25 mcg (1,000 unit) capsule Take 1,000 Units by mouth daily. Active fluticasone propionate (FLONASE) 50 mcg/actuation nasal sprayIndications:A llergic rhinitis, unspecified seasonality, unspecified trigger INHALE 1 PUFF INTO EACH NOSTRIL DAILY. 16 g 2 10/17/19 22 Active pyridoxine, vitamin B6, (B-6) 100 MG tablet Take 100 mg by mouth daily. Active alpha lipoic acid 200 mg CapIndications:120 0 2x a day Take 6 capsules (1,200 mg total) by mouth 2 (two) times a day. Indications: 1200 2x a day 03/02/20 23 Active escitalopram oxalate (LEXAPRO) 5 MG tabletIndications: Depression, unspecified depression type Take 1 tablet (5 mg total) by mouth daily. 90 tablet 1 09/12/19 24 Active flash glucose sensor (FREESTYLE MICHELLE 2 SENSOR) kitIndications:Typ e 2 diabetes mellitus with diabetic polyneuropathy, with long-term current use of insulin 1 each by Miscellaneous route every 14 (fourteen) days. 1 kit 11 01/19/20 24 Active FREESTYLE MICHELLE 2 READERIndications: Type 2 diabetes mellitus with diabetic polyneuropathy, with long-term current use of insulin use as directed 1 each 02/21/20 24 Active levothyroxine (SYNTHROID, LEVOTHROID) 75 MCG tabletIndications: Acquired hypothyroidism TAKE ONE TABLET BY MOUTH EVERY MORNING 90 tablet 3 08/07/19 25 Active metFORMIN (GLUCOPHAGE-XR) 500 MG 24 hr tabletIndications: Type 2 diabetes mellitus with diabetic polyneuropathy, with long-term current use of insulin TAKE ONE TABLET BY MOUTH TWICE A DAY 180 tablet 3 08/07/19 25 Active atorvastatin (LIPITOR) 40 MG tabletIndications: Hyperlipidemia TAKE ONE TABLET BY MOUTH EVERY DAY 90 tablet 11/20/19 25 Active pregabalin (LYRICA) 75 MG capsuleIndications :Type 2 diabetes mellitus with diabetic polyneuropathy, with long-term current use of insulin Take 1 capsule (75 mg total) by mouth 2 (two) times a day. 180 capsule 1 01/19/20 25 Active SITagliptin phosphate (JANUVIA) 50 MG tabletIndications: Type 2 diabetes mellitus with diabetic polyneuropathy, with long-term current use of insulin Take 1 tablet (50 mg total) by mouth 2 (two) times a day. 180 tablet 03/21/20 25 Active Active Problems Problem Noted Date Diagnosed Date [...] PM EST): She has not heard from [facility]. She is concerned that she needs [...] placed. Orders: Ambulatory referral to [facility] Physical Therapy Assessment & Plan (11/01/2023 [...] reviewed the imaging that was done at [facility] when she was last [...] proceed with surgery if needed. Atherosclerosis of [place] co ronary artery of [place] heart without angina pectoris 12/03/2021 Assessment & [...] Type Department Care Team Description 03/20/[address] [place] [address] Roro Wilson MD Medication Refill; Medication Prior Authorization 03/14/[address] [place] [address] Roro Wilson MD Hip Injury 03/12/2025 Orders Only [facility] [address] [place] [address] ProviderRadha MD 03/11/[address] [place] [address] Roro Wilson MD Results 03/08/2025 2:36 PM EDT - 03/08/2025 11:59 PM EDT Hospital Encounter [facility] [address] [place] [address] Heather Ochoa MD Discharge Disposition: Home or Self Care 03/08/2025 2:00 PM EDT Office Visit [address] [place] [address] Heather Ochoa MD Dizzy (Primary Dx); Type 2 diabetes mellitus with diabetic polyneuropathy, with long-term current use of insulin; Hypothyroidism, unspecified type 03/08/[address] [place] [address] Roro Wilson MD 03/08/[address] [place] [address] Roro Wilson MD Triage ([place] + dizziness + 03/07) 02/11/[address] [place] [address] Roro Wilson MD Medication Refill; Medication Prior Authorization 02/11/2025 Telephone [facility] [address] [place] [address] Roro Wilson MD Medication Question 02/07/[address] [place] [address] Roro Wilson MD Medication Refill from Last 3 Months Immunizations Immunization Administration Dates Next Due COVID-19 (Pre-03/14) Moderna Vaccine, mRNA, PF 07/14/2020,06/20/2020,06/19/2020 COVID-19 (Pre-03/14) [...] Description 04/24/2025 1:45 PM EST Office Visit [facility] [address] [place] [address] [place] [address] Roro Wilson MD [address] [place] [address] 04/29/2025 10:45 AM EST Office Visit [address] [address] Roro Wilson MD [address] [place] [address] Janice Buckner, PT [address] [place] [address] 05/07/2025 10:45 AM EST Office Visit [address] [address] Roro Wilson MD [address] [place] [address] Janice Buckner, PT [address] [place] [address] 05/14/2025 10:45 AM EST Office Visit [address] [address] Roro Wilson MD [address] [place] [address] Janice Buckner, PT [address] [place] [address] 05/21/2025 10:45 AM EST Office Visit [address] [address] Roro Wilson MD [address] [place] [address], [address] [place] [address] Janice Buckner, PT [address] [place] [address] 05/28/2025 10:45 AM EST Office Visit [address] [address] Roro Wilson MD [address] [place] [address] Janice Buckner, PT [address] [place] [address] 06/04/2025 10:45 AM EST Office Visit [address] [address] Roro Wilson MD [address] [place] [address], [address] [place] [address] Janice Buckner, PT [address] [place] [address] Health Maintenance Due Date Last Done Comments [...] (03/11/2025 12:06 PM EDT) Historical Provider MD HWANGG XR CHEST Edited Re sult - Final * Outside Imaging Report Only (03/11/2025 12:05 PM EDT) Historical Provider MD ROTH XR CHEST Edited Re sult - Final * (ABNORMAL) CBC and differential (03/08/2025 2:49 PM EDT) WBC 6.32 4.00 - 11.00 K/uL [facility] RBC 3.99(L) 4.00 - 5.20 M/uL [facility] HGB 12.5 12.0 - 16.0 g/dL [facility] HCT 37.9 36.0 - 46.0 % [facility] PLT 200 150 - 450 K/uL [facility] MCV 95.0 80.0 - 100.0 fL [facility] MCH 31.3(H) 27.0 - 31.0 pg [facility] MCHC 33.0 32.0 - 36.0 g/dL [facility] RDW 13.2 11.5 - 14.5 % [facility] MPV 11.6 8.4 - 12.0 fL [facility] NRBC 0.00 0.00 /100 WBCs [facility] ABSOLUTE NRBC 0.00 0.00 K/uL [facility] DIFF METHOD Auto [facility] NEUTS 58.3 48.0 - 76.0 % [facility] LYMPHS 32.0 18.0 - 41.0 % [facility] MONOS 7.9 4.0 - 11.0 % [facility] EOS 0.9 0.0 - 5.0 % [facility] BASOS 0.6 0.0 - 1.5 % [facility] Granulocytes, immature (%) 0.3 0.0 - 0.9 % [facility] ABSOLUTE NEUTS 3.68 1.92 - 7.60 K/uL [facility] ABSOLUTE LYMPHS 2.02 0.72 - 4.10 K/uL [facility] ABSOLUTE MONOS 0.50 0.16 - 1.10 K/uL [facility] ABSOLUTE EOS 0.06 0.00 - 0.50 K/uL [facility] ABSOLUTE BASOS 0.04 0.00 - 0.15 K/uL [facility] Granulocytes, immature 0.02 0.00 - 0.09 K/uL [facility] Blood 03/08/2025 2:49 PM EDT 03/08/2025 2:55 PM EDT us Roro Wilson MD LAB BLOOD BKR ORDERABLES Fi nal Result [address] [address] * TSH (03/08/2025 2:49 PM EDT) TSH 2.05 0.27 - 4.20 uIU/mL [facility] Blood 03/08/2025 2:49 PM EDT 03/08/2025 2:55 PM EDT us Heather Ochoa MD LAB BLOOD BKR ORDERABLES Jazmín l Result Performing Organization Address City/[facility]/ZIP Co de Phone Number [address] [address] * (ABNORMAL) Lipid panel (03/08/2025 2:49 PM EDT) HDL 61 mg/dL [facility] Comment: Interpretation <40 mg/dL: Low HDL cholesterol (major risk factor for CHD) Greater than or equal to 60 mg/dL: High HDL cholesterol ( negative risk factor for CHD) HDL - cholesterol is affected by a number of factors, e.g. smoking, excerise, hormones, sex and age. CHOLESTEROL 176 0 - 240 mg/dL [facility] TRIGLYCERIDES 149 30 - 160 mg/dL [facility] LDL 85 50 - 129 mg/dL [facility] Comment: LDL levels in terms of risk for coronary heart disease: <100 mg/dL: Optimal 100-129 mg/dL: Near or above optimal 130-159 mg/dL: Borderline high 160-189 mg/dL: High >190 mg/dL: Very High CARDIAC RISK RATIO 2.9(L) 3.3 - 4.4 C [facility] Blood 03/08/2025 2:49 PM EDT 03/08/2025 2:55 PM EDT us Roro Wilson MD LAB BLOOD BKR ORDERABLES Fi nal Result Performing Organization Address [facility] Co de Phone Number [address] [address] * (ABNORMAL) Basic metabolic panel (03/08/2025 2:49 PM EDT) SODIUM 138 133 - 146 mmol/L [facility] CHLORIDE 104 96 - 108 mmol/L [facility] POTASSIUM 4.1 3.3 - 5.1 mmol/L [facility] CO2 25 21 - 35 mmol/L [facility] BUN 16 6 - 19 mg/dL [facility] CREATININE 0.70 0.5 - 1.5 mg/dL [facility] GLUCOSE 156(H) 70 - 99 mg/dL [facility] CALCIUM 10.0 8.4 - 10.3 mg/dL [facility] EGFR 83 >59 mL/min/1.7 3m2 [facility] Comment:Estimated glomerular filtration rate calculated using the CKD-EPI refit equation. ANION GAP 13 10 - 20 mmol/L [facility] Blood 03/08/2025 2:49 PM EDT 03/08/2025 2:55 PM EDT us Roro Wilson MD LAB BLOOD BKR ORDERABLES Fi nal Result Performing Organization Address [facility] Co de Phone Number [address] [address] * (ABNORMAL) Hemoglobin A1c (07/02/2024 11:29 AM EST) HEMOGLOBIN A1C 6.7(H) 4.3 - 5.8 % [facility] Blood 07/02/2024 11:2 9 AM EST 07/02/2024 11:32 AM EST us Pancho Fallon MD LAB BLOOD BKR ORDERABLES Fin al Result Performing Organization Address [facility] Co de Phone Number [address] [address] * HM DEXA SCAN (08/03/2023 10:47 AM EDT) us Pancho Fallon MD HEALTH MAINTENANCE Final Res ult * Microalbumin/creatinine ratio, random urine (10/16/2021 1:30 PM EDT) URINE MICROALBUMIN <1.2 0 - 2.3 mg/dL [facility] URINE CREATININE 61 mg/dL [facility] MICROALB/CRE RATIO NOT CALCULATED 0 - 20 mg/g Cre [facility] Comment:due to Microalbumin <1.2 Urine (Urine) 10/16/2021 1:3 0 PM EDT 10/16/2021 4:07 PM EDT Pancho Fallon MD LAB URINE ORDERABLES Final R esult [facility] [address] [place] [address] * DIABETES EYE EXAM FOR RESULT ENTRY ONLY (09/15/2021) Historical Provider HEALTH MAINTENANCE Edited Result - Final from Last 3 Months or Most Recently Relevant to Health Maintenance Insurance [employer]EX SUPPLEMENT MEDICARE PART A & B [employer] MEDEX SUPPLEMENT MEDICARE PART A & B [employer] MEDEX SUPPLEMENT MEDICARE PART A & B [employer] MEDEX SUPPLEMENT MEDICARE PART A & B [employer] MEDEX SUPPLEMENT MEDICARE PART A & B [facility] MEDEX SUPPLEMENT MEDICARE PART A & B [employer] MEDEX SUPPLEMENT MEDICARE PART A & B [place] [employer] MEDEX SUPPLEMENT MEDICARE PART A & B [employer] MEDEX SUPPLEMENT MEDICARE PART A & B Advance Directives For more information, please contact: [phone] (9AM - 5PM [facility], Tuesday-Tuesday) Documents on File Type Date Recorded Patient Mixer Helper Expl anation Healthcare Proxy 06/26/2024 [facility] health care proxy 06/26/24 Care Teams Manager Training And Development Relationship Specialty Start Date End Date Roro Wilson MD [address] [place] [address], [address] [place] [address] PCP - General Internal Medicine 09/22/20 Pancho Fallon MD [address] [place] [address] [email or web address] Endocrinology 08/02/23 Additional Source Comments The information contained in this document represents components of the legal health record. It is not the complete legal health record.[facility]
== END 2025-04-22 11:40 | disposition home or self-care (01) ==
LOC: HO.HOS 09:08
PROVIDERS: PCP Internal Medicine; Visit Provider Physician Assistant
DX: S82.209A Unspecified fracture of shaft of unspecified tibia, initial encounter for closed fracture (principal)
CPT/HCPCS: 99213

== ENCOUNTER → 2025-04-22 09:10 | Outpatient (BNV) | payer MEDICARE, SELFPAY | PROVIDERS: Visit Provider Radiology Diagnostic Ultrasound | DX: S82.151A Displaced fracture of right tibial tuberosity, initial encounter for closed fracture (principal); M17.12 Unilateral primary osteoarthritis, left knee | CPT/HCPCS: 73560 ==

== ENCOUNTER 2025-04-22 09:22 | Outpatient (REF) | payer MEDICARE, SELFPAY ==
--- NOTE | ~2025-04-22 | XR_ITS ---
EXAMINATION: XR KNEE, RIGHT CLINICAL INFORMATION: M25.569 - Pain in unspecified knee COMPARISON: Prior x-rays including 03/25/2025, CT 03/11/2025 TECHNIQUE: Bilateral knees AP one view, one lateral view of the right knee. FINDINGS: Right knee: Bone mineralization is decreased. Redemonstrated comminuted fracture of the proximal tibial plateau, greater tuberosity. Stable alignment. No significant callus/new bone formation is seen. No new acute fracture. Medial lateral compartment arthritis. Chondrocalcinosis. No significant joint effusion. Left knee: Mild arthritis. Chondrocalcinosis. Bone mineralization is decreased. No acute osseous finding seen. . XR/XR knee RT 2V IMPRESSION: Right knee: Stable alignment of the comminuted proximal tibial and greater tuberosity fracture. No significant callus/new bone formation is seen. Left knee: Mild arthritis Electronically signed by: Rowdy Simpson MD 04/22/2025 11:33 AM [facility]
--- OUTSIDE RECORDS SUMMARY | 2025-04-25 10:33 | XMS_ITS | Encounter Summary ---
Author Organization [facility] Address [address] [place] [address] [place] [address] Phone Care Team Providers Care Cotton Candy Maker Name Role Phone Roro Wilson MD Primary Care Provider [phone] Pancho Fallon MD Unavailable [phone] Encounter Details Date Type Department Care Team (Late st Contact Info) Description 07/05/2023 Procedure Pass [facility], [address] [place] [address] Social History Tobacco Use Types Packs/Day Years [...] Care Team (Late st Contact Info) Description 04/29/2025 10:45 AM EST Office Visit [facility] [address] [place] [address] Roro Wilson MD [address] [place] [address] Janice Buckner, PT [address] [place] [address] 05/07/2025 10:45 AM EST Office Visit [address] [address] Roro Wilson MD [address] [place] [address] Janice Buckner, PT [address] [place] [address] 05/14/2025 10:45 AM EST Office Visit [facility] [address] [place] [address] Roro Wilson MD [address] [place] [address] Janice Buckner, PT [address] [place] [address] 05/21/2025 10:45 AM EST Office Visit [address] [address] Roro Wilson MD [address] [place] [address] Janice Buckner, PT [address] [place] [address] 05/28/2025 10:45 AM EST Office Visit [address] [address] Roro Wilson MD [address] [place] [address] Janice Buckner, PT [address] [place] [address] 06/04/2025 10:45 AM EST Office Visit [facility] [address] [place] [address] Roro Wilson MD [address] [place] [address] [email or web address] Janice Buckner, PT [address] [place] [address] [email or web address] documented as of this encounter Visit Diagnoses Not on filedocumented in this encounter Additional Health Concerns Assessment Noted Time PHQ-9 Depression Total Score: 12 023 6:54 PM EDT PHQ-2 Depression Total Score: 1 02/09/20 23 9:30 AM EDT documented as of this encounter Care Teams Cotton Candy Maker Relationship Specialty Start Date End Date Roro Wilson MD [address] [place] [address], [address] [place] [address] [email or web address] PCP - General Internal Medicine 09/22/20 Pancho Fallon MD [address] [place] [phone] [email or web address] Endocrinology 08/02/23 documented as of this encounter Additional Source Comments The information contained in this document represents components of the legal health record. It is not the complete legal health record.[facility]
--- OUTSIDE RECORDS SUMMARY | 2025-04-25 10:33 | XMS_ITS | Clinical Summary ---
Author Organization [address] [address] Phone Care Team Providers Care Salesperson Corsets Name Role Phone No, Pcp (Do Not [...] patient's age to complete this topic [place] [address] [place] [address] MEDICARE [facility] MEDICARE [facility] MEDICARE [facility] [employer]HIC[employer] GENERIC MEDICARE [facility] [employer] GENERIC MEDICARE Care Teams Salesperson Corsets Relationship Specialty Start Date End Date No, Pcp (Do Not Change Name) PCP - General 11/07/20
--- OUTSIDE RECORDS SUMMARY | 2025-04-25 10:34 | XMS_ITS | Clinical Summary ---
Author Organization [facility] Address [address] [place] [address] Phone Care Team Providers Care Wagon Person Name Role Phone Roro Wilson MD Primary Care Provider [phone] Encounters Date Type Department Care Team Description 03/20/2025 Lab Requisition [facility] - Main Lab [address] [place] [phone] Khanh Kulkarni MD Essential (primary) hypertension 03/16/2025 Lab Requisition [facility] - [facility] Lab [address] [place] [phone] Khanh Kulkarni MD Essential (primary) hypertension 03/15/2025 Lab Requisition [facility] Lab [address] [place] [phone] Khanh Kulkarni MD Essential (primary) hypertension 01/29/2025 10:18 AM EDT - 01/29/2025 11:59 PM EDT Hospital Encounter [facility] Ultrasound [address] [place] [address] Mastodynia Discharge Disposition: Home or Self Care 01/29/2025 9:30 AM EDT - 01/29/2025 11:59 PM EDT Hospital Encounter [facility] [address] [place] [address] Mastodynia Discharge Disposition: Home or Self Care [...] of3 resultswithin the time period is included. [facility] Signature WBC 5.7 4.8 - 10.8 K/mcL LAB HEMETOLOGY METHOD 03/21/2025 8:45 AM [facility] LAB RBC 2.80(L) 3.80 - 4.80 M/mcL LAB HEMETOLOGY METHOD 03/21/2025 8:45 AM EDT [facility] LAB Hemoglobin 8.7(L) 11.5 - 16.0 g/dL LAB HEMETOLOGY METHOD 03/21/2025 8:45 AM [facility] LAB Hematocrit 27.3(L) 35.0 - 47.0 % LAB HEMETOLOGY METHOD 03/21/2025 8:45 AM [facility] LAB MCV 97.2 79.0 - 98.0 FL LAB HEMETOLOGY METHOD 03/21/2025 8:45 AM [facility] LAB MCH 31.0 27.0 - 32.0 pcg LAB HEMETOLOGY METHOD 03/21/2025 8:45 AM [facility] LAB MCHC 31.9(L) 32.0 - 37.0 g/dL LAB HEMETOLOGY METHOD 03/21/2025 8:45 AM [facility] LAB RDW 13.5 11.0 - 15.0 % LAB HEMETOLOGY METHOD 03/21/2025 8:45 AM [facility] LAB Platelets 314 130 - 400 K/mcL LAB HEMETOLOGY METHOD 03/21/2025 8:45 AM [facility] LAB MPV 10.1 7.0 - 11.0 FL LAB HEMETOLOGY METHOD 03/21/2025 8:45 AM [facility] LAB NRBC 0.0 <1.0 % LAB HEMETOLOGY METHOD 03/21/2025 8:45 AM EDT [facility] LAB NRBC Absolute 0.00 <0.10 K/mcL LAB HEMETOLOGY METHOD 03/21/2025 8:45 AM [facility] LAB Blood Venous blood specimen / Unknown Venipuncture / Unknown 03/21/2025 5:33 AM EDT 03/21/2025 8:02 AM EDT us Khanh Kulkarni MD LAB BLOOD ORDERABLES Final Resu lt [facility] [address] [place] [address], [place] [phone] * (ABNORMAL) Basic metabolic panel (03/21/2025 5:33 AM EDT) Sodium 138 133 - 145 mmol/L LAB CHEMISTRY METHOD 03/21/2025 9:03 AM [facility] Potassium 4.5 3.5 - 5.5 mmol/L LAB CHEMISTRY METHOD 03/21/2025 9:03 AM [facility] Chloride 106 96 - 110 mmol/L LAB CHEMISTRY METHOD 03/21/2025 9:03 AM [facility] CO2 28 21 - 32 mmol/L LAB CHEMISTRY METHOD 03/21/2025 9:03 AM [facility] Anion Gap 4 3 - 11 LAB CHEMISTRY METHOD 03/21/2025 9:03 AM [facility] Glucose 148(H) 70 - 100 mg/dL LAB CHEMISTRY METHOD 03/21/2025 9:03 AM [facility] BUN 16 5 - 25 mg/dL LAB CHEMISTRY METHOD 03/21/2025 9:03 AM [facility] Creatinine 0.84 0.50 - 1.10 mg/dL LAB CHEMISTRY METHOD 03/21/2025 9:03 AM [facility] LAB eGFR 67 >=60 mL/min/1. 73m2 LAB CHEMISTRY METHOD 03/21/2025 9:03 AM T [facility] Comment:Calculation based on the Chronic Kidney Disease Epidemiology Collaboration (CKD-EPI) equation refit without adjustment for race. BUN/Creatinine Ratio 19.0 LAB CHEMISTRY METHOD 03/21/2025 9:03 [facility] Calcium 9.1 8.5 - 10.5 mg/dL LAB CHEMISTRY METHOD 03/21/2025 9:03 AM EDT [facility] Blood Venous blood specimen / Unknown Venipuncture / Unknown 03/21/2025 5:33 AM EDT 03/21/2025 8:02 AM EDT us Khanh Kulkarni MD LAB BLOOD ORDERABLES Final Resu lt [facility] [address] [place] [address], [place] [phone] * (ABNORMAL) Comprehensive metabolic panel (03/18/2025 5:10 AM EDT) Only the most recent of2 resultswithin the time period is included. Sodium 137 133 - 145 mmol/L LAB CHEMISTRY METHOD 03/18/2025 10:57 AM [facility] Potassium 4.3 3.5 - 5.5 mmol/L LAB CHEMISTRY METHOD 03/18/2025 10:57 AM [facility] Chloride 104 96 - 110 mmol/L LAB CHEMISTRY METHOD 03/18/2025 10:57 AM [facility] CO2 28 21 - 32 mmol/L LAB CHEMISTRY METHOD 03/18/2025 10:57 AM [facility] Anion Gap 5 3 - 11 LAB CHEMISTRY METHOD 03/18/2025 10:57 AM [facility] Glucose 150(H) 70 - 100 mg/dL LAB CHEMISTRY METHOD 03/18/2025 10:57 AM [facility] BUN 21 5 - 25 mg/dL LAB CHEMISTRY METHOD 03/18/2025 10:57 AM [facility] Creatinine 0.94 0.50 - 1.10 mg/dL LAB CHEMISTRY METHOD 03/18/2025 10:57 AM [facility] eGFR 58(L) >=60 mL/min/1. 73m2 LAB CHEMISTRY METHOD 03/18/2025 10:57 AM [facility] Comment:Calculation based on the Chronic Kidney Disease Epidemiology Collaboration (CKD-EPI) equation refit without adjustment for race. BUN/Creatinine Ratio 22.3 LAB CHEMISTRY METHOD 03/18/2025 10:57 AM [facility] Calcium 8.8 8.5 - 10.5 mg/dL LAB CHEMISTRY METHOD 03/18/2025 10:57 AM [facility] AST (SGOT) 32 10 - 42 unit/L LAB CHEMISTRY METHOD 03/18/2025 10:57 AM [facility] ALT (SGPT) 31 10 - 60 unit/L LAB CHEMISTRY METHOD 03/18/2025 10:57 AM [facility] Alkaline Phosphatase 89 42 - 121 unit/L LAB CHEMISTRY METHOD 03/18/2025 10:57 AM [facility] Total Protein 6.1 6.0 - 8.0 g/dL LAB CHEMISTRY METHOD 03/18/2025 10:57 AM [facility] Albumin 2.7(L) 3.2 - 5.0 g/dL LAB CHEMISTRY METHOD 03/18/2025 10:57 AM [facility] Total Bilirubin 0.4 0.0 - 1.4 mg/dL LAB CHEMISTRY METHOD 03/18/2025 10:57 AM [facility] Blood Venous blood specimen / Unknown Venipuncture / Unknown 03/18/2025 5:10 AM EDT 03/18/2025 10:03 AM EDT us Khanh Kulkarni MD LAB BLOOD ORDERABLES Final Resu lt [facility] [address] [place] [address], [place] [phone] * MG Mammo Digital Diagnostic w Stan [...] is recommended in 1 year. Mammo Location: [facility], [facility], [address] [place] [id number] -------- FINAL REPORT -------- Dictated By: Vinicius Mack Dictated Date: 01/29/2025 10:08 ET Assigned Physician: Vinicius Mack Reviewed and Electronically Signed By: Vinicius Mack Signed Date: 01/29/2025 10:49 ET Workstation ID: [id number] Transcribed By: Self Edit Transcribed Date: 01/29/2025 [...] and CC projection is performed in the TaskEasye 2000-D unit. Computer aided detection utilizing the [...] and CC projection is performed in the [employer] [id number] unit. Computer aided detection utilizing the iCAD [...] is recommended in 1 year. Mammo Location: [facility], [facility], [address] [place] [address] -------- FINAL REPORT -------- Dictated By: Vinicius Mack Dictated Date: 01/29/2025 10:08 ET Assigned Physician: Vinicius Mack Reviewed and Electronically Signed By: Vinicius Mack Signed Date: 01/29/2025 10:49 ET Workstation ID: [id number] Transcribed By: Self Edit Transcribed Date: 01/29/2025 10:15 ET us Roro Wilson MD IMG BI PROCEDURES Final Res ult * US Breast Limited Left (01/29/2025 10:47 AM EDT) Anatomical Region Laterality Modality Breast Left Ultrasound 01/29/2025 10:4 4 AM EDT Impressions 01/29/2025 10:47 AM EDT No mass or other abnormality is seen in the left breast at the area of clinical concern. Code 16548 -------- FINAL REPORT -------- Dictated By: Vinicius Mack Dictated Date: 01/29/2025 10:44 ET Assigned Physician: Vinicius Mack Reviewed and Electronically Signed By: Vinicius Mack Signed Date: 01/29/2025 10:47 ET Workstation ID: [id number] Transcribed By: Self Edit Transcribed Date: 01/29/2025 [...] breast at the area ofclinical concern. Code 15232 -------- FINAL REPORT -------- Dictated By: Vinicius Mack Dictated Date: 01/29/2025 10:44 ET Assigned Physician: Vinicius Mack Reviewed and Electronically Signed By: Vinicius Mack Signed Date: 01/29/2025 10:47 ET Workstation ID: [id number] Transcribed By: Self Edit Transcribed Date: 01/29/2025 10:45 ET us Roro Wilson MD IM US PROCEDURES Final Res ult from Last 3 Months Insurance MEDICARE [employer] Care Teams Wagon Person Relationship Specialty Start Date End Date Roro Wilson MD [address], [place] [address] PCP - General Internal Medicine 08/13/24
--- OUTSIDE RECORDS SUMMARY | 2025-04-25 10:35 | XMS_ITS | Encounter Summary ---
Author Organization [facility] Address [address] [place] [address] Care Team Providers Care Religious Education Coordinator Name Role Phone Roro Wilson MD Primary Care Provider [phone] Encounter Details Date Type Department Care Team (Late st Contact Info) Description 06/26/2024 Lab Requisition [facility] - Main Lab [address] [facility] [place] [address] Judd Johnson MD [address] [place] [address] [address] [place], [address] Malignant melanoma of right ear and [...] unspecified documented in this encounter Care Teams Religious Education Coordinator Relationship Specialty Start Date End Date Roro Wilson MD [address] [place] [phone] PCP - General Internal Medicine 08/13/24 documented as of this encounter
--- OUTSIDE RECORDS SUMMARY | 2025-04-25 10:35 | XMS_ITS | Patient Health Record ---
Author Organization [facility] Address [address] [place] [phone] Care Team Providers Care Pulley Worker Name Role Phone Roro Wilson M.D. Primary Care Provider Elvin Pacheco Jr Unavailable [phone] Allergies Allergen (clinical drug ingredient) Drug/Non Drug Allergy documented on EMR Reaction Allergy Type Onset Date Status CHLOROFIN (uncoded) Unknown Allergy Active Reason For Referral No Information Medications Medication SIG (Take, Route, Frequency, Duration) Notes Start Date End Date Status Omeprazole 20 MG Capsule Delayed Release 1 capsule 30 minutes before morning meal [...] stop date) Never Smoker NA - NA Social History Drugs/Alcohol: Social Info Question Answer Notes Alcohol Screen Did you have a drink containing alcohol in the past year? 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 Problems Problem Type SNOMED Code ICD Code Onset Dates Problem Status W/U Status Risk Notes Problem Epigastric pain (28085116) Epigastric pain (R10.13) Active confirmed Problem Altered bowel function (73961609) Change in bowel function (R19.8) Active confirmed Plan Of Treatment Future Test Test Name Order Date UPPER GI ENDOSCOPY 01/01/2021 COLONOSCOPY 01/01/2021 Insurance Providers Payer Name Payer Address Payer Phone Subscriber Number Group Number Insured Name Patient Relationship to Insured Coverage Start Date Coverage End Date MEDICARE OF [place] [address] [facility] [place] [address] [id number] ANITA ROTH Self - patient is the insured [employer] ATT[employer] CLAIMS [address] [place] [address] [id number] ANITA ROTH Self - patient is the insured Medical (General) History Medical History History ICD Code diabetes mellitus hypertension heart attack hx of breast cancer /lumpectomy fibromyalgia Polymyalgia rheumatica Surgical History Surgery Date(Month/Year) appendectomy/ at age 5 lumpectomy/ hx of breast cancer
--- OUTSIDE RECORDS SUMMARY | 2025-04-25 10:35 | XMS_ITS | Encounter Summary ---
Author Organization [facility] Address [address] [facility] [address] [place] [address] Phone Care Team Providers Care Head Correction Officer Name Role Phone Pcp, Unknown Primary Care Provider UnavailRoro Wharton MD Primary Care Provider Marybel Salas RN Unavailable Pancho Fallon MD Unavailable Encounter Details Date Type Department Care Team (Late st Contact Info) Description 12/14/2019 Transcribe Orders [facility] Specimen Processing [address] [place] [address] Mary Rodriguez MD [address] [place] [address] Social History Tobacco Use Types Packs/Day Years [...] Description 04/29/2025 10:45 AM EST Office Visit [facility] [address] [place] [address] Roro Wilson MD [address] [place] [address], 2nd [place] [address] [email or web address] Janice Buckner, PT [address] [place] [address] [email or web address] 05/07/2025 10:45 AM EST Office Visit [address] [address] Roro Wilson MD [address] [place] [phone] [email or web address] Janice Buckner, PT [address] [place] [address] [email or web address] 05/14/2025 10:45 AM EST Office Visit [address] [address] Roro Wilson MD [address] [place] [phone] [email or web address] Janice Buckner, PT [address] [place] [address] [email or web address] 05/21/2025 10:45 AM EST Office Visit [address] [address] Roro Wilson MD [address] [place] [address] [email or web address] Janice Buckner, PT [address] [place] [address] [email or web address] 05/28/2025 10:45 AM EST Office Visit [address] [address] Roro Wilson MD [address] [place] [phone] [email or web address] SitaJanice, PT [address] [place] [address] [email or web address] 06/04/2025 10:45 AM EST Office Visit [facility] [address] [place] [address] Roro Wilson MD [address] [place] [phone] [email or web address] CatawbaJanice, PT [address] [place] [address] [email or web address] documented as of this encounter Visit Diagnoses Not on filedocumented in this encounter Care Teams Head Correction Officer Relationship Specialty Start Date End Date Pcp, Unknown PCP - General 12/14/19 09/21/20 Roro Wilson MD [address] [place] [address] [email or web address] PCP - General Internal Medicine 09/22/20 Marybel Salas, RN [address] [place] [address] [email or web address] PHCM Slip Dumper 12/15/21 01/17/22 Pancho Fallon MD [address] [place] [address] [email or web address] Endocrinology 08/02/23 documented as of this encounter Additional Source Comments The information contained in this document represents components of the legal health record. It is not the complete legal health record.[facility]
--- OUTSIDE RECORDS SUMMARY | 2025-04-25 10:37 | XMS_ITS | Encounter Summary ---
Author Organization [facility] Address [address] [place] [phone] Care Team Providers Care Operating System Designer Name Role Phone Roro Wilson MD Primary Care Provider [phone] Encounter Details Date Type Department Care Team (Late st Contact Info) Description 06/19/2024 Lab Requisition [facility] - Main Lab [address] [facility] [place] [address] Judd Johnson MD [address] [place] [address], [phone] Polyneuropathy, unspecified; Squamous cell carcinoma of [...] LAB CHEMISTRY METHOD 06/20/2024 12:38 PM EST [facility] Blood Venous blood specimen / Unknown Venipuncture / Unknown 06/20/2024 7:20 AM EST 06/20/2024 12:38 PM EST us Judd Johnson MD LAB BLOOD ORDERABLES Final Resul t [facility] [address] [place] [address], * (ABNORMAL) Comprehensive metabolic panel (06/20/2024 7:20 AM EST) Pathologist [facility] Sodium 137 133 - 145 mmol/L LAB CHEMISTRY METHOD 06/20/2024 12:57 PM [facility] Potassium 3.8 3.5 - 5.5 mmol/L LAB CHEMISTRY METHOD 06/20/2024 12:57 PM [facility] Chloride 103 96 - 110 mmol/L LAB CHEMISTRY METHOD 06/20/2024 12:57 PM [facility] CO2 29 21 - 32 mmol/L LAB CHEMISTRY METHOD 06/20/2024 12:57 PM [facility] Anion Gap 5 3 - 11 LAB CHEMISTRY METHOD 06/20/2024 12:57 PM [facility] Glucose 112(H) 70 - 100 mg/dL LAB CHEMISTRY METHOD 06/20/2024 12:57 PM [facility] BUN 11 5 - 25 mg/dL LAB CHEMISTRY METHOD 06/20/2024 12:57 PM [facility] Creatinine 0.64 0.50 - 1.10 mg/dL LAB CHEMISTRY METHOD 06/20/2024 12:57 PM [facility] eGFR 86 >=60 mL/min/1. 73m2 LAB CHEMISTRY METHOD 06/20/2024 12:57 PM [facility] Comment:Calculation based on the Chronic Kidney Disease Epidemiology Collaboration (CKD-EPI) equation refit without adjustment for race. BUN/Creatinine Ratio 17.2 LAB CHEMISTRY METHOD 06/20/2024 12:57 PM [facility] Calcium 8.4(L) 8.5 - 10.5 mg/dL LAB CHEMISTRY METHOD 06/20/2024 12:57 PM [facility] AST (SGOT) 44(H) 10 - 42 unit/L LAB CHEMISTRY METHOD 06/20/2024 12:57 PM [facility] ALT (SGPT) 66(H) 10 - 60 unit/L LAB CHEMISTRY METHOD 06/20/2024 12:57 PM [facility] Alkaline Phosphatase 114 42 - 121 unit/L LAB CHEMISTRY METHOD 06/20/2024 12:57 PM [facility] Total Protein 6.1 6.0 - 8.0 g/dL LAB CHEMISTRY METHOD 06/20/2024 12:57 PM [facility] Albumin 2.3(L) 3.2 - 5.0 g/dL LAB CHEMISTRY METHOD 06/20/2024 12:57 PM [facility] Total Bilirubin 0.5 0.0 - 1.4 mg/dL LAB CHEMISTRY METHOD 06/20/2024 12:57 PM [facility] Blood Venous blood specimen / Unknown Venipuncture / Unknown 06/20/2024 7:20 AM EST 06/20/2024 12:38 PM EST us Judd Johnson MD LAB BLOOD ORDERABLES Final Resul t [facility] [address] [place] [address], * (ABNORMAL) Complete blood count (06/20/2024 7:20 AM EST) [facility] WBC 7.9 4.8 - 10.8 K/mcL LAB HEMETOLOGY METHOD 06/20/2024 12:19 PM [facility] RBC 3.30(L) 3.80 - 4.80 M/mcL LAB HEMETOLOGY METHOD 06/20/2024 12:19 PM [facility] Hemoglobin 10.1(L) 11.5 - 16.0 g/dL LAB HEMETOLOGY METHOD 06/20/2024 12:19 PM [facility] Hematocrit 31.0(L) 35.0 - 47.0 % LAB HEMETOLOGY METHOD 06/20/2024 12:19 PM [facility] MCV 93.7 79.0 - 98.0 FL LAB HEMETOLOGY METHOD 06/20/2024 12:19 PM [facility] MCH 30.5 27.0 - 32.0 pcg LAB HEMETOLOGY METHOD 06/20/2024 12:19 PM [facility] MCHC 32.6 32.0 - 37.0 g/dL LAB HEMETOLOGY METHOD 06/20/2024 12:19 PM [facility] RDW 13.8 11.0 - 15.0 % LAB HEMETOLOGY METHOD 06/20/2024 12:19 PM [facility] Platelets 466(H) 130 - 400 K/mcL LAB HEMETOLOGY METHOD 06/20/2024 12:19 PM [facility] MPV 9.7 7.0 - 11.0 FL LAB HEMETOLOGY METHOD 06/20/2024 12:19 PM [facility] NRBC 0.0 <1.0 % LAB HEMETOLOGY METHOD 06/20/2024 12:19 PM EST [facility] NRBC Absolute 0.00 <0.10 K/mcL LAB HEMETOLOGY METHOD 06/20/2024 12:19 PM EST [facility] Blood Venous blood specimen / Unknown Venipuncture / Unknown 06/20/2024 7:20 AM EST 06/20/2024 11:08 AM EST us Judd Johnson MD LAB BLOOD ORDERABLES Final Resul t [facility] [address] [place] [address], documented in this encounter Visit Diagnoses Diagnosis Polyneuropathy, unspecified 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
--- OUTSIDE RECORDS SUMMARY | 2025-04-25 10:37 | XMS_ITS | Encounter Summary ---
Author Organization [facility] Address [id number] [place] [phone] Care Team Providers Care Preservationist Name Role Phone Roro Wilson MD Primary Care Provider [phone]- [phone] Encounter Details Date Type Department Care Team (Latest Contact Info) Description 06/14/2024 Lab Requisition [facility] - Main Lab [address] [facility] [place] [address] Judd Johnson MD [address] [place] [address], [phone] Myelodysplastic syndrome, unspecified (CMS/HCC V24, CMS/HCC [...] CBC auto differential (06/14/2024 5:56 AM EST) [facility] Signature WBC 11.6(H) 4.8 - 10.8 K/mcL LAB HEMETOLOGY METHOD 06/14/2024 10:07 AM [facility] LAB RBC 3.60(L) 3.80 - 4.80 M/mcL LAB HEMETOLOGY METHOD 06/14/2024 10:07 AM [facility] LAB Hemoglobin 11.0(L) 11.5 - 16.0 g/dL LAB HEMETOLOGY METHOD 06/14/2024 10:07 AM [facility] LAB Hematocrit 33.3(L) 35.0 - 47.0 % LAB HEMETOLOGY METHOD 06/14/2024 10:07 AM [facility] LAB MCV 92.0 79.0 - 98.0 FL LAB HEMETOLOGY METHOD 06/14/2024 10:07 AM [facility] LAB MCH 30.4 27.0 - 32.0 pcg LAB HEMETOLOGY METHOD 06/14/2024 10:07 AM [facility] LAB MCHC 33.0 32.0 - 37.0 g/dL LAB HEMETOLOGY METHOD 06/14/2024 10:07 AM [facility] LAB RDW 14.0 11.0 - 15.0 % LAB HEMETOLOGY METHOD 06/14/2024 10:07 AM [facility] LAB Platelets 313 130 - 400 K/mcL LAB HEMETOLOGY METHOD 06/14/2024 10:07 AM [facility] LAB MPV 11.3(H) 7.0 - 11.0 FL LAB HEMETOLOGY METHOD 06/14/2024 10:07 AM [facility] LAB NRBC 0.0 <1.0 % LAB HEMETOLOGY METHOD 06/14/2024 10:07 AM [facility] LAB NRBC Absolute 0.00 <0.10 K/mcL LAB HEMETOLOGY METHOD 06/14/2024 10:07 AM [facility] LAB Neutrophils Relative 75.8 % LAB HEMETOLOGY METHOD 06/14/2024 10:07 AM [facility] LAB Comment:This is an appended report. These results have been appended to a previously preliminary verified report. Lymphocytes Relative 14.1 % LAB HEMETOLOGY METHOD 06/14/2024 10:07 AM [facility] LAB Comment:This is an appended report. These results have been appended to a previously preliminary verified report. Monocytes Relative 7.4 % LAB HEMETOLOGY METHOD 06/14/2024 10:07 AM [facility] LAB Comment:This is an appended report. These results have been appended to a previously preliminary verified report. Eosinophils Relative 0.3 % LAB HEMETOLOGY METHOD 06/14/2024 10:07 AM [facility] LAB Comment:This is an appended report. These results have been appended to a previously preliminary verified report. Basophils Relative 0.3 % LAB HEMETOLOGY METHOD 06/14/2024 10:07 AM [facility] LAB Comment:This is an appended report. These results have been appended to a previously preliminary verified report. Immature Granulocytes Relative 2.1 % LAB HEMETOLOGY METHOD 06/14/2024 10:07 AM [facility] LAB Comment:This is an appended report. These results have been appended to a previously preliminary verified report. Neutrophils Absolute 8.82(H) 1.50 - 7.00 K/mcL LAB HEMETOLOGY METHOD 06/14/2024 10:07 AM [facility] LAB Comment:This is an appended report. These results have been appended to a previously preliminary verified report. Lymphocytes Absolute 1.64 1.00 - 5.00 K/mcL LAB HEMETOLOGY METHOD 06/14/2024 10:07 AM [facility] LAB Comment:This is an appended report. These results have been appended to a previously preliminary verified report. Monocytes Absolute 0.86 0.20 - 1.00 K/mcL LAB HEMETOLOGY METHOD 06/14/2024 10:07 AM EST [facility] LAB Comment:This is an appended report. These results have been appended to a previously preliminary verified report. Eosinophils Absolute 0.03 0.00 - 0.50 K/mcL [facility] 06/14/2024 10:07 AM EST [facility] LAB Comment:This is an appended report. These results have been appended to a previously preliminary verified report. Basophils Absolute 0.04 0.00 - 0.20 K/mcL LAB [facility] METHOD 06/14/2024 10:07 AM EST [facility] LAB Comment:This is an appended report. These results have been appended to a previously preliminary verified report. Immature Granulocytes Absolute 0.24(H) 0.00 - 0.03 K/mcL LAB [facility] METHOD 06/14/2024 10:07 AM EST [facility] LAB Comment:This is an appended report. These results have been appended to a previously preliminary verified report. Blood Venous blood specimen / Unknown Venipuncture / Unknown 06/14/2024 5:56 AM EST 06/14/2024 8:45 AM EST us Judd Johnson MD LAB BLOOD ORDERABLES Final Resul t [facility] LAB [address] [place] [address], * (ABNORMAL) Comprehensive metabolic panel (06/14/2024 5:56 AM EST) Sodium 134 133 - 145 mmol/L LAB CHEMISTRY METHOD 06/14/2024 9:53 AM EST [facility] LAB Potassium 3.6 3.5 - 5.5 mmol/L LAB CHEMISTRY METHOD 06/14/2024 9:53 AM EST [facility] LAB Chloride 100 96 - 110 mmol/L LAB CHEMISTRY METHOD 06/14/2024 9:53 AM [facility] LAB CO2 25 21 - 32 mmol/L LAB CHEMISTRY METHOD 06/14/2024 9:53 AM [facility] LAB Anion Gap 9 3 - 11 LAB CHEMISTRY METHOD 06/14/2024 9:53 AM [facility] LAB Glucose 123(H) 70 - 100 mg/dL LAB CHEMISTRY METHOD 06/14/2024 9:53 AM [facility] LAB BUN 18 5 - 25 mg/dL LAB CHEMISTRY METHOD 06/14/2024 9:53 AM [facility] LAB Creatinine 0.67 0.50 - 1.10 mg/dL LAB CHEMISTRY METHOD 06/14/2024 9:53 AM [facility] LAB eGFR 85 >=60 mL/min/1. 73m2 LAB CHEMISTRY METHOD 06/14/2024 9:53 AM [facility] LAB Comment:Calculation based on the Chronic Kidney Disease Epidemiology Collaboration (CKD-EPI) equation refit without adjustment for race. BUN/Creatinine Ratio 26.9 LAB CHEMISTRY METHOD 06/14/2024 9:53 AM [facility] LAB Calcium 8.2(L) 8.5 - 10.5 mg/dL LAB CHEMISTRY METHOD 06/14/2024 9:53 AM [facility] LAB AST (SGOT) 347(H) 10 - 42 unit/L LAB CHEMISTRY METHOD 06/14/2024 9:53 AM [facility] LAB ALT (SGPT) 206(H) 10 - 60 unit/L LAB CHEMISTRY METHOD 06/14/2024 9:53 AM [facility] LAB Alkaline Phosphatase 194(H) 42 - 121 unit/L LAB CHEMISTRY METHOD 06/14/2024 9:53 AM [facility] LAB Total Protein 6.5 6.0 - 8.0 g/dL LAB CHEMISTRY METHOD 06/14/2024 9:53 AM [facility] LAB Albumin 2.3(L) 3.2 - 5.0 g/dL LAB CHEMISTRY METHOD 06/14/2024 9:53 AM EST [facility] LAB Total Bilirubin 0.9 0.0 - 1.4 mg/dL LAB CHEMISTRY METHOD 06/14/2024 9:53 AM EST [facility] LAB Blood Venous blood specimen / Unknown Venipuncture / Unknown 06/14/2024 5:56 AM EST 06/14/2024 8:45 AM EST us Judd Johnson MD LAB BLOOD ORDERABLES Final Resul t [facility] ([facility] [address] [place] [address], documented in this encounter Visit Diagnoses Diagnosis Myelodysplastic syndrome, unspecified (CMS/HCC V24, CMS/HCC V28) Myelodysplastic syndrome, unspecified Hyperlipidemia, unspecified documented in this encounter Care Teams Preservationist Relationship Specialty Start Date End Date Roro Wilson MD [address] [address] PCP - General Internal Medicine 08/13/24 documented as of this encounter
--- OUTSIDE RECORDS SUMMARY | 2025-04-25 10:37 | XMS_ITS | Encounter Summary ---
Author Organization [facility] Address [address] [place] [address] Care Team Providers Care Supervisor Payroll Name Role Phone Roro Wilson MD Primary Care Provider [phone]- [phone] Encounter Details Date Type Department Care Team (Late st Contact Info) Description 03/20/2025 Lab Requisition [facility] - Main Lab [address] [place] [address] Khanh Kulkarni MD [address] [place] [address] Essential (primary) hypertension Social History [...] LAB CHEMISTRY METHOD 03/21/2025 9:03 AM EDT [facility] Potassium 4.5 3.5 - 5.5 mmol/L LAB CHEMISTRY METHOD 03/21/2025 9:03 AM [facility] LAB Chloride 106 96 - 110 mmol/L LAB CHEMISTRY METHOD 03/21/2025 9:03 AM [facility] LAB CO2 28 21 - 32 mmol/L LAB CHEMISTRY METHOD 03/21/2025 9:03 AM [facility] LAB Anion Gap 4 3 - 11 LAB CHEMISTRY METHOD 03/21/2025 9:03 AM [facility] LAB Glucose 148(H) 70 - 100 mg/dL LAB CHEMISTRY METHOD 03/21/2025 9:03 AM [facility] LAB BUN 16 5 - 25 mg/dL LAB CHEMISTRY METHOD 03/21/2025 9:03 AM [facility] LAB Creatinine 0.84 0.50 - 1.10 mg/dL LAB CHEMISTRY METHOD 03/21/2025 9:03 AM [facility] LAB eGFR 67 >=60 mL/min/1. 73m2 LAB CHEMISTRY METHOD 03/21/2025 9:03 AM [facility] LAB Comment:Calculation based on the Chronic Kidney Disease Epidemiology Collaboration (CKD-EPI) equation refit without adjustment for race. BUN/Creatinine Ratio 19.0 LAB CHEMISTRY METHOD 03/21/2025 9:03 AM [facility] LAB Calcium 9.1 8.5 - 10.5 mg/dL LAB CHEMISTRY METHOD 03/21/2025 9:03 AM [facility] LAB Blood Venous blood specimen / Unknown Venipuncture / Unknown 03/21/2025 5:33 AM EDT 03/21/2025 8:02 AM EDT us Khanh Kulkarni MD LAB BLOOD ORDERABLES Final Resu lt [facility] LAB [address] [place] [address], * (ABNORMAL) Complete blood count (03/21/2025 5:33 AM EDT) [facility] Signature WBC 5.7 4.8 - 10.8 K/mcL LAB HEMETOLOGY METHOD 03/21/2025 8:45 AM [facility] LAB RBC 2.80(L) 3.80 - 4.80 M/mcL LAB HEMETOLOGY METHOD 03/21/2025 8:45 AM [facility] LAB Hemoglobin 8.7(L) 11.5 - 16.0 g/dL LAB HEMETOLOGY METHOD 03/21/2025 8:45 AM [facility] LAB Hematocrit 27.3(L) 35.0 - 47.0 % LAB HEMETOLOGY METHOD 03/21/2025 8:45 AM [facility] LAB MCV 97.2 79.0 - 98.0 FL LAB HEMETOLOGY METHOD 03/21/2025 8:45 AM [facility] LAB MCH 31.0 27.0 - 32.0 pcg LAB HEMETOLOGY METHOD 03/21/2025 8:45 AM [facility] LAB MCHC 31.9(L) 32.0 - 37.0 g/dL LAB HEMETOLOGY METHOD 03/21/2025 8:45 AM [facility] LAB RDW 13.5 11.0 - 15.0 % LAB HEMETOLOGY METHOD 03/21/2025 8:45 AM [facility] LAB Platelets 314 130 - 400 K/mcL LAB HEMETOLOGY METHOD 03/21/2025 8:45 AM [facility] LAB MPV 10.1 7.0 - 11.0 FL LAB HEMETOLOGY METHOD 03/21/2025 8:45 AM [facility] LAB NRBC 0.0 <1.0 % LAB HEMETOLOGY METHOD 03/21/2025 8:45 AM EDT [facility] NRBC Absolute 0.00 <0.10 K/mcL LAB HEMETOLOGY METHOD 03/21/2025 8:45 AM EDT [facility] ([facility] LAB Blood Venous blood specimen / Unknown Venipuncture / Unknown 03/21/2025 5:33 AM EDT 03/21/2025 8:02 AM EDT us Khanh Kulkarni MD LAB BLOOD ORDERABLES Final Resu lt [facility] ([facility]) [facility] LAB [address] [place] [address], documented in this encounter Visit Diagnoses Diagnosis Essential (primary) hypertension Unspecified essential hypertension documented in this encounter Care Teams Supervisor Payroll Relationship Specialty Start Date End Date Roro Wilson MD [address] [place] [phone] PCP - General Internal Medicine 08/13/24 documented as of this encounter
--- OUTSIDE RECORDS SUMMARY | 2025-04-25 10:37 | XMS_ITS | Encounter Summary ---
Author Organization [facility] Address [address] [place] [address] Care Team Providers Care Industrial Chemicals Supervisor Name Role Phone Roro Wilson MD Primary Care Provider [phone]- [phone] Encounter Details Date Type Department Care Team (Late st Contact Info) Description 03/16/[address] [facility] - Main Lab [address] [place] [address] Khanh Kulkarni MD [address] [place] [address] Essential (primary) hypertension Social History [...] LAB CHEMISTRY METHOD 03/18/2025 10:57 AM EDT [facility] Potassium 4.3 3.5 - 5.5 mmol/L LAB CHEMISTRY METHOD 03/18/2025 10:[address] [facility] LAB Chloride 104 96 - 110 mmol/L LAB CHEMISTRY METHOD 03/18/2025 10:[address] [facility] LAB CO2 28 21 - 32 mmol/L LAB CHEMISTRY METHOD 03/18/2025 10:[address] [facility] LAB Anion Gap 5 3 - 11 LAB CHEMISTRY METHOD 03/18/2025 10:[address] [facility] LAB Glucose 150(H) 70 - 100 mg/dL LAB CHEMISTRY METHOD 03/18/2025 10:[address] [facility] LAB BUN 21 5 - 25 mg/dL LAB CHEMISTRY METHOD 03/18/2025 10:[address] [facility] LAB Creatinine 0.94 0.50 - 1.10 mg/dL LAB CHEMISTRY METHOD 03/18/2025 10:[address] [facility] LAB eGFR 58(L) >=60 mL/min/1. 73m2 LAB CHEMISTRY METHOD 03/18/2025 10:[address] [facility] LAB Comment:Calculation based on the Chronic Kidney Disease Epidemiology Collaboration (CKD-EPI) equation refit without adjustment for race. BUN/Creatinine Ratio 22.3 LAB CHEMISTRY METHOD 03/18/2025 10:[address] [facility] LAB Calcium 8.8 8.5 - 10.5 mg/dL LAB CHEMISTRY METHOD 03/18/2025 10:[address] [facility] LAB AST (SGOT) 32 10 - 42 unit/L LAB CHEMISTRY METHOD 03/18/2025 10:[address] [facility] LAB ALT (SGPT) 31 10 - 60 unit/L LAB CHEMISTRY METHOD 03/18/2025 10:[address] [facility] LAB Alkaline Phosphatase 89 42 - 121 unit/L LAB CHEMISTRY METHOD 03/18/2025 10:[address] [facility] LAB Total Protein 6.1 6.0 - [...] Resu lt [facility] [address] [place] [address], * (ABNORMAL) Complete blood count (03/18/2025 5:10 AM EDT) WBC 7.7 4.8 - 10.8 K/mcL LAB HEMETOLOGY METHOD 03/18/2025 10:[address] [facility] LAB RBC 2.70(L) 3.80 - 4.80 M/mcL LAB HEMETOLOGY METHOD 03/18/2025 10:[address] [facility] Hemoglobin 8.4(L) 11.5 - 16.0 g/dL LAB HEMETOLOGY METHOD 03/18/2025 10:[address] [facility] LAB Hematocrit 26.0(L) 35.0 - 47.0 % LAB HEMETOLOGY METHOD 03/18/2025 10:[address] [facility] LAB MCV 96.3 79.0 - 98.0 FL LAB HEMETOLOGY METHOD 03/18/2025 10:[address] [facility] LAB MCH 31.1 27.0 - 32.0 [...] lt [facility] [address] [place] [address], [place] [phone] documented in this encounter Visit Diagnoses Diagnosis Essential (primary) hypertension Unspecified essential hypertension documented in this encounter Care Teams [employer] Supervisor Relationship Specialty Start Date End Date Roro Wilson MD [address] [place] [phone] PCP - General Internal Medicine 08/13/24 documented as of this encounter
--- OUTSIDE RECORDS SUMMARY | 2025-04-25 10:37 | XMS_ITS | Encounter Summary ---
Author Organization [facility] Address [address] [place] [address] Care Team Providers Care Fretted Instrument Repairer Name Role Phone Roro Wilson MD Primary Care Provider [phone]- [phone] Encounter Details Date Type Department Care Team (Late st Contact Info) Description 03/15/2025 Lab Requisition [facility] [address] [place] [address] Khanh Kulkarni MD [address] [place] [address] Essential (primary) hypertension Social History [...] LAB CHEMISTRY METHOD 03/15/2025 11:41 AM EDT [facility] Potassium 4.2 3.5 - 5.5 mmol/L LAB CHEMISTRY METHOD 03/15/2025 11:41 AM [facility] LAB Chloride 102 96 - 110 mmol/L LAB CHEMISTRY METHOD 03/15/2025 11:41 AM [facility] LAB CO2 29 21 - 32 mmol/L LAB CHEMISTRY METHOD 03/15/2025 11:41 AM [facility] LAB Anion Gap 6 3 - 11 LAB CHEMISTRY METHOD 03/15/2025 11:41 AM [facility] LAB Glucose 151(H) 70 - 100 mg/dL LAB CHEMISTRY METHOD 03/15/2025 11:41 AM [facility] LAB BUN 18 5 - 25 mg/dL LAB CHEMISTRY METHOD 03/15/2025 11:41 AM [facility] LAB Creatinine 0.95 0.50 - 1.10 mg/dL LAB CHEMISTRY METHOD 03/15/2025 11:41 AM [facility] LAB eGFR 58(L) >=60 mL/min/1. 73m2 LAB CHEMISTRY METHOD 03/15/2025 11:41 AM [facility] LAB Comment:Calculation based on the Chronic Kidney Disease Epidemiology Collaboration (CKD-EPI) equation refit without adjustment for race. BUN/Creatinine Ratio 18.9 LAB CHEMISTRY METHOD 03/15/2025 11:41 AM [facility] LAB Calcium 8.8 8.5 - 10.5 mg/dL LAB CHEMISTRY METHOD 03/15/2025 11:41 AM [facility] LAB AST (SGOT) 29 10 - 42 unit/L LAB CHEMISTRY METHOD 03/15/2025 11:41 AM [facility] LAB ALT (SGPT) 26 10 - 60 unit/L LAB CHEMISTRY METHOD 03/15/2025 11:41 AM [facility] LAB Alkaline Phosphatase 73 42 - 121 unit/L LAB CHEMISTRY METHOD 03/15/2025 11:41 AM [facility] LAB Total Protein 6.0 6.0 - 8.0 g/dL LAB CHEMISTRY METHOD 03/15/2025 11:41 AM T [facility] LAB Albumin 2.6(L) 3.2 - 5.0 g/dL LAB CHEMISTRY METHOD 03/15/2025 11:41 AM EDT [facility] LAB Total Bilirubin 0.4 0.0 - 1.4 mg/dL LAB CHEMISTRY METHOD 03/15/2025 11:41 AM EDT [facility] LAB Blood Venous blood specimen / Unknown Venipuncture / Unknown 03/15/2025 5:36 AM EDT 03/15/2025 9:55 AM EDT Khanh Kulkarni MD LAB BLOOD ORDERABLES Final Resu lt [facility] [address] [place] [address], * (ABNORMAL) Complete blood count (03/15/2025 5:36 AM EDT) WBC 7.5 4.8 - 10.8 K/mcL LAB HEMETOLOGY METHOD 03/15/2025 10:29 AM [facility] LAB RBC 2.80(L) 3.80 - 4.80 M/mcL LAB HEMETOLOGY METHOD 03/15/2025 10:29 AM [facility] LAB Hemoglobin 8.8(L) 11.5 - 16.0 g/dL LAB HEMETOLOGY METHOD 03/15/2025 10:29 AM [facility] LAB Hematocrit 26.2(L) 35.0 - 47.0 % LAB HEMETOLOGY METHOD 03/15/2025 10:29 AM [facility] LAB MCV 93.2 79.0 - 98.0 FL LAB HEMETOLOGY METHOD 03/15/2025 10:29 AM [facility] LAB MCH 31.3 27.0 - 32.0 pcg LAB HEMETOLOGY METHOD 03/15/2025 10:29 AM EDT [facility] LAB MCHC 33.6 32.0 - 37.0 g/dL LAB HEMETOLOGY METHOD 03/15/2025 10:29 AM EDT [facility] RDW 12.9 11.0 - 15.0 % LAB HEMETOLOGY METHOD 03/15/2025 10:29 AM EDT [facility] Platelets 172 130 - 400 K/mcL LAB HEMETOLOGY METHOD 03/15/2025 10:29 AM EDT [facility] MPV 11.5(H) 7.0 - 11.0 FL LAB HEMETOLOGY METHOD 03/15/2025 10:29 AM EDT [facility] NRBC 0.0 <1.0 % LAB HEMETOLOGY METHOD 03/15/2025 10:29 AM EDT [facility] LAB NRBC Absolute 0.00 <0.10 K/mcL LAB HEMETOLOGY METHOD 03/15/2025 10:29 AM EDT [facility] LAB Blood Venous blood specimen / Unknown Venipuncture / Unknown 03/15/2025 5:36 AM EDT 03/15/2025 9:55 AM EDT us Khanh Kulkarni MD LAB BLOOD ORDERABLES Final Resu lt [facility] [address] [place] [address], [place] [phone] documented in this encounter Visit Diagnoses Diagnosis Essential (primary) hypertension Unspecified essential hypertension documented in this encounter Care Teams Fretted Instrument Repairer Relationship Specialty Start Date End Date Roro Wilson MD [address] [place] [phone] PCP - General Internal Medicine 08/13/24 documented as of this encounter
--- OUTSIDE RECORDS SUMMARY | 2025-04-25 10:38 | XMS_ITS | Encounter Summary ---
Author Organization [facility] Address [address] [facility] [address] [place] [phone] Phone Care Team Providers Care Splicing Supervisor Name Role Phone Roro Wilson MD Primary Care Provider [phone] Pancho Fallon MD Unavailable [phone] Reason for Visit * Reason Onset Date Comments Medication Refill 04/24/2025 Encounter Details Date Type Department Care Team (Late st Contact Info) Description 04/24/2025 Refill [facility] [address] [place] [address] [place] [address] Roro Wilson MD [address] [place] [address], [address] [place] [address] [email or web address] Medication Refill Social History Tobacco Use Types Packs/Day Years [...] as of this encounter Progress Notes * Daina Kaufman MA - 04/24/2025 6:12 PM EST Will have to Fax tomorrow with covering provider's signature due to PCP not in office and pharmacy requires a wet signature on order * Daina Kaufman MA - 04/24/2025 5:41 PM EST Rx Care Gap Status - Instructions for Clinical Staff (prescriber discretion applies): > Mismatch review guide > At least one request does not meet full criteria. Specifics below. > Labs due: Please remind patient. > No new orders needed. A1c Urine Microalbumin Visit Info Last visit: 03/08/2025 Heather Ochoa MD - Family Medicine [facility] > Requested f/u: Not specified Upcoming visit: 04/24/2025 Roro Wilson MD - Family Medicine [facility] ACTIONS TAKEN BY Daina Kaufman MA - Criteria met. Diabetes Rx Protocol (on Diabetes Registry) - [...] MICROALBUMIN/CREATININE RATIO 03/23/2025 * Nidhi Madden - 04/24/2025 4:58 PM EST Patient called in requesting refill for: SITagliptin phosphate (JANUVIA) 50 MG tablet [[id number]] Sent to: [employer] [facility] [[id number]] documented in this encounter Plan of Treatment Upcoming Encounters Date Type Department Care Team (Late st Contact Info) Description 04/29/2025 10:45 AM EST Office Visit [facility] [address] [place] [address] Roro Wilson MD [address] [place] [phone] Janice Buckner, PT [address] [place] [address] [email or web address] 05/07/2025 10:45 AM EST Office Visit [facility] [address] [place] [address] Roro Wilson MD [address] [place] [phone] Janice Buckner, PT [address] [place] [address] [email or web address] 05/14/2025 10:45 AM EST Office Visit [address] [address] Roro Wilson MD [address] [place] [phone] aJnice Buckner, PT [address] [place] [address] [email or web address] 05/21/2025 10:45 AM EST Office Visit [address] [address] Roro Wilson MD [address] [place] [address] Janice Buckner, PT [address] [place] [address] [email or web address] 05/28/2025 10:45 AM EST Office Visit [address] [place] [address] Roro Wilson MD [address] [place] [phone] SitaJanice, PT [address] [place] [address] 06/04/2025 10:45 AM EST Office Visit [facility] [address] [place] [address] Roro Wilson MD [address] [place] [phone] DallamJanice, PT [address] [place] [address] documented as of this encounter Visit Diagnoses Diagnosis Type 2 diabetes mellitus with diabetic polyneuropathy, with long-term current use of insulin documented in this encounter Additional Health Concerns Assessment Noted Time PHQ-9 Depression Total Score: 12 01/13/ 023 6:54 PM EDT PHQ-2 Depression Total Score: 0 02/28/20 25 9:41 AM EDT documented as of this encounter Care Teams Splicing Supervisor Relationship Specialty Start Date End Date Roro Wilson MD [address] [place] [phone] PCP - General Internal Medicine 09/22/20 Pancho Fallon MD [address] [place] [phone] Endocrinology 08/02/23 documented as of this encounter Additional Source Comments The information contained in this document represents components of the legal health record. It is not the complete legal health record.[facility]
--- OUTSIDE RECORDS SUMMARY | 2025-04-25 10:38 | XMS_ITS | Clinical Summary ---
Author Organization [facility] Address [address] [place] [id number] Phone Care Team Providers Care Sales Engagement Manager Name Role Phone Roro Wilson MD Primary Care Provider [phone] Pancho Fallon MD Unavailable [phone] Allergies Active Allergy Reactions Criticality Noted Date Comments Chloroquine GI Upset 11/05/2020 Gabapentin Rash Low 11/05/2020 Lidocaine 06/29/2021 Medications vitamins A,C,Y-txiw-wraydb (PRESERVISION AREDS) [id number] dfkx-de-[id number] Cap Take 1 capsule by mouth 2 [...] 2 (two) times a day. 180 tablet 04/24/20 25 Active SITagliptin phosphate (JANUVIA) 50 MG tabletIndications :Type 2 diabetes mellitus with diabetic polyneuropathy, with long-term current use of insulin Take 1 tablet (50 mg total) by mouth 2 (two) times a day. 180 tablet 03/21/20 25 025 Discontin ued(Reord er) Active Problems [...] PM EST): She has not heard from [facility]. She is concerned that she needs [...] again. Referral placed. Orders: Ambulatory referral to [facility] Physical Therapy Assessment & Plan (11/01/2023 11:27 [...] reviewed the imaging that was done at [facility] when she was last there. We [...] proceed with surgery if needed. 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 12/03/2021 Assessment & [...] Encounters Date Type Department Care Team Description 04/24/[address] [place] [address] Roro Wilson MD Medication Refill 03/20/[address] [place] [address] Roro Wilson MD Medication Refill; Medication Prior Authorization 03/14/[address] [place] [address] Roro Wilson MD Hip Injury 03/12/2025 Orders Only [facility] [address] [place] [address] ProviderRadha MD 03/11/[address] [place] [address] Roro Wilson MD Results 03/08/2025 2:36 PM EDT - 03/08/2025 11:59 PM EDT Hospital Encounter [facility] [place] [place] [address] Heather Ochoa MD Discharge Disposition: Home or Self Care 03/08/2025 2:00 PM EDT Office Visit [address] [place] [address] Heather Ochoa MD Dizzy (Primary Dx); Type 2 diabetes mellitus with diabetic polyneuropathy, with long-term current use of insulin; Hypothyroidism, unspecified type 03/08/[address] [place] [address] Roro Wilson MD 03/08/2025 Telephone [facility] [address] [place] [address] Roro Wilson MD Triage (Ava + dizziness + /) 02/11/[address] [place] [address] Roro Wilson MD Medication Refill; Medication Prior Authorization 02/11/[address] [place] [address] Roro Wilson MD Medication Question 02/07/[address] [place] [address] Roro Wilson MD Medication Refill from Last [...] Description 04/29/2025 10:45 AM EST Office Visit [address] [address] Roro Wilson MD [address] [place] [address] Janice Buckner, PT [address] [place] [address] [email or web address] 05/07/2025 10:45 AM EST Office Visit [address] [address] Roro Wilson MD [address] [place] [address] Janice Buckner, PT [address] [place] [address] [email or web address] 05/14/2025 10:45 AM EST Office Visit [address] [address] Roro Wilson MD [address] [place] [address] Janice Buckner, PT [address] [place] [address] 05/21/2025 10:45 AM EST Office Visit [address] [address] Roro Wilson MD 170 [facility], [address] [place] [address] Janice Buckner, PT [address] [place] [address] 05/28/2025 10:45 AM EST Office Visit [address] [address] Roro Wilson MD 170 [facility], [address] [place] [address] Janice Buckner, PT [address] [place] [address] 06/04/2025 10:45 AM EST Office Visit [address] [address] Roro Wilson MD [address] [place] [address], [address] [place] [address] Janice Buckner, PT [address] [place] [address] Health Maintenance Due Date Last Done Comments [...] (03/11/2025 12:08 PM EDT) Historical Provider MD GONZALEZ BIRD CHEST Edited Re sult - Final * Outside Imaging Report Only (03/11/2025 12:07 PM EDT) Historical Provider MD ROTH XR CHEST Edited Re sult - Final * Outside Imaging Report Only (03/11/2025 12:07 PM EDT) Historical Provider MD ROTH XR CHEST Edited Re sult - Final * Outside Imaging Report Only (03/11/2025 12:06 PM EDT) Historical Provider MD ROHT XR CHEST Edited Re sult - Final * Outside Imaging Report Only (03/11/2025 12:05 PM EDT) us Historical Provider MD ROTH XR CHEST Edited Re sult - Final * (ABNORMAL) CBC and differential (03/08/2025 2:49 PM EDT) WBC 6.32 4.00 - 11.00 K/uL [facility] RBC 3.99(L) 4.00 - 5.20 M/uL [facility] HGB 12.5 12.0 - 16.0 g/dL [facility] HCT 37.9 36.0 - 46.0 % [facility] PLT 200 150 - 450 K/uL [facility] MCV 95.0 80.0 - 100.0 fL [facility] MCH 31.3(H) 27.0 - 31.0 pg [facility] MCHC 33.0 32.0 - 36.0 g/dL [facility] RDW 13.2 11.5 - 14.5 % [facility] MPV 11.6 8.4 - 12.0 fL [facility] NRBC 0.00 0.00 /100 WBCs [facility] ABSOLUTE NRBC 0.00 0.00 K/uL [facility] DIFF METHOD Auto [facility] NEUTS 58.3 48.0 - 76.0 % [facility] LYMPHS 32.0 18.0 - 41.0 % [facility] MONOS 7.9 4.0 - 11.0 % [facility] EOS 0.9 0.0 - 5.0 % [facility] BASOS 0.6 0.0 - 1.5 % [facility] Granulocytes, immature (%) 0.3 0.0 - 0.9 % [facility] ABSOLUTE NEUTS 3.68 1.92 - 7.60 K/uL [facility] ABSOLUTE LYMPHS 2.02 0.72 - 4.10 K/uL [facility] ABSOLUTE MONOS 0.50 0.16 - 1.10 K/uL [facility] ABSOLUTE EOS 0.06 0.00 - 0.50 K/uL [facility] ABSOLUTE BASOS 0.04 0.00 - 0.15 K/uL [facility] Granulocytes, immature 0.02 0.00 - 0.09 K/uL [facility] Blood 03/08/2025 2:49 PM EDT 03/08/2025 2:55 PM EDT us Roro Wilson MD LAB BLOOD BKR ORDERABLES Fi nal Result [address] [address] * TSH (03/08/2025 2:49 PM EDT) TSH 2.05 0.27 - 4.20 uIU/mL [facility] Blood 03/08/2025 2:49 PM EDT 03/08/2025 2:55 PM EDT us Heather Ochoa MD LAB BLOOD BKR ORDERABLES Jazmín l Result Performing Organization Address City/[facility]/ZIP Co de Phone Number [address] [address] * (ABNORMAL) Lipid panel (03/08/2025 2:49 PM EDT) HDL 61 mg/dL [facility] Comment: Interpretation <40 mg/dL: Low HDL cholesterol (major risk factor for CHD) Greater than or equal to 60 mg/dL: High HDL cholesterol ( negative risk factor for CHD) HDL - cholesterol is affected by a number of factors, e.g. smoking, excerise, hormones, sex and age. CHOLESTEROL 176 0 - 240 mg/dL [facility] TRIGLYCERIDES 149 30 - 160 mg/dL [facility] LDL 85 50 - 129 mg/dL [facility] Comment: LDL levels in terms of risk for coronary heart disease: <100 mg/dL: Optimal 100-129 mg/dL: Near or above optimal 130-159 mg/dL: Borderline high 160-189 mg/dL: High >190 mg/dL: Very High CARDIAC RISK RATIO 2.9(L) 3.3 - 4.4 C [facility] Blood 03/08/2025 2:49 PM EDT 03/08/2025 2:55 PM EDT Roro Wilson MD LAB BLOOD BKR ORDERABLES Fi nal Result Performing Organization Address City/[facility]/ZIP Co de Phone Number [address] [address] * (ABNORMAL) Basic metabolic panel (03/08/2025 2:49 PM EDT) SODIUM 138 133 - 146 mmol/L [facility] CHLORIDE 104 96 - 108 mmol/L [facility] POTASSIUM 4.1 3.3 - 5.1 mmol/L [facility] CO2 25 21 - 35 mmol/L [facility] BUN 16 6 - 19 mg/dL [facility] CREATININE 0.70 0.5 - 1.5 mg/dL [facility] GLUCOSE 156(H) 70 - 99 mg/dL [facility] CALCIUM 10.0 8.4 - 10.3 mg/dL [facility] EGFR 83 >59 mL/min/1.7 3m2 [facility] Comment:Estimated glomerular filtration rate calculated using the CKD-EPI refit equation. ANION GAP 13 10 - 20 mmol/L [facility] Blood 03/08/2025 2:49 PM EDT 03/08/2025 2:55 PM EDT Roro Wilson MD LAB BLOOD BKR ORDERABLES Fi nal Result Performing Organization Address [facility] Co de Phone Number [address] [address] * (ABNORMAL) Hemoglobin A1c (07/02/2024 11:29 AM EST) HEMOGLOBIN A1C 6.7(H) 4.3 - 5.8 % [facility] Blood 07/02/2024 11:2 9 AM EST 07/02/2024 11:32 AM EST Pancho Fallon MD LAB BLOOD BKR ORDERABLES Fin al Result Performing Organization Address City/[facility]/ZIP Co de Phone Number [address] [address] * DEXA SCAN (08/03/2023 10:47 AM EDT) Pancho Fallon MD HEALTH MAINTENANCE Final Res ult * Microalbumin/creatinine ratio, random urine (10/16/2021 1:30 PM EDT) URINE MICROALBUMIN <1.2 0 - 2.3 mg/dL [facility] URINE CREATININE 61 mg/dL [employer] [facility] MICROALB/CRE RATIO NOT CALCULATED 0 - 20 mg/g Cre [facility] Comment:due to Microalbumin <1.2 Urine (Urine) 10/16/2021 1:3 0 PM EDT 10/16/2021 4:07 PM EDT Pancho Fallon MD LAB URINE ORDERABLES Final R esult [facility] [address] [place] [address] * DIABETES EYE EXAM FOR RESULT ENTRY ONLY (09/15/2021) Historical Provider HEALTH MAINTENANCE Edited Result - Final from Last 3 Months or Most Recently Relevant to Health Maintenance Insurance [employer] MEDEX SUPPLEMENT MEDICARE PART A & B [employer] MEDEX SUPPLEMENT MEDICARE PART A & B [employer] SUPPLEMENT MEDICARE PART A & B [employer] MEDEX SUPPLEMENT MEDICARE PART A & B [employer] MEDEX SUPPLEMENT MEDICARE PART A & B [email or web address] CROSS MEDEX SUPPLEMENT MEDICARE PART A & B [email or web address] CROSS MEDEX SUPPLEMENT MEDICARE PART A & B [employer] MEDEX SUPPLEMENT MEDICARE PART A & B [facility] MEDEX SUPPLEMENT MEDICARE PART A & B Advance Directives For more information, please contact: [phone] (9AM - 5PM [facility], Tuesday-Tuesday) Documents on File Type Date Recorded Patient Priest Expl anation Healthcare Proxy 06/26/2024 [facility] health care proxy 06/26/24 Care Teams Sales Engagement Manager Relationship Specialty Start Date End Date Roro Wilson MD [address] [place] [address], [address] [place] [address] PCP - General Internal Medicine 09/22/20 Pancho Fallon MD [address] [place] [address] [email or web address] Endocrinology 08/02/23 Additional Source Comments The information contained in this document represents components of the legal health record. It is not the complete legal health record.[facility]
== END 2025-04-22 09:23 | disposition home or self-care (01) ==
LOC: HO.HOSX 09:22
PROVIDERS: Visit Provider Physician Assistant
DX: S82.201D Unspecified fracture of shaft of right tibia, subsequent encounter for closed fracture with routine healing (principal); X58.XXXD Exposure to other specified factors, subsequent encounter; Z79.01 Long term (current) use of anticoagulants; Z79.899 Other long term (current) drug therapy
CPT/HCPCS: 73560; 99212